=== PATIENT | female | born 1950 | race Caucasian/White ===

== ENCOUNTER 2020-03-17 11:20 | Inpatient (IN) ==
[2020-03-17] MEDS ORDERED: IOPAMIDOL 100 ML BOTTLE IV ONE (11:21)
[2020-03-17] MEDS ORDERED: ACETAMINOPHEN 325 MG TABLET PO ONE (11:51)
[2020-03-17] MEDS ORDERED: 0.9 % SODIUM CHLORIDE 500 ML IV ONE (11:51)
--- NOTE | 2020-03-17 12:03 | Emergency Department Note ---
HPI General Chief complaint: Urogenital-Female Stated complaint: possible UTI Time Seen by Provider: 03/17/20 11:25 Source: patient Mode of arrival: ambulatory Limitations: physical limitation (Patient is profoundly morbidly obese making the abdominal exam very difficult.) History of Present Illness HPI Narrative: Narrative: 69-year-old female patient presents emergency department with chief complaint of persistent fevers and "wanting to be checked out". Patient was seen in the emergency department initially on 03/02 and diagnosed with gastroenteritis. She was treated conservatively with oral Zofran and told to follow-up with her primary care provider. Unfortunately, she returned on 03/04 and during that time was diagnosed with urinary tract infection. She was treated with a course of Macrobid. Urine culture obtained grew out E. coli that was pansensitive including to Macrobid. She denies dysuria. She admits to ongoing urinary frequency. She is wanting to make sure that the "infection has cleared". Today, she is somewhat vague on her chief complaint and mentions worsening chronic pain to the left shoulder. She mentions a longstanding history of arthritic changes and is currently being followed by orthopedic surgeon. She is scheduled to see Dr. Sanchez next month to sort this out. She generally is simply not feeling well. ROS: Denies headaches, tinnitus, or vision changes. 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 Denies runny nose, sinus congestion, or cough. Denies shortness of breath. Denies retrosternal chest pain or palpitations. Denies abdominal pain, nausea, vomiting, or diarrhea. Denies generalized or focal weakness. Related Data Home Medications Medication Instructions Recorded Confirmed atorvastatin 20 mg tablet 20 mg PO QDAY 08/28/19 03/17/20 metoprolol tartrate 50 mg tablet 50 mg PO BID 08/28/19 03/17/20 levothyroxine 50 mcg capsule 60 mcg PO .twice a week cap 03/13/20 03/17/20 tizanidine 4 mg tablet 4 mg PO Q8H PRN tab 03/13/20 03/13/20 apixaban [Eliquis] 5 mg PO BID 03/17/20 03/17/20 cyclosporine [Restasis] 1 drp OPHTHALMIC (EYE) Q12H 03/17/20 03/17/20 diltiazem HCl 120 mg PO BID 03/17/20 03/17/20 dulaglutide [Trulicity] 1.5 mg SUBCUT ONCE 03/17/20 03/17/20 gabapentin 540 mg PO TID 03/17/20 03/17/20 insulin glargine [Basaglar KwikPen 40 unit SUBCUT QDAY 03/17/20 03/17/20 U-100 Insulin] nystatin 10,000 applic TOPICAL PRN PRN 03/17/20 03/17/20 Previous Rx's Medication Instructions Recorded allopurinol 300 mg tablet 300 mg PO QDAY #90 tab 11/01/19 furosemide 80 mg tablet 80 mg PO BID #60 tab 12/17/19 potassium chloride 10 mEq 20 meq PO TID #180 cap 12/17/19 capsule,extended release trazodone 50 mg tablet 50 mg PO QHS PRN #30 tab 12/17/19 insulin glargine 100 unit/mL (3 40 unit SUB-Q QDAY #15 ml 12/27/19 mL) subcutaneous pen losartan 25 mg tablet 25 mg PO QDAY #90 tab 01/06/20 Allergies Allergy/AdvReac Type Severity Reaction Status Date / Time metformin Allergy Unknown Diarrhea Verified 03/13/20 11:06 morphine AdvReac Unknown Hallucinati Verified 03/13/20 11:06 ng Review of Systems ROS Narrative: Narrative: All systems ED: reviewed and negative except as stated. [facility] Narrative Patient History Narrative: Narrative: Medical/Surgical/Family History All Active Problems (Updated 03/17/20 @ 16:14 by Chi Franco PA-C) Sepsis (Acute) Acute interstitial pneumonia (Acute) Panniculitis (Acute) Morbid obesity (Acute) Chronic left shoulder pain (Acute) Morbid obesity with BMI of 50.0-59.9, adult (Acute) Gastroenteritis (Acute) Acute UTI (Acute) Dehydration (Acute) Diabetes mellitus with hyperglycemia (Acute) Thyroid trouble (Chronic) Joint pain (Chronic) High blood pressure (Chronic) Congestive heart failure (Chronic) Gout (Chronic) Gallbladder problem (Chronic) Blood disorder (Chronic) Asthma (Chronic) Medical History Asthma (Chronic) Blood disorder (Chronic) Factor 5 Congestive heart failure (Chronic) Gallbladder problem (Chronic) Has been removed. Gout (Chronic) High blood pressure (Chronic) Joint pain (Chronic) Left shoulder. Thyroid trouble (Chronic) Type 2 diabetes mellitus (Inactive) Surgical History History of appendectomy (Chronic) History of cholecystectomy (Chronic) History of hernia repair (Chronic) Ventral History of hip replacement (Chronic) History of hysterectomy (Chronic) History of knee surgery (Chronic ~1967) Knee arthroscopy with medial meniscectomy History of oophorectomy (Chronic) History of removal of ovarian cyst (Chronic) Family History Mother Arthritis Brother Diabetes Father Heart attack Social History Smoking Status: Never smoker Alcohol Intake Frequency: does not drink Substance Use: does not use Exam Narrative Narrative: Narrative: General Limitations: physical limitation (Patient is profoundly morbidly obese making the abdominal exam very difficult.) General appearance: other (Well-developed, well-nourished, morbidly obese 69-year-old female patient laying semierect gurney in no acute respiratory distress. She is speaking full complete sentences. She is not using accessory muscles. No nasal flaring. We had considerable difficulties obtaining SPO2 using a finger probe due to distal cyanosis. Central probe on the forehead showed a 100% SPO2.) Head Head: atraumatic and normocephalic Expanded Head Head physical: Present other (Right-sided facial droop noted.) Eye Eye: Present normal appearance, PERRL and EOMI; Absent scleral icterus and conjunctival injection ENT ENT: Present normal oropharynx and mucous membranes dry Neck Neck: Present normal inspection and full ROM; Absent lymphadenopathy Chest Chest: Present symmetric chest wall rise Respiratory Respiratory: Present decreased breath sounds (Breath sounds are distant due to body habitus. No adventitious sounds noted.); Absent respiratory distress, rales/crackles, wheezes, accessory muscle use and prolonged expiratory phase Cardiovascular Cardiovascular: Present normal rhythm, tachycardia, systolic murmur and diastolic murmur Adbominal Abdominal: Present soft, distention, diminished bowel sounds, organomegaly (Unable to appreciate organomegaly associated with significant obesity.) and other (Patient has considerably large pannus. This was lifted to reveal significant excoriations to both right and left sides. Patient has been applying cream so there was some moisture in lather associated with this. Patient had been placing a barrier piece of fabric which was removed. No obvious ulcerations. No obvious drainage.); Absent tenderness, guarding, rebound and rigidity Extremities Extremities: Present tenderness (Exquisite tenderness palpation throughout the entire left shoulder joint) and cyanosis (Distal cyanosis to the upper extremities noted.); Absent full ROM (Decreased range of motion to the left shoulder joint.), normal capillary refill (Fingertips have a bluish tint throughout. Capillary refill decreased to 3 seconds.) and pedal edema Neurological Neurological: Present alert and oriented X3 Psychiatric Psychiatric: Present normal affect, normal mood and pleasant Skin Skin: Present warm, dry, rash (To pannus) and cyanosis (To fingertips) Course Course Course Narrative: Patient is very pleasant upon arrival and has. She mentions chronic left shoulder pain but her real issue is wanting to be checked out to ensure that the urinary tract infection has resolved. She is febrile and somewhat tachycardic in the emergency department. We had considerable difficulty obtaining an SPO2 at the fingertips. SPO2 centrally was at 100% on room air. Due to her significant comorbidities and fever were going to order portable chest x-ray, screening laboratory studies, and provider acetaminophen 975 mg p.o. Patient had somewhat dry mucous membranes and will be provided 500 mL normal saline. Upon reevaluation patient is resting comfortably in emergency room [facility]. A review of her diagnostics show the following: CBC WBC 18.4, RBC 4.68, hemoglobin 14.0, crit of 43.7, platelets 247. CMP chloride 95, glucose 171, all others normal limits. Lactic acid 2.4. Procalcitonin 0.08. Urinalysis showing clear yellow urine specific gravity 1.016, no clear evidence of infection. Portable chest x-ray showing no acute abnormality. After reviewing all the data I went discussed these findings briefly with the patient. She appears to be septic. Knowing this, blood cultures were ordered. Patient was started on Zosyn 3.337 g IV in conjunction with vancomycin (dosed per the pharmacy). I discussed the case briefly my collaborating physician (Dr. Alarcon) who also evaluated the patient. She does have considerable inflammation, excoriation, and skin breakdown to her pannus. This may be the site of infection. This could also be fungal infections with Dr. Alarcon recommended starting fluconazole IV. Afterward, I reached out to the hospitalist (Dr. Abel) about possibly admitting the patient here for ongoing care. The hospitalist recommended obtaining CT scan with contrast of the chest, abdomen, and pelvis prior to make a determination for admission. The CT scans was ordered as requested. CT scan with contrast of the chest, abdomen, and pelvis read by the radiologist. There was noted a large fluid collection in the right anterior abdominal wall. Radiologist mentioned this is likely a seroma or chronic hematoma following a prior hernia repair. He mentioned there is been no change to suggest that this is developed into an abscess. Several small cysts in the pancreas were noted. These are likely benign versus malignant. She also mentioned mild pneumonia to the right lower lobe with subtle interstitial infiltrate left lower lobe. After reviewing this new data I reached back out to the hospitalist (Dr. Abel) and discussed the findings. At this time the hospitalist has consented to admit the patient for ongoing care. He was going to consult with the radiologist about possible drainage of this fluid collection. All further treatment decisions, modalities, and ultimate patient disposition will be carried out by the hospitalist. Vital Signs Vital signs: Vital Signs Temperature 98.7 F 03/17/20 11:22 Pulse Rate 108 H 03/17/20 11:22 Respiratory Rate 16 03/17/20 11:22 Blood Pressure 122/57 03/17/20 11:22 Pulse Oximetry (%) 85 L 03/17/20 11:22 Temperature 101.0 F H 03/17/20 16:45 Pulse Rate 99 H 03/17/20 16:45 Respiratory Rate 24 H 03/17/20 16:45 Blood Pressure 115/56 03/17/20 16:45 Pulse Oximetry (%) 98 03/17/20 16:45 [facility] MDM Narrative Medical decision making narrative: Narrative: Lab Data Lab results reviewed: Yes I reviewed the patient's lab results. Result diagrams: 03/17/20 12:00 03/17/20 12:00 Labs: Lab Results 03/17/20 03/17/20 03/17/20 Range/Units 12:00 12:00 12:00 WBC 18.4 H (4.50-11.00) K/mcL RBC 4.68 (3.59-5.38) M/mcL Hgb 14.0 (11.2-15.7) g/dL Hct 43.7 (34.1-44.9) % MCV 93.4 (80.0-100.0) fL MCH 29.9 (26.0-34.0) pg MCHC 32.0 (31.0-36.0) g/dL RDW 16.1 H (11.5-14.5) % Plt Count 247 (140-440) K/mcL MPV 11.2 H (7.4-10.4) fL Gran % 88.5 H (38.0-78.0) % Lymph % (Auto) 6.3 L (15.5-49.0) % [place] % (Auto) 4.8 (1.0-12.0) % Eos % (Auto) 0.1 (0.0-7.0) % Baso % (Auto) 0.3 (0.0-2.0) % Gran # 16.32 H (1.80-8.00) K/mcL Lymph # (Auto) 1.16 L (1.50-4.80) K/mcL [place] # (Auto) 0.89 (0.10-0.90) K/mcL Eos # (Auto) 0.01 (0.00-0.70) K/mcL Baso # (Auto) 0.05 (0.00-0.30) K/mcL VBG Lactic Acid 2.4 H (0.5-2.0) mmol/L Sodium 138 (133-145) mmol/L Potassium 4.2 (3.3-5.1) mmol/L Chloride 95 L (96-108) mmol/L Carbon Dioxide 29 (22-30) mmol/L Anion Gap 14.0 (8-16) BUN 14 (8-23) mg/dl Creatinine 0.8 (0.6-1.1) mg/dl GFR Calculation 75 Glucose 171 H (70-105) mg/dL Calcium 8.8 (8.6-10.4) mg/dl Total Bilirubin 0.8 (0.0-1.0) mg/dL AST 11 (0-37) U/l ALT 10 (0-40) U/l Alkaline Phosphatase 68 (39-117) U/L Total Protein 6.7 (5.9-8.4) gm/dL Albumin 3.4 (3.2-5.2) gm/dL Globulin 3.3 (2.2-3.7) gm/dL Albumin/Globulin Ratio 1.0 (1.0-2.3) Procalcitonin (<0.10) ng/mL Urine Color Urine Appearance Urine pH (5.0-9.0) Ur Specific [place] (1.000-1.035) Urine Protein (NEG) mg/dL Urine Glucose (UA) (NEG) mg/dL Urine Ketones (NEG) mg/dL Urine Occult Blood (<0.03) mg/dL Urine Nitrate (NEG) Urine Bilirubin (NEG) mg/dL Urine Urobilinogen (NEG) mg/dL Ur Leukocyte Esterase (NEG) /uL Urine RBC (0-1) /hpf Urine WBC (0-4) /hpf Ur Squamous Epith Cells (0-4) /hpf Urine Bacteria (0) /hpf Hyaline Casts (0-2) /lpf Urine Mucus (0) /hpf 03/17/20 03/17/20 Range/Units 12:00 12:02 WBC (4.50-11.00) K/mcL RBC (3.59-5.38) M/mcL Hgb (11.2-15.7) g/dL Hct (34.1-44.9) % MCV (80.0-100.0) fL MCH (26.0-34.0) pg MCHC (31.0-36.0) g/dL RDW (11.5-14.5) % Plt Count (140-440) K/mcL MPV (7.4-10.4) fL Gran % (38.0-78.0) % Lymph % (Auto) (15.5-49.0) % [place] % (Auto) (1.0-12.0) % Eos % (Auto) (0.0-7.0) % Baso % (Auto) (0.0-2.0) % Gran # (1.80-8.00) K/mcL Lymph # (Auto) (1.50-4.80) K/mcL [place] # (Auto) (0.10-0.90) K/mcL Eos # (Auto) (0.00-0.70) K/mcL Baso # (Auto) (0.00-0.30) K/mcL VBG Lactic Acid (0.5-2.0) mmol/L Sodium (133-145) mmol/L Potassium (3.3-5.1) mmol/L Chloride (96-108) mmol/L Carbon Dioxide (22-30) mmol/L Anion Gap (8-16) BUN (8-23) mg/dl Creatinine (0.6-1.1) mg/dl GFR Calculation Glucose (70-105) mg/dL Calcium (8.6-10.4) mg/dl Total Bilirubin (0.0-1.0) mg/dL AST (0-37) U/l ALT (0-40) U/l Alkaline Phosphatase (39-117) U/L Total Protein (5.9-8.4) gm/dL Albumin (3.2-5.2) gm/dL Globulin (2.2-3.7) gm/dL Albumin/Globulin Ratio (1.0-2.3) Procalcitonin 0.08 (<0.10) ng/mL Urine Color Yellow Urine Appearance Clear Urine pH 5.0 (5.0-9.0) Ur Specific [place] 1.016 (1.000-1.035) Urine Protein Neg (NEG) mg/dL Urine Glucose (UA) Negative (NEG) mg/dL Urine Ketones Neg (NEG) mg/dL Urine Occult Blood Neg (<0.03) mg/dL Urine Nitrate Neg (NEG) Urine Bilirubin Neg (NEG) mg/dL Urine Urobilinogen Neg (NEG) mg/dL Ur Leukocyte Esterase Neg (NEG) /uL Urine RBC < 1 (0-1) /hpf Urine WBC < 1 (0-4) /hpf Ur Squamous Epith Cells < 1 (0-4) /hpf Urine Bacteria 0 (0) /hpf Hyaline Casts 2 (0-2) /lpf Urine Mucus Few (0) /hpf Radiology Data Radiology results reviewed: Yes I reviewed the patient's radiology results. Radiology results narrative: Ordering Physician: Chi Franco PA-C Date of Service: 03/17/20 Procedure(s): XR chest 1V portable Accession Number(s): [id number] HISTORY: History of congestive heart failure and possible infection FINDINGS: There are two thin linear bands of scar tissue laterally in the left mid and lower thorax. The lungs are otherwise clear without evidence of pneumonia or congestive heart failure. Heart size is upper limits of normal but magnified by portable technique. There is no pleural effusion. Comparison with the prior exam from 04/29/19 shows no change. IMPRESSION: No acute abnormality Interpreted and Authenticated by: Zacarias Brooks 03/17/20 Ordering Physician: Chi Franco PA-C Date of Service: 03/17/20 Procedure(s): CT chest abdomen pelvis w con Accession Number(s): [id number] History: Sepsis unknown known origin TECHNIQUE: Following injection of intravenous nonionic contrast the patient was scanned from the thoracic inlet through the symphysis pubis. Sagittal, coronal and axial MIPS images of the chest were obtained. The radiation exposure was limited using dose reduction technology. FINDINGS: CHEST: There are a few linear bands of scar tissue in the lingula and right middle lobe. A small interstitial infiltrate is developed posteriorly and laterally in the right lower lobe and there is also thickening of the interlobular septa in the posterior basal segment of the left lower lobe. Scarring in the right middle lobe and lingula is unchanged from prior chest CT done on 04/26/19. The interstitial infiltrates in the lung bases have developed since that time. There is no lobar consolidation. There is also no evidence of lung mass, abscess or pleural effusion. There are a few reactive lymph nodes in the mediastinum. Heart size is normal. The central pulmonary arteries are normal. Peripheral pulmonary arteries cannot be evaluated due to washout of contrast. Aorta is normal in caliber. Abdomen and pelvis: The liver and spleen are normal in size and homogeneous. Gallbladder and appendix have been removed. The bile ducts are nondilated. There few cysts in the pancreas. The largest is in the mid body and measures 1.2 x 1.4 cm. This has not changed since 04/26/19. There are other smaller cysts in and adjacent to the neck of the pancreas which measure up to 7 mm. These were not seen on the prior exam. No solid mass is seen in the pancreas. There is no evidence of acute pancreatitis. No calcifications are present in the pancreas in the duct is nondilated. There is a moderate size duodenal diverticulum along the medial side of the second portion which measures 3.5 x 4.4 cm. It hasn't enlarged. There is no surrounding inflammation. The adrenals and kidneys are normal. The aorta is normal in caliber. There are few small scattered plaques in the distal aorta and the iliac arteries. Patient has had prior ventral hernia repair. There is mesh anteriorly in the right side of the mid abdomen and upper pelvis. Lateral to the mesh there is a large loculated fluid collection in the deep subcutaneous fat. Measures 7.1 x 14 x 19 cm. There is little inflammation of the surrounding fat. This is a chronic finding with little change since 04/26/19. No intra-abdominal or pelvic abscess are present. Patient has metal bilateral hip prosthesis which creates significant beam hardening artifact through the lower pelvis. The urinary bladder is decompressed by a catheter. Uterus and ovaries cannot be evaluated. IMPRESSION: Large fluid collection in the right anterior abdominal wall. This is probably a seroma or chronic hematoma following a prior hernia repair There is been no change to suggest that this is developed into an abscess. Several small cysts in the pancreas which have increased in number since 2019. These are more likely benign than malignant. Mild pneumonia in the right lower lobe with subtle interstitial infiltrate in left lower lobe Chi Franco was called with the results Interpreted and Authenticated by: Zacarias Brooks 03/17/20 Discharge Plan Patient/Caregiver Discharge Instructions Pt seen by HEMSTITCHER/PA only: Yes Clinical Impression: Acute interstitial pneumonia, Panniculitis, Morbid obesity, Chronic left shoulder pain Sepsis Qualifiers: Sepsis type: sepsis due to unspecified organism Sepsis acute organ dysfunction status: without acute organ dysfunction Qualified Code(s): A41.9 - Sepsis, unspecified organism Patient Disposition: Xfer As Inpt ([facility]) Discharge Date/Time: 03/17/20 16:43
--- NOTE | 2020-03-17 12:35 | XRay Report ---
HISTORY: History of congestive heart failure and possible infection FINDINGS: There are two thin linear bands of scar tissue laterally in the left mid and lower thorax. The lungs are otherwise clear without evidence of pneumonia or congestive heart failure. Heart size is upper limits of normal but magnified by portable technique. There is no pleural effusion. Comparison with the prior exam from 04/29/19 shows no change. IMPRESSION: No acute abnormality Interpreted and Authenticated by: Zacarias Brooks 03/17/20
[2020-03-17 12:58] LABS: Basophils # (Auto) 0.05 K/mcL (0.00-0.30); Basophils % (Auto) 0.3 % (0.0-2.0); Eosinophils # (Auto) 0.01 K/mcL (0.00-0.70); Eosinophils % (Auto) 0.1 % (0.0-7.0); Granulocytes % (Auto) 88.5 % (38.0-78.0); Hematocrit 43.7 % (34.1-44.9); Lymphocytes # (Auto) 1.16 K/mcL (1.50-4.80); Lymphocytes % (Auto) 6.3 % (15.5-49.0); Mean Cell Volume 93.4 fL (80.0-100.0); Mean Platelet Volume 11.2 fL (7.4-10.4); Monocytes # (Auto) 0.89 K/mcL (0.10-0.90); Monocytes % (Auto) 4.8 % (1.0-12.0); Platelet Count 247 K/mcL (140-440); RBC 4.68 M/mcL (3.59-5.38); Red Cell Distribution Width 16.1 % (11.5-14.5); WBC 18.4 K/mcL (4.50-11.00)
[2020-03-17 13:04] LABS: Appearance,Urine CLEAR; Bacteria,Urine 0 /hpf (0); Bilirubin,Urine NEG (NEG); Color,Urine YELLOW; Glucose,Urine (UA) NEGATIVE (NEG); Ketones,Urine NEG (NEG); Leukocyte Esterase,Urine NEG /uL (NEG); Mucus,Urine FEW /hpf (0); Nitrate,Urine NEG (NEG); Protein,Urine NEG (NEG); Specific Gravity,Urine 1.016 (1.000-1.035); Urine Blood NEG mg/dL (<0.03); Urine Hyaline Cast 2 /lpf (0-2); Urine RBC < 1 /hpf (0-1); Urine Squamous Epithelial Cell < 1 /hpf (0-4); Urine WBC < 1 /hpf (0-4); Urobilinogen,Urine NEG (NEG)
[2020-03-17] MEDS ORDERED: PIPERACILLIN SODIUM/TAZOBACTAM 3.375 GM in DEXTROSE 5% IN WATER 50 ML IV ONE (13:24)
[2020-03-17] MEDS ORDERED: VANCOMYCIN PER PHARMACY IV ONE ×2 (13:24→16:45)
[2020-03-17] MEDS ORDERED: 0.9 % SODIUM CHLORIDE 1,000 ML IV ONE (13:26)
[2020-03-17 13:28] LABS: ALT/SGPT 10 U/l (0-40); AST/SGOT 11 U/l (0-37); Albumin 3.4 gm/dL (3.2-5.2); Alkaline Phosphatase 68 U/L (39-117); Bilirubin,Total 0.8 mg/dL (0.0-1.0); Blood Urea Nitrogen 14 mg/dl (8-23); Calcium 8.8 mg/dl (8.6-10.4); Carbon Dioxide 29 mmol/L (22-30); Chloride 95 mmol/L (96-108); Globulin 3.3 gm/dL (2.2-3.7); Glomerular Filtration Rate 75; Glucose 171 mg/dL (70-105)
[2020-03-17] MEDS ORDERED: VANCOMYCIN 1,500 MG in 0.9 % SODIUM CHLORIDE 500 ML IV ONE (13:45)
[2020-03-17] MEDS ORDERED: FLUCONAZOLE 200 MG/100 ML BAG IV SCH (14:00)
[2020-03-17] MEDS ORDERED: IBUPROFEN 200 MG TABLET PO ONE (14:39)
[2020-03-17] MEDS ORDERED: 0.9 % SODIUM CHLORIDE 1,000 ML IV SCH ×3 (15:15→16:45)
--- NOTE | 2020-03-17 15:32 | Cat Scan Report ---
History: Sepsis unknown known origin TECHNIQUE: Following injection of intravenous nonionic contrast the patient was scanned from the thoracic inlet through the symphysis pubis. Sagittal, coronal and axial MIPS images of the chest were obtained. The radiation exposure was limited using dose reduction technology. FINDINGS: CHEST: There are a few linear bands of scar tissue in the lingula and right middle lobe. A small interstitial infiltrate is developed posteriorly and laterally in the right lower lobe and there is also thickening of the interlobular septa in the posterior basal segment of the left lower lobe. Scarring in the right middle lobe and lingula is unchanged from prior chest CT done on 04/26/19. The interstitial infiltrates in the lung bases have developed since that time. There is no lobar consolidation. There is also no evidence of lung mass, abscess or pleural effusion. There are a few reactive lymph nodes in the mediastinum. Heart size is normal. The central pulmonary arteries are normal. Peripheral pulmonary arteries cannot be evaluated due to washout of contrast. Aorta is normal in caliber. Abdomen and pelvis: The liver and spleen are normal in size and homogeneous. Gallbladder and appendix have been removed. The bile ducts are nondilated. There few cysts in the pancreas. The largest is in the mid body and measures 1.2 x 1.4 cm. This has not changed since 04/26/19. There are other smaller cysts in and adjacent to the neck of the pancreas which measure up to 7 mm. These were not seen on the prior exam. No solid mass is seen in the pancreas. There is no evidence of acute pancreatitis. No calcifications are present in the pancreas in the duct is nondilated. There is a moderate size duodenal diverticulum along the medial side of the second portion which measures 3.5 x 4.4 cm. It hasn't enlarged. There is no surrounding inflammation. The adrenals and kidneys are normal. The aorta is normal in caliber. There are few small scattered plaques in the distal aorta and the iliac arteries. Patient has had prior ventral hernia repair. There is mesh anteriorly in the right side of the mid abdomen and upper pelvis. Lateral to the mesh there is a large loculated fluid collection in the deep subcutaneous fat. Measures 7.1 x 14 x 19 cm. There is little inflammation of the surrounding fat. This is a chronic finding with little change since 04/26/19. No intra-abdominal or pelvic abscess are present. Patient has metal bilateral hip prosthesis which creates significant beam hardening artifact through the lower pelvis. The urinary bladder is decompressed by a catheter. Uterus and ovaries cannot be evaluated. IMPRESSION: Large fluid collection in the right anterior abdominal wall. This is probably a seroma or chronic hematoma following a prior hernia repair There is been no change to suggest that this is developed into an abscess. Several small cysts in the pancreas which have increased in number since 2019. These are more likely benign than malignant. Mild pneumonia in the right lower lobe with subtle interstitial infiltrate in left lower lobe Chi Franco was called with the results Interpreted and Authenticated by: Zacarias Brooks 03/17/20
--- NOTE | 2020-03-17 16:18 | Internal Med History&Physical ---
HPI History of Present Illness Patient information: Note initiated : 03/17/20 at 4:05 pm Service Date, if different from initiated Date: [] Patient: Rahel Grover 69 y/o F admitted on for possible UTI. Chief Complaint: [] History of present illness: Ms. Grover is a 69 year old F 6-year-old female presents to the ED with fevers. Patient was first seen on March 02 in the ED for gastroenteritis, symptoms of nausea vomiting, and then returned to the ED on the was diagnosed with UTI. Cultures eventually grew out E. coli which was pansensitive. Denies dysuria. Generally feels unwell feels like she has not improved since last ED visit. She does complain of occasional headaches and continues to feel feverish and lethargic. In the ED she had a she chest x-ray which was unrevealing. Had a urinalysis which was unrevealing for infection. Was noted to have intertrigo on her trunk. She was febrile in the ED and found to have a leukocytosis. Lactate was mildly elevated. CT chest abdomen pelvis to better evaluate lungs and abdomen given the mild hypoxia and also undetermined source of infection. CT chest showed a little bit of interstitial infiltrate posterior and lateral right lower lobe. Little bit in the left base but otherwise unremarkable. CT abdomen showed a large fluid collection in the right lower lateral abdominal wall which was 7 x 14 x 19 cm which is similar to previous imaging. She denies any chest pain, she denies any shortness of breath or coughing or any respiratory symptoms at all. She has intertrigo in the abdominal pannus skin fold. She reports itching of that region. She resides at [facility]. She otherwise has no abdominal pain or pain. ER report reported a low oxygen saturation but when I went in there she was 97- 100% on room air. Review of Systems: Pertinent positives above. Denies vomiting/chest or abdominal pain/cough/dyspnea/diarrhea. Remaining 10 point review of system reviewed negative. [facility] Medical History Asthma (Chronic) Blood disorder (Chronic) Factor 5 Congestive heart failure (Chronic) Gallbladder problem (Chronic) Has been removed. Gout (Chronic) High blood pressure (Chronic) Joint pain (Chronic) Left shoulder. Thyroid trouble (Chronic) Type 2 diabetes mellitus (Inactive) Surgical History History of appendectomy (Chronic) History of cholecystectomy (Chronic) History of hernia repair (Chronic) Ventral History of hip replacement (Chronic) History of hysterectomy (Chronic) History of knee surgery (Chronic ~1967) Knee arthroscopy with medial meniscectomy History of oophorectomy (Chronic) History of removal of ovarian cyst (Chronic) Family History Mother Arthritis Brother Diabetes Father Heart attack Social History marital status: occupational status: retired smoking status: Never smoker alcohol intake frequency: does not drink substance use type: does not use MEDS/ALLERGIES Home Medications and Allergies Home Medications Medication Instructions Recorded Confirmed Type atorvastatin 20 mg tablet 20 mg PO QDAY 08/28/19 03/17/20 History diltiazem HCl 120 mg tablet 120 mg PO BID tab 08/28/19 03/17/20 History metoprolol tartrate 50 mg tablet 50 mg PO BID 08/28/19 03/17/20 History allopurinol 300 mg tablet 300 mg PO QDAY #90 tab 11/01/19 03/13/20 Rx furosemide 80 mg tablet 80 mg PO BID #60 tab 12/17/19 03/17/20 Rx potassium chloride 10 mEq 20 meq PO TID #180 cap 12/17/19 03/17/20 Rx capsule,extended release trazodone 50 mg tablet 50 mg PO QHS PRN #30 tab 12/17/19 03/17/20 Rx insulin glargine 100 unit/mL (3 40 unit SUB-Q QDAY #15 ml 12/27/19 03/13/20 Rx mL) subcutaneous pen losartan 25 mg tablet 25 mg PO QDAY #90 tab 01/06/20 03/17/20 Rx levothyroxine 50 mcg capsule 60 mcg PO .twice a week cap 03/13/20 03/17/20 History tizanidine 4 mg tablet 4 mg PO Q8H PRN tab 03/13/20 03/13/20 History apixaban [Eliquis] 5 mg PO BID 03/17/20 03/17/20 History cyclosporine [Restasis] 1 drp OPHTHALMIC (EYE) Q12H 03/17/20 03/17/20 History dulaglutide [Trulicity] 1.5 mg SUBCUT ONCE 03/17/20 03/17/20 History gabapentin 540 mg PO TID 03/17/20 03/17/20 History insulin glargine [Basaglar KwikPen 40 unit SUBCUT QDAY 03/17/20 03/17/20 History U-100 Insulin] nystatin 10,000 applic TOPICAL PRN PRN 03/17/20 03/17/20 History Allergies Allergy/AdvReac Type Severity Reaction Status Date / Time metformin Allergy Unknown Diarrhea Verified 03/13/20 11:06 morphine AdvReac Unknown Hallucinati Verified 03/13/20 11:06 ng EXAM Constitutional Vitals: Temp Pulse Resp BP Pulse Ox 98.6 F 96 H 35 H 150/72 96 03/17/20 15:44 03/17/20 16:02 03/17/20 16:02 03/17/20 16:01 03/17/20 16:02 Exam: General: Alert, Awake, No acute Distress, obese Eyes/N/T: EOMI, PERRL, dry MM Head/Neck: neck supple, normocephalic atraumatic CV: RRR, No murmurs, normal s1/s2 Pulm: Clear b/l, no wheezing/rhonchi/rales Abd: soft, nontender, +BS x4, candidal intertrigo and malodorous Ext: no clubbing/cyanosis/edema Neuro: Alert, no focal deficits, moves all extremities, CN 2-12 grossly intact, symmetrical strength b/l upper/lower, sensations intact b/l upper/lower Skin: warm/dry DATA Data Completed and Pending Labs on day of discharge: Labs from last 24 hours 03/17/20 03/17/20 03/17/20 12:02 12:00 12:00 WBC RBC Hgb Hct MCV MCH MCHC RDW Plt Count MPV Gran % Lymph % (Auto) Evans % (Auto) Eos % (Auto) Baso % (Auto) Gran # Lymph # (Auto) Evans # (Auto) Eos # (Auto) Baso # (Auto) VBG Lactic Acid 2.4 H Sodium Potassium Chloride Carbon Dioxide Anion Gap BUN Creatinine GFR Calculation Glucose Calcium Total Bilirubin AST ALT Alkaline Phosphatase Total Protein Albumin Globulin Albumin/Globulin Ratio Procalcitonin 0.08 Urine Color Yellow Urine Appearance Clear Urine pH 5.0 Ur Specific Pelsor 1.016 Urine Protein Neg Urine Glucose (UA) Negative Urine Ketones Neg Urine Occult Blood Neg Urine Nitrate Neg Urine Bilirubin Neg Urine Urobilinogen Neg Ur Leukocyte Esterase Neg Urine RBC < 1 Urine WBC < 1 Ur Squamous Epith Cells < 1 Urine Bacteria 0 Hyaline Casts 2 Urine Mucus Few 03/17/20 03/17/20 12:00 12:00 WBC 18.4 H RBC 4.68 Hgb 14.0 Hct 43.7 MCV 93.4 MCH 29.9 MCHC 32.0 RDW 16.1 H Plt Count 247 MPV 11.2 H Gran % 88.5 H Lymph % (Auto) 6.3 L Evans % (Auto) 4.8 Eos % (Auto) 0.1 Baso % (Auto) 0.3 Gran # 16.32 H Lymph # (Auto) 1.16 L Evans # (Auto) 0.89 Eos # (Auto) 0.01 Baso # (Auto) 0.05 VBG Lactic Acid Sodium 138 Potassium 4.2 Chloride 95 L Carbon Dioxide 29 Anion Gap 14.0 BUN 14 Creatinine 0.8 GFR Calculation 75 Glucose 171 H Calcium 8.8 Total Bilirubin 0.8 AST 11 ALT 10 Alkaline Phosphatase 68 Total Protein 6.7 Albumin 3.4 Globulin 3.3 Albumin/Globulin Ratio 1.0 Procalcitonin Urine Color Urine Appearance Urine pH Ur Specific Pels[place] Urine Protein Urine Glucose (UA) Urine Ketones Urine Occult Blood Urine Nitrate Urine Bilirubin Urine Urobilinogen Ur Leukocyte Esterase Urine RBC Urine WBC Ur Squamous Epith Cells Urine Bacteria Hyaline Casts Urine Mucus A/P Narrative A/P Narrative: Narrative: A: *Fever/early sepsis: source unknown but either 2/2 cutaneous entry from intertrigo vs fluid collection abdominal wall (although chronic) - *Large fluid collection Lower-lateral abdominal wall, chronic but concern given unknown source of infection *CT chest with mild infiltrate lower lobes: clinically does not present as PNA. No cough/dyspnea. She was 97-100% on room air when I examinaed her in ED. -Likely Atelectasis with restrictive component given obesity *Candidal intertrigo: *DM w/neuropathy: *HTN/HLD: *Morbid obesity: *Hypothyroidism: *Afib: sinus on admit, is on Dilt/BB/Apixaban *Factor V Leiden mutation: P: -Vanc/Zosyn, mrsa pcr pending -pending BC and fluid colletion culture -IVF -topical ketoconazole -cont home Dilt/ARB/BB -hold Lasix today -basal and SSI - -pt/ot -ppx: Home apixaban full code Time Spent With Patient Time: Total time spent is greater than 50% in coordination of care (as documented) at patient's floor/unit and/or counseling patient:
[2020-03-17] MEDS ORDERED: LACTULOSE 20 GM/30 ML ORAL.SOL PO PRN (16:45)
[2020-03-17] MEDS ORDERED: POTASSIUM CHLORIDE 40 MEQ in DEXTROSE 5% IN WATER 500 ML IV PRN (16:45)
[2020-03-17] MEDS ORDERED: METOCLOPRAMIDE 10 MG/2 ML VIAL IV PRN (16:45)
[2020-03-17] MEDS ORDERED: MAGNESIUM SULFATE 2 GM/50 ML BAG IV PRN (16:45)
[2020-03-17] MEDS ORDERED: POLYETHYLENE GLYCOL 3350 17 GM PACKET PO PRN (16:45)
[2020-03-17] MEDS ORDERED: DEXTROSE 50% 50 ML VIAL IV PRN (16:45)
[2020-03-17] MEDS ORDERED: POTASSIUM CHLORIDE 20 MEQ TABLET PO PRN ×2 (16:45)
[2020-03-17] MEDS ORDERED: ACETAMINOPHEN 325 MG TABLET PO PRN (16:45)
[2020-03-17] MEDS ORDERED: SENNOSIDES 1 TABLET PO PRN (16:45)
[2020-03-17] MEDS ORDERED: IPRATROPIUM/ALBUTEROL 3 ML AMPUL.NEB NEB PRN (16:45)
[2020-03-17] MEDS ORDERED: DEXTROSE 31 GM ORAL.SUSP PO PRN (16:45)
[2020-03-17] MEDS ORDERED: ONDANSETRON 4 MG/2 ML VIAL IV PRN (16:45)
[2020-03-17] MEDS ORDERED: METOPROLOL TARTRATE 5 MG/5 ML VIAL IV PRN (16:45)
[2020-03-17 17:33] LABS: INR 1.2 (0.9-1.1); Prothrombin Time 15.8 sec (11.9-14.5)
[2020-03-17] MEDS: HYDROcodone/APAP 5/325MG TABLET PO PRN ×2 (17:40→21:52)
[2020-03-17] MEDS: INSULIN LISPRO 1 UNIT/0.01 ML UNIT SQ SCH ×2 (17:51→20:58)
[2020-03-17] MEDS: PIPERACILLIN SODIUM/TAZOBACTAM 3.375 GM in DEXTROSE 5% IN WATER 50 ML IV SCH (19:14)
[2020-03-17] MEDS: DILTIAZEM 120 MG CAP.XL.24H PO SCH (20:59)
[2020-03-17] MEDS: METOPROLOL TARTRATE 50 MG TABLET PO SCH (20:59)
[2020-03-17] MEDS: DOCUSATE SODIUM 100 MG CAPSULE PO SCH (20:59)
[2020-03-17] MEDS: GABAPENTIN 300 MG CAPSULE PO SCH (20:59)
[2020-03-17] MEDS: CYCLOSPORINE OU SCH (21:03)
[2020-03-17] MEDS: 0.9 % SODIUM CHLORIDE 10 ML SYRINGE IV SCH (21:05)
[2020-03-17] MEDS: traZODone HCL 50 MG TABLET PO PRN (23:47)
[2020-03-18] MEDS: PIPERACILLIN SODIUM/TAZOBACTAM 3.375 GM in DEXTROSE 5% IN WATER 50 ML IV SCH ×4 (00:01→17:41)
[2020-03-18] MEDS: VANCOMYCIN 1,500 MG in 0.9 % SODIUM CHLORIDE 500 ML IV SCH ×3 (01:03→21:52)
[2020-03-18] MEDS: 0.9 % SODIUM CHLORIDE 10 ML SYRINGE IV SCH ×3 (05:37→21:54)
[2020-03-18 06:26] LABS: Basophils # (Auto) 0.05 K/mcL (0.00-0.30); Basophils % (Auto) 0.3 % (0.0-2.0); Eosinophils # (Auto) 0.07 K/mcL (0.00-0.70); Eosinophils % (Auto) 0.5 % (0.0-7.0); Hematocrit 39.6 % (34.1-44.9); Lymphocytes # (Auto) 2.84 K/mcL (1.50-4.80); Lymphocytes % (Auto) 19.1 % (15.5-49.0); Mean Cell Volume 96.4 fL (80.0-100.0); Mean Corpuscular HGB Conc 30.3 g/dL (31.0-36.0); Mean Platelet Volume 11.2 fL (7.4-10.4); Monocytes # (Auto) 1.21 K/mcL (0.10-0.90); Monocytes % (Auto) 8.1 % (1.0-12.0); Platelet Count 205 K/mcL (140-440); RBC 4.11 M/mcL (3.59-5.38); Red Cell Distribution Width 16.2 % (11.5-14.5); WBC 14.9 K/mcL (4.50-11.00)
[2020-03-18 06:38] LABS: ALT/SGPT 8 U/l (0-40); AST/SGOT 9 U/l (0-37); Albumin 2.7 gm/dL (3.2-5.2); Albumin/Globulin Ratio 0.9 (1.0-2.3); Alkaline Phosphatase 57 U/L (39-117); Bilirubin,Direct < 0.2 mg/dL (0.0-0.3); Bilirubin,Total 0.5 mg/dL (0.0-1.0); Blood Urea Nitrogen 12 mg/dl (8-23); Calcium 7.9 mg/dl (8.6-10.4); Carbon Dioxide 29 mmol/L (22-30); Chloride 99 mmol/L (96-108); Globulin 2.9 gm/dL (2.2-3.7); Glomerular Filtration Rate 88; Glucose 106 mg/dL (70-105); Lactate Dehydrogenase 173 U/L (94-250); Phosphorous 2.5 mg/dL (2.7-4.5); Triglycerides 95 mg/dl (<150); Uric Acid 4.5 mg/dL (2.5-8.0)
[2020-03-18 06:51] LABS: INR 1.1 (0.9-1.1)
--- NOTE | 2020-03-18 07:47 | Internal Med Progress Note ---
SUBJECTIVE Subjective Patient information: Note initiated : 03/18/20 at 7:41 am Service Date, if different from initiated Date: [] Patient: Rahel Grover 69 y/o F admitted on 03/17/20 for possible UTI. Chief Complaint: [] Interval history: Narrative: History of present illness: Ms. Grover is a 69 year old F 6-year-old female presents to the ED with fevers. Patient was first seen on March 02 in the ED for gastroenteritis, symptoms of nausea vomiting, and then returned to the ED on the was diagnosed with UTI. Cultures eventually grew out E. coli which was pansensitive. Denies dysuria. Generally feels unwell feels like she has not improved since last ED visit. She does complain of occasional headaches and continues to feel feverish and lethargic. In the ED she had a she chest x-ray which was unrevealing. Had a urinalysis which was unrevealing for infection. Was noted to have intertrigo on her trunk. She was febrile in the ED and found to have a leukocytosis. Lactate was mildly elevated. CT chest abdomen pelvis to better evaluate lungs and abdomen given the mild hypoxia and also undetermined source of infection. CT chest showed a little bit of interstitial infiltrate posterior and lateral right lower lobe. Little bit in the left base but otherwise unremarkable. CT abdomen showed a large fluid collection in the right lower lateral abdominal wall which was 7 x 14 x 19 cm which is similar to previous imaging. She denies any chest pain, she denies any shortness of breath or coughing or any respiratory symptoms at all. She has intertrigo in the abdominal pannus skin fold. She reports itching of that region. She resides at [facility]. She otherwise has no abdominal pain or pain. ER report reported a low oxygen saturation but when I went in there she was 97- 100% on room air. 03/18 Patient states she feels little better today. Patient did become hypoxic while sleeping last night and it was discovered she wears a CPAP at home with an oxygen concentrator. RT placed CPAP on her last night with good result. Dr. Brooks, radiologist, was able to drain 150 cc of fluid that appeared to be infected. Nursing on restaurant shift leader able to aspirate another 60 cc through the drain last night. Leukocytosis improving. Review of Systems: Review of Systems: denies headache/fever/chills/nausea/vomiting/chest or abdominal pain/cough/dyspnea/diarrhea. Otherwise see above. Constitutional Vitals: Vital Signs Temp Pulse Resp BP Pulse Ox 98.8 F 66 16 125/66 99 03/18/20 04:01 03/18/20 07:28 03/18/20 07:28 03/18/20 06:01 03/18/20 07:28 Period Temp Pulse Resp BP Sys/Blackwell Pulse Ox Last 24 Hr 98.6 F-101.0 F 66-117 11-35 86-160/45-111 59-100 Intake and Output 03/17/20 03/18/20 03/18/20 21:59 05:59 13:59 Intake Total 1200 1250 Output Total 400 660 Balance 800 590 Weight 138.799 kg Intake & Output: Intake & Output 03/17/20 03/18/20 03/18/20 21:59 05:59 13:59 Intake Total 1200 1250 Output Total 400 660 Balance 800 590 Weight 138.799 kg Intake: IV 1200 550 Sodium Chloride 0.9% 1,000 ml @ 1000 Wide Open IV BOLUS ONE Rx#: [id number] Zosyn 3.375 gm In Dextrose 5% 100 50 in Water 50 ml @ 100 mls/hr IV Q6H [facility] Rx#:[id number] Vancomycin 1,500 mg In Sodium 500 Chloride 0.9% 500 ml @ 333.3 mls/hr IV Q12H [facility] Rx#: [id number] Oral 700 Output: Drainage 60 Right Abdomen FARZANA Drain 60 Urine Catheter Amount 400 600 Other: Urine Appearance Clear Clear Uretheral ([place]) Clear Urine Color Bright Yellow Light Danay Uretheral ([place]) Bright Yellow Urine Odor Normal Normal Exam: General: Alert, Awake, No acute Distress, obese Eyes/N/T: EOMI, Head/Neck: neck supple, CV: RRR, No murmurs, Pulm: Clear b/l, no wheezing/rhonchi/rales Abd: soft, nontender, +BS x4, candidal intertrigo, FARZANA drain in place Ext: no clubbing/cyanosis/edema Neuro: Alert, no focal deficits, moves all extremities Skin: warm/dry OBJ DATA Labs CBC & Chem 7: 03/18/20 05:06 03/18/20 05:06 Labs: Abnormal Lab Results 03/18/20 03/18/20 03/18/20 05:06 05:06 05:06 WBC 14.9 H MCHC 30.3 L RDW 16.2 H MPV 11.2 H Gran % Lymph % (Auto) Gran # 10.68 H Lymph # (Auto) [place] # (Auto) 1.21 H PT 15.0 H INR VBG Lactic Acid Chloride Glucose 106 H Calcium 7.9 L Phosphorus 2.5 L Total Protein 5.6 L Albumin 2.7 L Albumin/Globulin Ratio 0.9 L 03/17/20 03/17/20 03/17/20 12:00 12:00 12:00 WBC MCHC RDW MPV Gran % Lymph % (Auto) Gran # Lymph # (Auto) [place] # (Auto) PT 15.8 H INR 1.2 H VBG Lactic Acid 2.4 H Chloride 95 L Glucose 171 H Calcium Phosphorus Total Protein Albumin Albumin/Globulin Ratio 03/17/20 12:00 WBC 18.4 H MCHC RDW 16.1 H MPV 11.2 H Gran % 88.5 H Lymph % (Auto) 6.3 L Gran # 16.32 H Lymph # (Auto) 1.16 L [place] # (Auto) PT INR VBG Lactic Acid Chloride Glucose Calcium Phosphorus Total Protein Albumin Albumin/Globulin Ratio Meds: Medications Acetaminophen (Tylenol) 650 mg PO Q6HP PRN PRN Reason: PAIN/FEVER > 101 Hydrocodone Bitart/Acetaminophen ([place] 5/325mg) 1 tab PO Q4HP PRN PRN Reason: PAIN LEVEL 3-6 Last Admin: 03/17/20 21:52 Dose: 1 tab Documented by: Albuterol/Ipratropium (Duoneb) 3 ml NEB Q4HP PRN PRN Reason: Shortness Of Breath Apixaban (Eliquis) 5 mg PO BID [facility] Atorvastatin Calcium (Lipitor) 20 mg PO QDAY [facility] Dextrose (Dextrose 50%) 0 ml IV UD PRN PRN Reason: Hypoglycemia Diagnostic Test (Pha) (Accu-Chek) 1 each FS ACHS [facility] Last Admin: 03/17/20 21:04 Dose: 1 each Documented by: Diltiazem HCl (Cardizem Sr) 120 mg PO BID [facility] Last Admin: 03/17/20 20:59 Dose: 120 mg Documented by: Docusate Sodium (Colace) 100 mg PO BID [facility] Last Admin: 03/17/20 20:59 Dose: 100 mg Documented by: Gabapentin (Neurontin) 600 mg PO TID [facility] Last Admin: 03/17/20 20:59 Dose: 600 mg Documented by: Glucose (Insta-Glucose) 15 gm PO PRN PRN PRN Reason: Hypoglycemia Potassium Chloride 40 meq/ (Dextrose) 520 mls @ 130 mls/hr IV UD PRN PRN Reason: Potassium < 3 Magnesium Sulfate (Magnesium Sulfate) 2 gm in 50 mls @ 50 mls/hr IV UD PRN PRN Reason: Magnesium </= 1.6 Piperacillin Sod/Tazobactam (Sod 3.375 gm/ Dextrose) 50 mls @ 100 mls/hr IV Q6H [facility]; Protocol Last Admin: 03/18/20 05:37 Dose: 100 mls/hr Documented by: Vancomycin HCl 1,500 mg/ (Sodium Chloride) 500 mls @ 333.3 mls/hr IV Q12H [facility] Last Infusion: 03/18/20 02:51 Dose: Infused Documented by: Insulin Glargine (Lantus) 40 unit SQ DAILY [facility] Insulin Human Lispro (Humalog) 0 unit SQ ACHS [facility]; Protocol Last Admin: 03/17/20 20:58 Dose: 6 units Documented by: Ketoconazole (Nizoral 2% Top Crm) 1 dose TOPICAL DAILY [facility] Lactulose (Cephulac) 20 gm PO DAILYP PRN PRN Reason: Constipation Levothyroxine Sodium (Synthroid) 150 mcg PO SuSa@0730 [facility] Levothyroxine Sodium (Synthroid) 100 mcg PO MoTuWeThFr@0730 [facility] Losartan Potassium (Cozaar) 25 mg PO QDAY [facility] Metoclopramide HCl (Reglan) 10 mg IV Q6HP PRN PRN Reason: Nausea And Vomiting Metoprolol Tartrate (Lopressor) 50 mg PO BID [facility] Last Admin: 03/17/20 20:59 Dose: 50 mg Documented by: Metoprolol Tartrate (Lopressor) 5 mg IV Q2HP PRN PRN Reason: Tachyarrhythmias HR>110 Non-Formulary Medication (Dulaglutide [Trulicity]) 1.5 mg SUB-Q ONCE [facility] Ondansetron HCl (Zofran) 4 mg IV Q4HP PRN PRN Reason: Nausea And Vomiting Cyclosporine ( Restasis) Ophthalmic Drops 1 dose OU BID [facility] Last Admin: 03/17/20 21:03 Dose: Not Given Documented by: Polyethylene Glycol (Miralax) 17 gm PO DAILYP PRN PRN Reason: Constipation Potassium Chloride (Kdur) 40 meq PO UD PRN PRN Reason: Potssium is 3-3.5 Potassium Chloride (Kdur) 40 meq PO UD PRN PRN Reason: Potassium < 3 Senna (Senokot) 2 tab PO DAILYP PRN PRN Reason: Constipation Sodium Chloride (Saline Flush) 10 ml IV Q8 [facility] Last Admin: 03/18/20 05:37 Dose: 10 ml Documented by: Trazodone HCl (Desyrel) 50 mg PO HSP PRN PRN Reason: insomnia Last Admin: 03/17/20 23:47 Dose: 50 mg Documented by: Vancomycin HCl (Vancomycin Per Pharmacy) 1 order IV ONCE ONE; Protocol Stop: 03/17/20 16:46 Last Admin: 03/17/20 18:39 Dose: Not Given Documented by: A/P Narrative A/P Narrative: A: *Fever/early sepsis: 2/2 abd wall abscess, also concern is cutaneous entry from candidal intertrigo -Leukocytosis improved *Abscess Lower-lateral abdominal wall, chronic but has become infected: s/p drainage (03/17) -drain in place *CT chest with mild infiltrate lower lobes: clinically does not present as PNA. No cough/dyspnea. She was 97-100% on room air when I examinaed her in ED. -Likely Atelectasis with restrictive component given obesity *Candidal intertrigo: *DM w/neuropathy: *HTN/HLD: *Severe obesity class III: *KANDIS: on CPAP *Hypothyroidism: *Afib: sinus on admit, is on Dilt/BB/Apixaban *Factor V Leiden mutation: P: -Vanc/Zosyn, -pending BC and abscess fluid culture -topical ketoconazole -cont nocturnal cpap/bipap -cont home Dilt/ARB/BB -restart home Lasix in AM -basal and SSI -pt/ot -ppx: Home apixaban full code Time Spent With Patient Time: Total time spent is greater than 50% in coordination of care (as documented) at patient's floor/unit and/or counseling patient: QUALITY VTE Deep Vein Thrombosis/Pulmonary Embolism Present on Admission: No
[2020-03-18] MEDS ORDERED: VANCOMYCIN PER PHARMACY IV SCH (08:00)
[2020-03-18] MEDS: INSULIN LISPRO 1 UNIT/0.01 ML UNIT SQ SCH ×4 (08:26→21:52)
[2020-03-18] MEDS: LEVOTHYROXINE 50 MCG TABLET PO SCH (08:30)
[2020-03-18] MEDS: METOPROLOL TARTRATE 50 MG TABLET PO SCH ×2 (08:36→21:54)
[2020-03-18] MEDS: LOSARTAN 25 MG TABLET PO SCH (08:36)
[2020-03-18] MEDS: GABAPENTIN 300 MG CAPSULE PO SCH ×3 (08:36→21:53)
[2020-03-18] MEDS: DILTIAZEM 120 MG CAP.XL.24H PO SCH ×2 (08:36→21:52)
[2020-03-18] MEDS: DOCUSATE SODIUM 100 MG CAPSULE PO SCH ×2 (08:36→21:53)
[2020-03-18] MEDS: INSULIN GLARGINE, HUMAN 1 UNIT/0.01 ML SQ SCH (08:38)
--- NOTE | 2020-03-18 09:03 | Ultrasound Report ---
History: Sepsis with abdominal abscess TECHNIQUE: The procedure and risks were explained the patient consented. Adjacent to the right anterior abdominal wall musculature in the deep subcutaneous tissues there is a well-circumscribed hypoechoic collection measures 14 x 16 cm. The overlying skin was prepped with ChloraPrep then anesthetized with 1% lidocaine. Using ultrasound guidance a Yueh needle was inserted. 2 cc of brown thick pus was aspirated. A 0.18 guidewire was then inserted. A tract was dilated. A 12 [place] multi sidehole drainage catheter was placed into the center of the collection. Approximately 150 cc of very thick pus was aspirated and sent to the laboratory for culture and Gram stain and sensitivity. There is still a large amount of thick pus in the collection which could not be easily aspirated. Catheter was connected to a Adam-Kenny bulb and secured to the skin surface. She tolerated the procedure well without complication. Images obtained following the aspiration show approximately 272 cc of residual pus. IMPRESSION: Successful insertion of a drainage catheter into a subcutaneous abscess in the right anterior abdominal wall. Interpreted and Authenticated by: Zacarias Brooks 03/18/20
--- NOTE | 2020-03-18 09:04 | XRay Report ---
HISTORY: Fever, hypoxia and interstitial bibasilar infiltrates FINDINGS: Mildly prominent increased interstitial lung markings are present in both lower lobes. These have not changed significantly since the prior chest CT done on 03/17/20. There is no lobar consolidation. No pleural effusion is present. The heart is mildly enlarged but magnified. There is no congestive heart failure. IMPRESSION: stable mild interstitial lung disease in both lung bases Interpreted and Authenticated by: Zacarias Brooks 03/18/20
[2020-03-18] MEDS ORDERED: SODIUM CHLORIDE 0.9% IJ SCH ×2 (11:00→21:00)
[2020-03-18] MEDS: CYCLOSPORINE OU SCH ×2 (11:00→20:35)
[2020-03-18] MEDS: KETOCONAZOLE 2% TOP CRM 15GM TUBE TOPICAL SCH (11:00)
[2020-03-18] MEDS ORDERED: ALTEPLASE IJ SCH ×2 (11:00→21:00)
[2020-03-18] MEDS: ATORVASTATIN 20 MG TABLET PO SCH (11:05)
[2020-03-18] MEDS: APIXABAN 5 MG TABLET PO SCH ×2 (11:05→21:54)
[2020-03-18] MEDS: HYDROcodone/APAP 5/325MG TABLET PO PRN ×2 (14:46→20:21)
[2020-03-18] MEDS: traZODone HCL 50 MG TABLET PO PRN (21:54)
[2020-03-19] MEDS: PIPERACILLIN SODIUM/TAZOBACTAM 3.375 GM in DEXTROSE 5% IN WATER 50 ML IV SCH ×4 (00:17→17:50)
[2020-03-19] MEDS: HYDROcodone/APAP 5/325MG TABLET PO PRN ×4 (05:16→20:03)
[2020-03-19] MEDS: 0.9 % SODIUM CHLORIDE 10 ML SYRINGE IV SCH ×3 (05:50→21:47)
[2020-03-19 06:20] LABS: Basophils # (Auto) 0.05 K/mcL (0.00-0.30); Basophils % (Auto) 0.4 % (0.0-2.0); Eosinophils # (Auto) 0.21 K/mcL (0.00-0.70); Eosinophils % (Auto) 1.6 % (0.0-7.0); Granulocytes % (Auto) 67.2 % (38.0-78.0); Hemoglobin 11.6 g/dL (11.2-15.7); Lymphocytes # (Auto) 3.04 K/mcL (1.50-4.80); Lymphocytes % (Auto) 23.8 % (15.5-49.0); Mean Corpuscular HGB Conc 29.7 g/dL (31.0-36.0); Mean Platelet Volume 10.9 fL (7.4-10.4); Monocytes # (Auto) 0.89 K/mcL (0.10-0.90); Platelet Count 209 K/mcL (140-440); RBC 4.02 M/mcL (3.59-5.38); Red Cell Distribution Width 16.2 % (11.5-14.5); WBC 12.8 K/mcL (4.50-11.00)
[2020-03-19 06:39] LABS: ALT/SGPT 6 U/l (0-40); AST/SGOT 12 U/l (0-37); Albumin 2.5 gm/dL (3.2-5.2); Albumin/Globulin Ratio 0.8 (1.0-2.3); Alkaline Phosphatase 50 U/L (39-117); Bilirubin,Direct < 0.2 mg/dL (0.0-0.3); Bilirubin,Total 0.5 mg/dL (0.0-1.0); Blood Urea Nitrogen 9 mg/dl (8-23); Carbon Dioxide 27 mmol/L (22-30); Chloride 99 mmol/L (96-108); Globulin 3.3 gm/dL (2.2-3.7); Glomerular Filtration Rate 92; Glucose 98 mg/dL (70-105); Lactate Dehydrogenase 199 U/L (94-250); Triglycerides 98 mg/dl (<150); Uric Acid 3.8 mg/dL (2.5-8.0)
[2020-03-19 06:42] LABS: Phosphorous 2.2 mg/dL (2.7-4.5)
[2020-03-19] MEDS: LEVOTHYROXINE 50 MCG TABLET PO SCH (07:28)
[2020-03-19] MEDS: INSULIN LISPRO 1 UNIT/0.01 ML UNIT SQ SCH ×4 (07:31→21:44)
--- NOTE | 2020-03-19 07:55 | Internal Med Progress Note ---
SUBJECTIVE Subjective Patient information: Note initiated : 03/19/20 at 7:53 am Service Date, if different from initiated Date: [] Patient: Rahel Grover 69 y/o F admitted on 03/17/20 for possible UTI. Chief Complaint: [] Interval history: History of present illness: Ms. Grover is a 69 year old F 6-year-old female presents to the ED with fevers. Patient was first seen on March 02 in the ED for gastroenteritis, symptoms of nausea vomiting, and then returned to the ED on the was diagnosed with UTI. Cultures eventually grew out E. coli which was pansensitive. Denies dysuria. Generally feels unwell feels like she has not improved since last ED visit. She does complain of occasional headaches and continues to feel feverish and lethargic. In the ED she had a she chest x-ray which was unrevealing. Had a urinalysis which was unrevealing for infection. Was noted to have intertrigo on her trunk. She was febrile in the ED and found to have a leukocytosis. Lactate was mildly elevated. CT chest abdomen pelvis to better evaluate lungs and abdomen given the mild hypoxia and also undetermined source of infection. CT chest showed a little bit of interstitial infiltrate posterior and lateral right lower lobe. Little bit in the left base but otherwise unremarkable. CT abdomen showed a large fluid collection in the right lower lateral abdominal wall which was 7 x 14 x 19 cm which is similar to previous imaging. She denies any chest pain, she denies any shortness of breath or coughing or any respiratory symptoms at all. She has intertrigo in the abdominal pannus skin fold. She reports itching of that region. She resides at [facility]. She otherwise has no abdominal pain or pain. ER report reported a low oxygen saturation but when I went in there she was 97- 100% on room air. 03/18 Patient states she feels little better today. Patient did become hypoxic while sleeping last night and it was discovered she wears a CPAP at home with an oxygen concentrator. RT placed CPAP on her last night with good result. Dr. Brooks, radiologist, was able to drain 150 cc of fluid that appeared to be infected. Nursing on car shifter able to aspirate another 60 cc through the drain last night. Leukocytosis improving. 03/19 Patient feeling well and got a good sleep last night. No issues overnight. O riginal Gram stain was negative. I did talk to laboratory they had planned on restaining given the appearance of the fluid, and original stain said no organsism. After the re-analyzing it appears there are gram positive cocci. Review of Systems: denies headache/fever/chills/nausea/vomiting/chest or abdominal pain/cough/dyspnea/diarrhea. Otherwise see above. Constitutional Vitals: Vital Signs Temp Pulse Resp BP Pulse Ox 98.2 F 67 16 119/56 95 03/19/20 00:01 03/19/20 06:00 03/19/20 06:40 03/19/20 06:00 03/19/20 07:16 Period Temp Pulse Resp BP Sys/Blackwell Pulse Ox Last 24 Hr 97.4 F-98.3 F 61-90 12-28 104-140/47-110 88-100 Intake and Output 03/18/20 03/19/20 03/19/20 21:59 05:59 13:59 Intake Total 495 1205 Output Total 403 1270 Balance 92 -65 Weight 141.702 kg Intake & Output: Intake & Output 03/18/20 03/19/20 03/19/20 21:59 05:59 13:59 Intake Total 495 1205 Output Total 403 1270 Balance 92 -65 Weight 141.702 kg Intake: IV 95 605 Zosyn 3.375 gm In Dextrose 5% 95 105 in Water 50 ml @ 100 mls/hr IV Q6H [facility] Rx#:[id number] Vancomycin 1,500 mg In Sodium 500 Chloride 0.9% 500 ml @ 333.3 mls/hr IV Q12H [facility] Rx#: [id number] Oral 400 600 Output: Drainage 3 95 Right Abdomen DECLAN Drain 3 95 Urine Catheter Amount 400 1175 Other: Urine Appearance Clear Clear Uretheral ([place]) Clear Clear Urine Color Straw Light Danay Uretheral ([place]) Straw Straw Urine Odor Normal Normal Uretheral ([place]) Normal Stool Size Large Stool Color Brown Stool Consistency Dry and Hard Exam: General: Alert, Awake, No acute Distress, obese Eyes/N/T: EOMI, Head/Neck: neck supple, CV: RRR, 1/6 SM, Pulm: Clear b/l, no wheezing/rhonchi/rales Abd: soft, nontender, +BS x4, candidal intertrigo, DECLAN drain in place Ext: no clubbing/cyanosis/edema Neuro: Alert, no focal deficits, moves all extremities Skin: warm/dry OBJ DATA Labs CBC & Chem 7: 03/19/20 05:10 03/19/20 05:10 Labs: Abnormal Lab Results 03/19/20 03/19/20 03/18/20 05:10 05:10 05:06 WBC 12.8 H MCHC 29.7 L RDW 16.2 H MPV 10.9 H Gran % Lymph % (Auto) Gran # 8.58 H Lymph # (Auto) [place] # (Auto) PT INR VBG Lactic Acid Chloride Glucose 106 H Calcium 8.0 L 7.9 L Phosphorus 2.2 L 2.5 L Total Protein 5.8 L 5.6 L Albumin 2.5 L 2.7 L Albumin/Globulin Ratio 0.8 L 0.9 L 03/18/20 03/18/20 03/17/20 05:06 05:06 12:00 WBC 14.9 H MCHC 30.3 L RDW 16.2 H MPV 11.2 H Gran % Lymph % (Auto) Gran # 10.68 H Lymph # (Auto) [place] # (Auto) 1.21 H PT 15.0 H 15.8 H INR 1.2 H VBG Lactic Acid Chloride Glucose Calcium Phosphorus Total Protein Albumin Albumin/Globulin Ratio 03/17/20 03/17/20 03/17/20 12:00 12:00 12:00 WBC 18.4 H MCHC RDW 16.1 H MPV 11.2 H Gran % 88.5 H Lymph % (Auto) 6.3 L Gran # 16.32 H Lymph # (Auto) 1.16 L [place] # (Auto) PT INR VBG Lactic Acid 2.4 H Chloride 95 L Glucose 171 H Calcium Phosphorus Total Protein Albumin Albumin/Globulin Ratio Meds: Medications Acetaminophen (Tylenol) 650 mg PO Q6HP PRN PRN Reason: PAIN/FEVER > 101 Hydrocodone Bitart/Acetaminophen ([place] 5/325mg) 1 tab PO Q4HP PRN PRN Reason: PAIN LEVEL 3-6 Last Admin: 03/19/20 05:16 Dose: 1 tab Documented by: Albuterol/Ipratropium (Duoneb) 3 ml NEB Q4HP PRN PRN Reason: Shortness Of Breath Apixaban (Eliquis) 5 mg PO BID [facility] Last Admin: 03/18/20 21:54 Dose: 5 mg Documented by: Atorvastatin Calcium (Lipitor) 20 mg PO QDAY [facility] Last Admin: 03/18/20 11:05 Dose: 20 mg Documented by: Dextrose (Dextrose 50%) 0 ml IV UD PRN PRN Reason: Hypoglycemia Diagnostic Test (Pha) (Accu-Chek) 1 each FS [facility] Last Admin: 03/19/20 07:29 Dose: 1 each Documented by: Diltiazem HCl (Cardizem Sr) 120 mg PO BID [facility] Last Admin: 03/18/20 21:52 Dose: 120 mg Documented by: Docusate Sodium (Colace) 100 mg PO BID [facility] Last Admin: 03/18/20 21:53 Dose: 100 mg Documented by: Furosemide (Lasix) 80 mg PO BID [facility] Gabapentin (Neurontin) 600 mg PO TID [facility] Last Admin: 03/18/20 21:53 Dose: 600 mg Documented by: Glucose (Insta-Glucose) 15 gm PO PRN PRN PRN Reason: Hypoglycemia Potassium Chloride 40 meq/ (Dextrose) 520 mls @ 130 mls/hr IV UD PRN PRN Reason: Potassium < 3 Magnesium Sulfate (Magnesium Sulfate) 2 gm in 50 mls @ 50 mls/hr IV UD PRN PRN Reason: Magnesium </= 1.6 Piperacillin Sod/Tazobactam (Sod 3.375 gm/ Dextrose) 50 mls @ 100 mls/hr IV Q6H [facility]; Protocol Last Infusion: 03/19/20 05:49 Dose: Infused Documented by: Vancomycin HCl 1,500 mg/ (Sodium Chloride) 500 mls @ 333.3 mls/hr IV Q12H [facility] Last Infusion: 03/18/20 23:45 Dose: Infused Documented by: Insulin Glargine (Lantus) 40 unit SQ DAILY [facility] Last Admin: 03/18/20 08:38 Dose: 40 unit Documented by: Insulin Human Lispro (Humalog) 0 unit SQ [facility]; Protocol Last Admin: 03/19/20 07:31 Dose: Not Given Documented by: Ketoconazole (Nizoral 2% Top Crm) 1 dose TOPICAL DAILY [facility] Last Admin: 03/18/20 11:00 Dose: Not Given Documented by: Lactulose (Cephulac) 20 gm PO DAILYP PRN PRN Reason: Constipation Levothyroxine Sodium (Synthroid) 150 mcg PO SuSa@0730 [facility] Last Admin: 03/19/20 07:28 Dose: 150 mcg Documented by: Levothyroxine Sodium (Synthroid) 100 mcg PO MoTuWeThFr@0730 [facility] Losartan Potassium (Cozaar) 25 mg PO QDAY [facility] Last Admin: 03/18/20 08:36 Dose: 25 mg Documented by: Metoclopramide HCl (Reglan) 10 mg IV Q6HP PRN PRN Reason: Nausea And Vomiting Metoprolol Tartrate (Lopressor) 50 mg PO BID [facility] Last Admin: 03/18/20 21:54 Dose: 50 mg Documented by: Metoprolol Tartrate (Lopressor) 5 mg IV Q2HP PRN PRN Reason: Tachyarrhythmias HR>110 Ondansetron HCl (Zofran) 4 mg IV Q4HP PRN PRN Reason: Nausea And Vomiting Cyclosporine ( Restasis) Ophthalmic Drops 1 dose OU BID [facility] Last Admin: 03/18/20 20:35 Dose: Not Given Documented by: Dulaglutide [ (Trulicity] 1.5 Mg) 1 dose SUB-Q Mo@0730 [facility] Polyethylene Glycol (Miralax) 17 gm PO DAILYP PRN PRN Reason: Constipation Potassium Chloride (Kdur) 40 meq PO UD PRN PRN Reason: Potssium is 3-3.5 Last Admin: 03/18/20 15:03 Dose: 40 meq Documented by: Potassium Chloride (Kdur) 40 meq PO UD PRN PRN Reason: Potassium < 3 Senna (Senokot) 2 tab PO DAILYP PRN PRN Reason: Constipation Sodium Chloride (Saline Flush) 10 ml IV Q8 [facility] Last Admin: 03/19/20 05:50 Dose: 10 ml Documented by: Trazodone HCl (Desyrel) 50 mg PO HSP PRN PRN Reason: insomnia Last Admin: 03/18/20 21:54 Dose: 50 mg Documented by: Vancomycin HCl (Vancomycin Per Pharmacy) 1 order IV UD [facility]; Protocol A/P Narrative A/P Narrative: A: *Fever/early sepsis: source 2/2 abd wall abscess, also concern is cutaneous entry from candidal intertrigo -gram statin with GPC and possibly GNB -Leukocytosis improved -afebrile now *Lower-lateral abdominal wall fluid collection, chronic(likely from previous hernia repair): s/p drainage (03/17) appeared infected visually but gram stain negative -drain in place *Atelectasis/CT chest with mild infiltrate lower lobes: clinically does not present as PNA. No cough/dyspnea. She was 97-100% on room air when I examined her in ED. -Likely Atelectasis with restrictive component given obesity *Candidal intertrigo: *DM w/neuropathy: *HTN/HLD: *Severe obesity class III: *KANDIS: on CPAP, very dependent on pressures *Hypothyroidism: *Afib: sinus on admit, is on Dilt/BB/Apixaban *Factor V Leiden mutation: P: -Vanc/Zosyn, -pending final BC and fluid culture cx -f/u imagin in AM -declan drain not draining on own, but did with tpa -topical ketoconazole -cont nocturnal cpap/bipap -cont home Dilt/ARB/BB -restart home Lasix -basal and SSI -pt/ot -ppx: Home apixaban full code Time Spent With Patient Time: Total time spent is greater than 50% in coordination of care (as documented) at patient's floor/unit and/or counseling patient: QUALITY VTE Deep Vein Thrombosis/Pulmonary Embolism Present on Admission: No
[2020-03-19] MEDS: GABAPENTIN 300 MG CAPSULE PO SCH ×3 (08:49→21:43)
[2020-03-19] MEDS: DOCUSATE SODIUM 100 MG CAPSULE PO SCH ×2 (08:49→21:43)
[2020-03-19] MEDS: FUROSEMIDE 80 MG TABLET PO SCH ×2 (08:51→21:43)
[2020-03-19] MEDS: DILTIAZEM 120 MG CAP.XL.24H PO SCH ×2 (08:51→21:43)
[2020-03-19] MEDS: APIXABAN 5 MG TABLET PO SCH ×2 (08:51→21:43)
[2020-03-19] MEDS: LOSARTAN 25 MG TABLET PO SCH (08:51)
[2020-03-19] MEDS: METOPROLOL TARTRATE 50 MG TABLET PO SCH ×2 (08:52→21:43)
[2020-03-19] MEDS: INSULIN GLARGINE, HUMAN 1 UNIT/0.01 ML SQ SCH (08:53)
[2020-03-19] MEDS: KETOCONAZOLE 2% TOP CRM 15GM TUBE TOPICAL SCH (09:23)
[2020-03-19] MEDS ORDERED: VANCOMYCIN PER PHARMACY IV SCH (09:24)
[2020-03-19] MEDS: ATORVASTATIN 20 MG TABLET PO SCH (09:50)
[2020-03-19] MEDS: CYCLOSPORINE OU SCH ×2 (09:52→21:47)
[2020-03-19] MEDS: VANCOMYCIN 1,500 MG in 0.9 % SODIUM CHLORIDE 500 ML IV SCH (10:04)
[2020-03-19] MEDS: LIDOCAINE PATCH TOPICAL SCH (10:16)
[2020-03-19] MEDS: ALTEPLASE IJ SCH ×2 (10:50→21:44)
[2020-03-19] MEDS: SODIUM CHLORIDE 0.9% IJ SCH ×2 (10:50→21:44)
[2020-03-19] MEDS: traZODone HCL 50 MG TABLET PO PRN (21:43)
[2020-03-20] MEDS: PIPERACILLIN SODIUM/TAZOBACTAM 3.375 GM in DEXTROSE 5% IN WATER 50 ML IV SCH ×4 (00:16→17:13)
[2020-03-20] MEDS: HYDROcodone/APAP 5/325MG TABLET PO PRN ×5 (00:16→22:45)
[2020-03-20] MEDS: 0.9 % SODIUM CHLORIDE 10 ML SYRINGE IV SCH ×3 (05:58→22:35)
[2020-03-20] MEDS ORDERED: LEVOTHYROXINE 100 MCG TABLET PO SCH (07:30)
[2020-03-20] MEDS ORDERED: Dulaglutide [Trulicity] 1.5 MG SUB-Q SCH ×2 (07:30)
[2020-03-20] MEDS: INSULIN LISPRO 1 UNIT/0.01 ML UNIT SQ SCH ×4 (07:37→22:45)
--- NOTE | 2020-03-20 07:44 | Internal Med Progress Note ---
SUBJECTIVE Subjective Patient information: Note initiated : 03/20/20 at 7:43 am Service Date, if different from initiated Date: [] Patient: Rahel Grover 69 y/o F admitted on 03/17/20 for possible UTI. Chief Complaint: [] Interval history: Narrative: History of present illness: Ms. Grover is a 69 year old F 6-year-old female presents to the ED with fevers. Patient was first seen on March 02 in the ED for gastroenteritis, symptoms of nausea vomiting, and then returned to the ED on the was diagnosed with UTI. Cultures eventually grew out E. coli which was pansensitive. Denies dysuria. Generally feels unwell feels like she has not improved since last ED visit. She does complain of occasional headaches and continues to feel feverish and lethargic. In the ED she had a she chest x-ray which was unrevealing. Had a urinalysis which was unrevealing for infection. Was noted to have intertrigo on her trunk. She was febrile in the ED and found to have a leukocytosis. Lactate was mildly elevated. CT chest abdomen pelvis to better evaluate lungs and abdomen given the mild hypoxia and also undetermined source of infection. CT chest showed a little bit of interstitial infiltrate posterior and lateral right lower lobe. Little bit in the left base but otherwise unremarkable. CT abdomen showed a large fluid collection in the right lower lateral abdominal wall which was 7 x 14 x 19 cm which is similar to previous imaging. She denies any chest pain, she denies any shortness of breath or coughing or any respiratory symptoms at all. She has intertrigo in the abdominal pannus skin fold. She reports itching of that region. She resides at [facility]. She otherwise has no abdominal pain or pain. ER report reported a low oxygen saturation but when I went in there she was 97- 100% on room air. 03/18 Patient states she feels little better today. Patient did become hypoxic while sleeping last night and it was discovered she wears a CPAP at home with an oxygen concentrator. RT placed CPAP on her last night with good result. Dr. Brooks, radiologist, was able to drain 150 cc of fluid that appeared to be infected. Nursing on shift nurse manager able to aspirate another 60 cc through the drain last night. Leukocytosis improving. 03/19 Patient feeling well and got a good sleep last night. No issues overnight. Original Gram stain was negative. I did talk to laboratory they had planned on restaining given the appearance of the fluid, and original stain said no organsism. After the re-analyzing it appears there are gram positive cocci. 03/20 Sleep is off and on she has her chronic left shoulder pain. We will adjust her nighttime [place]'s. Looks like the fluid collection analysis has shown gram- positive cocci, appears to be possibly a strep, waiting for's final culture. Repeat imaging shows mild decrease in fluid collection. We will discussed the case with Dr. Lyn today. Review of Systems: denies headache/fever/chills/nausea/vomiting/chest or abdominal pain/cough/dyspnea/diarrhea. Otherwise see above. Constitutional Vitals: Vital Signs Temp Pulse Resp BP Pulse Ox 97.7 F 69 14 137/41 98 03/20/20 00:00 03/20/20 06:02 03/20/20 06:02 03/20/20 06:01 03/20/20 06:02 Period Temp Pulse Resp BP Sys/Blackwell Pulse Ox Last 24 Hr 97.1 F-98.8 F 57-76 11-21 88-138/41-88 88-100 Intake and Output 03/19/20 03/20/20 03/20/20 21:59 05:59 13:59 Intake Total 1000 825 Output Total 1950 2945 Balance -950 -2120 Weight 140.33 kg Intake & Output: Intake & Output 03/19/20 03/20/20 03/20/20 21:59 05:59 13:59 Intake Total 1000 825 Output Total 1950 2945 Balance -950 -2120 Weight 140.33 kg Intake: IV 550 100 Zosyn 3.375 gm In Dextrose 5% 50 100 in Water 50 ml @ 100 mls/hr IV Q6H [facility] Rx#:[id number] Vancomycin 1,500 mg In Sodium 500 Chloride 0.9% 500 ml @ 333.3 mls/hr IV DAILY [facility] Rx#: [id number] Oral 450 700 Input, Drain Irrigation Amount 25 Right Abdomen DECLAN Drain 25 Output: Drainage 0 95 Right Abdomen DECLAN Drain 0 95 Urine Catheter Amount 1950 2850 Uretheral ([place]) 185 Other: Meal Dinner Percent of Meal Consumed 75% Feeding Ability Assist with Tray Set Up Urine Appearance Clear Clear Uretheral ([place]) Clear Clear Urine Color Bright Yellow Pale Uretheral ([place]) Bright Yellow Bright Yellow Urine Odor Normal Normal Uretheral ([place]) Normal Normal Exam: General: Alert, Awake, No acute Distress, obese Eyes/N/T: EOMI, Head/Neck: neck supple, CV: RRR, 1/6 SM, Pulm: Clear b/l, no wheezing/rhonchi/rales Abd: soft, nontender, +BS x4, candidal intertrigo, DECLAN drain in place Ext: no clubbing/cyanosis/edema Neuro: Alert, no focal deficits, moves all extremities Skin: warm/dry OBJ DATA Labs CBC & Chem 7: 03/19/20 05:10 03/19/20 05:10 Labs: Abnormal Lab Results 03/19/20 03/19/20 03/18/20 05:10 05:10 05:06 WBC 12.8 H MCHC 29.7 L RDW 16.2 H MPV 10.9 H Gran % Lymph % (Auto) Gran # 8.58 H Lymph # (Auto) [place] # (Auto) PT INR VBG Lactic Acid Chloride Glucose 106 H Calcium 8.0 L 7.9 L Phosphorus 2.2 L 2.5 L Total Protein 5.8 L 5.6 L Albumin 2.5 L 2.7 L Albumin/Globulin Ratio 0.8 L 0.9 L 03/18/20 03/18/20 03/17/20 05:06 05:06 12:00 WBC 14.9 H MCHC 30.3 L RDW 16.2 H MPV 11.2 H Gran % Lymph % (Auto) Gran # 10.68 H Lymph # (Auto) [place] # (Auto) 1.21 H PT 15.0 H 15.8 H INR 1.2 H VBG Lactic Acid Chloride Glucose Calcium Phosphorus Total Protein Albumin Albumin/Globulin Ratio 03/17/20 03/17/20 03/17/20 12:00 12:00 12:00 WBC 18.4 H MCHC RDW 16.1 H MPV 11.2 H Gran % 88.5 H Lymph % (Auto) 6.3 L Gran # 16.32 H Lymph # (Auto) 1.16 L [place] # (Auto) PT INR VBG Lactic Acid 2.4 H Chloride 95 L Glucose 171 H Calcium Phosphorus Total Protein Albumin Albumin/Globulin Ratio Meds: Medications Acetaminophen (Tylenol) 650 mg PO Q6HP PRN PRN Reason: PAIN/FEVER > 101 Hydrocodone Bitart/Acetaminophen ([place] 5/325mg) 1 tab PO Q4HP PRN PRN Reason: PAIN LEVEL 3-6 Last Admin: 03/20/20 03:56 Dose: 1 tab Documented by: Albuterol/Ipratropium (Duoneb) 3 ml NEB Q4HP PRN PRN Reason: Shortness Of Breath Apixaban (Eliquis) 5 mg PO BID [facility] Last Admin: 03/19/20 21:43 Dose: 5 mg Documented by: Atorvastatin Calcium (Lipitor) 20 mg PO QDAY [facility] Last Admin: 03/19/20 09:50 Dose: 20 mg Documented by: Dextrose (Dextrose 50%) 0 ml IV UD PRN PRN Reason: Hypoglycemia Diagnostic Test (Pha) (Accu-Chek) 1 each FS ACHS [facility] Last Admin: 03/20/20 07:32 Dose: 1 each Documented by: Diltiazem HCl (Cardizem Sr) 120 mg PO BID [facility] Last Admin: 03/19/20 21:43 Dose: 120 mg Documented by: Docusate Sodium (Colace) 100 mg PO BID [facility] Last Admin: 03/19/20 21:43 Dose: 100 mg Documented by: Furosemide (Lasix) 80 mg PO BID [facility] Last Admin: 03/19/20 21:43 Dose: 80 mg Documented by: Gabapentin (Neurontin) 600 mg PO TID [facility] Last Admin: 03/19/20 21:43 Dose: 600 mg Documented by: Glucose (Insta-Glucose) 15 gm PO PRN PRN PRN Reason: Hypoglycemia Potassium Chloride 40 meq/ (Dextrose) 520 mls @ 130 mls/hr IV UD PRN PRN Reason: Potassium < 3 Magnesium Sulfate (Magnesium Sulfate) 2 gm in 50 mls @ 50 mls/hr IV UD PRN PRN Reason: Magnesium </= 1.6 Piperacillin Sod/Tazobactam (Sod 3.375 gm/ Dextrose) 50 mls @ 100 mls/hr IV Q6H [facility]; Protocol Last Infusion: 03/20/20 05:58 Dose: Infused Documented by: Vancomycin HCl 1,500 mg/ (Sodium Chloride) 500 mls @ 333.3 mls/hr IV DAILY [facility] Last Infusion: 03/19/20 18:58 Dose: Infused Documented by: Insulin Glargine (Lantus) 40 unit SQ DAILY [facility] Last Admin: 03/19/20 08:53 Dose: 40 unit Documented by: Insulin Human Lispro (Humalog) 0 unit SQ [facility]; Protocol Last Admin: 03/20/20 07:37 Dose: Not Given Documented by: Ketoconazole (Nizoral 2% Top Crm) 1 dose TOPICAL DAILY [facility] Last Admin: 03/19/20 09:23 Dose: 1 dose Documented by: Lactulose (Cephulac) 20 gm PO DAILYP PRN PRN Reason: Constipation Levothyroxine Sodium (Synthroid) 150 mcg PO SuSa@729 [facility] Last Admin: 03/19/20 07:28 Dose: 150 mcg Documented by: Levothyroxine Sodium (Synthroid) 100 mcg PO MoTuWeThFr@729 [facility] Last Admin: 03/20/20 07:32 Dose: 100 mcg Documented by: Lidocaine (Lidoderm) 1 patch TOPICAL DAILY@1000 [facility] Last Admin: 03/19/20 10:16 Dose: 1 patch Documented by: Losartan Potassium (Cozaar) 25 mg PO QDAY [facility] Last Admin: 03/19/20 08:51 Dose: 25 mg Documented by: Metoclopramide HCl (Reglan) 10 mg IV Q6HP PRN PRN Reason: Nausea And Vomiting Metoprolol Tartrate (Lopressor) 50 mg PO BID [facility] Last Admin: 03/19/20 21:43 Dose: 50 mg Documented by: Metoprolol Tartrate (Lopressor) 5 mg IV Q2HP PRN PRN Reason: Tachyarrhythmias HR>110 Ondansetron HCl (Zofran) 4 mg IV Q4HP PRN PRN Reason: Nausea And Vomiting Cyclosporine ( Restasis) Ophthalmic Drops 1 dose OU BID [facility] Last Admin: 03/19/20 21:47 Dose: Not Given Documented by: Dulaglutide [ (Trulicity] 1.5 Mg) 1 dose SUB-Q Mo@729 [facility] Polyethylene Glycol (Miralax) 17 gm PO DAILYP PRN PRN Reason: Constipation Potassium Chloride (Kdur) 40 meq PO UD PRN PRN Reason: Potssium is 3-3.5 Last Admin: 03/18/20 15:03 Dose: 40 meq Documented by: Potassium Chloride (Kdur) 40 meq PO UD PRN PRN Reason: Potassium < 3 Senna (Senokot) 2 tab PO DAILYP PRN PRN Reason: Constipation Sodium Chloride (Saline Flush) 10 ml IV Q8 [facility] Last Admin: 03/20/20 05:58 Dose: 10 ml Documented by: Trazodone HCl (Desyrel) 50 mg PO HSP PRN PRN Reason: insomnia Last Admin: 03/19/20 21:43 Dose: 50 mg Documented by: Vancomycin HCl (Vancomycin Per Pharmacy) 1 order IV UD [facility]; Protocol A/P Narrative A/P Narrative: A: *Fever/early sepsis: source 2/2 abd wall abscess, also concern is cutaneous entry from candidal intertrigo -Leukocytosis improved -afebrile now *Abscess Lower-lateral abdominal wall, chronic but has become infected: s/p drainage (03/17) -drain in place -GPC on stain *Atelectasis/CT chest with mild infiltrate lower lobes: clinically does not present as PNA. No cough/dyspnea. She was 97-100% on room air when I examined her in ED. -Likely Atelectasis with restrictive component given obesity *Candidal intertrigo: *DM w/neuropathy: *HTN/HLD: *Severe obesity class III: *KANDIS: on CPAP, very dependent on pressures *Hypothyroidism: *Afib: sinus on admit, is on Dilt/BB/Apixaban *Factor V Leiden mutation: P: -Vanc(d/c)/Zosyn -pending final BC and fluid culture cx -declan drain not draining on own, but did with tpa -will d/w Dr. Lyn -topical ketoconazole -cont nocturnal cpap/bipap -cont home Dilt/ARB/BB -restart home Lasix -basal and SSI -pt/ot -ppx: Home apixaban full code Time Spent With Patient Time: Total time spent is greater than 50% in coordination of care (as documented) at patient's floor/unit and/or counseling patient: QUALITY VTE Deep Vein Thrombosis/Pulmonary Embolism Present on Admission: No
--- NOTE | 2020-03-20 07:51 | Cat Scan Report ---
INDICATION: f/u abd wall abscess COMPARISON: Previous CT scans dated 02/24/2019 and 03/20/2020 TECHNIQUE: Axial images were obtained through the abdomen and pelvis. Sagittally and coronally reformatted images. FINDINGS: Lung bases:No pulmonary parenchymal density. No calcified or noncalcified nodule. No pleural or pericardial effusion Liver:Negative to the limits of noncontrast enhanced examination. Liver contour is smooth without evidence for cirrhosis. No attenuation abnormality or evidence for hepatic abscess Gallbladder, bilary:Previous cholecystectomy. No dilated bile ducts Spleen:No splenomegaly. No interval change Pancreas:Previous examination demonstrated a subtle low density abnormality in the body of the pancreas. This is not as well visualized on present examination. There is streak artifact related to the patient's arms. No evidence for pancreatitis Adrenal glands:Negative Kidneys, ureters, bladder: Small density in the lower pole of the right kidney. This was present on 04/26/2019 and is unchanged. This may be a small hyperdense cyst. No new abnormality No hydroureter. No ureteral stone No bladder calculus Gastrointestinal:No significant diverticulosis or evidence for diverticulitis. No detectable colonic mass No mechanical small bowel obstruction. No small bowel dilatation. There is a probable duodenal diverticulum Appendix: The appendix is not well visualized. No evidence for appendicitis Vascular:No abdominal aortic aneurysm Lymphatic:No retroperitoneal adenopathy. No significant mesenteric adenopathy. Mesentery, peritoneum:No free intraperitoneal fluid. No intra-abdominal abscess. No pneumoperitoneum Reproductive:Uterus is not identified. There is no adnexal mass Musculoskeletal:Patient has undergone prior anterior abdominal wall hernia repair. There is a subcutaneous fluid collection in the right lower quadrant anteriorly. This has a drainage catheter within it. This fluid collection measures 17.9 x 12.1 x 3.7 cm. This is somewhat decreased in size since previous examination but has not resolved. No lumbar compression fractures. There is multilevel degenerative disc disease. Sacrum and pelvis are negative. Patient has undergone previous bilateral total hip arthroplasty. IMPRESSION: 1. Status post drainage catheter placement within a right lower quadrant subcutaneous fluid collection. Some interval decrease in size. 2. Small low density lesion in the body of the pancreas is not as well visualized presently 3. Small hyperdense abnormality in the lower pole of the right kidney is unchanged since 04/26/2019 and is probably a small hyperdense cyst 4. Previous anterior abdominal wall hernia repair The exam was performed using radiation dose optimization techniques including, but not limited to, automated exposure control, adjustment of the mA and/or kV according to patient size and use of iterative reconstruction technique. Interpreted and Authenticated by: Ras Nicolas 03/20/20
[2020-03-20] MEDS: ATORVASTATIN 20 MG TABLET PO SCH (08:19)
[2020-03-20] MEDS: FUROSEMIDE 80 MG TABLET PO SCH ×2 (08:19→20:23)
[2020-03-20] MEDS: APIXABAN 5 MG TABLET PO SCH ×2 (08:20→20:22)
[2020-03-20] MEDS: LOSARTAN 25 MG TABLET PO SCH (08:20)
[2020-03-20] MEDS: GABAPENTIN 300 MG CAPSULE PO SCH ×3 (08:20→20:15)
[2020-03-20] MEDS: DOCUSATE SODIUM 100 MG CAPSULE PO SCH ×2 (08:20→20:23)
[2020-03-20] MEDS: DILTIAZEM 120 MG CAP.XL.24H PO SCH ×2 (08:21→20:24)
[2020-03-20] MEDS: METOPROLOL TARTRATE 50 MG TABLET PO SCH ×2 (08:26→20:24)
[2020-03-20] MEDS: CYCLOSPORINE OU SCH ×2 (08:27→22:35)
[2020-03-20] MEDS: INSULIN GLARGINE, HUMAN 1 UNIT/0.01 ML SQ SCH (08:27)
[2020-03-20] MEDS ORDERED: HYDROcodone/APAP 5/325MG TABLET PO PRN ×2 (09:04→21:00)
[2020-03-20] MEDS: KETOCONAZOLE 2% TOP CRM 15GM TUBE TOPICAL SCH (10:07)
[2020-03-20] MEDS: LIDOCAINE PATCH TOPICAL SCH (10:16)
[2020-03-20] MEDS: VANCOMYCIN 1,500 MG in 0.9 % SODIUM CHLORIDE 500 ML IV SCH (10:28)
[2020-03-20] MEDS ORDERED: DEXTROSE 50% 50 ML VIAL IV PRN (11:13)
[2020-03-20] MEDS ORDERED: LACTULOSE 20 GM/30 ML ORAL.SOL PO PRN (11:13)
[2020-03-20] MEDS ORDERED: METOPROLOL TARTRATE 5 MG/5 ML VIAL IV PRN (11:13)
[2020-03-20] MEDS ORDERED: MAGNESIUM SULFATE 2 GM/50 ML BAG IV PRN (11:13)
[2020-03-20] MEDS ORDERED: SENNOSIDES 1 TABLET PO PRN (11:13)
[2020-03-20] MEDS ORDERED: DEXTROSE 31 GM ORAL.SUSP PO PRN (11:13)
[2020-03-20] MEDS ORDERED: POLYETHYLENE GLYCOL 3350 17 GM PACKET PO PRN (11:13)
[2020-03-20] MEDS ORDERED: ACETAMINOPHEN 325 MG TABLET PO PRN (11:13)
[2020-03-20] MEDS ORDERED: METOCLOPRAMIDE 10 MG/2 ML VIAL IV PRN (11:13)
[2020-03-20] MEDS ORDERED: IPRATROPIUM/ALBUTEROL 3 ML AMPUL.NEB NEB PRN (11:13)
[2020-03-20] MEDS ORDERED: POTASSIUM CHLORIDE 20 MEQ TABLET PO PRN ×2 (11:13)
[2020-03-20] MEDS ORDERED: ONDANSETRON 4 MG/2 ML VIAL IV PRN (11:13)
[2020-03-20] MEDS ORDERED: POTASSIUM CHLORIDE 40 MEQ in DEXTROSE 5% IN WATER 500 ML IV PRN (11:13)
[2020-03-20] MEDS ORDERED: traZODone HCL 50 MG TABLET PO PRN (21:00)
[2020-03-21] MEDS: PIPERACILLIN SODIUM/TAZOBACTAM 3.375 GM in DEXTROSE 5% IN WATER 50 ML IV SCH ×3 (00:51→12:31)
[2020-03-21] MEDS: 0.9 % SODIUM CHLORIDE 10 ML SYRINGE IV SCH (05:17)
[2020-03-21] MEDS: HYDROcodone/APAP 5/325MG TABLET PO PRN (05:37)
[2020-03-21 06:38] LABS: Basophils # (Auto) 0.06 K/mcL (0.00-0.30); Basophils % (Auto) 0.6 % (0.0-2.0); Eosinophils # (Auto) 0.25 K/mcL (0.00-0.70); Eosinophils % (Auto) 2.6 % (0.0-7.0); Granulocytes % (Auto) 61.3 % (38.0-78.0); Hematocrit 41.1 % (34.1-44.9); Hemoglobin 12.3 g/dL (11.2-15.7); Lymphocytes # (Auto) 2.76 K/mcL (1.50-4.80); Lymphocytes % (Auto) 28.8 % (15.5-49.0); Mean Cell Volume 95.6 fL (80.0-100.0); Mean Corpuscular HGB Conc 29.9 g/dL (31.0-36.0); Monocytes # (Auto) 0.64 K/mcL (0.10-0.90); Monocytes % (Auto) 6.7 % (1.0-12.0); Platelet Count 250 K/mcL (140-440); WBC 9.6 K/mcL (4.50-11.00)
[2020-03-21 06:57] LABS: ALT/SGPT 9 U/l (0-40); AST/SGOT 8 U/l (0-37); Albumin 3.3 gm/dL (3.2-5.2); Alkaline Phosphatase 58 U/L (39-117); Bilirubin,Direct < 0.2 mg/dL (0.0-0.3); Bilirubin,Total 0.5 mg/dL (0.0-1.0); Blood Urea Nitrogen 7 mg/dl (8-23); Calcium 8.7 mg/dl (8.6-10.4); Carbon Dioxide 34 mmol/L (22-30); Chloride 99 mmol/L (96-108); Globulin 3.3 gm/dL (2.2-3.7); Glomerular Filtration Rate 92; Glucose 95 mg/dL (70-105); Lactate Dehydrogenase 173 U/L (94-250); Phosphorous 2.8 mg/dL (2.7-4.5); Triglycerides 145 mg/dl (<150); Uric Acid 4.2 mg/dL (2.5-8.0)
[2020-03-21] MEDS ORDERED: LEVOTHYROXINE 100 MCG TABLET PO SCH (07:30)
[2020-03-21] MEDS: INSULIN LISPRO 1 UNIT/0.01 ML UNIT SQ SCH ×2 (07:59→12:31)
[2020-03-21] MEDS: METOPROLOL TARTRATE 50 MG TABLET PO SCH (08:12)
[2020-03-21] MEDS: APIXABAN 5 MG TABLET PO SCH (08:12)
[2020-03-21] MEDS: DOCUSATE SODIUM 100 MG CAPSULE PO SCH (08:13)
[2020-03-21] MEDS: GABAPENTIN 300 MG CAPSULE PO SCH (08:14)
[2020-03-21] MEDS: FUROSEMIDE 80 MG TABLET PO SCH (08:15)
[2020-03-21] MEDS: DILTIAZEM 120 MG CAP.XL.24H PO SCH ×2 (08:17)
[2020-03-21] MEDS: CYCLOSPORINE OU SCH (08:27)
[2020-03-21] MEDS ORDERED: KETOCONAZOLE 2% TOP CRM 15GM TUBE TOPICAL SCH (09:00)
[2020-03-21] MEDS ORDERED: ATORVASTATIN 20 MG TABLET PO SCH (09:00)
[2020-03-21] MEDS ORDERED: INSULIN GLARGINE, HUMAN 1 UNIT/0.01 ML SQ SCH (09:00)
[2020-03-21] MEDS ORDERED: LOSARTAN 25 MG TABLET PO SCH (09:00)
[2020-03-21] MEDS ORDERED: LIDOCAINE PATCH TOPICAL SCH (10:00)
--- NOTE | 2020-03-21 11:06 | Discharge Summary ---
Discharge Provider Provider Patient information: Note initiated : 03/21/20 at 11:01 am Service Date, if different from initiated Date: [] Patient: Rahel Grover 69 y/o F admitted on 03/17/20 for possible UTI. Chief Complaint: [] Date of admission: 03/17/20 16:35 Primary care physician: Mo Rivera M.D., F.A.A.F.P. Consults: 03/20/20 11:13 Consult to Physician [CONS] Routine Comment: Consulting Provider: Yina Lyn Reason For Exam: Physician to Consult Discharge Meds Discharge Medications Active and Home Medications: Home Medications atorvastatin 20 mg tablet 20 mg PO HS 08/28/19 [History Confirmed 03/17/20 Last Taken Unknown] metoprolol tartrate 50 mg tablet 50 mg PO BID 08/28/19 [History Confirmed 03/17/20 Last Taken Unknown] allopurinol 300 mg tablet 300 mg PO QDAY #90 tab 11/01/19 [Rx Confirmed 03/17/20 Last Taken Unknown] furosemide 80 mg tablet 80 mg PO BID #60 tab 12/17/19 [Rx Confirmed 03/17/20 Last Taken Unknown] potassium chloride 10 mEq capsule,extended release 20 meq PO TID #180 cap 12/17/19 [Rx Confirmed 03/17/20 Last Taken Unknown] trazodone 50 mg tablet 50 mg PO QHS PRN #30 tab 12/17/19 [Rx Confirmed 03/17/20 Last Taken Unknown] insulin glargine 100 unit/mL (3 mL) subcutaneous pen 40 unit SUB-Q QDAY #15 ml 12/27/19 [Rx Confirmed 03/17/20 Last Taken Unknown] losartan 25 mg tablet 25 mg PO QDAY #90 tab 01/06/20 [Rx Confirmed 03/17/20 Last Taken Unknown] levothyroxine 50 mcg capsule 50 mcg PO DAILY cap 03/13/20 [History Confirmed 03/17/20 Last Taken Unknown] tizanidine 4 mg tablet 4 mg PO Q8H PRN tab 03/13/20 [History Confirmed 03/17/20 Last Taken Unknown] apixaban [Eliquis] 5 mg PO BID 03/17/20 [History Confirmed 03/17/20 Last Taken Unknown] cyclosporine [Restasis] 1 drp OPHTHALMIC (EYE) Q12H 03/17/20 [History Confirmed 03/17/20 Last Taken Unknown] diltiazem HCl 120 mg PO BID 03/17/20 [History Confirmed 03/17/20 Last Taken Unknown] dulaglutide [Trulicity] See Rx Instructions .ROUTE .COMPLEX 03/17/20 [History Confirmed 03/17/20 Last Taken 03/13/20] gabapentin 600 mg PO TID 03/17/20 [History Confirmed 03/17/20 Last Taken Unknown] insulin glargine [Basaglar KwikPen U-100 Insulin] 40 unit SUBCUT QDAY 03/17/20 [History Confirmed 03/17/20 Last Taken Unknown] levothyroxine See Rx Instructions .ROUTE .COMPLEX 03/17/20 [History Confirmed 03/17/20 Last Taken Unknown] nystatin 10,000 applic TOPICAL PRN PRN 03/17/20 [History Confirmed 03/17/20 Last Taken Unknown] COURSE Time Spent with Patient Time attestation: Discharge diagnosis * Abdominal wall abscess Lower- s/p drainage (03/17) enterococci on cultures. Continue antibiotics. On suction drain per surgery * Atelectasis/CT chest with mild infiltrate lower lobes: clinically does not present as PNA. No cough/dyspnea. She was 97-100% on room air when I examined her in ED.-Likely Atelectasis with restrictive component given obesity. Continue incentive spirometer use * *Candidal intertrigo: * *DM w/neuropathy: * *HTN/HLD: * *Severe obesity class III: * *KANDIS: on CPAP, very dependent on pressures * *Hypothyroidism: * *Afib: sinus on admit, is on Dilt/BB/Apixaban * *Factor V Leiden mutation: Brief hospital course History of present illness: Ms. Grover is a 69 year old F 6-year-old female presents to the ED with fevers. Patient was first seen on March 02 in the ED for gastroenteritis, symptoms of nausea vomiting, and then returned to the ED on the was diagnosed with UTI. Cultures eventually grew out E. coli which was pansensitive. Denies dysuria. Generally feels unwell feels like she has not improved since last ED visit. She does complain of occasional headaches and continues to feel feverish and lethargic. In the ED she had a she chest x-ray which was unrevealing. Had a urinalysis which was unrevealing for infection. Was noted to have intertrigo on her trunk. She was febrile in the ED and found to have a leukocytosis. Lactate was mildly elevated. CT chest abdomen pelvis to better evaluate lungs and abdomen given the mild hypoxia and also undetermined source of infection. CT chest showed a little bit of interstitial infiltrate posterior and lateral right lower lobe. Little bit in the left base but otherwise unremarkable. CT abdomen showed a large fluid collection in the right lower lateral abdominal wall which was 7 x 14 x 19 cm w hich is similar to previous imaging. She denies any chest pain, she denies any shortness of breath or coughing or any respiratory symptoms at all. She has intertrigo in the abdominal pannus skin fold. She reports itching of that region. She resides at [facility]. She otherwise has no abdominal pain or pain. ER report reported a low oxygen saturation but when I went in there she was 97- 100% on room air. 03/18 Patient states she feels little better today. Patient did become hypoxic while sleeping last night and it was discovered she wears a CPAP at home with an oxygen concentrator. RT placed CPAP on her last night with good result. Dr. Brooks, radiologist, was able to drain 150 cc of fluid that appeared to be infected. Nursing on software engineer mobile able to aspirate another 60 cc through the drain last night. Leukocytosis improving. 03/19 Patient feeling well and got a good sleep last night. No issues overnight. Original Gram stain was negative. I did talk to laboratory they had planned on restaining given the appearance of the fluid, and original stain said no organsism. After the re-analyzing it appears there are gram positive cocci. 03/20 Sleep is off and on she has her chronic left shoulder pain. We will adjust her nighttime [place]'s. Looks like the fluid collection analysis has shown gram- positive cocci, appears to be possibly a strep, waiting for's final culture. Repeat imaging shows mild decrease in fluid collection. We will discussed the case with Dr. Lyn today. 03/21-patient doing well. No overnight events. Ambulating. Drainage 60 cc. Enterococci and culture. Continue antibiotics and de-escalate based on sensitivities. Transition to swing bed status for continued antibiotics/rehab/drain care EXAM Constitutional Vitals: Temp Pulse Resp BP Pulse Ox 96.8 F L 63 18 120/50 96 03/21/20 07:48 03/21/20 07:48 03/21/20 07:48 03/21/20 07:48 03/21/20 07:48 Discharge Data Data Completed and Pending Labs on day of discharge: Labs from last 24 hours 03/21/20 03/21/20 05:20 05:20 WBC 9.6 RBC 4.30 Hgb 12.3 Hct 41.1 MCV 95.6 MCH 28.6 MCHC 29.9 L RDW 16.0 H Plt Count 250 MPV 11.0 H Gran % 61.3 Lymph % (Auto) 28.8 [place] % (Auto) 6.7 Eos % (Auto) 2.6 Baso % (Auto) 0.6 Gran # 5.87 Lymph # (Auto) 2.76 [place] # (Auto) 0.64 Eos # (Auto) 0.25 Baso # (Auto) 0.06 Sodium 142 Potassium 3.7 Chloride 99 Carbon Dioxide 34 H Anion Gap 9.0 BUN 7 L Creatinine 0.6 GFR Calculation 92 Glucose 95 Uric Acid 4.2 Calcium 8.7 Phosphorus 2.8 Magnesium 2.3 Total Bilirubin 0.5 Direct Bilirubin < 0.2 GGT 30 AST 8 ALT 9 Alkaline Phosphatase 58 Lactate Dehydrogenase 173 Total Protein 6.6 Albumin 3.3 Globulin 3.3 Albumin/Globulin Ratio 1.0 Triglycerides 145 Preliminary micro results at discharge 03/17/20 13:35 Blood Culture - Preliminary Blood 03/17/20 12:00 Blood Culture - Preliminary Blood 03/17/20 18:37 Abscess Culture - Preliminary Abdomen - Lower Enterococcus species Discharge Plan Patient/Caregiver Discharge Instructions Instructions: Heart Failure (GEN), Fall Prevention for Older Adults (GEN), Meal Planning with Diabetes Exchanges (GEN), Sepsis (GEN), Type 2 Diabetes Management for Adolescents (GEN) Additional Instructions: This discharge packet is provided to you to help keep you informed about your care. We want to ensure you get everything you need when you go home. You will also be receiving a call from us in a few days to follow up with you and see how you are doing since your discharge. This gives us a chance to listen to any concerns you maybe experiencing since you were discharged or any additional needs you may have, as well as providing us feedback on your care experience. We strive to always provide excellent care and thank you for your feedback and for choosing [facility]. Prescriptions: No Action Basaglar KwikPen U-100 Insulin 100 unit/mL (3 mL) insulin pen 40 unit SUB-Q QDAY Qty: 15 RF: 8 losartan 25 mg tablet 25 mg PO QDAY Qty: 90 RF: 3 atorvastatin 20 mg tablet 20 mg PO HS RF: 0 metoprolol tartrate 50 mg tablet 50 mg PO BID RF: 0 allopurinol 300 mg tablet 300 mg PO QDAY Qty: 90 RF: 3 furosemide 80 mg tablet 80 mg PO BID Qty: 60 RF: 8 potassium chloride 10 mEq capsule, extended release 20 meq PO TID Qty: 180 RF: 10 trazodone 50 mg tablet 50 mg PO QHS PRN (Reason: insomnia) Qty: 30 RF: 8 levothyroxine 50 mcg capsule 50 mcg PO DAILY RF: 0 tizanidine 4 mg tablet 4 mg PO Q8H PRN (Reason: muscle spasticity) RF: 0 nystatin 100,000 unit/gram Powder 10,000 applic TOPICAL PRN PRN (Reason: Rash) RF: 0 Restasis 0.05 % [place] 1 drp ophthalmic (eye) Q12H RF: 0 Basaglar KwikPen U-100 Insulin 100 unit/mL (3 mL) Insulin Pen 40 unit SUBCUT QDAY RF: 0 Eliquis 5 mg Tablet 5 mg PO BID RF: 0 Trulicity 1.5 mg/0.5 mL Pen Injector See Rx Instructions .ROUTE .COMPLEX RF: 0 gabapentin 300 mg capsule 600 mg PO TID RF: 0 diltiazem HCl 120 mg Capsule,Ext.Rel 24h Degradable 120 mg PO BID RF: 0 levothyroxine 100 mcg Tablet See Rx Instructions .ROUTE .COMPLEX RF: 0 Follow Up Plan Follow up with: Mo Rivera MD, FAAFP [Primary Care Provider] - Disposition: er As Swing Bed (TS) Discharge Orders: Discharge Order (Routine); Ordered 03/21/20 Ordered By: Lester ROCHA VTE Deep Vein Thrombosis/Pulmonary Embolism Present on Admission: No
[2020-03-25] MEDS ORDERED: LEVOTHYROXINE 50 MCG TABLET PO SCH (07:30)
== END 2020-03-21 13:00 | disposition swing bed (61) | DRG 602 ==
LOC: ED 11:20 → ICU 16:40 → MEDSUR 03-20 15:11
PROVIDERS: ADMIT Internal Medicine; ATTEND Internal Medicine

== ENCOUNTER 2020-03-25 17:54 | Inpatient (IN) ==
[2020-03-25] MEDS ORDERED: BISACODYL 10 MG SUPP.RECT PR PRN (18:14)
[2020-03-25] MEDS ORDERED: ONDANSETRON 4 MG ODT TABLET SL PRN (18:14)
[2020-03-25] MEDS ORDERED: guaiFENesin/CODEINE 10 ML UDC PO PRN (18:14)
[2020-03-25] MEDS ORDERED: POLYETHYLENE GLYCOL 3350 17 GM PACKET PO PRN (18:14)
[2020-03-25] MEDS ORDERED: MELATONIN 3 MG TABLET PO PRN (18:14)
[2020-03-25] MEDS ORDERED: ACETAMINOPHEN 325 MG TABLET PO PRN (18:14)
[2020-03-25] MEDS ORDERED: ONDANSETRON 4 MG/2 ML VIAL IV PRN (18:14)
[2020-03-25] MEDS ORDERED: AMPICILLIN SODIUM 2 GM VIAL IV SCH (18:30)
[2020-03-25] MEDS ORDERED: tiZANidine 4 MG TABLET PO PRN (19:48)
[2020-03-25] MEDS ORDERED: traZODone HCL 50 MG TABLET PO PRN (19:48)
[2020-03-25] MEDS ORDERED: AMPICILLIN SODIUM IV SCH (20:00)
[2020-03-25] MEDS: 0.9 % SODIUM CHLORIDE 10 ML SYRINGE IV SCH (20:35)
[2020-03-25] MEDS: GABAPENTIN 300 MG CAPSULE PO SCH (20:35)
[2020-03-25] MEDS: METOPROLOL TARTRATE 50 MG TABLET PO SCH (20:35)
[2020-03-25] MEDS: DILTIAZEM 120 MG CAP.XL.24H PO SCH (20:35)
[2020-03-25] MEDS: DOCUSATE SODIUM 100 MG CAPSULE PO SCH (20:35)
[2020-03-25] MEDS: FUROSEMIDE 80 MG TABLET PO SCH (20:35)
--- NOTE | 2020-03-25 20:37 | Internal Med History&Physical ---
HPI History of Present Illness Patient information: Note initiated : 03/25/20 at 8:30 pm Service Date, if different from initiated Date: [] Patient: Rahel Grover 69 y/o F admitted on 03/25/20 for Abdominal Abcess . Patient admitted to swing bed status for management of abdominal wall abscess/antibiotic coverage, wound care History of present illness: Ms. Grover is a 69 year old F who was admitted on 03/17 with fever and on imaging and CT abdomen showed a large fluid collection in the right lower abdominal wall. Patient underwent drainage by interventional radiology. Enterococci and culture. Drain currently on suction bulb. Surgery was consulted. Was managed on antibiotic coverage with clinical resolution of sepsis. Patient now transition to swing bed status for continued antibiotics and wound care/PT OT nutrition support. At the time of admission patient is alert and oriented. She denies active distress. She is ambulating. Discussed treatment plan with patient and her sister. 03/23- doing well, minimal drain output, enetrococci ion cultures, On IV ampiicillin. No concerns expressed with nursing staff. Minimal FARZANA output 2 cc per shift. Ambulating with therapies. Anticipate discharge to [place] in the next 1 week. 03/24 case discussed with radiology. Drain output minimal 2 cc over the last 3 shifts. Repeat ultrasound abdomen to evaluate resolution of abscess. Antibiotics can be escalated to oral ampicillin. Alert oriented. No overnight fever chills 03/25-Case discussed with radiology. Persistent collection. Radiology discontinued catheter. Await further surgical evaluation. On antibiotic coverage. No overnight events. Ongoing physical therapy. Tolerating diet. White count 11.5. Potassium 3.3 on replacement. Patient underwent surgical consultation and will undergo drainage of abscess under anesthesia in 24 hours. Subsequently patient is being transitioned to inpatient status. Review of systems A 10 point review system was attempted and is negative except for ones discussed above History of present illness: Ms. Grover is a 69 year old F [facility] Medical History (Updated 03/25/20 @ 14:08 by Yina Lyn MD) Asthma (Chronic) Blood disorder (Chronic) Factor 5 Congestive heart failure (Chronic) Gallbladder problem (Chronic) Has been removed. Gout (Chronic) High blood pressure (Chronic) Joint pain (Chronic) Left shoulder. Thyroid trouble (Chronic) Type 2 diabetes mellitus (Inactive) Surgical History History of appendectomy (Chronic) History of cholecystectomy (Chronic) History of hernia repair (Chronic) Ventral History of hip replacement (Chronic) History of hysterectomy (Chronic) History of knee surgery (Chronic ~1967) Knee arthroscopy with medial meniscectomy History of oophorectomy (Chronic) History of removal of ovarian cyst (Chronic) Family History Mother Arthritis Brother Diabetes Father Heart attack Social History marital status: occupational status: retired smoking status: Never smoker alcohol intake frequency: does not drink substance use type: does not use MEDS/ALLERGIES Home Medications and Allergies Home Medications Medication Instructions Recorded Confirmed Type atorvastatin 20 mg tablet 20 mg PO HS 08/28/19 03/25/20 History metoprolol tartrate 50 mg tablet 50 mg PO BID 08/28/19 03/25/20 History allopurinol 300 mg tablet 300 mg PO QDAY #90 tab 11/01/19 03/25/20 Rx furosemide 80 mg tablet 80 mg PO BID #60 tab 12/17/19 03/25/20 Rx potassium chloride 10 mEq 20 meq PO TID #180 cap 12/17/19 03/25/20 Rx capsule,extended release trazodone 50 mg tablet 50 mg PO QHS PRN #30 tab 12/17/19 03/25/20 Rx insulin glargine 100 unit/mL (3 40 unit SUB-Q QDAY #15 ml 12/27/19 03/25/20 Rx mL) subcutaneous pen losartan 25 mg tablet 25 mg PO QDAY #90 tab 01/06/20 03/25/20 Rx levothyroxine 50 mcg capsule 50 mcg PO DAILY cap 03/13/20 03/25/20 History tizanidine 4 mg tablet 4 mg PO Q8H PRN tab 03/13/20 03/25/20 History apixaban [Eliquis] 5 mg PO BID 03/17/20 03/25/20 History cyclosporine [Restasis] 1 drp OPHTHALMIC (EYE) BID 03/17/20 03/25/20 History diltiazem HCl 120 mg PO BID 03/17/20 03/25/20 History dulaglutide [Trulicity] See Rx Instructions .ROUTE .COMPLEX 03/17/20 03/25/20 History gabapentin 600 mg PO TID 03/17/20 03/25/20 History levothyroxine See Rx Instructions .ROUTE .COMPLEX 03/17/20 03/25/20 History nystatin 10,000 applic TOPICAL PRN PRN 03/17/20 03/25/20 History ampicillin sodium 1 g IV Q4H 03/25/20 03/25/20 History docusate sodium 100 mg PO BID 03/25/20 03/25/20 History heparin lock flush (porcine) 10 unit IV Q12H 03/25/20 03/25/20 History insulin lispro [Humalog U-100 1 unit SUBCUT ACHS PRN 03/25/20 03/25/20 History Insulin] Allergies Allergy/AdvReac Type Severity Reaction Status Date / Time metformin AdvReac Mild Diarrhea Verified 03/25/20 18:26 morphine AdvReac Mild Hallucinati Verified 03/25/20 18:26 ng EXAM Constitutional Vitals: Temp Resp BP Pulse Ox 97.9 F 20 119/56 95 03/25/20 18:15 03/25/20 18:15 03/25/20 18:15 03/25/20 18:15 Morbidly obese Head normocephalic Oral cavity moist No ear nose discharge Eye movement symmetrical Neck supple no lymphadenopathy S1-S2 occasionally irregular Nonlabored breathing Nondistended nontender abdomen, no drainage noted, extensive pannus Lower extremity no cyanosis clubbing or joint swelling Skin no suspicious lesion Psych anxious but alert cooperative Neuro normal higher function DATA Data Completed and Pending Labs on day of discharge: Labs from last 24 hours 03/25/20 20:22 COVID-19 PCR Pending A/P Narrative A/P Narrative: *Abdominal wall abscess Lower- s/p drainage (03/17) enterococci on cultures. Ongoing IV ampicillin.. Repeat ultrasound abdomen reveals persistent collection. Will undergo surgical incision drainage in a.m.. *Candidal intertrigo: Continue local care/ antifungal *DM w/neuropathy: Stable on basal prandial insulin/CC diet *HTN/HLD: Continue statin/metoprolol/losartan/diltiazem *Severe obesity class III: Continue active therapies *KANDIS: on CPAP, very dependent on pressures *Hypothyroidism: Continue thyroxine Neuropathy continue gabapentin History of gout continue allopurinol *Afib: sinus on admit, is on Dilt/BB/Apixaban *Factor V Leiden mutation: On apixaban Plan -Inpatient admission Continue ampicillin Surgical incision drainage in a.m. Continue pre-existing medical condition management as above PT OT nutrition support Discharge planning per case management Time Spent With Patient Time: Total time spent is greater than 50% in coordination of care (as documented) at patient's floor/unit and/or counseling patient: Total time spent with greater than 50% in coordination of care (as documented) at patient's floor/unit and/or counseling patient:: Greater than 35 minutes
[2020-03-25] MEDS ORDERED: SENNOSIDES/DOCUSATE SODIUM 1 TAB TABLET PO SCH (21:00)
[2020-03-25] MEDS ORDERED: NON FORMULARY MEDICATION 1 DOSE MISCELL (Docusate Sodium 100 MG) PO SCH (21:00)
[2020-03-25] MEDS ORDERED: ATORVASTATIN 20 MG TABLET PO SCH (21:00)
[2020-03-25] MEDS ORDERED: CYCLOSPORINE OPHTHALMIC SCH (21:00)
[2020-03-25] MEDS ORDERED: APIXABAN 5 MG TABLET PO SCH (21:00)
[2020-03-25] MEDS: AMPICILLIN SODIUM 2 GM in 0.9 % SODIUM CHLORIDE 100 ML IV SCH (21:21)
[2020-03-25] MEDS ORDERED: HYDROcodone/APAP 5/325MG TABLET PO PRN (23:37)
[2020-03-25] MEDS ORDERED: HYDROcodone/APAP 5/325MG TABLET PO ONE (23:44)
[2020-03-26] MEDS: AMPICILLIN SODIUM 2 GM in 0.9 % SODIUM CHLORIDE 100 ML IV SCH ×7 (00:08→23:49)
[2020-03-26] MEDS ORDERED: DEXTROSE 50% 50 ML VIAL IV PRN ×2 (01:56→09:52)
[2020-03-26] MEDS ORDERED: DEXTROSE 31 GM ORAL.SUSP PO PRN ×2 (01:56→09:52)
[2020-03-26] MEDS ORDERED: HYDROcodone/APAP 5/325MG TABLET PO ONE (04:09)
[2020-03-26] MEDS: 0.9 % SODIUM CHLORIDE 10 ML SYRINGE IV SCH ×4 (05:26→20:24)
[2020-03-26 06:42] LABS: Hematocrit 40.9 % (34.1-44.9); Hemoglobin 12.3 g/dL (11.2-15.7); Mean Cell Volume 94.9 fL (80.0-100.0); Mean Corpuscular HGB Conc 30.1 g/dL (31.0-36.0); Mean Platelet Volume 10.8 fL (7.4-10.4); Platelet Count 286 K/mcL (140-440); RBC 4.31 M/mcL (3.59-5.38); Red Cell Distribution Width 15.9 % (11.5-14.5); WBC 11.2 K/mcL (4.50-11.00)
[2020-03-26 07:09] LABS: ALT/SGPT 19 U/l (0-40); AST/SGOT 16 U/l (0-37); Albumin 3.2 gm/dL (3.2-5.2); Alkaline Phosphatase 65 U/L (39-117); Bilirubin,Direct < 0.2 mg/dL (0.0-0.3); Bilirubin,Total 0.4 mg/dL (0.0-1.0); Blood Urea Nitrogen 11 mg/dl (8-23); Carbon Dioxide 30 mmol/L (22-30); Chloride 101 mmol/L (96-108); Globulin 3.1 gm/dL (2.2-3.7); Glomerular Filtration Rate 98; Glucose 115 mg/dL (70-105); Lactate Dehydrogenase 196 U/L (94-250); Phosphorous 3.1 mg/dL (2.7-4.5); Triglycerides 178 mg/dl (<150); Uric Acid 7.2 mg/dL (2.5-8.0)
[2020-03-26] MEDS ORDERED: LEVOTHYROXINE 150 MCG TABLET PO SCH (07:30)
[2020-03-26] MEDS ORDERED: INSULIN LISPRO 1 UNIT/0.01 ML UNIT SQ SCH (07:30)
[2020-03-26] MEDS ORDERED: NYSTATIN CRM 1 DOSE TUBE TOPICAL PRN ×2 (07:38→09:52)
[2020-03-26] MEDS ORDERED: POTASSIUM CHLORIDE 20 MEQ TABLET PO SCH (08:00)
[2020-03-26] MEDS ORDERED: IPRATROPIUM/ALBUTEROL 3 ML AMPUL.NEB NEB PRN ×4 (08:00→09:52)
--- NOTE | 2020-03-26 08:16 | Internal Med Progress Note ---
SUBJECTIVE Subjective Patient information: Note initiated : 03/26/20 at 8:11 am Service Date, if different from initiated Date: [] Patient: Rahel Grover 69 y/o F admitted on 03/25/20 for Abdominal Abcess . History of present illness: Ms. Grover is a 69 year old F who was admitted on 03/17 with fever and on imaging and CT abdomen showed a large fluid collection in the right lower abdominal wall. Patient underwent drainage by interventional radiology. Enterococci and culture. Drain currently on suction bulb. Surgery was consulted. Was managed on antibiotic coverage with clinical resolution of sepsis. Patient now transition to swing bed status for continued antibiotics and wound care/PT OT nutrition support. At the time of admission patient is alert and oriented. She denies active d istress. She is ambulating. Discussed treatment plan with patient and her sister. 03/23- doing well, minimal drain output, enetrococci ion cultures, On IV ampiicillin. No concerns expressed with nursing staff. Minimal FARZANA output 2 cc per shift. Ambulating with therapies. Anticipate discharge to [place] in the next 1 week. 03/24 case discussed with radiology. Drain output minimal 2 cc over the last 3 shifts. Repeat ultrasound abdomen to evaluate resolution of abscess. Antibiotics can be escalated to oral ampicillin. Alert oriented. No overnight fever chills 03/25-Case discussed with radiology. Persistent collection. Radiology discontinued catheter. Await further surgical evaluation. On antibiotic coverage. No overnight events. Ongoing physical therapy. Tolerating diet. Wh ite count 11.5. Potassium 3.3 on replacement. 03/26- Pt transitioned to inpt status for surgical interventiona and management of abd wall abscess. No O/n events, no F/C/N. NPO Constitutional Vitals: Vital Signs Temp Pulse Resp BP Pulse Ox 98.4 F 81 12 143/67 95 03/26/20 07:52 03/26/20 07:52 03/26/20 07:52 03/26/20 07:52 03/26/20 07:52 Period Temp Pulse Resp BP Sys/Blackwell Pulse Ox Last 24 Hr 97.6 F-98.5 F 76-84 12-20 112-143/56-69 90-95 Intake and Output 03/25/20 03/26/20 03/26/20 21:59 05:59 13:59 Intake Total 480 400 Output Total 1500 Balance 480 -1100 Weight 140.977 kg Alert oriented on CPAP mask Nonlabored breathing no anxiety Tender but nondistended abdomen Intake & Output: Intake & Output 03/25/20 03/26/20 03/26/20 21:59 05:59 13:59 Intake Total 480 400 Output Total 1500 Balance 480 -1100 Weight 140.977 kg Intake: IV 300 Ampicillin 2 gm In Sodium 300 Chloride 0.9% 100 ml @ 100 mls/ hr IV Q4H [facility] Rx#:[id number] Oral 480 100 Output: Void Amount 1500 Other: Meal Dinner Percent of Meal Consumed 100% Feeding Ability Independent Urine Color Bright Yellow Urine Odor Normal OBJ DATA Labs CBC & Chem 7: 03/26/20 05:25 03/26/20 05:25 Labs: Abnormal Lab Results 03/26/20 03/26/20 05:25 05:25 WBC 11.2 H MCHC 30.1 L RDW 15.9 H MPV 10.8 H Potassium 3.0 L Creatinine 0.5 L Glucose 115 H GGT 45 H Triglycerides 178 H Meds: Medications Acetaminophen (Tylenol) 650 mg PO Q4-6HP PRN; Protocol PRN Reason: Per Pain Protocol/Fever > 101 Hydrocodone Bitart/Acetaminophen ([place]an[place] 5/325mg) 1 tab PO Q4HP PRN; Protocol PRN Reason: Per Pain Protocol Albuterol/Ipratropium (Duoneb) 3 ml NEB ONCE PRN PRN Reason: Shortness Of Breath Stop: 03/26/20 13:00 Allopurinol (Zylopriim) 300 mg PO QDAY [facility] Atorvastatin Calcium (Lipitor) 20 mg PO HS [facility] Last Admin: 03/25/20 20:35 Dose: 20 mg Documented by: Bisacodyl (Dulcolax) 10 mg NE Q2-3DAYS PRN PRN Reason: Constipation Dextrose (Dextrose 50%) 0 ml IV UD PRN PRN Reason: Hypoglycemia Diagnostic Test (Pha) (Accu-Chek) 1 each FS ACHS [facility] Last Admin: 03/26/20 08:01 Dose: 1 each Documented by: Diltiazem HCl (Cardizem Sr) 120 mg PO BID [facility] Last Admin: 03/25/20 20:35 Dose: 120 mg Documented by: Docusate Sodium (Colace) 100 mg PO BID [facility] Last Admin: 03/25/20 20:35 Dose: 100 mg Documented by: Furosemide (Lasix) 80 mg PO BID [facility] Last Admin: 03/25/20 20:35 Dose: 80 mg Documented by: Gabapentin (Neurontin) 600 mg PO TID [facility] Last Admin: 03/25/20 20:35 Dose: 600 mg Documented by: Glucose (Insta-Glucose) 15 gm PO PRN PRN PRN Reason: Hypoglycemia Guaifenesin/Codeine Phosphate (Robitussin Ac) 10 ml PO Q4HP PRN PRN Reason: Cough Heparin Sodium (Porcine) (Heparin 10 Units/Ml Flush) 2 ml IV Q12 [facility] Ampicillin Sodium 2 gm/ Sodium (Chloride) 100 mls @ 100 mls/hr IV Q4H [facility] Last Admin: 03/26/20 08:01 Dose: 100 mls/hr Documented by: Insulin Human Lispro (Humalog) 0 unit SQ ACHS [facility]; Protocol Last Admin: 03/26/20 08:05 Dose: Not Given Documented by: Iron Carb/Multivit/[place]/Folic Acid (Multivitamin W/Minerals) 1 tab PO DAILY [facility] Levothyroxine Sodium (Synthroid) 150 mcg PO SuSa@0730 [facility] Levothyroxine Sodium (Synthroid) 100 mcg PO MoTuWeThFr@0730 [facility] Losartan Potassium (Cozaar) 25 mg PO QDAY [facility] Melatonin (Melatonin 3mg Tablet) 3 mg PO HSP PRN PRN Reason: Insomnia Metoprolol Tartrate (Lopressor) 50 mg PO BID [facility] Last Admin: 03/25/20 20:35 Dose: 50 mg Documented by: Nystatin (Nystatin Crm) 1 dose TOPICAL DAILYP PRN PRN Reason: Rash Ondansetron HCl (Zofran Odt) 4 mg SL Q4-6HP PRN; Protocol PRN Reason: Nausea And Vomiting Ondansetron HCl (Zofran) 4 mg IV Q4-6HP PRN; Protocol PRN Reason: Nausea And Vomiting Dulaglutide [ (Trulicity] 1.5 Mg) 1 dose SUB-Q Mo@0730 [facility] Cyclosporine [ Restasis] Ophthalmic Drops 1 dose OU BID [facility] Polyethylene Glycol (Miralax) 17 gm PO DAILYP PRN PRN Reason: Constipation Potassium Chloride (Kdur) 20 meq PO TIDCC [facility] Senna/Docusate Sodium (Senna Plus Tablet) 1 tab PO HS [facility] Last Admin: 03/25/20 20:35 Dose: 1 tab Documented by: Sodium Chloride (Saline Flush) 10 ml IV Q8 [facility] Last Admin: 03/26/20 05:26 Dose: 10 ml Documented by: Tizanidine HCl (Zanaflex) 4 mg PO Q8H PRN PRN Reason: muscle spasticity Trazodone HCl (Desyrel) 50 mg PO QHS PRN PRN Reason: insomnia Last Admin: 03/25/20 23:20 Dose: 50 mg Documented by: A/P Narrative A/P Narrative: *Abdominal wall abscess Lower- s/p drainage (03/17) enterococci on cultures. Surgical drainage today. Continue antibiotic coverage. *Candidal intertrigo: Continue local care/ antifungal *DM w/neuropathy: Stable on basal prandial insulin/CC diet *HTN/HLD: Continue statin/metoprolol/losartan/diltiazem *Severe obesity class III: Continue active therapies *KANDIS: on CPAP, very dependent on pressures *Hypothyroidism: Continue thyroxine Neuropathy continue gabapentin History of gout continue allopurinol *Afib: sinus on admit, is on Dilt/BB/Apixaban *Factor V Leiden mutation: On apixaban Plan Continue ampicillin Surgical drainage today Continue pre-existing medical condition management as above PT OT nutrition support Time Spent With Patient Time: Total time spent is greater than 50% in coordination of care (as documented) at patient's floor/unit and/or counseling patient:35 minutes QUALITY Stroke Symptom Onset Unknown: No VTE Deep Vein Thrombosis/Pulmonary Embolism Present on Admission: No
[2020-03-26] MEDS ORDERED: SCOPOLAMINE 1 PATCH PATCH TOPICAL SCH (08:30)
[2020-03-26] MEDS ORDERED: GLYCOPYRROLATE 0.2 MG/ML VIAL IV ONE (09:00)
[2020-03-26] MEDS ORDERED: FAMOTIDINE/PF 20 MG/2 ML VIAL IV ONE (09:00)
[2020-03-26] MEDS ORDERED: CYCLOSPORINE OU SCH (09:00)
[2020-03-26] MEDS ORDERED: LOSARTAN 25 MG TABLET PO SCH (09:00)
[2020-03-26] MEDS ORDERED: PROPOFOL 200 MG/20 ML VIAL IV ONE (09:00)
[2020-03-26] MEDS ORDERED: ALLOPURINOL 300 MG TABLET PO SCH (09:00)
[2020-03-26] MEDS ORDERED: ONDANSETRON 4 MG/2 ML VIAL IV ONE (09:00)
[2020-03-26] MEDS ORDERED: LIDOCAINE HCL/PF 100 MG/5 ML SYRINGE IV ONE (09:00)
[2020-03-26] MEDS ORDERED: fentaNYL 100 MCG/2 ML VIAL IV ONE (09:00)
[2020-03-26] MEDS ORDERED: MIDAZOLAM HCL 10 MG/2 ML IV ONE (09:00)
[2020-03-26] MEDS ORDERED: MULTIVIT,THER IRON,CA,FA & MIN 1 TABLET PO SCH (09:00)
[2020-03-26] MEDS ORDERED: KETAMINE 10 MG/ML ML IV ONE (09:00)
[2020-03-26] MEDS ORDERED: DEXAMETHASONE 10 MG/ML VIAL IV ONE (09:00)
[2020-03-26] MEDS ORDERED: LACTATED RINGERS 250 ML IV PRN ×2 (09:18→09:52)
[2020-03-26] MEDS ORDERED: LABETALOL 5 MG/ML ML IV PRN ×2 (09:18→09:52)
[2020-03-26] MEDS ORDERED: METOPROLOL TARTRATE 5 MG/5 ML VIAL IV PRN ×2 (09:18→09:52)
[2020-03-26] MEDS ORDERED: fentaNYL 100 MCG/2 ML VIAL IV PRN ×2 (09:18→09:52)
[2020-03-26] MEDS ORDERED: NALOXONE HCL 0.4 MG/ML VIAL IV PRN ×2 (09:18→09:52)
[2020-03-26] MEDS ORDERED: FLUMAZENIL 0.1 MG/ML ML IV PRN ×2 (09:18→09:52)
[2020-03-26] MEDS ORDERED: ACETAMINOPHEN 1,000 MG/100 ML BOTTLE IV ONE ×2 (09:18→09:52)
[2020-03-26 09:30] LABS: Band Neutrophils % 1 % (0-10); Eosinophils % (Manual) 4 % (0-7); Lymphocytes % 27 % (15-49); Monocytes % (Manual) 7 % (1-12); Platelet Estimate NORMAL (NORMAL); RBC Morphology NORMAL (NORMAL); Reactive Lymphocytes 1 % (0-2); Segmented Neutrophils % 60 % (38-78)
[2020-03-26] MEDS ORDERED: LACTATED RINGERS 1,000 ML IV SCH ×2 (09:30→09:52)
--- NOTE | 2020-03-26 09:37 | Brief Operative Note ---
Brief Operative Note Date of procedure: 03/26/20 Pre-op diagnosis: INFECTED HEMATOMA RIGHT ABDOMINAL WALL Post-op diagnosis: other (INFECTED HEMATOMA RIGHT ABDOMINAL WALL) Procedure: INCISION AND EVACUATION OF HEMATOMA RIGHT ABDOMINAL WALL (500CC) Grafts/Implants: No (#10 RADHA DRAIN X1) Anesthesia: GLMA Findings: VERU LARGE CHRONIC HEMATOMA OF ABDOMINAL WALL WITH THICKENED RIND CIRCUMFERENTIALLY Complications: none Surgeon: Yina Lyn Estimated blood loss (cc): 5 Specimens Removed/Pathology: none sent Condition: stable Disposition: PACU
[2020-03-26] MEDS ORDERED: ONDANSETRON 4 MG/2 ML VIAL IV PRN (09:52)
[2020-03-26] MEDS ORDERED: ACETAMINOPHEN 325 MG TABLET PO PRN (09:52)
[2020-03-26] MEDS ORDERED: POLYETHYLENE GLYCOL 3350 17 GM PACKET PO PRN (09:52)
[2020-03-26] MEDS ORDERED: ONDANSETRON 4 MG ODT TABLET SL PRN (09:52)
[2020-03-26] MEDS ORDERED: guaiFENesin/CODEINE 10 ML UDC PO PRN (09:52)
[2020-03-26] MEDS ORDERED: BISACODYL 10 MG SUPP.RECT PR PRN (09:52)
[2020-03-26] MEDS ORDERED: tiZANidine 4 MG TABLET PO PRN (09:52)
[2020-03-26] MEDS ORDERED: MEPERIDINE 50 MG/ML INJECTION ONE (10:03)
[2020-03-26] MEDS: HYDROcodone/APAP 5/325MG TABLET PO PRN ×4 (11:13→23:50)
[2020-03-26] MEDS: DOCUSATE SODIUM 100 MG CAPSULE PO SCH ×2 (11:39→20:25)
[2020-03-26] MEDS: DILTIAZEM 120 MG CAP.XL.24H PO SCH ×2 (11:39→20:25)
[2020-03-26] MEDS: FUROSEMIDE 80 MG TABLET PO SCH ×2 (11:40→19:09)
[2020-03-26] MEDS: GABAPENTIN 300 MG CAPSULE PO SCH ×3 (11:40→20:25)
[2020-03-26] MEDS: METOPROLOL TARTRATE 50 MG TABLET PO SCH ×2 (11:40→20:25)
[2020-03-26] MEDS: INSULIN LISPRO 1 UNIT/0.01 ML UNIT SQ SCH ×3 (12:52→20:33)
[2020-03-26] MEDS: POTASSIUM CHLORIDE 20 MEQ TABLET PO SCH ×2 (12:53→17:12)
[2020-03-26] MEDS: ATORVASTATIN 20 MG TABLET PO SCH (20:25)
[2020-03-26] MEDS: CYCLOSPORINE OU SCH (20:26)
[2020-03-26] MEDS: SENNOSIDES/DOCUSATE SODIUM 1 TAB TABLET PO SCH (21:54)
[2020-03-26] MEDS: traZODone HCL 50 MG TABLET PO PRN (23:50)
[2020-03-27] MEDS: MELATONIN 3 MG TABLET PO PRN (00:53)
[2020-03-27] MEDS: AMPICILLIN SODIUM 2 GM in 0.9 % SODIUM CHLORIDE 100 ML IV SCH ×6 (03:33→23:51)
[2020-03-27] MEDS: HYDROcodone/APAP 5/325MG TABLET PO PRN ×5 (03:33→23:52)
[2020-03-27] MEDS: 0.9 % SODIUM CHLORIDE 10 ML SYRINGE IV SCH ×3 (04:45→20:48)
[2020-03-27 06:31] LABS: Hematocrit 39.4 % (34.1-44.9); Hemoglobin 12.1 g/dL (11.2-15.7); Mean Cell Volume 94.3 fL (80.0-100.0); Mean Corpuscular HGB Conc 30.7 g/dL (31.0-36.0); Mean Platelet Volume 10.6 fL (7.4-10.4); Platelet Count 311 K/mcL (140-440); RBC 4.18 M/mcL (3.59-5.38); Red Cell Distribution Width 15.7 % (11.5-14.5); WBC 13.2 K/mcL (4.50-11.00)
[2020-03-27 07:03] LABS: ALT/SGPT 19 U/l (0-40); AST/SGOT 13 U/l (0-37); Albumin 3.2 gm/dL (3.2-5.2); Albumin/Globulin Ratio 1.1 (1.0-2.3); Alkaline Phosphatase 63 U/L (39-117); Bilirubin,Direct < 0.2 mg/dL (0.0-0.3); Bilirubin,Total 0.3 mg/dL (0.0-1.0); Blood Urea Nitrogen 15 mg/dl (8-23); Calcium 9.5 mg/dl (8.6-10.4); Carbon Dioxide 29 mmol/L (22-30); Chloride 99 mmol/L (96-108); Glucose 218 mg/dL (70-105); Lactate Dehydrogenase 173 U/L (94-250); Triglycerides 126 mg/dl (<150); Uric Acid 7.3 mg/dL (2.5-8.0)
[2020-03-27 07:13] LABS: Glomerular Filtration Rate 88
[2020-03-27] MEDS ORDERED: LEVOTHYROXINE 100 MCG TABLET PO SCH (07:30)
[2020-03-27] MEDS: INSULIN LISPRO 1 UNIT/0.01 ML UNIT SQ SCH ×4 (08:10→21:07)
[2020-03-27] MEDS: POTASSIUM CHLORIDE 20 MEQ TABLET PO SCH ×3 (08:11→17:11)
[2020-03-27] MEDS: FUROSEMIDE 80 MG TABLET PO SCH ×2 (08:11→17:11)
[2020-03-27] MEDS: LEVOTHYROXINE 100 MCG TABLET PO SCH (08:11)
[2020-03-27 08:37] LABS: Band Neutrophils % 4 % (0-10); Lymphocytes % 8 % (15-49); Monocytes % (Manual) 8 % (1-12); Platelet Estimate NORMAL (NORMAL); RBC Morphology NORMAL (NORMAL); Segmented Neutrophils % 80 % (38-78)
--- NOTE | 2020-03-27 09:48 | Internal Med Progress Note ---
SUBJECTIVE Subjective Patient information: Note initiated : 03/27/20 at 9:46 am Service Date, if different from initiated Date: [] Patient: Rahel Grover a 69 y/o F admitted on 03/25/20 for Abdominal Abcess . Chief Complaint: History of present illness: Ms. Grover is a 69 year old F who was admitted on 03/17 with fever and on imaging and CT abdomen showed a large fluid collection in the right lower abdominal wall. Patient underwent drainage by interventional radiology. Enterococci and culture. Drain currently on suction bulb. Surgery was consulted. Was managed on antibiotic coverage with clinical resolution of sepsis. Patient now transition to swing bed status for continued antibiotics and wound care/PT OT nutrition support. At the time of admission patient is alert and oriented. She denies active distress. She is ambulating. Discussed treatment plan with patient and her sister. 03/23- doing well, minimal drain output, enetrococci ion cultures, On IV ampiicillin. No concerns expressed with nursing staff. Minimal FARZANA output 2 cc per shift. Ambulating with therapies. Anticipate discharge to [place] in the next 1 week. 03/24 case discussed with radiology. Drain output minimal 2 cc over the last 3 shifts. Repeat ultrasound abdomen to evaluate resolution of abscess. Antibiotics can be escalated to oral ampicillin. Alert oriented. No overnight fever chills 03/25-Case discussed with radiology. Persistent collection. Radiology discontinued catheter. Await further surgical evaluation. On antibiotic coverage. No overnight events. Ongoing physical therapy. Tolerating diet. White count 11.5. Potassium 3.3 on replacement. 03/26- Pt transitioned to inpt status for surgical interventiona and management of abd wall abscess. No O/n events, no F/C/N. NPO 03/27-patient doing well. No overnight events. Drain output 20 cc per shift. Surgery on board. On antibiotic coverage IV ampicillin. Will de-escalate to oral in the next 24 to 48 hours. Continue wound care/PT OT nutrition support. Interval history: Narrative: Constitutional Vitals: Vital Signs Temp Pulse Resp BP Pulse Ox 97.6 F 68 18 127/72 98 03/27/20 06:46 03/27/20 06:46 03/27/20 06:46 03/27/20 06:46 03/27/20 06:46 Period Temp Pulse Resp BP Sys/Blackwell Pulse Ox Last 24 Hr 97.6 F-99.2 F 16-85 14-18 102-148/47-77 90-98 Intake and Output 03/26/20 03/27/20 03/27/20 21:59 05:59 13:59 Intake Total 440 1000 Output Total 1470 10 Balance -1030 990 Weight 141.578 kg Morbidly obese Alert oriented Nonlabored breathing No anxiety Intake & Output: Intake & Output 03/26/20 03/27/20 03/27/20 21:59 05:59 13:59 Intake Total 440 1000 Output Total 1470 10 Balance -1030 990 Weight 141.578 kg Intake: IV 200 200 Ampicillin 2 gm In Sodium 200 200 Chloride 0.9% 100 ml @ 100 mls/ hr IV Q4H [facility] Rx#:[id number] Oral 240 800 Output: Drainage 20 10 Right FARZANA Drain 20 10 Void Amount 1450 Other: Meal Lunch Percent of Meal Consumed 100% Feeding Ability Independent Urine Appearance Clear Urine Color Bright Yellow Urine Odor Strong # Voids 1 OBJ DATA Labs CBC & Chem 7: 03/27/20 05:32 03/27/20 05:32 Labs: Abnormal Lab Results 03/27/20 03/27/20 03/26/20 05:32 05:32 05:25 WBC 13.2 H MCHC 30.7 L RDW 15.7 H MPV 10.6 H Seg Neutrophils % 80 H Lymphocytes % 8 L Potassium 3.0 L Creatinine 0.5 L Glucose 218 H 115 H GGT 44 H 45 H Triglycerides 178 H 03/26/20 05:25 WBC 11.2 H MCHC 30.1 L RDW 15.9 H MPV 10.8 H Seg Neutrophils % Lymphocytes % Potassium Creatinine Glucose GGT Triglycerides Meds: Medications Acetaminophen (Tylenol) 650 mg PO Q4-6HP PRN; Protocol PRN Reason: Per Pain Protocol/Fever > 101 Hydrocodone Bitart/Acetaminophen ([place] 5/325mg) 1 tab PO Q4HP PRN; Protocol PRN Reason: Per Pain Protocol Last Admin: 03/27/20 03:33 Dose: 1 tab Documented by: Allopurinol (Zylopriim) 300 mg PO QDAY [facility] Apixaban (Eliquis) 5 mg PO BID [facility] Atorvastatin Calcium (Lipitor) 20 mg PO HS [facility] Last Admin: 03/26/20 20:25 Dose: 20 mg Documented by: Bisacodyl (Dulcolax) 10 mg VT Q2-3DAYS PRN PRN Reason: Constipation Dextrose (Dextrose 50%) 0 ml IV UD PRN PRN Reason: Hypoglycemia Diagnostic Test (Pha) (Accu-Chek) 1 each FS [facility] Last Admin: 03/27/20 08:09 Dose: 1 each Documented by: Diltiazem HCl (Cardizem Sr) 120 mg PO BID [facility] Last Admin: 03/26/20 20:25 Dose: 120 mg Documented by: Docusate Sodium (Colace) 100 mg PO BID [facility] Last Admin: 03/26/20 20:25 Dose: 100 mg Documented by: Furosemide (Lasix) 80 mg PO 08,1600 [facility] Last Admin: 03/27/20 08:11 Dose: 80 mg Documented by: Gabapentin (Neurontin) 600 mg PO TID [facility] Last Admin: 03/26/20 20:25 Dose: 600 mg Documented by: Glucose (Insta-Glucose) 15 gm PO PRN PRN PRN Reason: Hypoglycemia Guaifenesin/Codeine Phosphate (Robitussin Ac) 10 ml PO Q4HP PRN PRN Reason: Cough Heparin Sodium (Porcine) (Heparin 10 Units/Ml Flush) 2 ml IV Q12 [facility] Last Admin: 03/26/20 22:07 Dose: 2 ml Documented by: Ampicillin Sodium 2 gm/ Sodium (Chloride) 100 mls @ 100 mls/hr IV Q4H [facility] Last Admin: 03/27/20 08:13 Dose: 100 mls/hr Documented by: Insulin Human Lispro (Humalog) 0 unit SQ [facility]; Protocol Last Admin: 03/27/20 08:10 Dose: 6 units Documented by: Iron Carb/Multivit/[place]/Folic Acid (Multivitamin W/Minerals) 1 tab PO DAILY [facility] Levothyroxine Sodium (Synthroid) 100 mcg PO MoTuWeThFr@0730 [facility] Last Admin: 03/27/20 08:11 Dose: 100 mcg Documented by: Levothyroxine Sodium (Synthroid) 150 mcg PO SuSa@0730 [facility] Losartan Potassium (Cozaar) 25 mg PO QDAY [facility] Melatonin (Melatonin 3mg Tablet) 3 mg PO HSP PRN PRN Reason: Insomnia Last Admin: 03/27/20 00:53 Dose: 3 mg Documented by: Metoprolol Tartrate (Lopressor) 50 mg PO BID [facility] Last Admin: 03/26/20 20:25 Dose: 50 mg Documented by: Nystatin (Nystatin Crm) 1 dose TOPICAL DAILYP PRN PRN Reason: Rash Ondansetron HCl (Zofran Odt) 4 mg SL Q4-6HP PRN; Protocol PRN Reason: Nausea And Vomiting Ondansetron HCl (Zofran) 4 mg IV Q4-6HP PRN; Protocol PRN Reason: Nausea And Vomiting Cyclosporine [ Restasis] Ophthalmic Drops 1 dose OU BID [facility] Last Admin: 03/26/20 20:26 Dose: 1 dose Documented by: Dulaglutide [ (Trulicity] 1.5 Mg) 1 dose SUB-Q Mo@0730 [facility] Polyethylene Glycol (Miralax) 17 gm PO DAILYP PRN PRN Reason: Constipation Potassium Chloride (Kdur) 20 meq PO TIDCC [facility] Last Admin: 03/27/20 08:11 Dose: 20 meq Documented by: Senna/Docusate Sodium (Senna Plus Tablet) 1 tab PO HS [facility] Last Admin: 03/26/20 21:54 Dose: Not Given Documented by: Sodium Chloride (Saline Flush) 10 ml IV Q8 [facility] Last Admin: 03/27/20 04:45 Dose: 10 ml Documented by: Tizanidine HCl (Zanaflex) 4 mg PO Q8H PRN PRN Reason: muscle spasticity Trazodone HCl (Desyrel) 50 mg PO QHS PRN PRN Reason: insomnia Last Admin: 03/26/20 23:50 Dose: 50 mg Documented by: A/P Narrative A/P Narrative: *Abdominal wall abscess Lower- s/p drainage (03/17) enterococci on cultures. Postoperative day 1. Dra[address] in [address]. On antibiotic coverage. *Candidal intertrigo: Clinically improved with local care/ antifungal *DM w/neuropathy: Stable on basal prandial insulin/CC diet *HTN/HLD: On home dose statin/metoprolol/losartan/diltiazem *Severe obesity class III: Continue directed therapies/weight loss intervention *KANDIS: on CPAP, very dependent on pressures *Hypothyroidism: Continue thyroxine Neuropathy continue gabapentin History of gout continue allopurinol *Afib: sinus on admit, is on Dilt/BB/Apixaban *Factor V Leiden mutation: On apixaban Plan Continue antibiotic coverage Postop care per surgery Continue pre-existing medical condition management as above PT OT nutrition support Time Spent With Patient Time: Total time spent is greater than 50% in coordination of care (as documented) at patient's floor/unit and/or counseling patient: Total time spent with greater than 50% in coordination of care (as documented) at patient's floor/unit and/or counseling patient:: Greater than 35 minutes QUALITY Stroke Symptom Onset Unknown: No VTE Deep Vein Thrombosis/Pulmonary Embolism Present on Admission: No
[2020-03-27] MEDS: APIXABAN 5 MG TABLET PO SCH ×2 (10:02→20:48)
[2020-03-27] MEDS: DOCUSATE SODIUM 100 MG CAPSULE PO SCH ×2 (10:02→20:49)
[2020-03-27] MEDS: ALLOPURINOL 300 MG TABLET PO SCH (10:02)
[2020-03-27] MEDS: GABAPENTIN 300 MG CAPSULE PO SCH ×3 (10:03→20:48)
[2020-03-27] MEDS: MULTIVIT,THER IRON,CA,FA & MIN 1 TABLET PO SCH (10:03)
[2020-03-27] MEDS: DILTIAZEM 120 MG CAP.XL.24H PO SCH ×2 (10:03→20:48)
[2020-03-27] MEDS: LOSARTAN 25 MG TABLET PO SCH (10:03)
[2020-03-27] MEDS: METOPROLOL TARTRATE 50 MG TABLET PO SCH ×2 (10:03→20:48)
[2020-03-27] MEDS: CYCLOSPORINE OU SCH ×2 (10:05→20:49)
--- NOTE | 2020-03-27 15:21 | General Surgery Progress Note ---
SUBJECTIVE Subjective Patient information: Note initiated : 03/27/20 at 3:17 pm Service Date, if different from initiated Date: [] Patient: Rahel Grover 69 y/o F admitted on 03/25/20 for Abdominal Abcess . Chief Complaint: [] Interval history: Narrative:PATIENT IS STABLE FROM A SURGICAL ASPECT. SHE CAN BE SAFELY TRANSFERRED TO [facility] ,WITH PLANS FOR DRESSING CHANGE ONCE WEEKLY . SHE CAN BE TAUGHT TO EMPTY HER J P DRAIN ONCE DAILY AT THE FACILITY. Constitutional Vitals: Vital Signs Temp Pulse Resp BP Pulse Ox 98.6 F 66 20 133/82 94 03/27/20 11:36 03/27/20 11:36 03/27/20 11:36 03/27/20 11:36 03/27/20 11:36 Period Temp Pulse Resp BP Sys/Blackwell Pulse Ox Last 24 Hr 97.6 F-98.7 F 66-85 14-20 121-148/60-82 91-98 Intake and Output 03/27/20 03/27/20 03/27/20 05:59 13:59 21:59 Intake Total 1000 200 Output Total 10 Balance 990 200 Intake & Output: Intake & Output 03/27/20 03/27/20 03/27/20 05:59 13:59 21:59 Intake Total 1000 200 Output Total 10 Balance 990 200 Intake: IV 200 200 Ampicillin 2 gm In Sodium 200 200 Chloride 0.9% 100 ml @ 100 mls/ hr IV Q4H [facility] Rx#:[id number] Oral 800 Output: Drainage 10 Right FARZANA Drain 10 Other: # Voids 1 A/P Time Spent With Patient Time: Total time spent is greater than 50% in coordination of care (as documented) at patient's floor/unit and/or counseling patient:
[2020-03-27] MEDS: SENNOSIDES/DOCUSATE SODIUM 1 TAB TABLET PO SCH (20:49)
[2020-03-27] MEDS: ATORVASTATIN 20 MG TABLET PO SCH (20:49)
[2020-03-27] MEDS: traZODone HCL 50 MG TABLET PO PRN (23:52)
[2020-03-28] MEDS: MELATONIN 3 MG TABLET PO PRN (00:59)
[2020-03-28] MEDS: AMPICILLIN SODIUM 2 GM in 0.9 % SODIUM CHLORIDE 100 ML IV SCH ×3 (03:54→12:23)
[2020-03-28] MEDS: HYDROcodone/APAP 5/325MG TABLET PO PRN ×2 (03:55→08:00)
[2020-03-28] MEDS: 0.9 % SODIUM CHLORIDE 10 ML SYRINGE IV SCH (04:02)
[2020-03-28 07:08] LABS: Hematocrit 38.2 % (34.1-44.9); Hemoglobin 11.7 g/dL (11.2-15.7); Mean Corpuscular HGB Conc 30.6 g/dL (31.0-36.0); Platelet Count 313 K/mcL (140-440); RBC 4.02 M/mcL (3.59-5.38); WBC 12.5 K/mcL (4.50-11.00)
[2020-03-28 07:32] LABS: ALT/SGPT 18 U/l (0-40); AST/SGOT 14 U/l (0-37); Albumin 3.4 gm/dL (3.2-5.2); Albumin/Globulin Ratio 1.2 (1.0-2.3); Alkaline Phosphatase 59 U/L (39-117); Bilirubin,Direct < 0.2 mg/dL (0.0-0.3); Bilirubin,Total 0.3 mg/dL (0.0-1.0); Blood Urea Nitrogen 17 mg/dl (8-23); Calcium 9.1 mg/dl (8.6-10.4); Carbon Dioxide 31 mmol/L (22-30); Chloride 99 mmol/L (96-108); Globulin 2.9 gm/dL (2.2-3.7); Glomerular Filtration Rate 88; Glucose 129 mg/dL (70-105); Lactate Dehydrogenase 194 U/L (94-250); Phosphorous 3.3 mg/dL (2.7-4.5); Triglycerides 194 mg/dl (<150)
[2020-03-28] MEDS: INSULIN LISPRO 1 UNIT/0.01 ML UNIT SQ SCH ×2 (07:41→11:41)
[2020-03-28] MEDS: LEVOTHYROXINE 100 MCG TABLET PO SCH (07:41)
[2020-03-28 08:18] LABS: Eosinophils % (Manual) 1 % (0-7); Lymphocytes % 16 % (15-49); Monocytes % (Manual) 8 % (1-12); Platelet Estimate NORMAL (NORMAL); RBC Morphology NORMAL (NORMAL); Segmented Neutrophils % 75 % (38-78)
[2020-03-28] MEDS: POTASSIUM CHLORIDE 20 MEQ TABLET PO SCH ×2 (08:54→11:41)
[2020-03-28] MEDS: DOCUSATE SODIUM 100 MG CAPSULE PO SCH (08:55)
[2020-03-28] MEDS: LOSARTAN 25 MG TABLET PO SCH (08:55)
[2020-03-28] MEDS: DILTIAZEM 120 MG CAP.XL.24H PO SCH (08:55)
[2020-03-28] MEDS: APIXABAN 5 MG TABLET PO SCH (08:55)
[2020-03-28] MEDS: FUROSEMIDE 80 MG TABLET PO SCH (08:55)
[2020-03-28] MEDS: ALLOPURINOL 300 MG TABLET PO SCH (08:56)
[2020-03-28] MEDS: GABAPENTIN 300 MG CAPSULE PO SCH (08:56)
[2020-03-28] MEDS: CYCLOSPORINE OU SCH (08:56)
[2020-03-28] MEDS: METOPROLOL TARTRATE 50 MG TABLET PO SCH (08:56)
[2020-03-28] MEDS: MULTIVIT,THER IRON,CA,FA & MIN 1 TABLET PO SCH (08:56)
--- NOTE | 2020-03-28 09:28 | Discharge Summary ---
Discharge Provider Provider Patient information: Note initiated : 03/28/20 at 9:24 am Service Date, if different from initiated Date: [] Patient: Rahel Grover 69 y/o F admitted on 03/25/20 for Abdominal Abcess . Chief Complaint: [] Date of admission: 03/25/20 17:54 Discharge date: 03/28/20 Primary care physician: Mo Rivera M.D., F.A.A.F.P. Consults: 03/25/20 18:16 Consult to Physician [CONS] Routine Comment: Consulting Provider: Yina Lyn Reason For Exam: Physician to Consult Discharge Meds Discharge Medications Home Medications atorvastatin 20 mg tablet 20 mg PO HS 08/28/19 [History Confirmed 03/25/20 Last Taken 03/25/20 09:00] metoprolol tartrate 50 mg tablet 50 mg PO BID 08/28/19 [History Confirmed 03/25/20 Last Taken 03/25/20 0900] allopurinol 300 mg tablet 300 mg PO QDAY #90 tab 11/01/19 [Rx Confirmed 03/25/20 Last Taken 03/16/20 09:00 300 mg.] furosemide 80 mg tablet 80 mg PO BID #60 tab 12/17/19 [Rx Confirmed 03/25/20 Last Taken 03/25/20 0900] potassium chloride 10 mEq capsule,extended release 20 meq PO TID #180 cap 12/17/19 [Rx Confirmed 03/25/20 Last Taken 03/22/20 21:00 10 meq] trazodone 50 mg tablet 50 mg PO QHS PRN #30 tab 12/17/19 [Rx Confirmed 03/25/20 Last Taken 03/25/20 01:00] insulin glargine 100 unit/mL (3 mL) subcutaneous pen 40 unit SUB-Q QDAY #15 ml 12/27/19 [Rx Confirmed 03/25/20 Last Taken 03/25/20] losartan 25 mg tablet 25 mg PO QDAY #90 tab 01/06/20 [Rx Confirmed 03/25/20 Last Taken 03/25/20] levothyroxine 50 mcg capsule 50 mcg PO DAILY cap 03/13/20 [History Confirmed 03/25/20 Last Taken 03/25/20] tizanidine 4 mg tablet 4 mg PO Q8H PRN tab 03/13/20 [History Confirmed 03/25/20 Last Taken Unknown] Eliquis 5 mg PO BID 03/17/20 [History Confirmed 03/25/20 Last Taken 03/22/20 09:00 5 mg.] Restasis 1 drp OPHTHALMIC (EYE) BID 03/17/20 [History Confirmed 03/25/20 Last Taken 03/25/20 0900] Trulicity See Rx Instructions .ROUTE .COMPLEX 03/17/20 [History Confirmed 03/25/20 Last Taken 03/20/20 09:00 1.5 mg.] diltiazem HCl 120 mg PO BID 03/17/20 [History Confirmed 03/25/20 Last Taken 03/25/20 09:00] gabapentin 600 mg PO TID 03/17/20 [History Confirmed 03/25/20 Last Taken 03/25/20 15:00] levothyroxine See Rx Instructions .ROUTE .COMPLEX 03/17/20 [History Confirmed 03/25/20 Last Taken 03/25/20] nystatin 10,000 applic TOPICAL PRN PRN 03/17/20 [History Confirmed 03/25/20 Last Taken 03/21/20 10:00 [id number] units] acetaminophen [Tylenol] 650 mg PO Q6HP PRN 03/25/20 [History Confirmed 03/25/20 Last Taken 03/25/20] docusate sodium 100 mg PO BID 03/25/20 [History Confirmed 03/25/20 Last Taken 03/25/20 09:00] hydrocodone-acetaminophen 1 tab PO Q4H PRN MDD 4 gm 03/25/20 [History Confirmed 03/25/20 Last Taken 03/25/20 17:23] insulin lispro [Humalog U-100 Insulin] 1 unit SUBCUT ACHS PRN 03/25/20 [History Confirmed 03/25/20 Last Taken 03/25/20 1700] ketoconazole 1 applic TOPICAL QDAY 03/25/20 [History Confirmed 03/25/20 Last Taken 03/25/20 09:00] lidocaine [Lidoderm] 1 patch TOPICAL QDAY 03/25/20 [History Confirmed 03/25/20 Last Taken 03/25/20 10:00] ampicillin 500 mg PO TID #30 cap 03/28/20 [Rx Last Taken Unknown] COURSE Hospital Course Hospital Course: Discharge diagnosis *Abdominal wall abscess Lower- s/p drainage (03/17) enterococci on cultures. Now postop. FARZANA drain in place. Continue oral antibiotic additional 10 days. Discharging to [facility] for continued outpatient wound/drain care/we will follow-up with surgery. *Candidal intertrigo: Clinically improved with local care/ antifungal *DM w/neuropathy: Stable on basal prandial insulin/CC diet *HTN/HLD: On home dose statin/metoprolol/losartan/diltiazem *Severe obesity class III: Continue directed therapies/weight loss intervention *KANDIS: on CPAP, very dependent on pressures *Hypothyroidism: Continue thyroxine Neuropathy continue gabapentin History of gout continue allopurinol *Afib: sinus on admit, is on Dilt/BB/Apixaban *Factor V Leiden mutation: Continue apixaban Brief hospital course History of present illness: Ms. Grover is a 69 year old F who was admitted on 03/17 with fever and on imaging and CT abdomen showed a large fluid collection in the right lower abdominal wall. Patient underwent drainage by interventional radiology. Enterococci and culture. Drain currently on suction bulb. Surgery was consulted. Was managed on antibiotic coverage with clinical resolution of sepsis. Patient now transition to swing bed status for continued antibiotics and wound care/PT OT nutrition support. At the time of admission patient is alert and oriented. She denies active distress. She is ambulating. Discussed treatment plan with patient and her sister. 03/23- doing well, minimal drain output, enetrococci ion cultures, On IV ampii cillin. No concerns expressed with nursing staff. Minimal FARZANA output 2 cc per shift. Ambulating with therapies. Anticipate discharge to [facility] in the next 1 week. 03/24 case discussed with radiology. Drain output minimal 2 cc over the last 3 shifts. Repeat ultrasound abdomen to evaluate resolution of abscess. Antibiotics can be escalated to oral ampicillin. Alert oriented. No overnight fever chills 03/25-Case discussed with radiology. Persistent collection. Radiology discontinued catheter. Await further surgical evaluation. On antibiotic coverage. No overnight events. Ongoing physical therapy. Tolerating diet. White count 11.5. Potassium 3.3 on replacement. 03/26- Pt transitioned to inpt status for surgical interventiona and management of abd wall abscess. No O/n events, no F/C/N. NPO 03/27-patient doing well. No overnight events. Drain output 20 cc per shift. Surgery on board. On antibiotic coverage IV ampicillin. Will de-escalate to oral in the next 24 to 48 hours. Continue wound care/PT OT nutrition support. 03/28-patient discharging with advised to continue abdominal drain as per surgery for 6 weeks. Per surgery patient will be taught to empty her FARZANA drain [facility] daily at the [facility]. We will follow-up with surgery as outpatient. Continue oral antibiotic for additional 10 days. Discharge instructions as below. Discharge diagnosis: . Time Spent with Patient Time attestation: Total time spent providing and/or coordinating discharge services: EXAM Constitutional Vitals: Temp Pulse Resp BP Pulse Ox 97.4 F 62 17 132/69 99 03/28/20 07:29 03/28/20 07:29 03/28/20 07:29 03/28/20 07:29 03/28/20 07:29 Discharge Data Data Completed and Pending Labs on day of discharge: Labs from last 24 hours 03/28/20 03/28/20 04:40 04:40 WBC 12.5 H RBC 4.02 Hgb 11.7 Hct 38.2 MCV 95.0 MCH 29.1 MCHC 30.6 L RDW 16.0 H Plt Count 313 MPV 11.0 H Total Counted 100 Seg Neutrophils % 75 Band Neutrophils % Not Reportable Lymphocytes % 16 Monocytes % (Manual) 8 Eosinophils % (Manual) 1 Platelet Estimate Normal RBC Morphology Normal Sodium 142 Potassium 3.7 Chloride 99 Carbon Dioxide 31 H Anion Gap 12.0 BUN 17 Creatinine 0.7 GFR Calculation 88 Glucose 129 H Uric Acid 7.0 Calcium 9.1 Phosphorus 3.3 Magnesium 2.2 Total Bilirubin 0.3 Direct Bilirubin < 0.2 GGT 41 H AST 14 ALT 18 Alkaline Phosphatase 59 Lactate Dehydrogenase 194 Total Protein 6.3 Albumin 3.4 Globulin 2.9 Albumin/Globulin Ratio 1.2 Triglycerides 194 H Discharge Plan Patient/Caregiver Discharge Instructions Activity: increase activity as tolerated Diet: Consistent Carbohydrate Activity Restrictions/Additional Instructions: Follow-up PCP in [5] days Follow up with surgery in 2 weeks I recommend CBC BMP UA as a posthospital follow-up in 1 week by PCP Antibiotics for 10 days oral ampicillin Continue aggressive bowel regimen to prevent constipation Continue fall precautions Continue drain care as advised with surgery All meals on chair sitting upright at 90 degrees to prevent aspiration Return to ER if worsening fever chills shortness of breath, diarrhea, bleeding Review risk and side effect profile of medications including antibiotics. Side effect may include mild to severe reaction including rash, diarrhea, cdiff and even which can be prevented by close follow-up with PCP and monitoring for side effects Continue diet and activity as advised Discussed importance of medication adherence Please review medication list with patient prior to discharge Please schedule follow-up with PCP/Providers prior to discharge and provide printouts Prescriptions: New ampicillin 500 mg capsule 500 mg PO TID Qty: 30 RF: 0 Continued Basaglar KwikPen U-100 Insulin 100 unit/mL (3 mL) insulin pen 40 unit SUB-Q QDAY Qty: 15 RF: 8 losartan 25 mg tablet 25 mg PO QDAY Qty: 90 RF: 3 atorvastatin 20 mg tablet 20 mg PO HS RF: 0 metoprolol tartrate 50 mg tablet 50 mg PO BID RF: 0 allopurinol 300 mg tablet 300 mg PO QDAY Qty: 90 RF: 3 furosemide 80 mg tablet 80 mg PO BID Qty: 60 RF: 8 potassium chloride 10 mEq capsule, extended release 20 meq PO TID Qty: 180 RF: 10 trazodone 50 mg tablet 50 mg PO QHS PRN (Reason: insomnia) Qty: 30 RF: 8 levothyroxine 50 mcg capsule 50 mcg PO DAILY RF: 0 tizanidine 4 mg tablet 4 mg PO Q8H PRN (Reason: muscle spasticity) RF: 0 nystatin 100,000 unit/gram Powder 10,000 applic TOPICAL PRN PRN (Reason: Rash) RF: 0 Restasis 0.05 % Dropperette 1 drp ophthalmic (eye) BID RF: 0 Eliquis 5 mg Tablet 5 mg PO BID RF: 0 Trulicity 1.5 mg/0.5 mL Pen Injector See Rx Instructions .ROUTE .COMPLEX RF: 0 gabapentin 300 mg capsule 600 mg PO TID RF: 0 diltiazem HCl 120 mg Capsule,Ext.Rel 24h Degradable 120 mg PO BID RF: 0 levothyroxine 100 mcg Tablet See Rx Instructions .ROUTE .COMPLEX RF: 0 docusate sodium 100 mg Tablet 100 mg PO BID RF: 0 insulin lispro [Humalog U-100 Insulin] 100 unit/mL Solution 1 unit SUBCUT ACHS PRN (Reason: hyperglycemia) RF: 0 acetaminophen [Tylenol] 325 mg Tablet 650 mg PO Q6HP PRN (Reason: pain/fever>101) RF: 0 hydrocodone-acetaminophen 5-325 mg Tablet 1 tab PO Q4H MDD 4 gm PRN (Reason: Pain) RF: 0 lidocaine [Lidoderm] 5 % Adhesive Patch,Medicated 1 patch TOPICAL QDAY RF: 0 ketoconazole 2 % Cream 1 applic TOPICAL QDAY RF: 0 Discontinued ampicillin sodium 2 gram Recon Soln 1 g IV Q4H RF: 0 heparin lock flush (porcine) 10 unit/mL Solution 10 unit IV Q12H RF: 0 Follow Up Plan Patient Disposition: Xfer Assisted Living Facility Rehab Potential: Fair I certify that the patient requires SNF services: No Overall status at discharge: patient is progressing back to baseline Discharge Orders: Discharge Order (Routine); Ordered 03/28/20 Ordered By: Lester ROCHA VTE Deep Vein Thrombosis/Pulmonary Embolism Present on Admission: No
[2020-03-29] MEDS ORDERED: SCOPOLAMINE 1 PATCH PATCH TOPICAL SCH (08:30)
[2020-04-01] MEDS ORDERED: LEVOTHYROXINE 150 MCG TABLET PO SCH (07:30)
--- NOTE | 2020-05-10 07:23 | Operative Note ---
DATE OF OPERATION: 03/26/2020 PREOPERATIVE DIAGNOSIS: Infected hematoma right abdominal wall. POSTOPERATIVE DIAGNOSIS: Infected hematoma right abdominal wall. PROCEDURE: Incision and evacuated of hematoma, right abdominal wall consisting of 500 mL of blood. FINDINGS: Very large chronic hematoma of abdominal wall with thickened rind circumferentially. DESCRIPTION OF PROCEDURE: Under general anesthesia, the patient's abdomen was prepped and draped in a sterile field. There was a palpable bulge in the panniculus of the lower abdomen. A longitudinal incision was made in the subcutaneous tissue. An 18-gauge needle was then placed in the large mass to make sure that it was adequately positioned. Blood was obtained. The incision was then extended into the hematoma. The hematoma had a very thick rind circumferentially. This was opened with electrocautery. Suction was used to aspirate the blood and it measured 500 mL. Probably another 100 mL spilled on the drapes. The cavity was irrigated with bacitracin solution and evaluation revealed that because of the chronic inflammation that this would not be able to be circumferentially dissected so a #10 Godwin drain was placed lateral to the cavity, and a drain was placed in the depth of the cavity. The incision was then closed using 2-0 Vicryl on that thickened and inflamed coating, and 2-0 Vicryl in the subcutaneous tissue. Skin was closed with jazzy. The patient tolerated the procedure well. She was awakened and transferred to a bed and taken to the postanesthetic care unit in a stable, satisfactory condition. LCS:malu Job ID: [id number] Doc ID: [id number] Yina Lyn M.D.
== END 2020-03-28 14:28 | DRG 908 ==
LOC: MEDSUR 17:54
PROVIDERS: ADMIT Internal Medicine; ATTEND Internal Medicine

== ENCOUNTER 2020-10-04 05:46 | Inpatient (IN) ==
--- NOTE | 2020-09-29 11:52 | XRay Report ---
CLINICAL INFORMATION: Pre-Op COMPARISON: 06/30/2020 FINDINGS: The heart is mildly enlarged but unchanged. Mediastinum and pulmonary vessels are normal. Lungs are clear. No effusions. Severe degeneration of both glenohumeral joints noted IMPRESSION: Mild stable cardiomegaly. No acute disease Interpreted and Authenticated by: Ras Sylvester 09/29/20
[2020-09-29 12:15] LABS: ALT/SGPT 14 U/L (<40); AST/SGOT 14 U/L (<32); Albumin 3.8 gm/dL (3.2-5.2); Albumin/Globulin Ratio 0.9 (1.0-2.3); Alkaline Phosphatase 131 U/L (39-117); Bilirubin,Total 0.4 mg/dL (0.1-1.0); Blood Urea Nitrogen 13 mg/dL (8-23); Calcium 10.1 mg/dL (8.6-10.4); Carbon Dioxide 34 mmol/L (22-30); Chloride 96 mmol/L (96-108); Globulin 4.1 gm/dL (2.2-3.7); Glomerular Filtration Rate 74; Glucose 210 mg/dL (70-105)
[2020-09-29 12:17] LABS: Basophils # (Auto) 0.07 K/mcL (0.00-0.20); Basophils % (Auto) 0.5 % (0.0-2.0); Eosinophils # (Auto) 0.18 K/mcL (0.00-0.70); Eosinophils % (Auto) 1.2 % (0.0-7.0); Hematocrit 44.5 % (36.0-48.0); Hemoglobin 13.8 g/dL (12.0-15.0); Lymphocytes # (Auto) 1.87 K/mcL (1.50-4.80); Lymphocytes % (Auto) 12.9 % (15.0-49.0); Mean Cell Volume 93.3 fL (80.0-100.0); Mean Platelet Volume 11.1 fL (7.4-10.4); Monocytes # (Auto) 0.58 K/mcL (0.10-0.90); Neutrophils % (Auto) 81.4 % (38.0-78.0); Platelet Count 307 K/mcL (140-440); RBC 4.77 M/mcL (4.00-5.20); Red Cell Distribution Width 16.6 % (11.5-14.5); WBC 14.6 K/mcL (4.5-11.0)
[2020-09-29 12:43] LABS: INR 1.1 (0.9-1.1); Prothrombin Time 14.7 sec (11.9-14.5)
[2020-09-29 23:45] LABS: Estimated Average Glucose(eAG) 186 mg/dL; Hemoglobin A1C 8.1 % Hgb (4.0-6.0)
[~2020-10-04 05:46] MED LIST: IPRATROPIUM/ALBUTEROL 3 ML AMPUL.NEB NEB PRN; SCOPOLAMINE 1 PATCH PATCH TOPICAL PRN
[2020-10-04] MEDS ORDERED: CEFEPIME 2 GM VIAL IV SCH (06:00)
[2020-10-04] MEDS ORDERED: VANCOMYCIN 2,000 MG in 0.9 % SODIUM CHLORIDE 500 ML IV SCH (06:00)
[2020-10-04] MEDS ORDERED: fentaNYL 100 MCG/2 ML VIAL IV ONE (07:40)
[2020-10-04] MEDS ORDERED: ONDANSETRON 4 MG/2 ML VIAL ONE (07:40)
[2020-10-04] MEDS ORDERED: LIDOCAINE HCL/PF 100 MG/5 ML SYRINGE IV ONE (07:40)
[2020-10-04] MEDS ORDERED: PROPOFOL 200 MG/20 ML VIAL IV ONE (07:40)
[2020-10-04] MEDS ORDERED: MIDAZOLAM 5 MG/5 ML VIAL ONE (07:40)
[2020-10-04] MEDS ORDERED: DEXAMETHASONE 10 MG/ML VIAL ONE (07:40)
[2020-10-04] MEDS ORDERED: IPRATROPIUM/ALBUTEROL 3 ML AMPUL.NEB NEB PRN (08:15)
[2020-10-04] MEDS ORDERED: ACETAMINOPHEN 1,000 MG/100 ML BAG IV ONE (08:15)
[2020-10-04] MEDS ORDERED: ePHEDrine 50 MG/ML AMPUL IV PRN (08:15)
[2020-10-04] MEDS ORDERED: fentaNYL 100 MCG/2 ML VIAL IV PRN (08:15)
[2020-10-04] MEDS ORDERED: ONDANSETRON 4 MG/2 ML VIAL IV PRN (08:15)
[2020-10-04] MEDS ORDERED: MEPERIDINE 25 MG/ML SYRINGE IV PRN (08:15)
[2020-10-04] MEDS ORDERED: FLUMAZENIL 0.1 MG/ML ML IV PRN (08:15)
[2020-10-04] MEDS ORDERED: NALOXONE HCL 0.4 MG/ML VIAL IV PRN (08:15)
[2020-10-04] MEDS ORDERED: METHOCARBAMOL 1,000 MG/10 ML VIAL IV PRN (08:15)
[2020-10-04] MEDS ORDERED: LACTATED RINGERS 1,000 ML IV SCH (08:15)
[2020-10-04] MEDS ORDERED: ATROPINE SULFATE 0.4 MG/ML VIAL IV PRN (08:15)
[2020-10-04] MEDS ORDERED: METOPROLOL TARTRATE 5 MG/5 ML VIAL IV PRN (08:15)
[2020-10-04] MEDS ORDERED: diphenhydrAMINE 50 MG/ML VIAL IV PRN (08:15)
--- NOTE | 2020-10-04 09:08 | Brief Operative Note ---
Brief Operative Note Date of procedure: 10/04/20 Pre-op diagnosis: chronic abscess of abdominal wall Post-op diagnosis: other (chronic abscess of abdominal wall) Procedure: wide excision of inflammatory mass of abdominal wall [id number] cm with wound vac placement Grafts/Implants: No Anesthesia: GLMA Findings: thick inflammatory mass of right lower abdominal wallextending down to fascia Complications: none Surgeon: Yina Lyn Estimated blood loss (cc): 20 Specimens Removed/Pathology: other (inflammatory mass) Condition: stable Disposition: PACU
[2020-10-04] MEDS ORDERED: HYDROcodone/APAP 5/325MG TABLET PO PRN (09:17)
[2020-10-04] MEDS: 0.9 % SODIUM CHLORIDE 1,000 ML IV SCH ×2 (09:55→23:47)
[2020-10-04] MEDS ORDERED: oxyCODONE HCL 5 MG TABLET PO PRN (12:55)
[2020-10-04] MEDS: 0.9 % SODIUM CHLORIDE 10 ML SYRINGE IV SCH ×2 (13:12→21:30)
[2020-10-04] MEDS ORDERED: traZODone HCL 50 MG TABLET PO PRN (21:00)
[2020-10-04] MEDS ORDERED: INSULIN LISPRO 1 UNIT/0.01 ML UNIT SQ ONE ×2 (21:09→21:32)
[2020-10-04] MEDS: SENNOSIDES 1 TABLET PO SCH (21:30)
[2020-10-04] MEDS: DOCUSATE SODIUM 100 MG CAPSULE PO SCH (21:30)
[2020-10-04] MEDS: ATORVASTATIN 20 MG TABLET PO SCH (21:30)
[2020-10-04] MEDS: FAMOTIDINE 20 MG TABLET PO SCH (21:30)
[2020-10-04] MEDS: CEFEPIME 1 GM VIAL IV SCH (21:30)
[2020-10-04] MEDS: CYCLOSPORINE 0.05% OU SCH (21:31)
[2020-10-05] MEDS: 0.9 % SODIUM CHLORIDE 10 ML SYRINGE IV SCH ×3 (04:54→20:26)
[2020-10-05] MEDS: CEFEPIME 1 GM VIAL IV SCH ×2 (08:00→20:26)
[2020-10-05] MEDS: INSULIN LISPRO 1 UNIT/0.01 ML UNIT SQ SCH ×2 (08:01→16:10)
[2020-10-05] MEDS: INSULIN GLARGINE, HUMAN 1 UNIT/0.01 ML SQ SCH (08:02)
[2020-10-05] MEDS: DOCUSATE SODIUM 100 MG CAPSULE PO SCH ×2 (08:03→20:26)
[2020-10-05] MEDS: LEVOTHYROXINE 100 MCG TABLET PO SCH (08:03)
[2020-10-05] MEDS: FAMOTIDINE 20 MG TABLET PO SCH ×2 (08:03→20:26)
[2020-10-05] MEDS: LIDOCAINE PATCH TOPICAL SCH (08:04)
[2020-10-05] MEDS ORDERED: LEVOTHYROXINE 50 MCG PO SCH (09:00)
[2020-10-05] MEDS ORDERED: oxyCODONE HCL 5 MG TABLET PO PRN (10:13)
[2020-10-05] MEDS: ACETAMINOPHEN 325 MG TABLET PO PRN ×2 (10:19→16:03)
[2020-10-05] MEDS: 0.9 % SODIUM CHLORIDE 1,000 ML IV SCH (11:01)
--- NOTE | 2020-10-05 13:03 | Surgical Pathology Report ---
Histology Microscopic Diagnosis Specimen A- SOFT TISSUE, ABDOMINAL WALL, EXCISION: --- FIBROVASCULAR AND MATURE ADIPOSE TISSUE WITH FIBROSIS, NECROSIS, AND ACUTE/CHRONIC INFLAMMATION, COMPATIBLE WITH CHRONIC WOUND/ABSCESS. --- NO MALIGNANCY IDENTIFIED. (RLF:sln) Procedural Impression Chronic abscess of abdominal wall. Gross Description Received in formalin designated as abdominal wall mass, are four fibrofatty membranous pieces of tissue that range in size from 10.4 x 5.3 x 1.5 to 12.3 x 6.5 x 1.9 cm. Sectioning through three of the fragments reveals cavitary soft villarreal-dunlap tissue. An additional fragment consists mainly of dunlap fat. Water Server sections submitted in two cassettes. (SCB:sln) Electronically Signed Sury Kirk MD, FCAP Electronically Signed 10/05/2020 13:02
[2020-10-05] MEDS: ONDANSETRON 4 MG/2 ML VIAL IV PRN (18:23)
[2020-10-05] MEDS: tiZANidine 4 MG TABLET PO PRN (19:32)
[2020-10-05] MEDS: CYCLOSPORINE 0.05% OU SCH (20:26)
[2020-10-05] MEDS: SENNOSIDES 1 TABLET PO SCH (20:26)
[2020-10-05] MEDS: ATORVASTATIN 20 MG TABLET PO SCH (20:26)
[2020-10-06] MEDS: 0.9 % SODIUM CHLORIDE 1,000 ML IV SCH ×2 (03:30→12:51)
[2020-10-06] MEDS: 0.9 % SODIUM CHLORIDE 10 ML SYRINGE IV SCH ×3 (05:08→22:24)
[2020-10-06 06:55] LABS: Basophils # (Auto) 0.04 K/mcL (0.00-0.20); Basophils % (Auto) 0.3 % (0.0-2.0); Eosinophils # (Auto) 0.09 K/mcL (0.00-0.70); Eosinophils % (Auto) 0.7 % (0.0-7.0); Hematocrit 37.8 % (36.0-48.0); Hemoglobin 11.5 g/dL (12.0-15.0); Lymphocytes # (Auto) 2.66 K/mcL (1.50-4.80); Mean Cell Volume 93.3 fL (80.0-100.0); Mean Corpuscular HGB Conc 30.4 g/dL (31.0-36.0); Mean Platelet Volume 11.3 fL (7.4-10.4); Monocytes # (Auto) 0.91 K/mcL (0.10-0.90); Monocytes % (Auto) 7.2 % (1.0-12.0); Neutrophils % (Auto) 70.8 % (38.0-78.0); Platelet Count 259 K/mcL (140-440); RBC 4.05 M/mcL (4.00-5.20); Red Cell Distribution Width 16.7 % (11.5-14.5); WBC 12.7 K/mcL (4.5-11.0)
[2020-10-06 07:05] LABS: ALT/SGPT 10 U/L (<40); AST/SGOT 9 U/L (<32); Albumin 3.1 gm/dL (3.2-5.2); Alkaline Phosphatase 80 U/L (39-117); Bilirubin,Direct < 0.2 mg/dL (<0.3); Bilirubin,Total 0.4 mg/dL (0.1-1.0); Blood Urea Nitrogen 15 mg/dL (8-23); Carbon Dioxide 28 mmol/L (22-30); Chloride 100 mmol/L (96-108); Glomerular Filtration Rate 91; Glucose 120 mg/dL (70-105); Lactate Dehydrogenase 172 U/L (135-225); Phosphorous 2.7 mg/dL (2.5-4.5); Triglycerides 121 mg/dL (<150); Uric Acid 5.9 mg/dL (2.5-8.0)
[2020-10-06] MEDS: INSULIN LISPRO 1 UNIT/0.01 ML UNIT SQ SCH ×2 (07:21→16:43)
[2020-10-06] MEDS: FAMOTIDINE 20 MG TABLET PO SCH ×2 (08:27→21:22)
[2020-10-06] MEDS: DOCUSATE SODIUM 100 MG CAPSULE PO SCH ×2 (08:27→21:23)
[2020-10-06] MEDS: LEVOTHYROXINE 100 MCG TABLET PO SCH (08:27)
[2020-10-06] MEDS: INSULIN GLARGINE, HUMAN 1 UNIT/0.01 ML SQ SCH (08:28)
[2020-10-06] MEDS: CEFEPIME 1 GM VIAL IV SCH ×2 (08:28→21:35)
[2020-10-06] MEDS: LIDOCAINE PATCH TOPICAL SCH (08:32)
[2020-10-06] MEDS: ACETAMINOPHEN 325 MG TABLET PO PRN (10:26)
--- NOTE | 2020-10-06 13:35 | General Surgery Progress Note ---
SUBJECTIVE Subjective Patient information: Note initiated : 10/06/20 at 1:30 pm Service Date, if different from initiated Date: [10/05/2020] Patient: Rahel Grover 70 y/o F admitted on 10/04/20 for Open Debridement Abdominal Wall Abscess with Wound. Chief Complaint: [] Principal diagnosis: abdominal wall abscess Interval history: patient is doing well. She states that her pain is controlled. She has a very modest amount of serosanguineous drainage. Initial culture shows gram-negative bacillus. She is afebrile. Constitutional Vitals: Vital Signs Temp Pulse Resp BP Pulse Ox 97.4 F 78 16 146/62 94 10/06/20 07:35 10/06/20 08:00 10/06/20 08:00 10/06/20 07:35 10/06/20 08:00 Period Temp Pulse Resp BP Sys/Blackwell Pulse Ox Last 24 Hr 97.0 F-98.7 F 60-88 16-18 112-146/53-68 94-98 Intake and Output 10/05/20 10/06/20 10/06/20 21:59 05:59 13:59 Intake Total 120 540 240 Output Total 500 1000 250 Balance -380 -460 -10 Weight 323 lb 3.2 oz Intake & Output: Intake & Output 10/05/20 10/06/20 10/06/20 21:59 05:59 13:59 Intake Total 120 540 240 Output Total 500 1000 250 Balance -380 -460 -10 Weight 323 lb 3.2 oz Intake: Oral 120 540 240 Output: Drainage 350 Right Lower Abdomen Woundvac 350 Void Amount 500 650 250 Other: Meal Breakfast Percent of Meal Consumed 100% Feeding Ability Independent Urine Appearance Clear Clear Clear Urine Color Bright Yellow Bright Yellow Dark Danay Urine Odor Normal Normal Normal Stool Size Moderate Stool Color Brown Stool Consistency Formed # Emeses 1 Head Head exam: Present atraumatic and normal inspection Eye Eye exam: Present EOMI Pupils: Present normal accommodation and PERRL ENT ENT exam: Present normal exam, normal external ear exam and normal oropharynx Neck Neck exam: Present full ROM and normal inspection; Absent tenderness and thyromegaly Respiratory Respiratory exam: Present CTAB; Absent rales, rhonchi and wheezes Cardiovascular Cardiovascular exam: Present normal rate and rhythm, RRR, +S1 and +S2; Absent tachycardia GI/Abdominal GI/Abdominal exam: Present soft and tenderness (mild tenderness around the wound VAC site); Absent distended Extremities Exam Extremities exam: Present full ROM and normal inspection; Absent pedal edema and tenderness Neurological Exam Neurological exam: Present alert, normal gait and oriented X3; Absent motor sensory deficit Psychiatric Psychiatric exam: Present anxious, normal affect and normal mood Skin Skin exam: Absent petechiae, rash and urticaria A/P Assessment and plan (1) Abscess of abdominal wall: Status: Acute (2) Diabetes mellitus type 2 in obese: Status: Acute (3) Morbid obesity: Status: Acute Narrative A/P Narrative: patient will be continued on present therapy. Plan is for wound VAC change on cefazolin at this Time Spent With Patient Time: Total time spent is greater than 50% in coordination of care (as documented) at patient's floor/unit and/or counseling patient:
--- NOTE | 2020-10-06 13:39 | General Surgery Progress Note ---
SUBJECTIVE Subjective Patient information: Note initiated : 10/06/20 at 1:35 pm Service Date, if different from initiated Date: [] Patient: Rahel Grover 70 y/o F admitted on 10/04/20 for Open Debridement Abdominal Wall Abscess with Wound. Chief Complaint: [] Principal diagnosis: abdominal wall abscess Interval history: patient continues to do well. Her only complaint, or. 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 She is mentally clear at this time. The segmental changes have been witnessed by the nursing staff and her family. Potassium 3.7, BUN 15, creatinine 0.6, white blood count 12.7, hemoglobin 11.5, hematocrit 30 7. cultures are growing out Pseudomonas which are the predominant organisms on previous evaluations. She is adequately covered on present antibiotics. Her mental changes may be related to the oxycodone so it will be discontinued Constitutional Vitals: Vital Signs Temp Pulse Resp BP Pulse Ox 97.4 F 78 16 146/62 94 10/06/20 07:35 10/06/20 08:00 10/06/20 08:00 10/06/20 07:35 10/06/20 08:00 Period Temp Pulse Resp BP Sys/Blackwell Pulse Ox Last 24 Hr 97.0 F-98.7 F 60-88 16-18 112-146/53-68 94-98 Intake and Output 10/05/20 10/06/20 10/06/20 21:59 05:59 13:59 Intake Total 120 540 240 Output Total 500 1000 250 Balance -380 -460 -10 Weight 323 lb 3.2 oz Intake & Output: Intake & Output 10/05/20 10/06/20 10/06/20 21:59 05:59 13:59 Intake Total 120 540 240 Output Total 500 1000 250 Balance -380 -460 -10 Weight 323 lb 3.2 oz Intake: Oral 120 540 240 Output: Drainage 350 Right Lower Abdomen Woundvac 350 Void Amount 500 650 250 Other: Meal Breakfast Percent of Meal Consumed 100% Feeding Ability Independent Urine Appearance Clear Clear Clear Urine Color Bright Yellow Bright Yellow Dark Danay Urine Odor Normal Normal Normal Stool Size Moderate Stool Color Brown Stool Consistency Formed # Emeses 1 Head Head exam: Present atraumatic and normal inspection Eye Eye exam: Present EOMI Pupils: Present normal accommodation and PERRL ENT ENT exam: Present normal exam, normal external ear exam and normal oropharynx Neck Neck exam: Present full ROM and normal inspection; Absent tenderness and thyromegaly Respiratory Respiratory exam: Present CTAB; Absent rales, rhonchi and wheezes Cardiovascular Cardiovascular exam: Present normal rate and rhythm, RRR, +S1 and +S2; Absent tachycardia GI/Abdominal GI/Abdominal exam: Present soft and tenderness (mild tenderness around the wound VAC site); Absent distended Extremities Exam Extremities exam: Present full ROM and normal inspection; Absent pedal edema and tenderness Neurological Exam Neurological exam: Present alert, normal gait and oriented X3; Absent motor sensory deficit Psychiatric Psychiatric exam: Present anxious, normal affect and normal mood Skin Skin exam: Absent petechiae, rash and urticaria A/P Assessment and plan (1) Abscess of abdominal wall: Status: Acute (2) Morbid obesity with BMI of 50.0-59.9, adult: Status: Acute Narrative A/P Narrative: continue present therapy. Wound VAC change tomorrow. Probable discharge on Friday Time Spent With Patient Time: Total time spent is greater than 50% in coordination of care (as documented) at patient's floor/unit and/or counseling patient:
[2020-10-06] MEDS: ACETAMINOPHEN 1,000 MG/100 ML BAG IV SCH ×2 (14:40→20:58)
[2020-10-06] MEDS: ONDANSETRON 4 MG/2 ML VIAL IV PRN ×2 (15:21→21:22)
[2020-10-06] MEDS: ATORVASTATIN 20 MG TABLET PO SCH (21:22)
[2020-10-06] MEDS: SENNOSIDES 1 TABLET PO SCH (21:23)
[2020-10-06] MEDS: CYCLOSPORINE 0.05% OU SCH (21:23)
[2020-10-07] MEDS: ACETAMINOPHEN 1,000 MG/100 ML BAG IV SCH ×4 (01:36→19:20)
[2020-10-07] MEDS: METOCLOPRAMIDE 10 MG/2 ML VIAL IV PRN ×3 (01:42→22:28)
[2020-10-07] MEDS ORDERED: METOCLOPRAMIDE 10 MG/2 ML VIAL ONE (01:48)
[2020-10-07] MEDS: 0.9 % SODIUM CHLORIDE 1,000 ML IV SCH ×3 (03:44→16:51)
[2020-10-07] MEDS: 0.9 % SODIUM CHLORIDE 10 ML SYRINGE IV SCH ×3 (05:35→22:01)
[2020-10-07] MEDS: ONDANSETRON 4 MG/2 ML VIAL IV PRN ×2 (06:47→18:31)
[2020-10-07 06:58] LABS: Basophils # (Auto) 0.03 K/mcL (0.00-0.20); Basophils % (Auto) 0.3 % (0.0-2.0); Hematocrit 36.9 % (36.0-48.0); Hemoglobin 11.5 g/dL (12.0-15.0); Lymphocytes # (Auto) 1.76 K/mcL (1.50-4.80); Mean Cell Volume 92.9 fL (80.0-100.0); Mean Corpuscular HGB Conc 31.2 g/dL (31.0-36.0); Monocytes # (Auto) 0.69 K/mcL (0.10-0.90); Monocytes % (Auto) 6.7 % (1.0-12.0); Platelet Count 241 K/mcL (140-440); RBC 3.97 M/mcL (4.00-5.20); Red Cell Distribution Width 16.4 % (11.5-14.5); WBC 10.4 K/mcL (4.5-11.0)
[2020-10-07 07:19] LABS: ALT/SGPT 11 U/L (<40); AST/SGOT 10 U/L (<32); Albumin 3.2 gm/dL (3.2-5.2); Alkaline Phosphatase 81 U/L (39-117); Bilirubin,Direct < 0.2 mg/dL (<0.3); Bilirubin,Total 0.3 mg/dL (0.1-1.0); Blood Urea Nitrogen 11 mg/dL (8-23); Calcium 9.2 mg/dL (8.6-10.4); Carbon Dioxide 26 mmol/L (22-30); Chloride 103 mmol/L (96-108); Globulin 3.1 gm/dL (2.2-3.7); Glomerular Filtration Rate 91; Glucose 156 mg/dL (70-105); Lactate Dehydrogenase 176 U/L (135-225); Phosphorous 2.9 mg/dL (2.5-4.5); Triglycerides 123 mg/dL (<150)
[2020-10-07] MEDS: LEVOTHYROXINE 150 MCG TABLET PO SCH (07:54)
[2020-10-07] MEDS: INSULIN LISPRO 1 UNIT/0.01 ML UNIT SQ SCH ×2 (07:54→17:03)
[2020-10-07] MEDS: LIDOCAINE PATCH TOPICAL SCH (08:00)
[2020-10-07] MEDS: CEFEPIME 1 GM VIAL IV SCH (08:00)
[2020-10-07] MEDS: INSULIN GLARGINE, HUMAN 1 UNIT/0.01 ML SQ SCH (08:01)
[2020-10-07] MEDS: FAMOTIDINE 20 MG TABLET PO SCH ×2 (08:01→22:00)
[2020-10-07] MEDS: DOCUSATE SODIUM 100 MG CAPSULE PO SCH ×2 (08:02→20:42)
--- NOTE | 2020-10-07 13:35 | General Surgery Progress Note ---
SUBJECTIVE Subjective Patient information: Note initiated : 10/07/20 at 1:31 pm Service Date, if different from initiated Date: [] Patient: Rahel Grover 70 y/o F admitted on 10/04/20 for Open Debridement Abdominal Wall Abscess with Wound. Chief Complaint: [] Principal diagnosis: abdominal wall abscess Interval history: patient continues to do well. Her incision continues to contract. She still has moderate amount of bloody drainage. Culture sensitivity reveals the Pseudomonas is sensitive to ciprofloxacin, so her antibiotics will be changed. White blood count 10.4, hemoglobin 11.5. Constitutional Vitals: Vital Signs Temp Pulse Resp BP Pulse Ox 98.2 F 70 16 163/71 98 10/07/20 11:56 10/07/20 11:56 10/07/20 11:56 10/07/20 11:56 10/07/20 11:56 Period Temp Pulse Resp BP Sys/Blackwell Pulse Ox Last 24 Hr 97.6 F-98.2 F 70-89 16-20 138-163/67-79 92-98 Intake and Output 10/06/20 10/07/20 10/07/20 21:59 05:59 13:59 Intake Total 1440 820 860 Output Total 1700 300 Balance 1440 -880 560 Weight 324 lb 14.4 oz Intake & Output: Intake & Output 10/06/20 10/07/20 10/07/20 21:59 05:59 13:59 Intake Total 1440 820 860 Output Total 1700 300 Balance 1440 -880 560 Weight 324 lb 14.4 oz Intake: IV 1200 100 100 Sodium Chloride 0.9% 1,000 ml @ 1000 75 mls/hr IV .[id number] [facility] Rx#: [id number] Oral 240 720 760 Output: Drainage 400 Right Lower Abdomen Woundvac 400 Void Amount 550 300 Urine/Stool Mix 750 Other: Meal Lunch Lunch Percent of Meal Consumed 75% 100% Feeding Ability Independent Urine Appearance Clear Clear Clear Urine Color Dark Yellow Dark Yellow Dark Yellow Urine Odor Normal Normal Normal Stool Size Large Large Copious Stool Color Brown Brown Brown Stool Consistency Soft Soft Soft Loose Loose Formed # Voids 1 # Bowel Movements 1 # Emeses 0 Head Head exam: Present atraumatic and normal inspection Eye Eye exam: Present EOMI Pupils: Present normal accommodation and PERRL ENT ENT exam: Present normal exam, normal external ear exam and normal oropharynx Neck Neck exam: Present full ROM and normal inspection; Absent tenderness and thyromegaly Respiratory Respiratory exam: Present CTAB; Absent rales, rhonchi and wheezes Cardiovascular Cardiovascular exam: Present normal rate and rhythm, RRR, +S1 and +S2; Absent tachycardia GI/Abdominal GI/Abdominal exam: Present soft and tenderness (mild tenderness around the wound VAC site); Absent distended Extremities Exam Extremities exam: Present full ROM and normal inspection; Absent pedal edema and tenderness Neurological Exam Neurological exam: Present alert, normal gait and oriented X3; Absent motor sensory deficit Psychiatric Psychiatric exam: Present anxious, normal affect and normal mood Skin Skin exam: Absent petechiae, rash and urticaria A/P Assessment and plan (1) Abscess of abdominal wall: Status: Acute (2) Diabetes mellitus type 2 in obese: Status: Acute (3) Morbid obesity with BMI of 50.0-59.9, adult: Status: Acute (4) High blood pressure: Status: Chronic Qualifiers: Hypertension type: essential hypertension Qualified Code(s): I10 - Essential (primary) hypertension Narrative A/P Narrative: dressing will be changed today. Antibiotics will be changed to I V Cipro Time Spent With Patient Time: Total time spent is greater than 50% in coordination of care (as documented) at patient's floor/unit and/or counseling patient:
[2020-10-07] MEDS: HYDROmorphone 1 MG/ML SYRINGE IV PRN (13:41)
[2020-10-07] MEDS: CIPROFLOXACIN 400 MG/200 ML BAG IV SCH (15:21)
[2020-10-07] MEDS: SENNOSIDES 1 TABLET PO SCH (20:42)
[2020-10-07] MEDS: ATORVASTATIN 20 MG TABLET PO SCH (22:00)
[2020-10-07] MEDS: CYCLOSPORINE 0.05% OU SCH (22:01)
[2020-10-08] MEDS: CIPROFLOXACIN 400 MG/200 ML BAG IV SCH ×3 (00:02→20:45)
[2020-10-08] MEDS: ACETAMINOPHEN 1,000 MG/100 ML BAG IV SCH ×4 (01:29→18:21)
[2020-10-08] MEDS: 0.9 % SODIUM CHLORIDE 1,000 ML IV SCH ×3 (01:31→18:21)
[2020-10-08] MEDS: 0.9 % SODIUM CHLORIDE 10 ML SYRINGE IV SCH ×3 (06:10→20:48)
[2020-10-08 06:57] LABS: Basophils # (Auto) 0.03 K/mcL (0.00-0.20); Basophils % (Auto) 0.2 % (0.0-2.0); Eosinophils # (Auto) 0.29 K/mcL (0.00-0.70); Eosinophils % (Auto) 2.3 % (0.0-7.0); Hematocrit 37.5 % (36.0-48.0); Hemoglobin 11.5 g/dL (12.0-15.0); Lymphocytes # (Auto) 2.34 K/mcL (1.50-4.80); Lymphocytes % (Auto) 18.6 % (15.0-49.0); Mean Cell Volume 93.1 fL (80.0-100.0); Mean Corpuscular HGB Conc 30.7 g/dL (31.0-36.0); Mean Platelet Volume 11.3 fL (7.4-10.4); Monocytes # (Auto) 0.73 K/mcL (0.10-0.90); Monocytes % (Auto) 5.8 % (1.0-12.0); Neutrophils % (Auto) 73.1 % (38.0-78.0); Platelet Count 249 K/mcL (140-440); RBC 4.03 M/mcL (4.00-5.20); Red Cell Distribution Width 16.4 % (11.5-14.5); WBC 12.6 K/mcL (4.5-11.0)
[2020-10-08 07:13] LABS: ALT/SGPT 12 U/L (<40); AST/SGOT 10 U/L (<32); Albumin 3.2 gm/dL (3.2-5.2); Albumin/Globulin Ratio 1.1 (1.0-2.3); Alkaline Phosphatase 77 U/L (39-117); Bilirubin,Direct < 0.2 mg/dL (<0.3); Bilirubin,Total 0.3 mg/dL (0.1-1.0); Blood Urea Nitrogen 9 mg/dL (8-23); Calcium 9.2 mg/dL (8.6-10.4); Carbon Dioxide 29 mmol/L (22-30); Chloride 101 mmol/L (96-108); Globulin 2.9 gm/dL (2.2-3.7); Glomerular Filtration Rate 91; Glucose 103 mg/dL (70-105); Lactate Dehydrogenase 173 U/L (135-225); Phosphorous 2.9 mg/dL (2.5-4.5); Triglycerides 92 mg/dL (<150); Uric Acid 5.7 mg/dL (2.5-8.0)
[2020-10-08] MEDS: INSULIN LISPRO 1 UNIT/0.01 ML UNIT SQ SCH ×2 (07:17→16:56)
[2020-10-08] MEDS: LEVOTHYROXINE 150 MCG TABLET PO SCH (07:18)
[2020-10-08] MEDS: ONDANSETRON 4 MG/2 ML VIAL IV PRN (07:22)
[2020-10-08] MEDS: DOCUSATE SODIUM 100 MG CAPSULE PO SCH ×2 (08:55→20:41)
[2020-10-08] MEDS: LIDOCAINE PATCH TOPICAL SCH (08:55)
[2020-10-08] MEDS: FAMOTIDINE 20 MG TABLET PO SCH ×2 (08:55→20:40)
[2020-10-08] MEDS: INSULIN GLARGINE, HUMAN 1 UNIT/0.01 ML SQ SCH (08:55)
[2020-10-08] MEDS: METOCLOPRAMIDE 10 MG/2 ML VIAL IV PRN (11:01)
[2020-10-08] MEDS: tiZANidine 4 MG TABLET PO PRN (14:57)
--- NOTE | 2020-10-08 16:53 | General Surgery Progress Note ---
SUBJECTIVE Subjective Patient information: Note initiated : 10/08/20 at 4:53 pm Service Date, if different from initiated Date: [] Patient: Rahel Grover 70 y/o F admitted on 10/04/20 for Open Debridement Abdominal Wall Abscess with Wound. Chief Complaint: [] Principal diagnosis: abdominal wall abscess Interval history: patient is stable and gradually improving. She has some mild tenderness. White blood count 12.6, hemoglobin 11.5, hematocrit 37.5. Constitutional Vitals: Vital Signs Temp Pulse Resp BP Pulse Ox 97.9 F 104 H 18 114/61 99 10/08/20 16:00 10/08/20 16:00 10/08/20 16:00 10/08/20 16:00 10/08/20 16:00 Period Temp Pulse Resp BP Sys/Blackwell Pulse Ox Last 24 Hr 97.5 F-98.5 F 71-104 14-20 114-153/59-74 90-99 Intake and Output 10/08/20 10/08/20 10/08/20 05:59 13:59 21:59 Intake Total 780 640 Output Total 500 350 350 Balance 280 290 -350 Intake & Output: Intake & Output 10/08/20 10/08/20 10/08/20 05:59 13:59 21:59 Intake Total 780 640 Output Total 500 350 350 Balance 280 290 -350 Intake: IV 300 400 Oral 480 240 Output: Drainage 50 Right Lower Abdomen Woundvac 50 Void Amount 500 300 350 Other: Meal Lunch Percent of Meal Consumed 25% Feeding Ability Independent Urine Appearance Clear Clear Clear Urine Color Dark Yellow Bright Yellow Bright Yellow # Emeses 0 Head Head exam: Present atraumatic and normal inspection Eye Eye exam: Present EOMI Pupils: Present normal accommodation and PERRL ENT ENT exam: Present normal exam, normal external ear exam and normal oropharynx Neck Neck exam: Present full ROM and normal inspection; Absent tenderness and thyromegaly Respiratory Respiratory exam: Present CTAB; Absent rales, rhonchi and wheezes Cardiovascular Cardiovascular exam: Present normal rate and rhythm, RRR, +S1 and +S2; Absent tachycardia GI/Abdominal GI/Abdominal exam: Present soft and tenderness (mild tenderness around the wound VAC site); Absent distended Extremities Exam Extremities exam: Present full ROM and normal inspection; Absent pedal edema and tenderness Neurological Exam Neurological exam: Present alert, normal gait and oriented X3; Absent motor sensory deficit Psychiatric Psychiatric exam: Present anxious, normal affect and normal mood Skin Skin exam: Absent petechiae, rash and urticaria A/P Assessment and plan (1) Abscess of abdominal wall: Status: Acute (2) Diabetes mellitus type 2 in obese: Status: Acute (3) Morbid obesity with BMI of 50.0-59.9, adult: Status: Acute Narrative A/P Narrative: patient continues to do well. She is tolerating diet without difficulty. Her wound is healing nicely and the wound VAC dressing was changed. Anticipate discharge in 1-2 days Time Spent With Patient Time: Total time spent is greater than 50% in coordination of care (as documented) at patient's floor/unit and/or counseling patient:
[2020-10-08] MEDS: ATORVASTATIN 20 MG TABLET PO SCH (20:40)
[2020-10-08] MEDS: SENNOSIDES 1 TABLET PO SCH (20:41)
[2020-10-08] MEDS: CYCLOSPORINE 0.05% OU SCH (20:41)
[2020-10-08] MEDS: HYDROmorphone 1 MG/ML SYRINGE IV PRN (23:45)
[2020-10-09] MEDS: ACETAMINOPHEN 1,000 MG/100 ML BAG IV SCH ×3 (01:08→12:47)
[2020-10-09] MEDS: 0.9 % SODIUM CHLORIDE 10 ML SYRINGE IV SCH ×2 (05:24→13:49)
[2020-10-09] MEDS: INSULIN LISPRO 1 UNIT/0.01 ML UNIT SQ SCH (07:01)
[2020-10-09] MEDS: LEVOTHYROXINE 100 MCG TABLET PO SCH (07:04)
[2020-10-09] MEDS ORDERED: TRULICITY 1.5 MG SUB-Q SCH (09:00)
[2020-10-09] MEDS: INSULIN GLARGINE, HUMAN 1 UNIT/0.01 ML SQ SCH (09:18)
[2020-10-09] MEDS: DOCUSATE SODIUM 100 MG CAPSULE PO SCH (09:18)
[2020-10-09] MEDS: FAMOTIDINE 20 MG TABLET PO SCH (09:18)
[2020-10-09] MEDS: CIPROFLOXACIN 400 MG/200 ML BAG IV SCH (09:19)
[2020-10-09] MEDS: LIDOCAINE PATCH TOPICAL SCH (09:19)
[2020-10-09] MEDS: 0.9 % SODIUM CHLORIDE 1,000 ML IV SCH (11:56)
--- NOTE | 2020-10-09 12:28 | Discharge Summary ---
Discharge Provider Provider Patient information: Note initiated : 10/09/20 at 12:26 pm Service Date, if different from initiated Date: [] Patient: Rahel Grover 70 y/o F admitted on 10/04/20 for Open Debridement Abdominal Wall Abscess with Wound. Chief Complaint: [] Date of admission: 10/04/20 05:46 Discharge date: 10/09/20 Primary care physician: Mo Rivera M.D., F.A.A.F.P. Admitting clinician: Marybel Lyn Attending physician on admission: Yina Lyn Attending physician on discharge: Yina Lyn Discharging clinician: Yina Lyn COURSE Hospital Course Hospital course: 70-year-old female status post wide excision of a chronically infected abdominal wall abscess on October 05. She previously grew out Pseudomonas species and repeat culture confirms this to be Pseudomonas species sensitive to ciprofloxacin. Pathology is compatible with chronic infection and necrosis with no other pathologic entity noted. Patient is being treated with wound VAC and IV antibiotics. Her wound is clean and she has minimal drainage. The wound VAC is functioning appropriately. Patient is now stable and is ready for discharge to nursing care facility. She will be there until her wound VAC is removed after which she can be transferred to [facility] facility, which is her long-term care facility. Patient is discharged in stable satisfactory condition. Discharge diagnosis: chronic abdominal wall abscess Secondary discharge diagnosis: infection with pseudomonas aeruginosa. Morbid obesity. Diabetes mellitus type 2. Hypertension Reason for admission: postoperative status post excision of chronic abdominal wall abscess Procedures: wide excision of abdominal wall abscess October 05 Pertinent studies/significant findings: none Complications: nnone Time Spent with Patient Time attestation: Total time spent providing and/or coordinating discharge services: Physical Examination Vital Signs Vital signs: Temp Pulse Resp BP Pulse Ox 98.3 F 82 20 142/73 90 10/09/20 08:00 10/09/20 08:00 10/09/20 08:00 10/09/20 08:00 10/09/20 08:00 General physical appearance General physical exam: well developed, no distress, moderate pain and obese Eyes Eye exam: PERRL and normal ocular movement ENT ENT exam: normal pinna, normal nares, normal mucosa, no hearing loss and no congestion Head Head exam IM: Present atraumatic, normal inspection and normocephalic Neck Neck exam: no masses, no bruits, trachea midline, no lymphadenopathy and no venous distension Cardiovascular Cardiovascular exam IM: Present normal rate and rhythm, RRR, +S1 and +S2; Absent JVD Respiratory Respiratory exam: normal expansion, normal respiratory effort and clear to auscultation Abdomen Abdomen: Present soft and tender (mild tenderness around the operative site. Otherwise benign abdominal exam) Integumentary Integumentary: Present no rash, no growths and no abnormal pigmentation Neurologic Neurologic: Present normal coordination and normal sensation Musculoskeletal Musculoskeletal: Present normal gait and normal posture Psychiatric Psychiatric: Present oriented to time, oriented to person, oriented to place, speech is normal and memory intact Discharge Plan Patient/Caregiver Discharge Instructions Activity: as per physical therapy, increase activity as tolerated and resume usual activities as tolerated Diet: Consistent Carbohydrate Prescriptions: New hydrocodone-acetaminophen 10-325 mg Tablet 1 tab PO Q4H PRN (Reason: Pain) Qty: 30 RF: 0 ciprofloxacin HCl [ciprofloxacin HCl] 500 MG tablet 500 mg PO BID Qty: 60 RF: 0 trazodone 50 mg tablet 50 mg PO QHS Qty: 30 RF: 0 Continued Eliquis 5 mg tablet 5 mg PO BID Qty: 60 RF: 6 atorvastatin 20 mg tablet 20 mg PO HS Qty: 90 RF: 3 furosemide 80 mg tablet 80 mg PO BID Qty: 60 RF: 8 potassium chloride 10 mEq capsule, extended release 20 meq PO TID Qty: 180 RF: 10 trazodone 50 mg tablet 50 mg PO QHS PRN (Reason: insomnia) Qty: 30 RF: 8 levothyroxine 50 mcg capsule 50 mcg PO QDAY RF: 0 tizanidine 4 mg tablet 4 mg PO Q8H PRN (Reason: muscle spasticity) RF: 0 lidocaine [Lidoderm] 5 % adhesive patch,medicated 1 patch TOPICAL QDAY Qty: 30 RF: 11 nystatin 100,000 unit/gram Powder 10,000 applic TOPICAL PRN PRN (Reason: Rash) RF: 0 levothyroxine 100 mcg Tablet 100 mcg PO QDAY RF: 0 multivitamin Tablet 1 tab PO QDAY RF: 0 ascorbic acid (vitamin C) [Vitamin C] 1,000 mg Tablet 1 g PO QAM RF: 0 cetirizine 10 mg Tablet 5 mg PO QHS RF: 0 acetaminophen [Acetaminophen Extra Strength] 500 mg Tablet 1,000 mg PO Q6H PRN (Reason: Pain) RF: 0 calcium carbonate [Calcium 600] 600 mg calcium (1,500 mg) Tablet 600 mg PO BID RF: 0 fluticasone propionate [Aller-Robbi] 50 mcg/actuation [place],Suspension 2 spray INTRANASAL BID RF: 0 Restasis 0.05 % Dropperette 1 drp OPHTHALMIC (EYE) QHS RF: 0 cinnamon bark [Cinnamon] 500 mg Capsule 500 mg PO QAM RF: 0 apple cider vinegar 300 mg Tablet 300 mg PO QHS RF: 0 cholecalciferol (vitamin D3) [Vitamin D3] 125 mcg (5,000 unit) Tablet 125 mcg PO QHS RF: 0 coQ10 (ubiquinol) 200 mg Capsule 200 mg PO QHS RF: 0 melatonin 10 mg Tablet 20 mg PO QHS RF: 0 turmeric 400 mg Capsule 400 mg PO QAM RF: 0 albuterol sulfate 2 unit inhalation Q4H PRN (Reason: Shortness Of Breath) RF: 0 hydrocodone-acetaminophen 5-325 mg tablet 1 tab PO PRN PRN (Reason: Shoulder pain) RF: 0 allopurinol 100 mg tablet 100 mg PO QHS RF: 0 allopurinol 300 mg tablet 300 mg PO QAM RF: 0 Basaglar KwikPen U-100 Insulin 100 unit/mL (3 mL) insulin pen 40 unit SUB-Q QAM RF: 0 Trulicity 1.5 mg/0.5 mL pen injector 1.5 mg subcut WEEKLY RF: 0 famotidine [[employer] (famotidine)] 20 mg Tablet 20 mg PO BID RF: 0 losartan [Cozaar] 25 mg tablet 25 mg PO DAILY RF: 0 metoprolol tartrate [Lopressor] 50 mg tablet 50 mg PO BID RF: 0 gabapentin [Neurontin] 300 mg capsule 300 mg PO TID MDD 900 RF: 0 diltiazem HCl [Cartia XT] 120 mg capsule,extended release 24hr 120 mg PO DAILY RF: 0 Follow Up Plan Patient Disposition: Xfer SNF Plan of Treatment: physical and occupatuional therapy wound vac treatment Prognosis: Good Rehab Potential: Good I certify that the patient requires SNF services: Yes Overall status at discharge: patient is progressing back to baseline Discharge Orders: Discharge Order (Routine); Ordered 10/09/20 Ordered By: Yina Lyn Pending Pending Pending: Resuscitation Status Full Code Diet Consistent Carbohydrate Diet Start FriOct 05 1557 Atorvastatin Calcium (Lipitor) 20 mg PO HS [facility] Last Admin: 10/08/20 20:40 Dose: 20 mg Documented by: Admin: 10/07/20 22:00 Dose: 20 mg Documented by: Admin: 10/06/20 21:22 Dose: 20 mg Documented by: Admin: 10/05/20 20:26 Dose: 20 mg Documented by: Admin: 10/04/20 21:30 Dose: 20 mg Documented by: LICHA Diagnostic Test (Pha) (Accu-Chek) 1 each FS BIDAC [facility]; Protocol Last Admin: 10/09/20 07:01 Dose: 1 each Documented by: Admin: 10/08/20 16:56 Dose: 1 each Documented by: Admin: 10/08/20 07:17 Dose: 1 each Documented by: Admin: 10/07/20 16:52 Dose: 1 each Documented by: Admin: 10/07/20 07:15 Dose: 1 each Documented by: Admin: 10/06/20 16:19 Dose: 1 each Documented by: Admin: 10/06/20 07:17 Dose: 1 each Documented by: Admin: 10/05/20 16:06 Dose: 1 each Documented by: Admin: 10/05/20 07:49 Dose: 1 each Documented by: Admin: 10/04/20 21:29 Dose: 1 each Documented by: Admin: 10/04/20 17:06 Dose: 1 each Documented by: ADONAY Docusate Sodium (Colace) 100 mg PO BID [facility] Last Admin: 10/09/20 09:18 Dose: 100 mg Documented by: Admin: 10/08/20 20:41 Dose: Not Given Documented by: Admin: 10/08/20 08:55 Dose: 100 mg Documented by: Admin: 10/07/20 20:42 Dose: Not Given Documented by: Admin: 10/07/20 08:02 Dose: Not Given Documented by: Admin: 10/06/20 21:23 Dose: Not Given Documented by: Admin: 10/06/20 08:27 Dose: 100 mg Documented by: Admin: 10/05/20 20:26 Dose: 100 mg Documented by: Admin: 10/05/20 08:03 Dose: 100 mg Documented by: Admin: 10/04/20 21:30 Dose: 100 mg Documented by: LICHA Famotidine (Pepcid) 20 mg PO BID [facility] Admin: 10/09/20 09:18 Dose: 20 mg Documented by: Admin: 10/08/20 20:40 Dose: 20 mg Documented by: Admin: 10/08/20 08:55 Dose: 20 mg Documented by: Admin: 10/07/20 22:00 Dose: 20 mg Documented by: Admin: 10/07/20 08:01 Dose: 20 mg Documented by: Admin: 10/06/20 21:22 Dose: 20 mg Documented by: Admin: 10/06/20 08:27 Dose: 20 mg Documented by: Admin: 10/05/20 20:26 Dose: 20 mg Documented by: Admin: 10/05/20 08:03 Dose: 20 mg Documented by: Admin: 10/04/20 21:30 Dose: 20 mg Documented by: LICHA Hydromorphone HCl (Dilaudid) 1 mg IV Q2HP PRN; Protocol PRN Reason: Per Pain Protocol Last Admin: 10/08/20 23:45 Dose: 1 mg Documented by: Admin: 10/07/20 13:41 Dose: 1 mg Documented by: NISHA Sodium Chloride (Sodium Chloride 0.9%) 1,000 mls @ 75 mls/hr IV .[id number] [facility] Last Admin: 10/09/20 11:56 Dose: 75 mls/hr Documented by: Infusion: 10/09/20 11:51 Dose: 0 mls/hr Documented by: Admin: 10/08/20 18:21 Dose: 75 mls/hr Documented by: Infusion: 10/08/20 14:51 Dose: 75 mls/hr Documented by: Admin: 10/08/20 06:11 Dose: Not Given Documented by: LASHAWNARTSFIE Admin: 10/08/20 01:31 Dose: 75 mls/hr Documented by: LASHAWNARTSFIE Infusion: 10/07/20 21:17 Dose: 75 mls/hr Documented by: LASHAWNARTSFIE Admin: 10/07/20 16:51 Dose: Not Given Documented by: Admin: 10/07/20 07:57 Dose: 75 mls/hr Documented by: Admin: 10/07/20 03:44 Dose: Not Given Documented by: LASHAWNARTSFIE Infusion: 10/06/20 17:34 Dose: 75 mls/hr Documented by: Admin: 10/06/20 12:51 Dose: Not Given Documented by: Admin: 10/06/20 03:30 Dose: 75 mls/hr Documented by: Infusion: 10/05/20 13:58 Dose: 75 mls/hr Documented by: Admin: 10/05/20 11:01 Dose: Not Given Documented by: Admin: 10/04/20 23:47 Dose: 75 mls/hr Documented by: Infusion: 10/04/20 23:15 Dose: 75 mls/hr Documented by: Admin: 10/04/20 09:55 Dose: 75 mls/hr Documented by: ADONAY [facility] 1,000 mg in 100 mls @ 200 mls/hr IV Q6H [facility] Last Infusion: 10/09/20 07:49 Dose: 0 mls/hr Documented by: Admin: 10/09/20 07:04 Dose: 200 mls/hr Documented by: Infusion: 10/09/20 07:00 Dose: 0 mls/hr Documented by: Admin: 10/09/20 01:08 Dose: 200 mls/hr Documented by: Infusion: 10/08/20 18:51 Dose: 200 mls/hr Documented by: Admin: 10/08/20 18:21 Dose: 200 mls/hr Documented by: Infusion: 10/08/20 13:25 Dose: 0 mls/hr Documented by: Admin: 10/08/20 12:53 Dose: 200 mls/hr Documented by: Infusion: 10/08/20 07:46 Dose: 0 mls/hr Documented by: Admin: 10/08/20 07:16 Dose: 200 mls/hr Documented by: Infusion: 10/08/20 02:00 Dose: 0 mls/hr Documented by: Admin: 10/08/20 01:29 Dose: 200 mls/hr Documented by: Infusion: 10/07/20 19:50 Dose: 200 mls/hr Documented by: Admin: 10/07/20 19:20 Dose: 200 mls/hr Documented by: Infusion: 10/07/20 14:00 Dose: 0 mls/hr Documented by: Admin: 10/07/20 13:30 Dose: 200 mls/hr Documented by: Infusion: 10/07/20 08:25 Dose: 0 mls/hr Documented by: Admin: 10/07/20 07:53 Dose: 200 mls/hr Documented by: Infusion: 10/07/20 02:10 Dose: 0 mls/hr Documented by: Admin: 10/07/20 01:36 Dose: 200 mls/hr Documented by: Infusion: 10/06/20 21:28 Dose: 200 mls/hr Documented by: Admin: 10/06/20 20:58 Dose: 200 mls/hr Documented by: Infusion: 10/06/20 15:10 Dose: 0 mls/hr Documented by: Admin: 10/06/20 14:40 Dose: 200 mls/hr Documented by: MARY Ciprofloxacin (Cipro) 400 mg in 200 mls @ 200 mls/hr IV Q12H [facility]; Protocol Last Admin: 10/09/20 09:19 Dose: 200 mls/hr Documented by: Infusion: 10/09/20 07:01 Dose: 0 mls/hr Documented by: Admin: 10/08/20 20:45 Dose: 200 mls/hr Documented by: Infusion: 10/08/20 09:55 Dose: 0 mls/hr Documented by: Admin: 10/08/20 08:54 Dose: 200 mls/hr Documented by: Infusion: 10/08/20 01:05 Dose: 0 mls/hr Documented by: Admin: 10/08/20 00:02 Dose: 200 mls/hr Documented by: Infusion: 10/07/20 16:21 Dose: 0 mls/hr Documented by: Admin: 10/07/20 15:21 Dose: 200 mls/hr Documented by: NISHA Insulin Glargine (Lantus) 40 unit SQ DAILY [facility] Last Admin: 10/09/20 09:18 Dose: 40 units Documented by: Admin: 10/08/20 08:55 Dose: 40 units Documented by: Admin: 10/07/20 08:01 Dose: 40 units Documented by: Admin: 10/06/20 08:28 Dose: 40 units Documented by: Admin: 10/05/20 08:02 Dose: 40 units Documented by: MARY Insulin Human Lispro (Humalog) 0 unit SQ BIDAC [facility]; Protocol Last Admin: 10/09/20 07:01 Dose: Not Given Documented by: Admin: 10/08/20 16:56 Dose: 2 units Documented by: Admin: 10/08/20 07:17 Dose: Not Given Documented by: Admin: 10/07/20 17:03 Dose: 4 units Documented by: Admin: 10/07/20 07:54 Dose: 2 units Documented by: Admin: 10/06/20 16:43 Dose: 4 units Documented by: Admin: 10/06/20 07:21 Dose: Not Given Documented by: Admin: 10/05/20 16:10 Dose: 8 units Documented by: Admin: 10/05/20 08:01 Dose: 8 units Documented by: MARY Levothyroxine Sodium (Synthroid) 100 mcg PO [id number]@0730 [facility] Last Admin: 10/09/20 07:04 Dose: 100 mcg Documented by: Admin: 10/06/20 08:27 Dose: 100 mcg Documented by: Admin: 10/05/20 08:03 Dose: 100 mcg Documented by: MARY Levothyroxine Sodium (Synthroid) 150 mcg PO [id number]@0730 [facility] Last Admin: 10/08/20 07:18 Dose: 150 mcg Documented by: Admin: 10/07/20 07:54 Dose: 150 mcg Documented by: NISHA Lidocaine (Lidoderm) 1 patch TOPICAL QDAY [facility] Last Admin: 10/09/20 09:19 Dose: 1 patch Documented by: Admin: 10/08/20 08:55 Dose: 1 patch Documented by: Admin: 10/07/20 08:00 Dose: 1 patch Documented by: Admin: 10/06/20 08:32 Dose: 1 patch Documented by: Admin: 10/05/20 08:04 Dose: 1 patch Documented by: MARY Metoclopramide HCl (Reglan) 10 mg IV Q6HP PRN PRN Reason: Nausea And Vomiting Last Admin: 10/08/20 11:01 Dose: 10 mg Documented by: Admin: 10/07/20 22:28 Dose: 10 mg Documented by: Admin: 10/07/20 08:01 Dose: 10 mg Documented by: Admin: 10/07/20 01:42 Dose: 10 mg Documented by: SOTO Ondansetron HCl (Zofran) 4 mg IV Q6HP PRN PRN Reason: Nausea And Vomiting Last Admin: 10/08/20 07:22 Dose: 4 mg Documented by: Admin: 10/07/20 18:31 Dose: 4 mg Documented by: Admin: 10/07/20 06:47 Dose: 4 mg Documented by: Admin: 10/06/20 21:22 Dose: 4 mg Documented by: Admin: 10/06/20 15:21 Dose: 4 mg Documented by: Admin: 10/05/20 18:23 Dose: 4 mg Documented by: JEFFERY Cyclosporine [ Restasis] 0.05% Ophthalmic Emulsion 1 dose OU HS [facility] Last Admin: 10/08/20 20:41 Dose: Not Given Documented by: Admin: 10/07/20 22:01 Dose: Not Given Documented by: Admin: 10/06/20 21:23 Dose: Not Given Documented by: Admin: 10/05/20 20:26 Dose: Not Given Documented by: Admin: 10/04/20 21:31 Dose: Not Given Documented by: LICHA Trulicity 1.5 Mg (0. (5 Ml) Pen Injector) 1 dose SUB-Q Mo@0900 [facility] Last Admin: 10/09/20 09:19 Dose: Not Given Documented by: JERRELL Reza (Senokot) 2 tab PO HS [facility] Admin: 10/08/20 20:41 Dose: Not Given Documented by: Admin: 10/07/20 20:42 Dose: Not Given Documented by: Admin: 10/06/20 21:23 Dose: Not Given [facility]ed [facility]: [facility] Admin: 10/05/20 20:26 Dose: 2 tab Documented by: Admin: 10/04/20 21:30 Dose: 2 tab Documented by: LICHA Sodium Chloride (Saline Flush) 10 ml IV Q8 [facility] Admin: 10/09/20 05:24 Dose: Not Given Documented by: Admin: 10/08/20 20:48 Dose: Not Given Documented by: [facility] Admin: 10/08/20 13:47 Dose: Not Given Documented by: Admin: 10/08/20 06:10 Dose: Not Given Documented by: Admin: 10/07/20 22:01 Dose: Not Given Documented by: Admin: 10/07/20 13:51 Dose: Not Given Documented by: Admin: 10/07/20 05:35 Dose: Not Given Documented by: Admin: 10/06/20 22:24 Dose: Not Given Documented by: Admin: 10/06/20 12:30 Dose: Not Given Documented by: Admin: 10/06/20 05:08 Dose: Not Given Documented by: Admin: 10/05/20 20:26 Dose: Not Given Documented by: Admin: 10/05/20 12:05 Dose: Not Given Documented by: Admin: 10/05/20 04:54 Dose: Not Given Documented by: Admin: 10/04/20 21:30 Dose: Not Given Documented by: Admin: 10/04/20 13:12 Dose: Not Given Documented by: MARY Tizanidine HCl (Zanaflex) 4 mg PO Q8HP PRN PRN Reason: muscle spasticity Last Admin: 10/08/20 14:57 Dose: 4 mg Documented by: Admin: 10/05/20 19:32 Dose: 4 mg Documented by: JEFFERY Trazodone HCl (Desyrel) 50 mg PO HSP PRN PRN Reason: insomnia Last Admin: 10/05/20 20:26 Dose: 50 mg Documented by: JEFFERY Shift Summary 10/09/20 04:56 Shift Summary by Edward Nieves Pt is A/O x4 but forgetful. Inpatient status. Has been calm throughout shift. Makes all needs known. Slept well this shift. VSS on RA. No complaints of N/V this shift. Is getting ofirmev Q6H which has been helping with abdominal pain. Also received 1mg dilaudid x1. IV in LFA running NS @75ml/hr. Slime and Suzi held d/t multiple BMs previous shift. Also had a large BM this shift. Up w/ 1x assist using FWW to BSC. Wound vac set @125 on right abdomen. Should D/C today to SNF. Will update at bedside. Initialized on 10/09/20 04:56 - END OF NOTE
--- NOTE | 2020-10-09 13:26 | General Surgery Progress Note ---
SUBJECTIVE Subjective Patient information: Note initiated : 10/07/20 at 2:21 pm Service Date, if different from initiated Date: [] Patient: Rahel Grover 70 y/o F admitted on 10/04/20 for Open Debridement Abdominal Wall Abscess with Wound. Chief Complaint: [] Principal diagnosis: abdominal wall abscess Interval history: patient is going well and is not having any problems with her wound. She still has some bloody drainage. The wound base is totally clean. Were awaiting final disposition on jail and rehabilitation transfer Constitutional Vitals: Vital Signs Temp Pulse Resp BP Pulse Ox 98.2 F 70 16 163/71 98 10/07/20 11:56 10/07/20 11:56 10/07/20 11:56 10/07/20 11:56 10/07/20 11:56 Period Temp Pulse Resp BP Sys/Blackwell Pulse Ox Last 24 Hr 97.6 F-98.2 F 70-89 16-20 138-163/67-79 92-98 Intake and Output 10/07/20 10/07/20 10/07/20 05:59 13:59 21:59 Intake Total 820 1260 Output Total 1700 300 Balance -880 960 Intake & Output: Intake & Output 10/07/20 10/07/20 10/07/20 05:59 13:59 21:59 Intake Total 820 1260 Output Total 1700 300 Balance -880 960 Intake: IV 100 100 Oral 720 1160 Output: Drainage 400 Right Lower Abdomen Woundvac 400 Void Amount 550 300 Urine/Stool Mix 750 Other: Meal Lunch Percent of Meal Consumed 75% Feeding Ability Independent Urine Appearance Clear Clear Urine Color Dark Yellow Dark Yellow Urine Odor Normal Normal Stool Size Large Copious Stool Color Brown Brown Stool Consistency Soft Soft Loose Formed # Voids 1 # Bowel Movements 1 # Emeses 0 Head Head exam: Present atraumatic and normal inspection Eye Eye exam: Present EOMI Pupils: Present normal accommodation and PERRL ENT ENT exam: Present normal exam, normal external ear exam and normal oropharynx Neck Neck exam: Present full ROM and normal inspection; Absent tenderness and thyromegaly Respiratory Respiratory exam: Present CTAB; Absent rales, rhonchi and wheezes Cardiovascular Cardiovascular exam: Present normal rate and rhythm, RRR, +S1 and +S2; Absent tachycardia GI/Abdominal GI/Abdominal exam: Present soft and tenderness (mild tenderness around the wound VAC site); Absent distended Extremities Exam Extremities exam: Present full ROM and normal inspection; Absent pedal edema and tenderness Neurological Exam Neurological exam: Present alert, normal gait and oriented X3; Absent motor sensory deficit Psychiatric Psychiatric exam: Present anxious, normal affect and normal mood Skin Skin exam: Absent petechiae, rash and urticaria A/P Assessment and plan (1) Abscess of abdominal wall: Status: Acute (2) Diabetes mellitus type 2 in obese: Status: Acute (3) Morbid obesity with BMI of 50.0-59.9, adult: Status: Acute (4) High blood pressure: Status: Chronic Qualifiers: Hypertension type: essential hypertension Qualified Code(s): I10 - Essential (primary) hypertension Narrative A/P Narrative: patient is doing well. Anticipate that she will be ready for discharge in about 2 days. Time Spent With Patient Time: Total time spent is greater than 50% in coordination of care (as documented) at patient's floor/unit and/or counseling patient:
--- NOTE | 2020-10-11 09:10 | Operative Note ---
DATE OF OPERATION: 10/04/2020 PREOPERATIVE DIAGNOSIS: Chronic abscess of abdominal wall. POSTOPERATIVE DIAGNOSIS: Chronic abscess of abdominal wall. PROCEDURE: Wide excision of inflammatory mass of abdominal wall 15 x 13 x 4 cm with placement of wound VAC. SURGEON: Yina Lyn M.D. FINDINGS: Thick, inflammatory mass of right lower abdominal wall extending down to the fascia. DESCRIPTION OF PROCEDURE: Under general anesthesia, the abdominal wall was prepped and draped in a sterile field. The old incision was incised. The incision was extended down to a very thick, hard, inflammatory mass which involved the subcutaneous tissue. Wide excision of this was carried out using primarily electrocautery. The dimensions of the combined inflammatory mass approximated 15 x 13 x 4 cm. All tissue was excised back to healthy subcutaneous fat. It extended down to the fascia, but did not involve the fascia. Once this was removed, the cavity was irrigated with bacitracin solution. A large white foam and a large villarreal foam were placed and the wound VAC system was attached without difficulty. The patient tolerated the procedure well. She was awakened and transferred to the postanesthetic care unit in stable, satisfactory condition. LCS:kevin Job ID: [id number] Doc ID: [id number] Yina Lyn M.D.
== END 2020-10-09 14:45 | DRG 571 ==
LOC: MEDSUR 05:46
PROVIDERS: ADMIT Family Medicine Adult Medicine; ATTEND Family Medicine Adult Medicine

== ENCOUNTER 2021-01-17 08:22 | Inpatient (IN) ==
--- NOTE | 2021-01-16 14:18 | XRay Report ---
CLINICAL INFORMATION: pre-op COMPARISON: 09/29/2020 FINDINGS: Heart is normal in size and configuration. Mild enlargement central pulmonary arteries demonstrates long-term stability. Mediastinum and peripheral pulmonary vessels are normal. Lungs are clear. No effusions. IMPRESSION: No acute disease. Mild chronic enlargement of the central pulmonary arteries compatible with pulmonary hypertension Interpreted and Authenticated by: Ras Sylvester 01/16/21
[2021-01-16 15:56] LABS: Basophils # (Auto) 0.06 K/mcL (0.00-0.20); Basophils % (Auto) 0.3 % (0.0-2.0); Eosinophils # (Auto) 0.09 K/mcL (0.00-0.70); Eosinophils % (Auto) 0.4 % (0.0-7.0); Hematocrit 42.8 % (36.0-48.0); Hemoglobin 13.2 g/dL (12.0-15.0); Lymphocytes % (Auto) 9.1 % (15.0-49.0); Mean Cell Volume 88.6 fL (80.0-100.0); Mean Corpuscular HGB Conc 30.8 g/dL (31.0-36.0); Mean Platelet Volume 11.2 fL (7.4-10.4); Monocytes # (Auto) 1.21 K/mcL (0.10-0.90); Monocytes % (Auto) 5.8 % (1.0-12.0); Neutrophils % (Auto) 84.4 % (38.0-78.0); Platelet Count 324 K/mcL (140-440); RBC 4.83 M/mcL (4.00-5.20); Red Cell Distribution Width 17.2 % (11.5-14.5); WBC 20.9 K/mcL (4.5-11.0)
[2021-01-16 16:17] LABS: ALT/SGPT 11 U/L (<40); AST/SGOT 17 U/L (<32); Albumin 3.7 gm/dL (3.2-5.2); Alkaline Phosphatase 125 U/L (39-117); Bilirubin,Total 0.8 mg/dL (0.1-1.0); Blood Urea Nitrogen 13 mg/dL (8-23); Calcium 9.8 mg/dL (8.6-10.4); Carbon Dioxide 34 mmol/L (22-30); Chloride 94 mmol/L (96-108); Globulin 3.8 gm/dL (2.2-3.7); Glomerular Filtration Rate 87; Glucose 137 mg/dL (70-105)
[2021-01-16 16:23] LABS: INR 1.1 (0.9-1.1); Partial Thromboplastin Time 42.7 sec (20.0-37.0)
[~2021-01-17 08:22] MED LIST changes: -IPRATROPIUM/ALBUTEROL 3 ML AMPUL.NEB NEB PRN; +PIPERACILLIN SODIUM/TAZOBACTAM 3.375 GM in DEXTROSE 5% IN WATER 50 ML IV SCH; -SCOPOLAMINE 1 PATCH PATCH TOPICAL PRN
[2021-01-17] MEDS ORDERED: SCOPOLAMINE 1 PATCH PATCH TOPICAL ONE (09:12)
[2021-01-17] MEDS ORDERED: VANCOMYCIN 1,000 MG in 0.9 % SODIUM CHLORIDE 250 ML IV SCH ×2 (10:00→11:45)
[2021-01-17] MEDS ORDERED: KETAMINE 50 MG/ML ML ONE (10:04)
[2021-01-17] MEDS ORDERED: LIDOCAINE HCL/PF 100 MG/5 ML SYRINGE IV ONE (10:04)
[2021-01-17] MEDS ORDERED: PROPOFOL 200 MG/20 ML VIAL IV ONE (10:04)
[2021-01-17] MEDS ORDERED: ONDANSETRON 4 MG/2 ML VIAL ONE (10:04)
[2021-01-17] MEDS ORDERED: DEXAMETHASONE 10 MG/ML VIAL ONE (10:04)
[2021-01-17] MEDS ORDERED: NALOXONE HCL 0.4 MG/ML VIAL IV PRN (10:48)
[2021-01-17] MEDS ORDERED: ACETAMINOPHEN 1,000 MG/100 ML BAG IV ONE (10:48)
[2021-01-17] MEDS ORDERED: IPRATROPIUM/ALBUTEROL 3 ML AMPUL.NEB NEB PRN (10:48)
[2021-01-17] MEDS ORDERED: diphenhydrAMINE 50 MG/ML VIAL IV PRN (10:48)
[2021-01-17] MEDS ORDERED: LACTATED RINGERS 250 ML IV PRN (10:48)
[2021-01-17] MEDS ORDERED: MEPERIDINE 25 MG/ML VIAL IV PRN (10:48)
[2021-01-17] MEDS ORDERED: fentaNYL 100 MCG/2 ML VIAL IV PRN (10:48)
[2021-01-17] MEDS ORDERED: ONDANSETRON 4 MG/2 ML VIAL IV PRN (10:48)
[2021-01-17] MEDS ORDERED: PROMETHAZINE 25 MG/ML VIAL IV PRN (10:48)
[2021-01-17] MEDS ORDERED: 0.9 % SODIUM CHLORIDE 10 ML SYRINGE IV PRN (10:54)
[2021-01-17] MEDS ORDERED: BACITRACIN 50,000 UNIT VIAL IR ONE (10:57)
[2021-01-17] MEDS ORDERED: LACTATED RINGERS 1,000 ML IV SCH (11:00)
--- NOTE | 2021-01-17 11:26 | Brief Operative Note ---
Brief Operative Note Date of procedure: 01/17/21 Pre-op diagnosis: hemorrhagic abscess of anterior abdominal wall Post-op diagnosis: other (hemorrhagic abscess of anterior abdominal ) Procedure: wide surgical debridement of abscess of anterior abdominal wall ([id number]) ( excision of necrotic fat and suture ligation of multiple subcutaneous blood vessels) Grafts/Implants: No (packed with bacitracin soaked vaginal packing) Anesthesia: GETA Findings: large abscess of right lateral abdominal wall with free hemorrhage into the abscess cavity Complications: none Surgeon: Yina Lyn Estimated blood loss (cc): 100 Specimens Removed/Pathology: other (necrotic skin and fat discarded) Condition: stable Disposition: PACU
[2021-01-17] MEDS ORDERED: PIPERACILLIN SODIUM/TAZOBACTAM 3.375 GM in DEXTROSE 5% IN WATER 50 ML IV SCH (11:45)
--- NOTE | 2021-01-17 11:59 | XRay Report ---
CLINICAL INFORMATION: PICC PLACEMENT COMPARISON: 01/16/2021 FINDINGS: The PICC line overlies the tricuspid valve plane. The heart is mildly enlarged. Mediastinum and pulmonary vessels are normal. Lungs are clear. No effusions. IMPRESSION: No acute disease. PICC line tip overlying the tricuspid valve plane Interpreted and Authenticated by: Ras Sylvester 01/17/21
[2021-01-17] MEDS: 0.9 % SODIUM CHLORIDE 1,000 ML IV SCH (12:24)
[2021-01-17] MEDS: HYDROmorphone 1 MG/ML SYRINGE IV PRN (12:32)
[2021-01-17] MEDS ORDERED: VANCOMYCIN PER PHARMACY IV SCH (13:15)
[2021-01-17] MEDS: PIPERACILLIN SODIUM/TAZOBACTAM 3.375 GM in DEXTROSE 5% IN WATER 50 ML IV SCH ×2 (14:42→18:09)
[2021-01-17] MEDS: 0.9 % SODIUM CHLORIDE 10 ML SYRINGE IV SCH ×4 (14:43→23:12)
[2021-01-17] MEDS: SENNOSIDES 1 TABLET PO SCH (21:03)
[2021-01-17] MEDS: DOCUSATE SODIUM 100 MG CAPSULE PO SCH (21:03)
[2021-01-17] MEDS: INSULIN LISPRO 1 UNIT/0.01 ML UNIT SQ SCH ×2 (21:04→23:12)
[2021-01-17] MEDS: VANCOMYCIN 1,500 MG in 0.9 % SODIUM CHLORIDE 500 ML IV SCH (22:01)
[2021-01-18] MEDS: PIPERACILLIN SODIUM/TAZOBACTAM 3.375 GM in DEXTROSE 5% IN WATER 50 ML IV SCH ×4 (00:31→17:35)
[2021-01-18] MEDS: INSULIN LISPRO 1 UNIT/0.01 ML UNIT SQ SCH ×5 (01:19→21:53)
[2021-01-18] MEDS: oxyCODONE HCL 5 MG TABLET PO PRN ×3 (02:12→21:50)
[2021-01-18] MEDS: 0.9 % SODIUM CHLORIDE 10 ML SYRINGE IV SCH ×4 (05:30→21:53)
--- NOTE | 2021-01-18 07:04 | Operative Note ---
DATE OF OPERATION: 01/17/2021 PREOPERATIVE DIAGNOSIS: Hemorrhagic abscess of anterior abdominal wall. POSTOPERATIVE DIAGNOSIS: Hemorrhagic abscess of anterior abdominal wall. PROCEDURE: Wide surgical debridement of the abscess of anterior abdominal wall measuring 9 x 7 x 6 cm with excision of necrotic fat and suture ligation of multiple subcutaneous blood vessels. DESCRIPTION OF PROCEDURE: Under general anesthesia, the patient's abdomen was prepped and draped in the sterile field. There was a moderate amount of hemorrhagic pus coming from the lateral aspect of the wound in the lower panniculus. Using finger fractionation, this area was opened and a large volume of blood and pus was removed. It was irrigated copiously. There were multiple large veins that were disrupted in the necrotic tissue. A transverse incision was made extending laterally over the cavity. A large volume cavity was exposed. This cavity contained a large amount of necrotic fat, old blood and pus. Copious irrigation was carried out. The necrotic fat was excised back to healthy tissue. The vessels that were bleeding were suture ligated with 2-0 Monocryl. Hemostasis was achieved also with the use of electrocautery. Once all the necrotic tissue was excised and the bleeding was controlled, the area was irrigated with bacitracin solution. It was then packed with vaginal packing soaked in bacitracin solution. This was covered with 4 x 4 gauze, ABD pad, and large Tegaderm. The patient tolerated the procedure well. She was awakened and transferred to the postanesthetic care unit in satisfactory condition. LCS:malu Job ID: [id number] Doc ID: [id number] Yina Lyn M.D.
[2021-01-18 07:46] LABS: Basophils # (Auto) 0.03 K/mcL (0.00-0.20); Basophils % (Auto) 0.2 % (0.0-2.0); Eosinophils # (Auto) 0 K/mcL (0.00-0.70); Eosinophils % (Auto) 0 % (0.0-7.0); Hematocrit 33.9 % (36.0-48.0); Hemoglobin 10.7 g/dL (12.0-15.0); Lymphocytes # (Auto) 1.65 K/mcL (1.50-4.80); Lymphocytes % (Auto) 9.1 % (15.0-49.0); Mean Cell Volume 87.6 fL (80.0-100.0); Mean Corpuscular HGB Conc 31.6 g/dL (31.0-36.0); Mean Platelet Volume 11.6 fL (7.4-10.4); Monocytes % (Auto) 6.6 % (1.0-12.0); Neutrophils % (Auto) 84.1 % (38.0-78.0); Platelet Count 261 K/mcL (140-440); RBC 3.87 M/mcL (4.00-5.20); Red Cell Distribution Width 16.9 % (11.5-14.5); WBC 18.1 K/mcL (4.5-11.0)
[2021-01-18] MEDS: DOCUSATE SODIUM 100 MG CAPSULE PO SCH ×2 (09:10→21:50)
[2021-01-18] MEDS: VANCOMYCIN 1,500 MG in 0.9 % SODIUM CHLORIDE 500 ML IV SCH ×2 (09:10→21:55)
[2021-01-18] MEDS: ENOXAPARIN 40 MG/0.4 ML SYRINGE SQ SCH (09:11)
[2021-01-18 09:41] LABS: ALT/SGPT 10 U/L (<40); AST/SGOT 11 U/L (<32); Albumin 2.6 gm/dL (3.2-5.2); Albumin/Globulin Ratio 0.7 (1.0-2.3); Alkaline Phosphatase 94 U/L (39-117); Bilirubin,Direct < 0.2 mg/dL (0-0.3); Bilirubin,Total 0.3 mg/dL (0.1-1.0); Blood Urea Nitrogen 15 mg/dL (8-23); Calcium 9.1 mg/dL (8.6-10.4); Carbon Dioxide 30 mmol/L (22-30); Chloride 96 mmol/L (96-108); Globulin 3.5 gm/dL (2.2-3.7); Glomerular Filtration Rate 91; Glucose 156 mg/dL (70-105); Lactate Dehydrogenase 269 U/L (135-225); Phosphorous 2.8 mg/dL (2.5-4.5); Triglycerides 96 mg/dL (<150); Uric Acid 4.7 mg/dL (2.5-8.0)
[2021-01-18] MEDS: 0.9 % SODIUM CHLORIDE 1,000 ML IV SCH (14:34)
[2021-01-18] MEDS: BACITRACIN IRR SCH (16:27)
[2021-01-18] MEDS: SODIUM CHLORIDE IRRIG IRR SCH (16:27)
[2021-01-18] MEDS: HYDROmorphone 1 MG/ML SYRINGE IV PRN (16:28)
--- NOTE | 2021-01-18 16:53 | General Surgery Progress Note ---
SUBJECTIVE Subjective Patient information: Note initiated : 01/18/21 at 4:49 pm Service Date, if different from initiated Date: [] Patient: Rahel Grover 70 y/o F admitted on 01/17/21 for Exploration of Abdominal Wound Wall and Control of. Chief Complaint: [] Principal diagnosis: Chronic abscess of abdominal wall Interval history: Patient is doing well. Her pain is controlled. Dressing was changed and the wound bed is clean. There is no purulent drainage and there is no necrotic tissue noted. Area was cleaned with bacitracin solution and packed with gauze soaked in bacitracin solution. There is no surrounding cellulitis or erythema. White blood count is 18.1, hemoglobin 10.7, hematocrit 33.9 Constitutional Vitals: Vital Signs Temp Pulse Resp BP Pulse Ox 97.9 F 73 12 117/56 91 01/18/21 12:00 01/18/21 12:00 01/18/21 12:00 01/18/21 12:00 01/18/21 12:00 Period Temp Pulse Resp BP Sys/Blackwell Pulse Ox Last 24 Hr 96.9 F-97.9 F 72-77 12-14 115-140/55-69 90-97 Intake and Output 01/18/21 01/18/21 01/18/21 05:59 13:59 21:59 Intake Total 650 840 785 Output Total 450 200 Balance 200 640 785 Weight 298 lb 3.2 oz Patient Weight 01/19/21 05:59 Weight 298 lb 3.2 oz Intake & Output: Intake & Output 01/18/21 01/18/21 01/18/21 05:59 13:59 21:59 Intake Total 650 840 785 Output Total 450 200 Balance 200 640 785 Weight 298 lb 3.2 oz Intake: IV 550 600 785 Sodium Chloride 0.9% 1,000 ml @ 785 30 mls/hr IV .Q24H LENARD Rx#: [id number] Zosyn 3.375 gm In Dextrose 5% 50 100 in Water 50 ml @ 100 mls/hr IV Q6H L[facility]ARD Rx#:[id number] Vancomycin 1,500 mg In Sodium 500 500 Chloride 0.9% 500 ml @ 333.3 mls/hr IV Q12H LENARD Rx#: [id number] Oral 100 240 Output: Void Amount 450 200 Other: Meal Breakfast Percent of Meal Consumed 30 Feeding Ability Assist with Tray Set Up Urine Appearance Clear Urine Color Dark Yellow Neck Neck exam: Present full ROM and normal inspection; Absent tenderness and thyromegaly Respiratory Respiratory exam: Present CTAB; Absent rales, rhonchi and wheezes Cardiovascular Cardiovascular exam: Present normal rate and rhythm, RRR, +S1 and +S2; Absent t achycardia GI/Abdominal GI/Abdominal exam: Present normal bowel sounds, soft and tenderness (Mild tenderness around operative site but no cellulitis and no purulence) Extremities Exam Extremities exam: Present full ROM and normal inspection; Absent pedal edema and tenderness Neurological Exam Neurological exam: Present alert, normal gait and oriented X3; Absent motor sensory deficit Psychiatric Psychiatric exam: Present anxious, normal affect and normal mood Skin Skin exam: Absent petechiae, rash and urticaria A/P Assessment and plan (1) Abscess of postoperative wound of abdominal wall: Status: Acute (2) FDC current use of anticoagulant therapy: Status: Acute (3) Haemorrhage postprocedure: Status: Acute (4) Diabetes mellitus type 2 in obese: Status: Acute (5) Morbid obesity: Status: Acute Narrative A/P Narrative: Patient will be continued on IV antibiotics and local wound care. CBC will be repeated tomorrow. Time Spent With Patient Time: Total time spent is greater than 50% in coordination of care (as documented) at patient's floor/unit and/or counseling patient:
[2021-01-18] MEDS: SENNOSIDES 1 TABLET PO SCH (21:52)
[2021-01-19] MEDS: PIPERACILLIN SODIUM/TAZOBACTAM 3.375 GM in DEXTROSE 5% IN WATER 50 ML IV SCH ×4 (00:32→17:06)
[2021-01-19] MEDS: 0.9 % SODIUM CHLORIDE 10 ML SYRINGE IV SCH ×6 (00:33→21:10)
[2021-01-19] MEDS: oxyCODONE HCL 5 MG TABLET PO PRN ×4 (01:51→21:34)
[2021-01-19] MEDS: INSULIN LISPRO 1 UNIT/0.01 ML UNIT SQ SCH ×4 (07:26→21:35)
[2021-01-19 07:53] LABS: Basophils # (Auto) 0.03 K/mcL (0.00-0.20); Basophils % (Auto) 0.2 % (0.0-2.0); Eosinophils # (Auto) 0.09 K/mcL (0.00-0.70); Eosinophils % (Auto) 0.5 % (0.0-7.0); Hematocrit 36.2 % (36.0-48.0); Lymphocytes # (Auto) 4.18 K/mcL (1.50-4.80); Lymphocytes % (Auto) 24.7 % (15.0-49.0); Mean Cell Volume 89.8 fL (80.0-100.0); Mean Corpuscular HGB Conc 30.4 g/dL (31.0-36.0); Mean Platelet Volume 11.7 fL (7.4-10.4); Monocytes # (Auto) 1.09 K/mcL (0.10-0.90); Monocytes % (Auto) 6.4 % (1.0-12.0); Neutrophils % (Auto) 68.2 % (38.0-78.0); Platelet Count 275 K/mcL (140-440); RBC 4.03 M/mcL (4.00-5.20); Red Cell Distribution Width 17.2 % (11.5-14.5); WBC 16.9 K/mcL (4.5-11.0)
[2021-01-19] MEDS: ENOXAPARIN 40 MG/0.4 ML SYRINGE SQ SCH (08:10)
[2021-01-19] MEDS: DOCUSATE SODIUM 100 MG CAPSULE PO SCH ×2 (08:10→21:07)
[2021-01-19] MEDS: VANCOMYCIN 1,500 MG in 0.9 % SODIUM CHLORIDE 500 ML IV SCH ×2 (08:11→21:35)
[2021-01-19 10:03] LABS: ALT/SGPT 9 U/L (<40); AST/SGOT 11 U/L (<32); Albumin 2.9 gm/dL (3.2-5.2); Albumin/Globulin Ratio 0.8 (1.0-2.3); Alkaline Phosphatase 82 U/L (39-117); Bilirubin,Direct < 0.2 mg/dL (0-0.3); Bilirubin,Total 0.2 mg/dL (0.1-1.0); Blood Urea Nitrogen 14 mg/dL (8-23); Carbon Dioxide 27 mmol/L (22-30); Chloride 99 mmol/L (96-108); Globulin 3.5 gm/dL (2.2-3.7); Glomerular Filtration Rate 91; Glucose 121 mg/dL (70-105); Lactate Dehydrogenase 227 U/L (135-225); Phosphorous 2.8 mg/dL (2.5-4.5); Triglycerides 149 mg/dL (<150); Uric Acid 4.6 mg/dL (2.5-8.0)
[2021-01-19] MEDS: 0.9 % SODIUM CHLORIDE 1,000 ML IV SCH (12:01)
[2021-01-19] MEDS: SODIUM CHLORIDE IRRIG IRR SCH (15:20)
[2021-01-19] MEDS: BACITRACIN IRR SCH (15:20)
[2021-01-19] MEDS: HYDROmorphone 1 MG/ML SYRINGE IV PRN (15:36)
--- NOTE | 2021-01-19 15:40 | General Surgery Progress Note ---
SUBJECTIVE Subjective Patient information: Note initiated : 01/19/21 at 3:36 pm Service Date, if different from initiated Date: [] Patient: Rahel Grover 70 y/o F admitted on 01/17/21 for Exploration of Abdominal Wound Wall and Control of. Chief Complaint: [] Principal diagnosis: Chronic abscess of abdominal wall Interval history: Patient continues to do well. Her wound bed is healthy and clean. Nurses have been instructed as to how to do wound care. White blood count is decreased to 16.9. Other labs are unremarkable. Tentative plan is for transfer to group home facility the first of the week and will continue on antibiotics for minimum of 14days. Constitutional Vitals: Vital Signs Temp Pulse Resp BP Pulse Ox 98 F 79 18 111/54 94 01/19/21 11:51 01/19/21 11:51 01/19/21 11:51 01/19/21 11:51 01/19/21 11:51 Period Temp Pulse Resp BP Sys/Blackwell Pulse Ox Last 24 Hr 97.6 F-98.3 F 67-79 12-18 111-140/54-68 91-98 Intake and Output 01/19/21 01/19/21 01/19/21 05:59 13:59 21:59 Intake Total 950 600 Output Total 600 700 Balance 350 -100 Intake & Output: Intake & Output 01/19/21 01/19/21 01/19/21 05:59 13:59 21:59 Intake Total 950 600 Output Total 600 700 Balance 350 -100 Intake: IV 550 600 Zosyn 3.375 gm In Dextrose 5% 50 100 in Water 50 ml @ 100 mls/hr IV Q6H [facility]ARD Rx#:[id number] Vancomycin 1,500 mg In Sodium 500 500 Chloride 0.9% 500 ml @ 333.3 mls/hr IV Q12H L[facility]ARD Rx#: [id number] Oral 400 Output: Void Amount 600 700 Other: Urine Appearance Clear Clear Urine Color Dark Yellow Bright Yellow Stool Size Large Stool Color Brown Stool Consistency Formed GI/Abdominal GI/Abdominal exam: Present normal bowel sounds, soft and tenderness (Mild tenderness around operative site but no cellulitis and no purulence) Additional comments: Abdominal wound looks good and is clean without any exudate and without any purulence. There is no necrotic tissue. 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 Time Spent With Patient Time: Total time spent is greater than 50% in coordination of care (as documented) at patient's floor/unit and/or counseling patient:
[2021-01-19] MEDS ORDERED: POLYETHYLENE GLYCOL 3350 17 GM PACKET PO PRN (15:56)
[2021-01-19] MEDS: SENNOSIDES 1 TABLET PO SCH (21:07)
[2021-01-20] MEDS: PIPERACILLIN SODIUM/TAZOBACTAM 3.375 GM in DEXTROSE 5% IN WATER 50 ML IV SCH ×5 (00:31→23:56)
[2021-01-20] MEDS: oxyCODONE HCL 5 MG TABLET PO PRN ×4 (01:30→20:32)
[2021-01-20] MEDS: 0.9 % SODIUM CHLORIDE 10 ML SYRINGE IV SCH ×4 (06:16→20:33)
[2021-01-20 07:35] LABS: ALT/SGPT 7 U/L (<40); AST/SGOT 8 U/L (<32); Alkaline Phosphatase 76 U/L (39-117); Bilirubin,Direct < 0.2 mg/dL (0-0.3); Bilirubin,Total 0.3 mg/dL (0.1-1.0); Blood Urea Nitrogen 9 mg/dL (8-23); Carbon Dioxide 29 mmol/L (22-30); Chloride 102 mmol/L (96-108); Globulin 3.1 gm/dL (2.2-3.7); Glomerular Filtration Rate 91; Glucose 164 mg/dL (70-105); Lactate Dehydrogenase 178 U/L (135-225); Triglycerides 163 mg/dL (<150); Uric Acid 4.4 mg/dL (2.5-8.0)
[2021-01-20] MEDS: ENOXAPARIN 40 MG/0.4 ML SYRINGE SQ SCH (07:53)
[2021-01-20] MEDS: INSULIN LISPRO 1 UNIT/0.01 ML UNIT SQ SCH ×4 (07:53→20:32)
[2021-01-20] MEDS: DOCUSATE SODIUM 100 MG CAPSULE PO SCH ×2 (07:53→20:32)
[2021-01-20] MEDS: ONDANSETRON 4 MG/2 ML VIAL IV PRN (08:40)
[2021-01-20] MEDS: VANCOMYCIN 1,500 MG in 0.9 % SODIUM CHLORIDE 500 ML IV SCH ×2 (08:40→20:33)
[2021-01-20 08:52] LABS: Basophils # (Auto) 0.03 K/mcL (0.00-0.20); Basophils % (Auto) 0.3 % (0.0-2.0); Eosinophils % (Auto) 1.7 % (0.0-7.0); Hemoglobin 10.9 g/dL (12.0-15.0); Lymphocytes % (Auto) 20.9 % (15.0-49.0); Mean Cell Volume 88.6 fL (80.0-100.0); Mean Corpuscular HGB Conc 31.1 g/dL (31.0-36.0); Mean Platelet Volume 11.3 fL (7.4-10.4); Monocytes # (Auto) 0.76 K/mcL (0.10-0.90); Monocytes % (Auto) 6.4 % (1.0-12.0); Neutrophils % (Auto) 70.7 % (38.0-78.0); Platelet Count 263 K/mcL (140-440); RBC 3.95 M/mcL (4.00-5.20); Red Cell Distribution Width 17.2 % (11.5-14.5)
--- NOTE | 2021-01-20 10:08 | General Surgery Progress Note ---
SUBJECTIVE Subjective Patient information: Note initiated : 01/20/21 at 10:05 am Service Date, if different from initiated Date: [] Patient: Rahel Grover 70 y/o F admitted on 01/17/21 for Exploration of Abdominal Wound Wall and Control of. Chief Complaint: [] Principal diagnosis: Chronic abscess of abdominal wall Interval history: Postop incision and drainage abdominal abscess. Patient is doing very well. Nurses are doing dressing changes, anticipate assisted facility on Friday Constitutional Vitals: Vital Signs Temp Pulse Resp BP Pulse Ox 98.9 F 82 16 159/84 91 01/20/21 06:43 01/20/21 06:43 01/20/21 06:43 01/20/21 06:43 01/20/21 06:43 Period Temp Pulse Resp BP Sys/Blackwell Pulse Ox Last 24 Hr 97.5 F-98.9 F 71-82 16-18 111-159/54-84 91-95 Intake and Output 01/19/21 01/20/21 01/20/21 21:59 05:59 13:59 Intake Total 410 790 290 Output Total 900 550 200 Balance -490 240 90 Weight 301 lb 4.8 oz Intake & Output: Intake & Output 01/19/21 01/20/21 01/20/21 21:59 05:59 13:59 Intake Total 410 790 290 Output Total 900 550 200 Balance -490 240 90 Weight 301 lb 4.8 oz Intake: IV 50 550 50 Zosyn 3.375 gm In Dextrose 5% 50 50 50 in Water 50 ml @ 100 mls/hr IV Q6H L[facility]ARD Rx#:[id number] Vancomycin 1,500 mg In Sodium 500 Chloride 0.9% 500 ml @ 333.3 mls/hr IV Q12H [facility]ARD Rx#: [id number] Oral 360 240 240 Output: Void Amount 900 550 200 Other: Meal Dinner Breakfast Percent of Meal Consumed 75% 25% Feeding Ability Independent Independent Urine Appearance Clear Clear Urine Color Dark Yellow Bright Yellow Urine Odor Normal Normal Stool Size Moderate Stool Color Brown Stool Consistency Soft # Bowel Movements 1 General appearance: cooperative and no acute distress GI/Abdominal GI/Abdominal exam: Present soft; Absent distended and tenderness A/P Narrative A/P Narrative: Doing as expected. Continue with dressing changes as instructed by Dr. Lyn. Anticipate assisted facility on Friday Time Spent With Patient Time: Total time spent is greater than 50% in coordination of care (as documented) at patient's floor/unit and/or counseling patient:
[2021-01-20] MEDS: 0.9 % SODIUM CHLORIDE 1,000 ML IV SCH (11:15)
[2021-01-20] MEDS: BACITRACIN IRR SCH (11:15)
[2021-01-20] MEDS: SODIUM CHLORIDE IRRIG IRR SCH (11:15)
[2021-01-20] MEDS: SENNOSIDES 1 TABLET PO SCH (20:32)
[2021-01-20] MEDS: ATORVASTATIN 20 MG TABLET PO SCH (20:45)
[2021-01-20] MEDS: APIXABAN 5 MG TABLET PO SCH (20:45)
[2021-01-20] MEDS: METOPROLOL TARTRATE 50 MG TABLET PO SCH (20:45)
[2021-01-20] MEDS: DOXEPIN 10 MG CAPSULE PO SCH (20:45)
[2021-01-20] MEDS: ALLOPURINOL 100 MG TABLET PO SCH (20:57)
[2021-01-20] MEDS: LOSARTAN 25 MG TABLET PO SCH (20:57)
[2021-01-21] MEDS: oxyCODONE HCL 5 MG TABLET PO PRN ×4 (01:29→19:22)
[2021-01-21] MEDS: PIPERACILLIN SODIUM/TAZOBACTAM 3.375 GM in DEXTROSE 5% IN WATER 50 ML IV SCH ×4 (06:02→23:57)
[2021-01-21] MEDS: ONDANSETRON 4 MG/2 ML VIAL IV PRN (06:36)
[2021-01-21] MEDS: INSULIN LISPRO 1 UNIT/0.01 ML UNIT SQ SCH ×4 (06:44→20:49)
[2021-01-21 06:53] LABS: Basophils # (Auto) 0.04 K/mcL (0.00-0.20); Basophils % (Auto) 0.3 % (0.0-2.0); Eosinophils % (Auto) 1.6 % (0.0-7.0); Hematocrit 34.1 % (36.0-48.0); Hemoglobin 10.2 g/dL (12.0-15.0); Lymphocytes # (Auto) 2.48 K/mcL (1.50-4.80); Lymphocytes % (Auto) 20.1 % (15.0-49.0); Mean Cell Volume 91.9 fL (80.0-100.0); Mean Corpuscular HGB Conc 29.9 g/dL (31.0-36.0); Mean Platelet Volume 10.9 fL (7.4-10.4); Monocytes % (Auto) 6.5 % (1.0-12.0); Neutrophils % (Auto) 71.5 % (38.0-78.0); Platelet Count 256 K/mcL (140-440); RBC 3.71 M/mcL (4.00-5.20); Red Cell Distribution Width 17.7 % (11.5-14.5); WBC 12.4 K/mcL (4.5-11.0)
[2021-01-21 07:13] LABS: ALT/SGPT 7 U/L (<40); AST/SGOT 7 U/L (<32); Albumin 2.9 gm/dL (3.2-5.2); Alkaline Phosphatase 70 U/L (39-117); Bilirubin,Direct < 0.2 mg/dL (0-0.3); Bilirubin,Total 0.3 mg/dL (0.1-1.0); Blood Urea Nitrogen 6 mg/dL (8-23); Calcium 8.6 mg/dL (8.6-10.4); Carbon Dioxide 30 mmol/L (22-30); Chloride 103 mmol/L (96-108); Glomerular Filtration Rate 91; Glucose 154 mg/dL (70-105); Lactate Dehydrogenase 176 U/L (135-225); Phosphorous 3.2 mg/dL (2.5-4.5); Triglycerides 116 mg/dL (<150)
[2021-01-21] MEDS: LOSARTAN 25 MG TABLET PO SCH (07:53)
[2021-01-21] MEDS: FUROSEMIDE 80 MG TABLET PO SCH ×2 (07:53→15:44)
[2021-01-21] MEDS: 0.9 % SODIUM CHLORIDE 10 ML SYRINGE IV SCH ×2 (07:53→20:57)
[2021-01-21] MEDS: DILTIAZEM 120 MG CAP.XL.24H PO SCH (07:53)
[2021-01-21] MEDS: METOPROLOL TARTRATE 50 MG TABLET PO SCH ×2 (07:53→20:50)
[2021-01-21] MEDS: ALLOPURINOL 300 MG TABLET PO SCH (07:53)
[2021-01-21] MEDS: DOCUSATE SODIUM 100 MG CAPSULE PO SCH ×2 (07:53→20:49)
[2021-01-21] MEDS: ENOXAPARIN 40 MG/0.4 ML SYRINGE SQ SCH (07:53)
[2021-01-21] MEDS: APIXABAN 5 MG TABLET PO SCH ×2 (07:53→20:50)
[2021-01-21] MEDS: VANCOMYCIN 1,500 MG in 0.9 % SODIUM CHLORIDE 500 ML IV SCH ×2 (08:56→21:05)
--- NOTE | 2021-01-21 10:28 | General Surgery Progress Note ---
SUBJECTIVE Subjective Patient information: Note initiated : 01/21/21 at 10:26 am Service Date, if different from initiated Date: [] Patient: Rahel Grover 70 y/o F admitted on 01/17/21 for Exploration of Abdominal Wound Wall and Control of. Chief Complaint: [] Principal diagnosis: Chronic abscess of abdominal wall Interval history: Patient with no complaints overnight, continue to do well. Home medications resumed last night. No fevers chills nausea or vomiting. Constitutional Vitals: Vital Signs Temp Pulse Resp BP Pulse Ox 98 F 71 16 136/62 91 01/21/21 07:16 01/21/21 07:16 01/21/21 07:16 01/21/21 07:16 01/21/21 07:16 Period Temp Pulse Resp BP Sys/Blackwell Pulse Ox Last 24 Hr 97.8 F-98.5 F 70-81 16-18 119-149/62-77 91-95 Intake and Output 01/20/21 01/21/21 01/21/21 21:59 05:59 13:59 Intake Total 290 600 290 Output Total 1250 850 Balance -960 -250 290 Weight 304 lb 8 oz Intake & Output: Intake & Output 01/20/21 01/21/21 01/21/21 21:59 05:59 13:59 Intake Total 290 600 290 Output Total 1250 850 Balance -960 -250 290 Weight 304 lb 8 oz Intake: IV 50 550 50 Zosyn 3.375 gm In Dextrose 5% 50 50 50 in Water 50 ml @ 100 mls/hr IV Q6H [facility]ARD Rx#:[id number] Vancomycin 1,500 mg In Sodium 500 Chloride 0.9% 500 ml @ 333.3 mls/hr IV Q12H [facility] Rx#: [id number] Oral 240 50 240 Output: Void Amount 1250 850 Other: Meal Breakfast Percent of Meal Consumed 75% Feeding Ability Independent Urine Appearance Clear Clear Urine Color Bright Yellow Bright Yellow Urine Odor Normal Stool Size Small Moderate Large Stool Color Brown Brown Brown Stool Consistency Soft Soft Soft Loose # Voids 1 # Bowel Movements 1 1 General appearance: cooperative and no acute distress GI/Abdominal GI/Abdominal exam: Present normal bowel sounds and soft; Absent distended Additional comments: Wound is clean dry and intact, good granulation tissue. Dressing change done by myself. A/P Narrative A/P Narrative: Doing as expected. Continue with dressing changes. Anticipate [facility] facility tomorrow. Time Spent With Patient Time: Total time spent is greater than 50% in coordination of care (as documented) at patient's floor/unit and/or counseling patient:
[2021-01-21] MEDS: 0.9 % SODIUM CHLORIDE 1,000 ML IV SCH ×2 (11:16→17:58)
[2021-01-21] MEDS: SODIUM CHLORIDE IRRIG IRR SCH (12:03)
[2021-01-21] MEDS: BACITRACIN IRR SCH (12:03)
[2021-01-21] MEDS: ACETAMINOPHEN 325 MG TABLET PO PRN ×2 (18:00→22:13)
[2021-01-21] MEDS: SENNOSIDES 1 TABLET PO SCH (20:49)
[2021-01-21] MEDS: DOXEPIN 10 MG CAPSULE PO SCH (20:49)
[2021-01-21] MEDS: ALLOPURINOL 100 MG TABLET PO SCH (20:50)
[2021-01-21] MEDS: ATORVASTATIN 20 MG TABLET PO SCH (20:50)
[2021-01-22] MEDS: oxyCODONE HCL 5 MG TABLET PO PRN ×3 (03:23→13:03)
[2021-01-22] MEDS: PIPERACILLIN SODIUM/TAZOBACTAM 3.375 GM in DEXTROSE 5% IN WATER 50 ML IV SCH ×2 (05:57→12:11)
[2021-01-22 06:48] LABS: Basophils # (Auto) 0.06 K/mcL (0.00-0.20); Basophils % (Auto) 0.4 % (0.0-2.0); Eosinophils # (Auto) 0.33 K/mcL (0.00-0.70); Eosinophils % (Auto) 2.3 % (0.0-7.0); Hematocrit 33.7 % (36.0-48.0); Hemoglobin 10.5 g/dL (12.0-15.0); Lymphocytes # (Auto) 2.26 K/mcL (1.50-4.80); Lymphocytes % (Auto) 15.7 % (15.0-49.0); Mean Cell Volume 89.6 fL (80.0-100.0); Mean Corpuscular HGB Conc 31.2 g/dL (31.0-36.0); Mean Platelet Volume 10.8 fL (7.4-10.4); Monocytes # (Auto) 0.72 K/mcL (0.10-0.90); Neutrophils % (Auto) 76.6 % (38.0-78.0); Platelet Count 280 K/mcL (140-440); RBC 3.76 M/mcL (4.00-5.20); Red Cell Distribution Width 17.8 % (11.5-14.5); WBC 14.4 K/mcL (4.5-11.0)
[2021-01-22] MEDS: INSULIN LISPRO 1 UNIT/0.01 ML UNIT SQ SCH ×2 (07:42→11:29)
[2021-01-22] MEDS: DILTIAZEM 120 MG CAP.XL.24H PO SCH (08:02)
[2021-01-22] MEDS: DOCUSATE SODIUM 100 MG CAPSULE PO SCH (08:03)
[2021-01-22] MEDS: APIXABAN 5 MG TABLET PO SCH (08:03)
[2021-01-22] MEDS: METOPROLOL TARTRATE 50 MG TABLET PO SCH (08:03)
[2021-01-22] MEDS: ENOXAPARIN 40 MG/0.4 ML SYRINGE SQ SCH (08:03)
[2021-01-22] MEDS: LOSARTAN 25 MG TABLET PO SCH (08:03)
[2021-01-22] MEDS: FUROSEMIDE 80 MG TABLET PO SCH (08:03)
[2021-01-22] MEDS: ALLOPURINOL 300 MG TABLET PO SCH (08:03)
[2021-01-22] MEDS: 0.9 % SODIUM CHLORIDE 10 ML SYRINGE IV SCH (08:05)
[2021-01-22] MEDS: VANCOMYCIN 1,500 MG in 0.9 % SODIUM CHLORIDE 500 ML IV SCH (11:47)
[2021-01-22] MEDS: SODIUM CHLORIDE IRRIG IRR SCH (12:11)
[2021-01-22] MEDS: BACITRACIN IRR SCH (12:11)
[2021-01-22] MEDS: 0.9 % SODIUM CHLORIDE 1,000 ML IV SCH (12:29)
--- NOTE | 2021-01-22 12:34 | Discharge Summary ---
Discharge Provider Provider Patient information: Note initiated : 01/22/21 at 12:22 pm Service Date, if different from initiated Date: [] Patient: Rahel Grover 70 y/o F admitted on 01/17/21 for Exploration of Abdominal Wound Wall and Control of. Chief Complaint: [] Date of admission: 01/17/21 12:17 Discharge date: 01/22/21 Primary care physician: Mo Rivera M.D., F.A.A.F.P. Admitting clinician: Yina Lyn Attending physician on admission: Yina Lyn Attending physician on discharge: Yina Lyn Discharging clinician: Yina Lyn COURSE Hospital Course Hospital course: 70-year-old female who was admitted post procedure after the patient had major hemorrhage in the abdominal wall. Her abdominal wall abscess was explored and there was a large cavitated area with necrotic fat and purulence. The area was open for left of the involved area and all the necrotic debris was removed. The wound was then packed with vaginal packing soaked in bacitracin. She has had daily dressing changes and has been continued on Zosyn and vancomycin. The area is slowly granulating in. The patient will be transferred to long-term facility with IV antibiotics and daily wound care for the next month. Discharge diagnosis: Chronic abscess anterior abdominal wall Secondary discharge diagnosis: Hemorrhage from abscess cavity anterior abdominal wall Reason for admission: Postoperative control of hemorrhage and debridement of abscess cavity Procedures: Exploration of abscess of abdominal wall with surgical debridement of necrotic tissue down to fascia Control of hemorrhage from abdominal wall Pertinent studies/significant findings: None Complications: None Time Spent with Patient Time attestation: Total time spent providing and/or coordinating discharge services: Physical Examination Vital Signs Vital signs: Temp Pulse Resp BP Pulse Ox 97.9 F 64 18 141/63 94 01/22/21 07:51 01/22/21 07:51 01/22/21 07:51 01/22/21 07:51 01/22/21 07:51 General physical appearance General physical exam: no distress, no pain, chronically ill and obese Head Head exam IM: Present atraumatic, normal inspection and normocephalic Neck Neck exam: no masses, no bruits, trachea midline, no lymphadenopathy and no venous distension Cardiovascular Cardiovascular exam IM: Present normal rate and rhythm, RRR, +S1 and +S2; Absent JVD Abdomen Abdomen: Present soft and tender (mild tenderness around the operative site. Otherwise benign abdominal exam; wound base is clean and granulating in) Neurologic Neurologic: Present normal coordination and normal sensation Musculoskeletal Musculoskeletal: Present normal gait, normal posture and other Psychiatric Psychiatric: Present oriented to time, oriented to person, oriented to place, speech is normal and memory intact Discharge Plan Patient/Caregiver Discharge Instructions Activity: as per physical therapy and increase activity as tolerated Diet: Consistent Carbohydrate Prescriptions: New Zosyn in dextrose (iso-osm) 3.375 gram/50 mL piggyback 3.375 g IV Q8H 14 Days Qty: 2362.5 RF: 0 Continued Eliquis 5 mg tablet 5 mg PO BID Qty: 60 RF: 6 atorvastatin 20 mg tablet 20 mg PO HS Qty: 90 RF: 3 furosemide 80 mg tablet 80 mg PO BID Qty: 60 RF: 8 potassium chloride 10 mEq capsule, extended release 20 meq PO TID Qty: 180 RF: 10 doxepin 10 mg capsule 10 mg PO QHS Qty: 30 RF: 7 levothyroxine 50 mcg tablet See Rx Instructions .ROUTE .COMPLEX Qty: 24 RF: 3 tizanidine 4 mg tablet 4 mg PO Q8H PRN (Reason: muscle spasticity) RF: 0 lidocaine [Lidoderm] 5 % adhesive patch,medicated 1 patch TOPICAL QDAY Qty: 30 RF: 11 hydrocodone-acetaminophen 10-325 mg tablet 1 tab PO Q6H PRN (Reason: pain) Qty: 42 RF: 0 nystatin 100,000 unit/gram Powder 10,000 applic TOPICAL PRN PRN (Reason: Rash) RF: 0 levothyroxine 100 mcg Tablet 100 mcg PO QDAY RF: 0 multivitamin Tablet 1 tab PO QDAY RF: 0 ascorbic acid (vitamin C) [Vitamin C] 1,000 mg Tablet 1 g PO QAM RF: 0 cetirizine 10 mg Tablet 5 mg PO QHS RF: 0 acetaminophen [Acetaminophen Extra Strength] 500 mg Tablet 1,000 mg PO Q6H PRN (Reason: Pain) RF: 0 calcium carbonate [Calcium 600] 600 mg calcium (1,500 mg) Tablet 600 mg PO BID RF: 0 fluticasone propionate [Aller-Robbi] 50 mcg/actuation [place],Suspension 2 spray INTRANASAL BID RF: 0 Restasis 0.05 % Dropperette 1 drp OPHTHALMIC (EYE) QHS RF: 0 cinnamon bark [Cinnamon] 500 mg Capsule 500 mg PO QAM RF: 0 cholecalciferol (vitamin D3) [Vitamin D3] 125 mcg (5,000 unit) Tablet 125 mcg PO QHS RF: 0 coQ10 (ubiquinol) 200 mg Capsule 200 mg PO QHS RF: 0 melatonin 10 mg Tablet 20 mg PO QHS RF: 0 allopurinol 100 mg tablet 100 mg PO QHS RF: 0 allopurinol 300 mg tablet 300 mg PO QAM RF: 0 Basaglar KwikPen U-100 Insulin 100 unit/mL (3 mL) insulin pen 40 unit SUB-Q QAM RF: 0 Trulicity 1.5 mg/0.5 mL pen injector 1.5 mg subcut WEEKLY RF: 0 famotidine [Acid Patient Transportation Driver (famotidine)] 20 mg Tablet 20 mg PO BID RF: 0 losartan [Cozaar] 25 mg tablet 25 mg PO DAILY RF: 0 metoprolol tartrate [Lopressor] 50 mg tablet 50 mg PO BID RF: 0 gabapentin [Neurontin] 300 mg capsule 300 mg PO TID MDD 900 RF: 0 diltiazem HCl [Cartia XT] 120 mg capsule,extended release 24hr 120 mg PO DAILY RF: 0 Follow Up Plan Follow up with: Yina Lyn MD [Physician] - 02/13/21 (Contact office to verify date and time) Patient Disposition: Xfer SNF Prognosis: Good Rehab Potential: Good I certify that the patient requires SNF services: Yes Overall status at discharge: patient is progressing back to baseline Discharge Orders: Discharge Order (Routine); Ordered 01/22/21 Ordered By: Yina Lyn Pending Pending Pending: Resuscitation Status Full Code Diet Consistent Carbohydrate Diet Start FriJanuary 18 124 Acetaminophen (Acetaminophen 325 Mg Tablet) 650 mg PO Q4-6HP PRN; Protocol PRN Reason: Per Pain Protocol Last Admin: 01/21/21 22:13 Dose: 650 mg Documented by: IGGY Cosigned by: HAILEY Admin: 01/21/21 18:00 Dose: 650 mg Documented by: OSCAR Allopurinol (Allopurinol 100 Mg Tablet) 100 mg PO HS [facility] Last Admin: 01/21/21 20:50 Dose: 100 mg Documented by: IGGY Cosigned by: HAILEY Admin: 01/20/21 20:57 Dose: 100 mg Documented by: PK Allopurinol (Allopurinol 300 Mg Tablet) 300 mg PO DAILY [facility] Last Admin: 01/22/21 08:03 Dose: 300 mg Documented by: Admin: 01/21/21 07:53 Dose: 300 mg Documented by: OSCAR Apixaban (Apixaban 5 Mg Tablet) 5 mg PO BID [facility] Last Admin: 01/22/21 08:03 Dose: 5 mg Documented by: Admin: 01/21/21 20:50 Dose: 5 mg Documented by: IGGY Cosigned by: HAILEY Admin: 01/21/21 07:53 Dose: 5 mg Documented by: Admin: 01/20/21 20:45 Dose: 5 mg Documented by: PK Atorvastatin Calcium (Atorvastatin 20 Mg Tablet) 20 mg PO HS [facility] Last Admin: 01/21/21 20:50 Dose: 20 mg Documented by: IGGY Cosigned by: HAILEY Admin: 01/20/21 20:45 Dose: 20 mg Documented by: PK Diagnostic Test (Pha) (Accu-Chek 1 Each Strip) 1 each FS ACHS [facility]; Protocol Last Admin: 01/22/21 11:29 Dose: 1 each Documented by: Admin: 01/22/21 07:42 Dose: 1 each Documented by: Admin: 01/21/21 20:48 Dose: 1 each Documented by: IGGY Cosigned by: HAILEY Admin: 01/21/21 16:51 Dose: 1 each Documented by: Admin: 01/21/21 10:55 Dose: 1 each Documented by: Admin: 01/21/21 06:44 Dose: 1 each Documented by: Admin: 01/20/21 20:22 Dose: 1 each Documented by: Admin: 01/20/21 16:26 Dose: 1 each Documented by: Admin: 01/20/21 11:15 Dose: 1 each Documented by: Admin: 01/20/21 06:57 Dose: 1 each Documented by: Admin: 01/19/21 21:10 Dose: 1 each Documented by: Admin: 01/19/21 16:32 Dose: 1 each Documented by: Admin: 01/19/21 11:26 Dose: 1 each Documented by: Admin: 01/19/21 07:25 Dose: 1 each Documented by: Admin: 01/18/21 21:41 Dose: 1 each Documented by: Admin: 01/18/21 17:10 Dose: 1 each Documented by: Admin: 01/18/21 11:39 Dose: 1 each Documented by: Admin: 01/18/21 07:15 Dose: 1 each Documented by: Admin: 01/18/21 05:30 Dose: 1 each Documented by: Admin: 01/18/21 03:21 Dose: 1 each Documented by: Admin: 01/18/21 01:04 Dose: 1 each Documented by: Admin: 01/17/21 23:07 Dose: 1 each Documented by: Admin: 01/17/21 21:00 Dose: 1 each Documented by: Admin: 01/17/21 16:57 Dose: 1 each Documented by: PAT Diltiazem HCl (Diltiazem 120 Mg Cap.Xl.24h) 120 mg PO DAILY [facility] Admin: 01/22/21 08:02 Dose: 120 mg Documented by: Admin: 01/21/21 07:53 Dose: 120 mg Documented by: OSCAR Docusate Sodium (Docusate Sodium 100 Mg Capsule) 100 mg PO BID [facility] Admin: 01/22/21 08:03 Dose: 100 mg Documented by: Admin: 01/21/21 20:49 Dose: 100 mg Documented by: IGGY Cosigned by: HAILEY Admin: 01/21/21 07:53 Dose: 100 mg Documented by: Admin: 01/20/21 20:32 Dose: 100 mg Documented by: Admin: 01/20/21 07:53 Dose: 100 mg Documented by: Admin: 01/19/21 21:07 Dose: 100 mg Documented by: Admin: 01/19/21 08:10 Dose: 100 mg Documented by: Admin: 01/18/21 21:50 Dose: 100 mg Documented by: Admin: 01/18/21 09:10 Dose: 100 mg Documented by: Admin: 01/17/21 21:03 Dose: 100 mg Documented by: OLIVIER Doxepin HCl (Doxepin 10 Mg Capsule) 10 mg PO HS [facility] Admin: 01/21/21 20:49 Dose: 10 mg Documented by: IGGY Cosigned by: HAILEY Admin: 01/20/21 20:45 Dose: 10 mg Documented by: PK Enoxaparin Sodium (Enoxaparin 40 Mg/0.4 Ml Syringe) 40 mg SQ DAILY [facility] Admin: 01/22/21 08:03 Dose: 40 mg Documented by: Admin: 01/21/21 07:53 Dose: 40 mg Documented by: Admin: 01/20/21 07:53 Dose: 40 mg Documented by: Admin: 01/19/21 08:10 Dose: 40 mg Documented by: Admin: 01/18/21 09:11 Dose: 40 mg Documented by: PAT Furosemide (Furosemide 80 Mg Tablet) 80 mg PO BIDD [facility] Admin: 01/22/21 08:03 Dose: 80 mg Documented by: Admin: 01/21/21 15:44 Dose: 80 mg Documented by: Admin: 01/21/21 07:53 Dose: 80 mg Documented by: OSCAR Heparin Sodium (Porcine) (Heparin Flush 10 Units/Ml 5 Ml Syringe) 2 ml IV Q12 [facility] Admin: 01/22/21 08:02 Dose: 2 ml Documented by: Admin: 01/21/21 20:51 Dose: 2 ml Documented by: IGGY Cosigned by: HAILEY Admin: 01/21/21 07:53 Dose: 2 ml Documented by: Admin: 01/20/21 20:33 Dose: 2 ml Documented by: Admin: 01/20/21 07:54 Dose: 2 ml Documented by: Admin: 01/19/21 21:07 Dose: 2 ml Documented by: Admin: 01/19/21 08:10 Dose: 2 ml Documented by: Admin: 01/18/21 21:52 Dose: 2 ml Documented by: Admin: 01/18/21 09:11 Dose: 2 ml Documented by: Admin: 01/17/21 21:05 Dose: 2 ml Documented by: RBLEW Hydromorphone HCl (Hydromorphone 1 Mg/Ml Syringe) 1 mg IV Q2HP PRN; Protocol PRN Reason: Per Pain Protocol Last Admin: 01/19/21 15:36 Dose: 1 mg Documented by: Admin: 01/18/21 16:28 Dose: 1 [facility]: 01/17/21 12:32 Dose: 1 mg Documented by: [facility] Sodium Chloride (Sodium Chloride 0.9%) 1,000 mls @ 30 mls/hr IV .Q24H [facility] Last Admin: 01/21/21 17:58 Dose: 30 mls/hr Documented by: Infusion: 01/21/21 17:58 Dose: 30 mls/hr Documented by: Admin: 01/20/21 11:15 Dose: 30 mls/hr Documented by: Infusion: 01/19/21 23:54 Dose: 30 mls/hr Documented by: Admin: 01/19/21 12:01 Dose: Not Given Documented by: Admin: 01/18/21 14:34 Dose: 30 mls/hr Documented by: Arcenio Infusion: 01/18/21 14:34 Dose: 30 mls/hr Documented by: [facility] Admin: 01/17/21 12:24 Dose: 30 mls/hr Documented by: Arcenio Piperacillin Sod/Tazobactam (Sod 3.375 gm/ Dextrose) 50 mls @ 100 mls/hr IV Q6H [facility]; Protocol Last Admin: 01/22/21 12:11 Dose: 100 mls/hr Documented by: Infusion: 01/22/21 08:05 Dose: 0 mls/hr Documented by: Admin: 01/22/21 05:57 Dose: 100 mls/hr Documented by: Infusion: 01/22/21 00:36 Dose: 0 mls/hr Documented by: Admin: 01/21/21 23:57 Dose: 100 mls/hr Documented by: IGGY Cosigned by: ROMELNSON Infusion: 01/21/21 17:33 Dose: 0 mls/hr Documented by: Admin: 01/21/21 16:52 Dose: 100 mls/hr Documented by: Infusion: 01/21/21 12:55 Dose: 0 mls/hr Documented by: Admin: 01/21/21 12:03 Dose: 100 mls/hr Documented by: Infusion: 01/21/21 08:05 Dose: 0 mls/hr Documented by: Admin: 01/21/21 06:02 Dose: 100 mls/hr Documented by: Infusion: 01/21/21 00:31 Dose: 0 mls/hr Documented by: Admin: 01/20/21 23:56 Dose: 100 mls/hr Documented by: Infusion: 01/20/21 17:31 Dose: 0 mls/hr Documented by: Admin: 01/20/21 16:27 Dose: 100 mls/hr Documented by: Infusion: 01/20/21 12:04 Dose: 0 mls/hr Documented by: Admin: 01/20/21 11:16 Dose: 100 mls/hr Documented by: Infusion: 01/20/21 07:00 Dose: 0 mls/hr Documented by: Admin: 01/20/21 06:16 Dose: 100 mls/hr Documented by: Infusion: 01/20/21 01:01 Dose: 100 mls/hr Documented by: Admin: 01/20/21 00:31 Dose: 100 mls/hr Documented by: Infusion: 01/19/21 17:36 Dose: 100 mls/hr Documented by: Admin: 01/19/21 17:06 Dose: 100 mls/hr Documented by: Cosigned by: EAMON Infusion: 01/19/21 12:15 Dose: 0 mls/hr Documented by: Admin: 01/19/21 11:43 Dose: 100 mls/hr Documented by: Infusion: 01/19/21 06:30 Dose: 0 mls/hr Documented by: Admin: 01/19/21 05:50 Dose: 100 mls/hr Documented by: Infusion: 01/19/21 01:05 Dose: 0 mls/hr Documented by: Admin: 01/19/21 00:32 Dose: 100 mls/hr Documented by: Infusion: 01/18/21 18:05 Dose: 100 mls/hr Documented by: Admin: 01/18/21 17:35 Dose: 100 mls/hr Documented by: Infusion: 01/18/21 12:10 Dose: 0 mls/hr Documented by: Admin: 01/18/21 11:39 Dose: 100 mls/hr Documented by: Infusion: 01/18/21 06:00 Dose: 100 mls/hr Documented by: [email or web address] Admin: 01/18/21 05:30 Dose: 100 mls/hr Documented by: Infusion: 01/18/21 01:09 Dose: 0 mls/hr Documented by: Admin: 01/18/21 00:31 Dose: 100 mls/hr Documented by: Infusion: 01/17/21 18:39 Dose: 100 mls/hr Documented by: Admin: 01/17/21 18:09 Dose: 100 mls/hr Documented by: Infusion: 01/17/21 15:24 Dose: 0 mls/hr Documented by: Admin: 01/17/21 14:42 Dose: 100 mls/hr Documented by: PAT Bacitracin 100,000 unit/ (Sodium Chloride) 250 mls @ 0 mls/hr IRR DAILY@1200 [facility] Last Admin: 01/22/21 12:11 Dose: 1 mls/hr Documented by: Admin: 01/21/21 12:03 Dose: 1 mls/hr Documented by: Admin: 01/20/21 11:15 Dose: 1 mls/hr Documented by: Admin: 01/19/21 15:20 Dose: 1 mls/hr Documented by: Admin: 01/18/21 16:27 Dose: 250 mls/hr Documented by: [email or web address] Insulin Human Lispro (Insulin Lispro 1 Unit/0.01 Ml Unit) 0 unit SQ ACHS [facility]; Protocol Last Admin: 01/22/21 11:29 Dose: 6 units Documented by: Admin: 01/22/21 07:42 Dose: 4 units Documented by: Admin: 01/21/21 20:49 Dose: 2 units Documented by: IGGY Cosigned by: HAILEY Admin: 01/21/21 16:51 Dose: 6 units Documented by: Admin: 01/21/21 10:55 Dose: 8 units Documented by: Admin: 01/21/21 06:44 Dose: 4 units Documented by: Admin: 01/20/21 20:32 Dose: 6 units Documented by: Admin: 01/20/21 16:27 Dose: Not Given Documented by: Admin: 01/20/21 12:11 Dose: 6 units Documented by: Admin: 01/20/21 07:53 Dose: 4 units Documented by: Admin: 01/19/21 21:35 Dose: 4 units Documented by: Admin: 01/19/21 16:35 Dose: 6 units Documented by: Admin: 01/19/21 11:26 Dose: 2 units Documented by: Admin: 01/19/21 07:26 Dose: 2 units Documented by: Admin: 01/18/21 21:53 Dose: 8 units Documented by: Admin: 01/18/21 17:17 Dose: 6 units Documented by: Admin: 01/18/21 11:15 Dose: 6 units Documented by: [email or web address] Admin: 01/18/21 07:26 Dose: 4 units Documented by: Admin: 01/18/21 01:19 Dose: 10 units Documented by: Admin: 01/17/21 23:12 Dose: 14 units Documented by: Admin: 01/17/21 21:04 Dose: 14 units Documented by: OLIVIER Losartan Potassium (Losartan 25 Mg Tablet) 25 mg PO DAILY [facility] Last Admin: 01/22/21 08:03 Dose: 25 mg Documented by: Admin: 01/21/21 07:53 Dose: 25 mg Documented by: Admin: 01/20/21 20:57 Dose: 25 mg Documented by: PK Metoprolol Tartrate (Metoprolol Tartrate 50 Mg Tablet) 50 mg PO BID [facility] Last Admin: 01/22/21 08:03 Dose: 50 mg Documented by: Admin: 01/21/21 20:50 Dose: 50 mg Documented by: IGGY Cosigned by: HAILEY Admin: 01/21/21 07:53 Dose: 50 mg Documented by: Admin: 01/20/21 20:45 Dose: 50 mg Documented by: PK Ondansetron HCl (Ondansetron 4 Mg/2 Ml Vial) 4 mg IV Q6HP PRN PRN Reason: Nausea And Vomiting Last Admin: 01/21/21 06:36 Dose: 4 mg Documented by: Admin: 01/20/21 08:40 Dose: 4 mg Documented by: HAILEY Oxycodone HCl (Oxycodone Hcl 5 Mg Tablet) 5 mg PO Q4HP PRN; Protocol PRN Reason: Per Pain Protocol Last Admin: 01/22/21 07:37 Dose: 5 mg Documented by: Admin: 01/22/21 03:23 Dose: 5 mg Documented by: Admin: 01/21/21 19:22 Dose: 5 mg Documented by: Admin: 01/21/21 15:44 Dose: 5 mg Documented by: Admin: 01/21/21 06:41 Dose: 5 mg Documented by: Admin: 01/21/21 01:29 Dose: 5 mg Documented by: Admin: 01/20/21 20:32 Dose: 5 mg Documented by: Admin: 01/20/21 16:33 Dose: 5 mg Documented by: Admin: 01/20/21 09:08 Dose: 5 mg Documented by: Admin: 01/20/21 01:30 Dose: 5 mg Documented by: Admin: 01/19/21 21:34 Dose: 5 mg Documented by: Admin: 01/19/21 14:17 Dose: 5 mg Documented by: Admin: 01/19/21 07:17 Dose: 5 mg Documented by: [email or web address] Admin: 01/19/21 01:51 Dose: 5 mg Documented by: Admin: 01/18/21 21:50 Dose: 5 mg Documented by: Admin: 01/18/21 11:16 Dose: 5 mg Documented by: [email or web address] Admin: 01/18/21 02:12 Dose: 5 mg Documented by: RBHUY Senna (Sennosides 1 Tablet) 2 tab PO HS [facility] Last Admin: 01/21/21 20:49 Dose: 2 tab Documented by: IGGY Cosigned by: HAILEY Admin: 01/20/21 20:32 Dose: 2 tab Documented by: Admin: 01/19/21 21:07 Dose: 2 tab Documented by: Admin: 01/18/21 21:52 Dose: 2 tab Documented by: Admin: 01/17/21 21:03 Dose: 2 tab Documented by: OLIVIER Sodium Chloride (0.9 % Sodium Chloride 10 Ml Syringe) 10 ml IV Q12 [facility] Last Admin: 01/22/21 08:05 Dose: 10 ml Documented by: Admin: 01/21/21 20:57 Dose: Not Given Documented by: Admin: 01/21/21 07:53 Dose: 10 ml Documented by: Admin: 01/20/21 20:33 Dose: 10 ml Documented by: Admin: 01/20/21 07:54 Dose: 10 ml Documented by: Admin: 01/20/21 06:16 Dose: 10 ml Documented by: Admin: 01/19/21 21:10 Dose: 10 ml Documented by: Admin: 01/19/21 08:11 Dose: 10 ml Documented by: Admin: 01/18/21 21:53 Dose: 10 ml Documented by: Admin: 01/18/21 09:11 Dose: 10 ml Documented by: Admin: 01/17/21 22:03 Dose: 10 ml Documented by: Admin: 01/17/21 21:10 Dose: 10 ml Documented by: OLIVIER Shift Summary 01/21/21 23:37 Shift Summary by Yvonne Weaver Diagnosis: Chronic abscess to abdomen wall, Exploration ABD wound wall and control of hemorrhage on 01/17 Medical Hx: HTN, DM Type II, Morbid Obesity, Abscess on abdomen. Orientation: Alert and oriented x4 and able to make needs known, cooperative with cares. Oxygen/Airway needs: RA Ambulation status: SBA with FWW, GB to bathroom. Sits in wheelchair for meals. encourage ambulating. Voiding: Bathroom. Has urinary frequency and urgency. IV access: Double PICC right arm, NS @ 30, IV Vanco and Zosyn. Tubes/drains: None Pain: Roxicodone 5mg x1 for shoulder pain. Wounds: Right abdomen changed yesterday with Dr. Campbell. Dressing change orders in communication orders. Dressing packing at nurses station, call purchasing if need refill. Interdry and antifungal in folds, changed last night. Discharge plans: Referral to advanced, pending DC per acceptance. Anticipate DC in [address] Campbell. Additional Comments: VSS on RA. Initialized on 01/21/21 23:37 - END OF NOTE
[2021-01-22] MEDS: ACETAMINOPHEN 325 MG TABLET PO PRN (13:03)
== END 2021-01-22 14:00 | DRG 920 ==
LOC: SUR 08:22 → MEDSUR 12:16
PROVIDERS: ADMIT Family Medicine Adult Medicine; ATTEND Family Medicine Adult Medicine

== ENCOUNTER 2021-06-18 08:48 | Inpatient (IN) ==
[2021-06-18] MEDS ORDERED: ACETAMINOPHEN 325 MG TABLET PO ONE (09:14)
[2021-06-18] MEDS ORDERED: IBUPROFEN 600 MG TABLET PO ONE (09:14)
--- NOTE | 2021-06-18 09:23 | Emergency Department Note ---
Fever HPI General Chief Complaint: Fever Stated Complaint: fever, does not feel well Time Seen by Provider: 06/18/21 08:59 Source: patient, EMS, RN notes reviewed and old records reviewed Mode of arrival: EMS Limitations: no limitations History of Present Illness HPI Narrative: Narrative: 71-year-old female with multiple medical complaints awoke this morning and unable to get up out of bed secondary to generalized weakness and fevers states she did not feel great last night when she went to sleep and then this morning was found to have a fever of 103. She complains of back pain associated with fevers and shortness of breath. MD complaint: fever and weakness Onset (ago): hour(s) Maximum Temperature: 103.1 F Temperature Source: oral Context: sick contacts and multiple patients with similar symptoms Associated symptoms: Reports myalgias, shortness of breath, confusion and other (Back pain) Improves with: nothing Worsens with: in morning and exertion Treatments prior to arrival fever: none Related Data Home Medications Medication Instructions Recorded Confirmed tizanidine 4 mg tablet 4 mg PO Q8H PRN tab 03/13/20 05/07/21 nystatin 10,000 applic TOPICAL PRN PRN 03/17/20 05/07/21 Restasis 1 drp OPHTHALMIC (EYE) QHS 09/29/20 05/07/21 acetaminophen [Acetaminophen Extra 1,000 mg PO Q6H PRN 09/29/20 05/07/21 Strength] allopurinol 100 mg PO QHS 09/29/20 05/07/21 ascorbic acid (vitamin C) [Vitamin 1 g PO QAM 09/29/20 05/07/21 C] calcium carbonate [Calcium 600] 600 mg PO BID 09/29/20 05/07/21 cetirizine 5 mg PO QHS 09/29/20 05/07/21 cholecalciferol (vitamin D3) 125 mcg PO QHS 09/29/20 05/07/21 [Vitamin D3] cinnamon bark [Cinnamon] 500 mg PO QAM 09/29/20 05/07/21 coQ10 (ubiquinol) 200 mg PO QHS 09/29/20 05/07/21 fluticasone propionate [Aller-Robbi] 2 spray INTRANASAL BID 09/29/20 05/07/21 multivitamin 1 tab PO QDAY 09/29/20 05/07/21 diltiazem HCl [Cartia XT] 120 mg PO DAILY 10/04/20 05/07/21 famotidine [Acid Immigration Investigator 20 mg PO BID 10/04/20 05/07/21 (famotidine)] metoprolol tartrate [Lopressor] 50 mg PO BID 10/04/20 05/07/21 Lactobacillus acidophilus 10 10,000 mmu cells PO QDAY 02/13/21 05/07/21 billion cell capsule ondansetron HCl 4 mg tablet 4 mg PO Q8H 02/13/21 05/07/21 Previous Rx's Medication Instructions Recorded atorvastatin 20 mg tablet 20 mg PO HS #90 tab 10/03/20 insulin glargine 100 unit/mL (3 See Rx Instructions .ROUTE 03/14/21 mL) subcutaneous pen .COMPLEX #15 milliliter hydrocodone 10 mg-acetaminophen 1 tab PO Q8H PRN 30 Days #30 tab 03/16/21 325 mg tablet allopurinol 300 mg tablet See Rx Instructions .ROUTE 03/26/21 .COMPLEX #90 tab levothyroxine 100 mcg tablet See Rx Instructions .ROUTE 03/26/21 .COMPLEX #90 tab diclofenac sodium 1 % topical gel 2 g TOPICAL TID #100 g 04/09/21 furosemide 80 mg tablet 80 mg PO BID #180 tab 04/09/21 mirtazapine 15 mg tablet 15 mg PO QDAY #30 tab 04/09/21 potassium chloride 10 mEq 20 meq PO TID #270 cap 04/09/21 capsule,extended release potassium chloride 20 mEq 20 meq PO TID #270 tab 04/09/21 tablet,extended release apixaban 5 mg tablet 5 mg PO BID 90 Days #180 tab 04/26/21 gabapentin 300 mg capsule See Rx Instructions .ROUTE 05/02/21 .COMPLEX #540 capsule losartan 25 mg tablet See Rx Instructions .ROUTE 05/02/21 .COMPLEX #90 tablet semaglutide 14 mg tablet 14 mg PO QDAY #30 tab 06/01/21 semaglutide 3 mg tablet 3 mg PO QDAY 30 Days #30 tab 06/01/21 Allergies Allergy/AdvReac Type Severity Reaction Status Date / Time metformin AdvReac Mild Diarrhea Verified 05/07/21 15:05 morphine AdvReac Mild Hallucinati Verified 05/07/21 15:05 ng paper tape Allergy Intermediate Hives Uncoded 05/07/21 15:05 Review of Systems ROS ROS Narrative: Narrative: All systems ED: reviewed and negative except as stated. PFSH Narrative Patient History Narrative: Narrative: Medical/Surgical/Family History All Active Problems (Updated 06/18/21 @ 12:09 by Julio Miller MD) Pneumonia (Acute) Hypoxia (Acute) Insomnia (Acute) intermediate current use of anticoagulant therapy (Acute) Haemorrhage postprocedure (Acute) Abscess of postoperative wound of abdominal wall (Acute) Impingement syndrome of left shoulder (Acute) Left ankle pain (Acute) Diabetes mellitus type 2 in obese (Acute) Abscess of abdominal wall (Acute) Sepsis (Acute) Acute interstitial pneumonia (Acute) Panniculitis (Acute) Morbid obesity (Acute) Chronic left shoulder pain (Acute) Morbid obesity with BMI of 50.0-59.9, adult (Acute) Gastroenteritis (Acute) Acute UTI (Acute) Dehydration (Acute) Diabetes mellitus with hyperglycemia (Acute) Thyroid trouble (Chronic) Joint pain (Chronic) High blood pressure (Chronic) Congestive heart failure (Chronic) Gout (Chronic) Gallbladder problem (Chronic) Blood disorder (Chronic) Asthma (Chronic) Medical History Asthma Blood disorder Factor 5 Congestive heart failure Gallbladder problem Has been removed. Gout High blood pressure Impingement syndrome of left shoulder Insomnia Joint pain Left shoulder. Left ankle pain Thyroid trouble Type 2 diabetes mellitus Surgical History History of appendectomy History of cholecystectomy History of hernia repair Ventral History of hip replacement History of hysterectomy History of knee surgery (~1967) Knee arthroscopy with medial meniscectomy History of oophorectomy History of removal of ovarian cyst History of surgery 10/04/2020-wide excision of mass of abdominal wall History of surgery 01/17/2021-wide surgical debridement of abscess of anterior abdominal wall Family History Mother Arthritis Brother Diabetes Father Heart attack Social History Smoking Status: Never smoker Alcohol Intake Frequency: does not drink Substance Use: does not use Exam Narrative Narrative: Narrative: General Limitations: no limitations General appearance: Present alert, in distress, malaise and obese Head Head: Present atraumatic and normocephalic Eye Eye: Present normal appearance, PERRL and EOMI ENT ENT: Present normal exam and mucous membranes dry Neck Neck: Present normal inspection and full ROM Chest Chest: Present normal inspection; Absent tenderness Respiratory Respiratory: Present wheezes and decreased breath sounds; Absent respiratory distress Cardiovascular Cardiovascular: Present normal rhythm, tachycardia and systolic murmur Adbominal Abdominal: Present soft, distention and diminished bowel sounds; Absent tenderness, guarding, rebound and rigidity Extremities Extremities: Present normal inspection, full ROM, tenderness, pedal edema and pretibial edema Back Back: Present normal inspection, CVA tenderness (R) and CVA tenderness (L) Neurological Neurological: Present alert and oriented X3 Psychiatric Psychiatric: Present normal affect and normal mood Skin Skin: Present warm (WNL) and rash Course Vital Signs Vital signs: Vital Signs Temperature 103.1 F H 06/18/21 09:05 Pulse Rate 121 H 06/18/21 09:05 Respiratory Rate 30 H 06/18/21 09:05 Blood Pressure 166/107 06/18/21 09:05 Pulse Oximetry (%) 83 L 06/18/21 09:05 Temperature 99.1 F H 06/18/21 10:58 Pulse Rate 111 H 06/18/21 12:26 Respiratory Rate 18 06/18/21 12:26 Blood Pressure 98/49 06/18/21 12:16 Pulse Oximetry (%) 91 06/18/21 12:26 MDM MDM Narrative Medical decision making narrative: Narrative: 71-year-old female with complaints of fevers chills and weakness. Has pneumonia on chest x-ray. Patient received IV Rocephin. Patient has an elevated white count at 19.3 with a left shift and was hypoxic 83% on room air upon arrival. Discussed patient with Dr. Abel inpatient hospitalist who graciously agreed to accept the patient. Differential Diagnosis Differential Diagnosis: Covid Covid pneumonia bacterial pneumonia viral pneumonia Medical Records Medical records reviewed: Yes I reviewed the patient's medical records. Lab Data Lab results reviewed: Yes I reviewed the patient's lab results. Result diagrams: 06/18/21 10:24 06/18/21 10:24 Labs: Lab Results 06/18/21 06/18/21 06/18/21 Range/Units 10:24 10:24 10:24 WBC 19.3 H (4.5-11.0) K/mcL RBC 5.14 (3.59-5.38) M/mcL Hgb 13.5 (11.2-15.7) g/dL Hct 45.3 H (34.1-44.9) % MCV 88.1 (80.0-100.0) fL MCH 26.3 (26.0-34.0) pg MCHC 29.8 L (31.0-36.0) g/dL RDW 17.3 H (11.5-14.5) % Plt Count 265 (140-440) K/mcL MPV 11.6 H (7.4-10.4) fL Neut % (Auto) 92.5 H (38.0-78.0) % Lymph % (Auto) 3.7 L (15.5-49.0) % [place] % (Auto) 3.2 (1.0-12.0) % Eos % (Auto) 0.3 (0.0-7.0) % Baso % (Auto) 0.3 (0.0-2.0) % Lymph # (Auto) 0.71 L (1.50-4.80) K/mcL [place] # (Auto) 0.62 (0.10-0.90) K/mcL Eos # (Auto) 0.06 (0.00-0.70) K/mcL Baso # (Auto) 0.05 (0.00-0.30) K/mcL Absolute Neutrophils 17.85 H (1.80-8.00) K/mcL VBG Lactic Acid 1.6 (0.5-2.0) mmol/L Sodium 139 (133-145) mmol/L Potassium 4.5 (3.3-5.1) mmol/L Chloride 98 (96-108) mmol/L Carbon Dioxide 30 (22-30) mmol/L Anion Gap 11.0 (8.0-16.0) BUN 21 (8-23) mg/dL Creatinine 1.1 (0.6-1.1) mg/dL GFR Calculation 50 Glucose 158 H (70-105) mg/dL Calcium 10.3 (8.6-10.4) mg/dL Total Bilirubin 0.7 (0.1-1.0) mg/dL AST 13 (<32) U/L ALT 12 (<40) U/L Alkaline Phosphatase 112 (39-117) U/L NT-Pro-B Natriuret Pep 528.6 H (<125.0) pg/mL Total Protein 8.4 (5.9-8.4) gm/dL Albumin 3.8 (3.2-5.2) gm/dL Globulin 4.6 H (2.2-3.7) gm/dL Albumin/Globulin Ratio 0.8 L (1.0-2.3) ED POC Tests ED POC Tests: NGOC - Influenza A Negative NGOC - Influenza B Negative NGOC - SARS Antigen Negative Radiology Data Radiology results reviewed: Yes I reviewed the patient's radiology results. Radiology results narrative: Chest x-ray IMPRESSION: 1. Mild left basilar pulmonary parenchymal infiltrate 2. Covid pneumonia is possible. Interpreted and Authenticated by: Rsa Nicolas 06/18/21 EKG Data EKG #1: EKG attestation: Yes I reviewed and interpreted this EKG. and Yes There are no EKG findings of acute coronary syndrome EKG shows normal: sinus rhythm Rate: tachycardia (120) [place]/QRS: LBBB Interpretation: nonspecific ST-T wave changes Pulse Oximetry Data Pulse Ox %: 83 Interpretation: 83% on room air is hypoxic 100% on O2. Discharge Plan Patient/Caregiver Discharge Instructions Pt seen by PRE[employer] CONCRETE BATCHER/PA only: No Clinical Impression: Hypoxia Pneumonia Qualifiers: Pneumonia type: due to unspecified organism Laterality: left Lung location: lower lobe of lung Qualified Code(s): J18.9 - Pneumonia, unspecified organism Patient Disposition: Xfer As Inpt ([facility]) Condition: Fair Follow up with: Mo Rivera MD, FAAFP [Primary Care Provider] - Prescriptions: No Action atorvastatin 20 mg tablet 20 mg PO HS Qty: 90 RF: 3 Basaglar KwikPen U-100 Insulin 100 unit/mL (3 mL) insulin pen See Rx Instructions .ROUTE .COMPLEX Qty: 15 RF: 8 hydrocodone-acetaminophen 10-325 mg tablet 1 tab PO Q8H PRN (Reason: Pain) 30 Days Qty: 30 RF: 0 levothyroxine 100 mcg tablet See Rx Instructions .ROUTE .COMPLEX Qty: 90 RF: 3 allopurinol 300 mg tablet See Rx Instructions .ROUTE .COMPLEX Qty: 90 RF: 3 Eliquis 5 mg tablet 5 mg PO BID 90 Days Qty: 180 RF: 4 losartan 25 mg tablet See Rx Instructions .ROUTE .COMPLEX Qty: 90 RF: 3 gabapentin 300 mg capsule See Rx Instructions .ROUTE .COMPLEX Qty: 540 RF: 1 Rybelsus 14 mg tablet 14 mg PO QDAY Qty: 30 RF: 6 Rybelsus 3 mg tablet 3 mg PO QDAY 30 Days Qty: 30 RF: 0 tizanidine 4 mg tablet 4 mg PO Q8H PRN (Reason: muscle spasticity) RF: 0 potassium chloride 10 mEq capsule, extended release 20 meq PO TID Qty: 270 RF: 4 potassium chloride 20 mEq tablet extended release 20 meq PO TID Qty: 270 RF: 3 furosemide 80 mg tablet 80 mg PO BID Qty: 180 RF: 4 mirtazapine 15 mg tablet 15 mg PO QDAY Qty: 30 RF: 8 diclofenac sodium [Voltaren Arthritis Pain] 1 % gel 2 g topical TID Qty: 100 RF: 8 Lactobacillus acidophilus 10 billion cell capsule 10,000 mmu cells PO QDAY RF: 0 ondansetron HCl [Zofran] 4 mg tablet 4 mg PO Q8H RF: 0 nystatin 100,000 unit/gram Powder 10,000 applic TOPICAL PRN PRN (Reason: Rash) RF: 0 multivitamin Tablet 1 tab PO QDAY RF: 0 ascorbic acid (vitamin C) [Vitamin C] 1,000 mg Tablet 1 g PO QAM RF: 0 cetirizine 10 mg Tablet 5 mg PO QHS RF: 0 acetaminophen [Acetaminophen Extra Strength] 500 mg Tablet 1,000 mg PO Q6H PRN (Reason: Pain) RF: 0 calcium carbonate [Calcium 600] 600 mg calcium (1,500 mg) Tablet 600 mg PO BID RF: 0 fluticasone propionate [Aller-Robbi] 50 mcg/actuation [place],Suspension 2 spray INTRANASAL BID RF: 0 Restasis 0.05 % [place] 1 drp OPHTHALMIC (EYE) QHS RF: 0 cinnamon bark [Cinnamon] 500 mg Capsule 500 mg PO QAM RF: 0 cholecalciferol (vitamin D3) [Vitamin D3] 125 mcg (5,000 unit) Tablet 125 mcg PO QHS RF: 0 coQ10 (ubiquinol) 200 mg Capsule 200 mg PO QHS RF: 0 allopurinol 100 mg tablet 100 mg PO QHS RF: 0 famotidine [Acid Immigration Investigator (famotidine)] 20 mg Tablet 20 mg PO BID RF: 0 metoprolol tartrate [Lopressor] 50 mg tablet 50 mg PO BID RF: 0 diltiazem HCl [Cartia XT] 120 mg capsule,extended release 24hr 120 mg PO DAILY RF: 0
--- NOTE | 2021-06-18 09:38 | XRay Report ---
INDICATION: FEVER TECHNIQUE: AP portable semiupright chest x-ray COMPARISON: Previous chest x-rays dated 01/17/2021, 01/16/2021, 09/29/2020 FINDINGS: Lungs:Subtle infiltrate at the left lung base. No parenchymal consolidation or mass. Covid pneumonia is possible. Clinical correlation with covid test recommended. Follow-up radiographs may be helpful Heart, vascular:No significant cardiomegaly. Pulmonary vascularity is normal. No pulmonary edema or pulmonary congestion Mediastinum, arden:No mediastinal widening. No hilar mass Pleura:No pleural fluid. No pleural-based mass or calcification Skeletal:Negative. IMPRESSION: 1. Mild left basilar pulmonary parenchymal infiltrate 2. Covid pneumonia is possible. Interpreted and Authenticated by: Ras Nicolas 06/18/21
--- NOTE | 2021-06-18 10:34 | EKG ---
[facility] Test Date: 2021-06-18 Pat Name: Rahel Grover Department: ED Room: Gender: Female Community Worker: SB : 1950 Requested By: Julio Miller Order Number: [id number] Reading MD: José Tan Measurements Intervals [place] Rate: 120 P: 0 MD: 247 QRS: -60 QRSD: 138 T: 95 QT: 340 QTc: 481 Interpretive Statements Tachycardic at 120 Indeterminant mechanism, consider pacing IVCD Electronically Signed On 06-18-2021 10:34:11 PDT by José Tan /store/M0/[id number]/[id number]
[2021-06-18 11:09] LABS: Basophils # (Auto) 0.05 K/mcL (0.00-0.30); Basophils % (Auto) 0.3 % (0.0-2.0); Eosinophils # (Auto) 0.06 K/mcL (0.00-0.70); Eosinophils % (Auto) 0.3 % (0.0-7.0); Hematocrit 45.3 % (34.1-44.9); Hemoglobin 13.5 g/dL (11.2-15.7); Lymphocytes # (Auto) 0.71 K/mcL (1.50-4.80); Lymphocytes % (Auto) 3.7 % (15.5-49.0); Mean Cell Volume 88.1 fL (80.0-100.0); Mean Corpuscular HGB Conc 29.8 g/dL (31.0-36.0); Mean Platelet Volume 11.6 fL (7.4-10.4); Monocytes # (Auto) 0.62 K/mcL (0.10-0.90); Monocytes % (Auto) 3.2 % (1.0-12.0); Neutrophils % (Auto) 92.5 % (38.0-78.0); Platelet Count 265 K/mcL (140-440); RBC 5.14 M/mcL (3.59-5.38); Red Cell Distribution Width 17.3 % (11.5-14.5); WBC 19.3 K/mcL (4.5-11.0)
[2021-06-18 11:30] LABS: proBNP 528.6 pg/mL (<125.0)
[2021-06-18 11:31] LABS: ALT/SGPT 12 U/L (<40); AST/SGOT 13 U/L (<32); Albumin 3.8 gm/dL (3.2-5.2); Albumin/Globulin Ratio 0.8 (1.0-2.3); Alkaline Phosphatase 112 U/L (39-117); Bilirubin,Total 0.7 mg/dL (0.1-1.0); Blood Urea Nitrogen 21 mg/dL (8-23); Calcium 10.3 mg/dL (8.6-10.4); Carbon Dioxide 30 mmol/L (22-30); Chloride 98 mmol/L (96-108); Globulin 4.6 gm/dL (2.2-3.7); Glomerular Filtration Rate 50; Glucose 158 mg/dL (70-105)
[2021-06-18] MEDS ORDERED: cefTRIAXone 2 GM in DEXTROSE 5% IN WATER 50 ML IV ONE (12:03)
[2021-06-18 13:16] LABS: Appearance,Urine HAZY (Clear); Bacteria,Urine MANY /hpf (0); Bilirubin,Urine Negative (Negative); Color,Urine YELLOW; Culture Indicated,Urine yes; Glucose,Urine (UA) Negative (Negative); Ketones,Urine Negative (Negative); Leukocyte Esterase,Urine 500 /uL (Negative); Mucus,Urine FEW /hpf; Nitrate,Urine POS (Negative); Protein,Urine Negative (Negative); Specific Gravity,Urine 1.012 (1.000-1.035); Urine Blood Negative (Negative); Urine Hyaline Cast 3 /lph (0-2); Urine RBC 1 /hpf (0-3); Urine Squamous Epithelial Cell 0 /hpf (0-4); Urine Transitional Epi Cells < 1 /hpf (0-2); Urine WBC 68 /hpf (0-4); Urobilinogen,Urine Negative
[2021-06-18] MEDS ORDERED: 0.9 % SODIUM CHLORIDE 1,000 ML IV ONE (14:02)
--- NOTE | 2021-06-18 14:08 | Internal Med History&Physical ---
HPI History of Present Illness Patient information: Note initiated : 06/18/21 at 2:00 pm Service Date, if different from initiated Date: [] Patient: Rahel Grover a 71 y/o F admitted on for fever, does not feel well. Chief Complaint: [] History of present illness: Ms. Grover is a 71 year old F Presents the ED with severe weakness. Patient typically uses a walker and will use a motorized cart for long distances. But this morning she is so weak she could not get out of bed. She says she went to bed feeling fine. When she woke up she is so weak she came in the ED but she was found to be hypoxic in the low 80s. She denies cough or shortness of breath but says she has had fevers and chills today. She had a leukocytosis and was also febrile in the ED Chest x-ray with left lower lobe infiltrate. Peterson test was negative, ana rosa pending. Lactate was within normal limits She is on apixaban for paroxysmal A. fib. Review of Systems: Pertinent positives as above. Denies headache/nausea/vomiting/chest or abdominal pain/diarrhea. Remaining 10 point review of system reviewed negative PFSH PFSH All Active Problems (Updated 06/18/21 @ 12:09 by Julio Miller MD) Pneumonia (Acute) Hypoxia (Acute) Insomnia (Acute) shelter current use of anticoagulant therapy (Acute) Haemorrhage postprocedure (Acute) Abscess of postoperative wound of abdominal wall (Acute) Impingement syndrome of left shoulder (Acute) Left ankle pain (Acute) Diabetes mellitus type 2 in obese (Acute) Abscess of abdominal wall (Acute) Sepsis (Acute) Acute interstitial pneumonia (Acute) Panniculitis (Acute) Morbid obesity (Acute) Chronic left shoulder pain (Acute) Morbid obesity with BMI of 50.0-59.9, adult (Acute) Gastroenteritis (Acute) Acute UTI (Acute) Dehydration (Acute) Diabetes mellitus with hyperglycemia (Acute) Thyroid trouble (Chronic) Joint pain (Chronic) High blood pressure (Chronic) Congestive heart failure (Chronic) Gout (Chronic) Gallbladder problem (Chronic) Blood disorder (Chronic) Asthma (Chronic) Medical History Asthma Blood disorder Factor 5 Congestive heart failure Gallbladder problem Has been removed. Gout High blood pressure Impingement syndrome of left shoulder Insomnia Joint pain Left shoulder. Left ankle pain Thyroid trouble Type 2 diabetes mellitus Surgical History History of appendectomy History of cholecystectomy History of hernia repair Ventral History of hip replacement History of hysterectomy History of knee surgery (~1967) Knee arthroscopy with medial meniscectomy History of oophorectomy History of removal of ovarian cyst History of surgery 10/04/2020-wide excision of mass of abdominal wall History of surgery 01/17/2021-wide surgical debridement of abscess of anterior abdominal wall Family History Mother Arthritis Brother Diabetes Father Heart attack Social History marital status: occupational status: retired smoking status: Never smoker alcohol intake frequency: does not drink substance use type: does not use MEDS/ALLERGIES Home Medications and Allergies Home Medications Medication Instructions Recorded Confirmed Type tizanidine 4 mg tablet 4 mg PO Q8H PRN tab 03/13/20 05/07/21 History nystatin 10,000 applic TOPICAL PRN PRN 03/17/20 05/07/21 History Restasis 1 drp OPHTHALMIC (EYE) QHS 09/29/20 05/07/21 History acetaminophen [Acetaminophen Extra 1,000 mg PO Q6H PRN 09/29/20 05/07/21 History Strength] allopurinol 100 mg PO QHS 09/29/20 05/07/21 History ascorbic acid (vitamin C) [Vitamin 1 g PO QAM 09/29/20 05/07/21 History C] calcium carbonate [Calcium 600] 600 mg PO BID 09/29/20 05/07/21 History cetirizine 5 mg PO QHS 09/29/20 05/07/21 History cholecalciferol (vitamin D3) 125 mcg PO QHS 09/29/20 05/07/21 History [Vitamin D3] cinnamon bark [Cinnamon] 500 mg PO QAM 09/29/20 05/07/21 History coQ10 (ubiquinol) 200 mg PO QHS 09/29/20 05/07/21 History fluticasone propionate [Aller-Robbi] 2 spray INTRANASAL BID 09/29/20 05/07/21 History multivitamin 1 tab PO QDAY 09/29/20 05/07/21 History atorvastatin 20 mg tablet 20 mg PO HS #90 tab 10/03/20 05/07/21 Rx diltiazem HCl [Cartia XT] 120 mg PO DAILY 10/04/20 05/07/21 History famotidine [Acid Fretted Instruments Inspector 20 mg PO BID 10/04/20 05/07/21 History (famotidine)] metoprolol tartrate [Lopressor] 50 mg PO BID 10/04/20 05/07/21 History Lactobacillus acidophilus 10 10,000 mmu cells PO QDAY 02/13/21 05/07/21 History billion cell capsule ondansetron HCl 4 mg tablet 4 mg PO Q8H 02/13/21 05/07/21 History insulin glargine 100 unit/mL (3 See Rx Instructions .ROUTE 03/14/21 05/07/21 Rx mL) subcutaneous pen .COMPLEX #15 milliliter hydrocodone 10 mg-acetaminophen 1 tab PO Q8H PRN 30 Days #30 tab 03/16/21 05/07/21 Rx 325 mg tablet allopurinol 300 mg tablet See Rx Instructions .ROUTE 03/26/21 05/07/21 Rx .COMPLEX #90 tab levothyroxine 100 mcg tablet See Rx Instructions .ROUTE 03/26/21 05/07/21 Rx .COMPLEX #90 tab diclofenac sodium 1 % topical gel 2 g TOPICAL TID #100 g 04/09/21 05/07/21 Rx furosemide 80 mg tablet 80 mg PO BID #180 tab 04/09/21 05/07/21 Rx mirtazapine 15 mg tablet 15 mg PO QDAY #30 tab 04/09/21 05/07/21 Rx potassium chloride 10 mEq 20 meq PO TID #270 cap 04/09/21 05/07/21 Rx capsule,extended release potassium chloride 20 mEq 20 meq PO TID #270 tab 04/09/21 05/07/21 Rx tablet,extended release apixaban 5 mg tablet 5 mg PO BID 90 Days #180 tab 04/26/21 05/07/21 Rx gabapentin 300 mg capsule See Rx Instructions .ROUTE 05/02/21 05/07/21 Rx .COMPLEX #540 capsule losartan 25 mg tablet See Rx Instructions .ROUTE 08/18/21 08/23/21 Rx .COMPLEX #90 tablet semaglutide 14 mg tablet 14 mg PO QDAY #30 tab 06/01/21 Rx semaglutide 3 mg tablet 3 mg PO QDAY 30 Days #30 tab 06/01/21 Rx Allergies Allergy/AdvReac Type Severity Reaction Status Date / Time metformin AdvReac Mild Diarrhea Verified 05/07/21 15:05 morphine AdvReac Mild Hallucinati Verified 05/07/21 15:05 ng paper tape Allergy Intermediate Hives Uncoded 05/07/21 15:05 EXAM Constitutional Vitals: Temp Pulse Resp BP Pulse Ox 99 F 107 H 18 87/44 96 06/18/21 13:14 06/18/21 13:31 06/18/21 13:31 06/18/21 13:31 06/18/21 13:31 Exam: General: Alert, Awake, No acute Distress, morbidly obese Eyes/N/T: EOMI, PERRL, dry MM Head/Neck: neck supple, normocephalic atraumatic CV: RRR, No murmurs, normal s1/s2 Pulm: Clear b/l, no wheezing/rhonchi/rales Abd: soft, nontender, +BS x4, chronic wounds to the abdomen Ext: no clubbing/cyanosis, mild b/l LE edema Neuro: Alert, no focal deficits, moves all extremities, CN 2-12 grossly intact, symmetrical strength b/l upper/lower, sensations intact b/l upper/lower Skin: warm/dry DATA Data Completed and Pending Labs: Labs from last 24 hours 06/18/21 06/18/21 06/18/21 11:02 10:24 10:24 WBC RBC Hgb Hct MCV MCH MCHC RDW Plt Count MPV Neut % (Auto) Lymph % (Auto) [place] % (Auto) Eos % (Auto) Baso % (Auto) Lymph # (Auto) [place] # (Auto) Eos # (Auto) Baso # (Auto) Absolute Neutrophils VBG Lactic Acid 1.6 Sodium 139 Potassium 4.5 Chloride 98 Carbon Dioxide 30 Anion Gap 11.0 BUN 21 Creatinine 1.1 GFR Calculation 50 Glucose 158 H Calcium 10.3 Total Bilirubin 0.7 AST 13 ALT 12 Alkaline Phosphatase 112 NT-Pro-B Natriuret Pep 528.6 H Total Protein 8.4 Albumin 3.8 Globulin 4.6 H Albumin/Globulin Ratio 0.8 L Urine Color Yellow Urine Appearance Hazy A Urine pH 7.0 Ur Specific [place] 1.012 Urine Protein Negative Urine Glucose (UA) Negative Urine Ketones Negative Urine Occult Blood Negative Urine Nitrate Pos A Urine Bilirubin Negative Urine Urobilinogen Negative Ur Leukocyte Esterase 500 A Urine RBC 1 Urine WBC 68 H Ur Squamous Epith Cells 0 Ur Transition Epith Cell < 1 Urine Bacteria Many A Hyaline Casts 3 H Urine Mucus Few A Ur Culture Indicated? yes 06/18/21 10:24 WBC 19.3 H RBC 5.14 Hgb 13.5 Hct 45.3 H MCV 88.1 MCH 26.3 MCHC 29.8 L RDW 17.3 H Plt Count 265 MPV 11.6 H Neut % (Auto) 92.5 H Lymph % (Auto) 3.7 L [place] % (Auto) 3.2 Eos % (Auto) 0.3 Baso % (Auto) 0.3 Lymph # (Auto) 0.71 L [place] # (Auto) 0.62 Eos # (Auto) 0.06 Baso # (Auto) 0.05 Absolute Neutrophils 17.85 H VBG Lactic Acid Sodium Potassium Chloride Carbon Dioxide Anion Gap BUN Creatinine GFR Calculation Glucose Calcium Total Bilirubin AST ALT Alkaline Phosphatase NT-Pro-B Natriuret Pep Total Protein Albumin Globulin Albumin/Globulin Ratio Urine Color Urine Appearance Urine pH Ur Specific [place] Urine Protein Urine Glucose (UA) Urine Ketones Urine Occult Blood Urine Nitrate Urine Bilirubin Urine Urobilinogen Ur Leukocyte Esterase Urine RBC Urine WBC Ur Squamous Epith Cells Ur Transition Epith Cell Urine Bacteria Hyaline Casts Urine Mucus Ur Culture Indicated? A/P Narrative A/P Narrative: A: *LLL PNA: -peterson neg *Acute hypoxic respiratory failure: -on 4L NC *UTI( ): *h/o Atelectasis: Likely Atelectasis from restrictive component given obesity *DM w/neuropathy: *HTN/HLD: *Severe obesity class III: *KANDIS on CPAP & 4L O2@night: *Hypothyroidism: *PAfib: sinus on admit, is on Dilt/BB/Apixaban *Factor V Leiden mutation: *Chronic pain: *GERD: P: -Zosyn (h/o several resistent bacteria on past cx's), MRSA screen, -pending BC/UC -O2, wean as able -IS/Acapell/prn nebs -cont nocturnal cpap/bipap -cont home BB, hold Dilt/ARB for low BP -hold home Lasix for now -basal and SSI -wound care -reconcile home medications -pt/ot -ppx: Home apixaban / home ppi full code Time Spent With Patient Time: Total time spent is greater than 50% in coordination of care (as documented) at patient's floor/unit and/or counseling patient:
[2021-06-18] MEDS ORDERED: PIPERACILLIN SODIUM/TAZOBACTAM 4.5 GM in DEXTROSE 5% IN WATER 50 ML IV ONE (15:00)
[2021-06-18] MEDS ORDERED: POTASSIUM CHLORIDE 20 MEQ TABLET PO PRN ×2 (15:04)
[2021-06-18] MEDS ORDERED: PIPERACILLIN SODIUM/TAZOBACTAM 3.375 GM in DEXTROSE 5% IN WATER 50 ML IV SCH (15:04)
[2021-06-18] MEDS ORDERED: DEXTROSE 50% 50 ML VIAL IV PRN (15:04)
[2021-06-18] MEDS ORDERED: AZITHROMYCIN 500 MG in DEXTROSE 5% IN WATER 250 ML IV SCH (15:04)
[2021-06-18] MEDS ORDERED: METOPROLOL TARTRATE 5 MG/5 ML VIAL IV PRN (15:04)
[2021-06-18] MEDS ORDERED: 0.9 % SODIUM CHLORIDE 1,000 ML IV SCH (15:04)
[2021-06-18] MEDS ORDERED: IPRATROPIUM/ALBUTEROL 3 ML AMPUL.NEB NEB PRN (15:04)
[2021-06-18] MEDS ORDERED: METOCLOPRAMIDE 10 MG/2 ML VIAL IV PRN (15:04)
[2021-06-18] MEDS ORDERED: SENNOSIDES 1 TABLET PO PRN (15:04)
[2021-06-18] MEDS ORDERED: DEXTROSE 31 GM ORAL.SUSP PO PRN (15:04)
[2021-06-18] MEDS ORDERED: MAGNESIUM SULFATE 2 GM/50 ML BAG IV PRN (15:04)
[2021-06-18] MEDS ORDERED: POLYETHYLENE GLYCOL 3350 17 GM PACKET PO PRN (15:04)
[2021-06-18] MEDS ORDERED: ONDANSETRON 4 MG/2 ML VIAL IV PRN (15:04)
[2021-06-18] MEDS ORDERED: POTASSIUM CHLORIDE 40 MEQ in DEXTROSE 5% IN WATER 500 ML IV PRN (15:04)
[2021-06-18] MEDS: AZITHROMYCIN 500 MG in DEXTROSE 5% IN WATER 250 ML IV SCH (16:01)
[2021-06-18] MEDS: INSULIN LISPRO 1 UNIT/0.01 ML UNIT SQ SCH ×2 (17:26→20:02)
[2021-06-18] MEDS: DOCUSATE SODIUM 100 MG CAPSULE PO SCH (19:46)
[2021-06-18] MEDS: PIPERACILLIN SODIUM/TAZOBACTAM 3.375 GM in DEXTROSE 5% IN WATER 50 ML IV SCH (19:46)
[2021-06-18] MEDS: 0.9 % SODIUM CHLORIDE 10 ML SYRINGE IV SCH (20:49)
[2021-06-18] MEDS ORDERED: FLUTICASONE PROPIONATE SPRAY.NAS NS PRN (22:06)
[2021-06-18] MEDS ORDERED: METOPROLOL TARTRATE 25 MG TABLET PO ONE (22:09)
[2021-06-18] MEDS ORDERED: METOPROLOL TARTRATE 25 MG TABLET ONE (22:33)
[2021-06-18] MEDS ORDERED: APIXABAN 5 MG TABLET PO ONE (22:44)
[2021-06-18] MEDS: APIXABAN 5 MG TABLET PO SCH (23:20)
[2021-06-19] MEDS: PIPERACILLIN SODIUM/TAZOBACTAM 3.375 GM in DEXTROSE 5% IN WATER 50 ML IV SCH ×4 (00:09→17:34)
[2021-06-19] MEDS: 0.9 % SODIUM CHLORIDE 10 ML SYRINGE IV SCH ×3 (04:53→21:15)
[2021-06-19] MEDS ORDERED: NYSTATIN POWDER BOTTLE 15GM TOPICAL PRN (06:06)
[2021-06-19] MEDS: INSULIN LISPRO 1 UNIT/0.01 ML UNIT SQ SCH ×4 (07:54→21:13)
--- NOTE | 2021-06-19 07:57 | Internal Med Progress Note ---
SUBJECTIVE Subjective Patient information: Note initiated : 06/19/21 at 7:53 am Service Date, if different from initiated Date: [] Patient: Rahel Grover 71 y/o F admitted on 06/18/21 for fever, does not feel well. Chief Complaint: [] Interval history: History of present illness: Ms. Grover is a 71 year old F Presents the ED with severe weakness. Patient typically uses a walker and will use a motorized cart for long distances. But this morning she is so weak she could not get out of bed. She says she went to bed feeling fine. When she woke up she is so weak she came in the ED but she was found to be hypoxic in the low 80s. She denies cough or shortness of breath but says she has had fevers and chills today. She had a leukocytosis and was also febrile in the ED Chest x-ray with left lower lobe infiltrate. Peterson test was negative, ana rosa pending. Lactate was within normal limits She is on apixaban for paroxysmal A. fib. 06/19 Patient sitting up in chair eating breakfast. Feels much stronger better. Denies cough shortness of breath. Review of Systems: denies headache/fever/chills/nausea/vomiting/chest or abdominal pain/diarrhea. Otherwise see above. Constitutional Vitals: Vital Signs Temp Pulse Resp BP Pulse Ox 97.4 F 88 20 116/58 95 06/19/21 07:02 06/19/21 07:02 06/19/21 07:02 06/19/21 07:02 06/19/21 07:02 Period Temp Pulse Resp BP Sys/Blackwell Pulse Ox Last 24 Hr 97.4 F-103.1 F 72-121 17-35 82-166/41-125 83-100 Intake and Output 06/18/21 06/19/21 06/19/21 21:59 05:59 13:59 Intake Total 1710 1940 50 Output Total 700 Balance 1710 1240 50 Weight 137.62 kg Intake & Output: Intake & Output 06/18/21 06/19/21 06/19/21 21:59 05:59 13:59 Intake Total 1710 1940 50 Output Total 700 Balance 1710 1240 50 Weight 137.62 kg Intake: IV 1350 1050 50 Sodium Chloride 0.9% 1,000 ml @ 1000 1000 100 mls/hr IV .Q10H [facility] Rx#: [id number] Zithromax 500 mg In Dextrose 5% 250 in Water 250 ml @ 250 mls/hr IV DAILY@1000 [facility] Rx#:[id number] Zosyn 3.375 gm In Dextrose 5% 50 50 50 in Water 50 ml @ 100 mls/hr IV Q6H [facility] Rx#:[id number] Zosyn 4.5 gm In Dextrose 5% in 50 Water 50 ml @ 100 mls/hr IV ONCE ONE Rx#:[id number] Oral 360 890 Output: Urine Catheter Amount 700 Other: Meal Dinner Percent of Meal Consumed 100% Urine Appearance Clear Clear Uretheral ([place]) Clear Urine Color Bright Yellow Bright Yellow Uretheral ([place]) Bright Yellow Urine Odor Normal Uretheral ([place]) Normal Stool Size Moderate Stool Color Brown Stool Consistency Normal for Patient Formed Exam: General: Alert, Awake, No acute Distress, morbidly obese Eyes/N/T: EOMI, Head/Neck: neck supple, CV: RRR, No murmurs, Pulm: mild bibase rales, no wheezing Abd: soft, nontender, +BS x4, chronic wounds to the abdomen Ext: no clubbing/cyanosis, mild b/l LE edema Neuro: Alert, no focal deficits, moves all extremities, Skin: warm/dry OBJ DATA Labs CBC & Chem 7: 06/19/21 05:32 06/19/21 05:32 Labs: Abnormal Lab Results 06/18/21 06/18/21 06/18/21 11:02 10:24 10:24 WBC 19.3 H Hct 45.3 H MCHC 29.8 L RDW 17.3 H MPV 11.6 H Neut % (Auto) 92.5 H Lymph % (Auto) 3.7 L Lymph # (Auto) 0.71 L Absolute Neutrophils 17.85 H Glucose 158 H C-Reactive Protein NT-Pro-B Natriuret Pep 528.6 H Globulin 4.6 H Albumin/Globulin Ratio 0.8 L Urine Appearance Hazy A Urine Nitrate Pos A Ur Leukocyte Esterase 500 A Urine WBC 68 H Urine Bacteria Many A Hyaline Casts 3 H Urine Mucus Few A 06/18/21 09:00 WBC Hct MCHC RDW MPV Neut % (Auto) Lymph % (Auto) Lymph # (Auto) Absolute Neutrophils Glucose C-Reactive Protein 2.20 H NT-Pro-B Natriuret Pep Globulin Albumin/Globulin Ratio Urine Appearance Urine Nitrate Ur Leukocyte Esterase Urine WBC Urine Bacteria Hyaline Casts Urine Mucus Meds: Medications Acetaminophen (Acetaminophen 325 Mg Tablet) 650 mg PO Q6HP PRN; Protocol PRN Reason: Per Pain Protocol/Fever > 101 Albuterol/Ipratropium (Ipratropium/Albuterol 3 Ml Ampul.Neb) 3 ml NEB Q4HP PRN PRN Reason: Shortness Of Breath Allopurinol (Allopurinol 300 Mg Tablet) 300 mg PO DAILY [facility] Apixaban (Apixaban 5 Mg Tablet) 5 mg PO BID [facility] Last Admin: 06/18/21 23:20 Dose: Not Given Documented by: Atorvastatin Calcium (Atorvastatin 20 Mg Tablet) 20 mg PO HS [facility] Dextrose (Dextrose 50% 50 Ml Vial) 0 ml IV UD PRN PRN Reason: Hypoglycemia Diagnostic Test (Pha) (Accu-Chek 1 Each Strip) 1 each FS ACHS [facility] Last Admin: 06/18/21 19:45 Dose: 1 each Documented by: Docusate Sodium (Docusate Sodium 100 Mg Capsule) 100 mg PO BID [facility] Last Admin: 06/18/21 19:46 Dose: Not Given Documented by: Famotidine (Famotidine 20 Mg Tablet) 20 mg PO BID [facility] Fluticasone Propionate (Fluticasone Propionate [place].Harry) 2 spray NS DAILYP PRN PRN Reason: Allergy Symptoms Furosemide (Furosemide 80 Mg Tablet) 80 mg PO BID [facility] Gabapentin (Gabapentin 300 Mg Capsule) 600 mg PO TID [facility] Glucose (Dextrose 31 Gm Oral.Susp) 15 gm PO PRN PRN PRN Reason: Hypoglycemia Potassium Chloride 40 meq/ (Dextrose) 520 mls @ 130 mls/hr IV UD PRN PRN Reason: Potassium < 3 Magnesium Sulfate (Magnesium Sulfate) 2 gm in 50 mls @ 50 mls/hr IV UD PRN PRN Reason: Magnesium </= 1.6 Piperacillin Sod/Tazobactam (Sod 3.375 gm/ Dextrose) 50 mls @ 100 mls/hr IV Q6H [facility]; Protocol Last Infusion: 06/19/21 06:27 Dose: Infused Documented by: Azithromycin 500 mg/ Dextrose 250 mls @ 250 mls/hr IV DAILY@1000 [facility]; Protocol Stop: 06/20/21 10:59 Last Infusion: 06/18/21 19:37 Dose: Infused Documented by: Insulin Human Lispro (Insulin Lispro 1 Unit/0.01 Ml Unit) 0 unit SQ [facility]; Protocol Last Admin: 06/18/21 20:02 Dose: 8 unit Documented by: Levothyroxine Sodium (Levothyroxine 100 Mcg Tablet) 0 mcg PO .COMPLEX [facility] Metoclopramide HCl (Metoclopramide 10 Mg/2 Ml Vial) 10 mg IV Q6HP PRN PRN Reason: Nausea And Vomiting Metoprolol Tartrate (Metoprolol Tartrate 5 Mg/5 Ml Vial) 5 mg IV Q2HP PRN PRN Reason: Tachyarrhythmias HR>110 Metoprolol Tartrate (Metoprolol Tartrate 50 Mg Tablet) 50 mg PO BID [facility] Mirtazapine (Mirtazapine 15 Mg Tablet) 15 mg PO HS [facility] Non-Formulary Medication (Insulin Glargine [Basaglar Kwikpen U-100 Insulin]) 0 unit .ROUTE .COMPLEX [facility] Nystatin (Nystatin Powder Bottle 15gm) 1 dose TOPICAL PRN PRN PRN Reason: Rash Ondansetron HCl (Ondansetron 4 Mg/2 Ml Vial) 4 mg IV Q4HP PRN PRN Reason: Nausea And Vomiting Cyclosporine [ Restasis] 0.05 % Opth Dps 1 dose OU QHS [facility] Polyethylene Glycol (Polyethylene Glycol 3350 17 Gm Packet) 17 gm PO DAILYP PRN PRN Reason: Constipation Potassium Chloride (Potassium Chloride 20 Meq Tablet) 40 meq PO UD PRN PRN Reason: Potssium is 3-3.5 Potassium Chloride (Potassium Chloride 20 Meq Tablet) 40 meq PO UD PRN PRN Reason: Potassium < 3 Senna (Sennosides 1 Tablet) 2 tab PO DAILYP PRN PRN Reason: Constipation Sodium Chloride (0.9 % Sodium Chloride 10 Ml Syringe) 10 ml IV Q8 [facility] Last Admin: 06/19/21 04:53 Dose: Not Given Documented by: A/P Narrative A/P Narrative: A: *LLL PNA: -peterson neg -Leukocytosis improving *Acute hypoxic respiratory failure: -on 2L NC *UTI( ): *h/o Atelectasis: Likely Atelectasis from restrictive component given obesity *DM w/neuropathy: *HTN/HLD: *Severe obesity class III: *KANDIS on CPAP & 4L O2@night: *Hypothyroidism: *PAfib: sinus on admit, is on Dilt/BB/Apixaban *Factor V Leiden mutation: *Chronic pain: *GERD: P: -Zosyn (h/o several resistant bacteria on past cx's), MRSA screen neg -pending BC/UC/SC -O2, wean as able -IS/Acapella/prn nebs -cont nocturnal cpap/bipap -cont home BB; Hold Dilt/ARB for low BP -hold home Lasix for now -basal and SSI -wound care -pt/ot -ppx: Home apixaban / home ppi full code Time Spent With Patient Time: Total time spent is greater than 50% in coordination of care (as documented) at patient's floor/unit and/or counseling patient: QUALITY VTE Deep Vein Thrombosis/Pulmonary Embolism Present on Admission: No
[2021-06-19 08:21] LABS: ALT/SGPT 9 U/L (<40); AST/SGOT 12 U/L (<32); Albumin 2.6 gm/dL (3.2-5.2); Albumin/Globulin Ratio 0.7 (1.0-2.3); Alkaline Phosphatase 83 U/L (39-117); Bilirubin,Direct < 0.2 mg/dL (0-0.3); Bilirubin,Total 0.5 mg/dL (0.1-1.0); Blood Urea Nitrogen 18 mg/dL (8-23); Calcium 9.1 mg/dL (8.6-10.4); Carbon Dioxide 27 mmol/L (22-30); Chloride 102 mmol/L (96-108); Globulin 3.9 gm/dL (2.2-3.7); Glomerular Filtration Rate 64; Glucose 147 mg/dL (70-105); Hemoglobin 11.2 g/dL (11.2-15.7); Lactate Dehydrogenase 201 U/L (135-225); Mean Cell Volume 90.9 fL (80.0-100.0); Mean Corpuscular HGB Conc 28.7 g/dL (31.0-36.0); Mean Platelet Volume 12.2 fL (7.4-10.4); Phosphorous 3.4 mg/dL (2.5-4.5); Platelet Count 229 K/mcL (140-440); RBC 4.29 M/mcL (3.59-5.38); Red Cell Distribution Width 17.3 % (11.5-14.5); Triglycerides 96 mg/dL (<150); Uric Acid 4.8 mg/dL (2.5-8.0); WBC 13.7 K/mcL (4.5-11.0)
[2021-06-19] MEDS: APIXABAN 5 MG TABLET PO SCH ×2 (08:52→21:15)
[2021-06-19] MEDS: FAMOTIDINE 20 MG TABLET PO SCH ×2 (08:52→21:14)
[2021-06-19] MEDS: METOPROLOL TARTRATE 50 MG TABLET PO SCH ×2 (08:52→21:14)
[2021-06-19] MEDS: GABAPENTIN 300 MG CAPSULE PO SCH ×3 (08:52→21:14)
[2021-06-19] MEDS: FUROSEMIDE 80 MG TABLET PO SCH ×2 (08:52→21:14)
[2021-06-19] MEDS: DOCUSATE SODIUM 100 MG CAPSULE PO SCH ×2 (08:52→21:14)
[2021-06-19] MEDS: ALLOPURINOL 300 MG TABLET PO SCH (08:53)
[2021-06-19 09:48] LABS: Anisocytosis 3+ (None Seen); Band Neutrophils % 3 % (0-10); Basophils % (Manual) 1 % (0-2); Lymphocytes % 13 % (15-49); Monocytes % (Manual) 3 % (1-12); Platelet Estimate NORMAL (Normal); RBC Morphology ABNORMAL (Normal); Segmented Neutrophils % 80 % (38-78)
[2021-06-19] MEDS: INSULIN GLARGINE, HUMAN 1 UNIT/0.01 ML SQ SCH (09:57)
[2021-06-19] MEDS: AZITHROMYCIN 500 MG in DEXTROSE 5% IN WATER 250 ML IV SCH (09:57)
[2021-06-19] MEDS: LEVOTHYROXINE 100 MCG TABLET PO SCH (11:52)
[2021-06-19] MEDS: METOPROLOL TARTRATE 5 MG/5 ML VIAL IV SCH ×3 (19:04→19:27)
[2021-06-19] MEDS ORDERED: DILTIAZEM 120 MG CAP.XL.24H PO ONE ×2 (19:18→19:30)
[2021-06-19] MEDS ORDERED: METOPROLOL TARTRATE 5 MG/5 ML VIAL IV ONE (19:26)
[2021-06-19] MEDS: MIRTAZAPINE 15 MG TABLET PO SCH (21:14)
[2021-06-19] MEDS: ATORVASTATIN 20 MG TABLET PO SCH (21:15)
[2021-06-19] MEDS: CYCLOSPORINE 0.05% OU SCH (21:15)
[2021-06-20] MEDS: PIPERACILLIN SODIUM/TAZOBACTAM 3.375 GM in DEXTROSE 5% IN WATER 50 ML IV SCH ×4 (01:21→18:04)
[2021-06-20] MEDS: 0.9 % SODIUM CHLORIDE 10 ML SYRINGE IV SCH ×3 (06:04→22:10)
[2021-06-20 07:04] LABS: Basophils # (Auto) 0.05 K/mcL (0.00-0.30); Basophils % (Auto) 0.4 % (0.0-2.0); Eosinophils # (Auto) 0.37 K/mcL (0.00-0.70); Eosinophils % (Auto) 2.9 % (0.0-7.0); Hematocrit 39.3 % (34.1-44.9); Hemoglobin 11.5 g/dL (11.2-15.7); Lymphocytes # (Auto) 2.44 K/mcL (1.50-4.80); Lymphocytes % (Auto) 19.4 % (15.5-49.0); Mean Cell Volume 91.2 fL (80.0-100.0); Mean Corpuscular HGB Conc 29.3 g/dL (31.0-36.0); Mean Platelet Volume 11.5 fL (7.4-10.4); Monocytes # (Auto) 1.04 K/mcL (0.10-0.90); Monocytes % (Auto) 8.3 % (1.0-12.0); Platelet Count 222 K/mcL (140-440); RBC 4.31 M/mcL (3.59-5.38); Red Cell Distribution Width 17.1 % (11.5-14.5); WBC 12.6 K/mcL (4.5-11.0)
--- NOTE | 2021-06-20 08:02 | Internal Med Progress Note ---
SUBJECTIVE Subjective Patient information: Note initiated : 06/20/21 at 7:58 am Service Date, if different from initiated Date: [] Patient: Rahel Grover 71 y/o F admitted on 06/18/21 for fever, does not feel well. Chief Complaint: [] Interval history: History of present illness: Ms. Grover is a 71 year old F Presents the ED with severe weakness. Patient typically uses a walker and will use a motorized cart for long distances. But this morning she is so weak she could not get out of bed. She says she went to bed feeling fine. When she woke up she is so weak she came in the ED but she was found to be hypoxic in the low 80s. She denies cough or shortness of breath but says she has had fevers and chills today. She had a leukocytosis and was also febrile in the ED Chest x-ray with left lower lobe infiltrate. Peterson test was negative, ana rosa pending. Lactate was within normal limits She is on apixaban for paroxysmal A. fib. 06/19 Patient sitting up in chair eating breakfast. Feels much stronger better. Denies cough shortness of breath. 06/20 Patient had episode of A. fib RVR yesterday evening. She converted back after several hours. Leukocytosis improved. Typically not on oxygen during the day but only at night. Will attempt to wean off oxygen during the day. Review of Systems: denies headache/fever/chills/nausea/vomiting/chest or abdominal pain/diarrhea. Otherwise see above. Constitutional Vitals: Vital Signs Temp Pulse Resp BP Pulse Ox 97.3 F 77 19 134/77 93 06/20/21 07:42 06/20/21 07:42 06/20/21 07:42 06/20/21 07:42 06/20/21 07:42 Period Temp Pulse Resp BP Sys/Blackwell Pulse Ox Last 24 Hr 96.4 F-98.0 F 77-99 16- 102-134/56-77 4-98 Intake and Output 06/19/21 06/20/21 06/20/21 21:59 05:59 13:59 Intake Total 1730 400 50 Output Total 1675 1600 Balance 55 -1200 50 Weight 137.62 kg Intake & Output: Intake & Output 06/19/21 06/20/21 06/20/21 21:59 05:59 13:59 Intake Total 1730 400 50 Output Total 1677 1600 Balance 55 -1200 50 Weight 137.62 kg Intake: IV 50 50 50 Zosyn 3.375 gm In Dextrose 5% 50 50 50 in Water 50 ml @ 100 mls/hr IV Q6H [facility] Rx#:[id number] Oral 1080 350 GI Tube Flush 600 Output: Urine Catheter Amount 1677 1600 Other: Meal Dinner Percent of Meal Consumed 90% Feeding Ability Independent Urine Appearance Clear Clear Urine Color Light [place] Bright Yellow Stool Size Large Stool Color Brown Stool Consistency Formed # Bowel Movements 1 Exam: General: Alert, Awake, No acute Distress, morbidly obese Eyes/N/T: EOMI, Head/Neck: neck supple, CV: RRR, No murmurs, Pulm: mild bibase rales, no wheezing Abd: soft, nontender, +BS x4, chronic wounds to the abdomen Ext: no clubbing/cyanosis, mild b/l LE edema Neuro: Alert, no focal deficits, moves all extremities, Skin: warm/dry OBJ DATA Labs CBC & Chem 7: 06/20/21 05:49 06/19/21 05:32 Labs: Abnormal Lab Results 06/20/21 06/19/21 06/19/21 05:49 05:32 05:32 WBC 12.6 H Hct MCHC 29.3 L RDW 17.1 H MPV 11.5 H Neut % (Auto) Lymph % (Auto) Lymph # (Auto) [place] # (Auto) 1.04 H Seg Neutrophils % Lymphocytes % Absolute Neutrophils 8.66 H RBC Morphology Anisocytosis Glucose 147 H C-Reactive Protein 10.70 H NT-Pro-B Natriuret Pep Albumin 2.6 L Globulin 3.9 H Albumin/Globulin Ratio 0.7 L Urine Appearance Urine Nitrate Ur Leukocyte Esterase Urine WBC Urine Bacteria Hyaline Casts Urine Mucus 06/19/21 06/18/21 06/18/21 05:32 11:02 10:24 WBC 13.7 H Hct MCHC 28.7 L RDW 17.3 H MPV 12.2 H Neut % (Auto) Lymph % (Auto) Lymph # (Auto) [place] # (Auto) Seg Neutrophils % 80 H Lymphocytes % 13 L Absolute Neutrophils RBC Morphology Abnormal A Anisocytosis 3+ A Glucose 158 H C-Reactive Protein NT-Pro-B Natriuret Pep 528.6 H Albumin Globulin 4.6 H Albumin/Globulin Ratio 0.8 L Urine Appearance Hazy A Urine Nitrate Pos A Ur Leukocyte Esterase 500 A Urine WBC 68 H Urine Bacteria Many A Hyaline Casts 3 H Urine Mucus Few A 06/18/21 06/18/21 10:24 09:00 WBC 19.3 H Hct 45.3 H MCHC 29.8 L RDW 17.3 H MPV 11.6 H Neut % (Auto) 92.5 H Lymph % (Auto) 3.7 L Lymph # (Auto) 0.71 L [place] # (Auto) Seg Neutrophils % Lymphocytes % Absolute Neutrophils 17.85 H RBC Morphology Anisocytosis Glucose C-Reactive Protein 2.20 H NT-Pro-B Natriuret Pep Albumin Globulin Albumin/Globulin Ratio Urine Appearance Urine Nitrate Ur Leukocyte Esterase Urine WBC Urine Bacteria Hyaline Casts Urine Mucus Meds: Medications Acetaminophen (Acetaminophen 325 Mg Tablet) 650 mg PO Q6HP PRN; Protocol PRN Reason: Per Pain Protocol/Fever > 101 Albuterol/Ipratropium (Ipratropium/Albuterol 3 Ml Ampul.Neb) 3 ml NEB Q4HP PRN PRN Reason: Shortness Of Breath Allopurinol (Allopurinol 300 Mg Tablet) 300 mg PO DAILY [facility] Last Admin: 06/19/21 08:53 Dose: 300 mg Documented by: Apixaban (Apixaban 5 Mg Tablet) 5 mg PO BID [facility] Last Admin: 06/19/21 21:15 Dose: 5 mg Documented by: Atorvastatin Calcium (Atorvastatin 20 Mg Tablet) 20 mg PO HS [facility] Last Admin: 06/19/21 21:15 Dose: 20 mg Documented by: Dextrose (Dextrose 50% 50 Ml Vial) 0 ml IV UD PRN PRN Reason: Hypoglycemia Diagnostic Test (Pha) (Accu-Chek 1 Each Strip) 1 each FS ACHS [facility] Last Admin: 06/19/21 21:13 Dose: 1 each Documented by: Diltiazem HCl (Diltiazem 120 Mg Cap.Xl.24h) 120 mg PO DAILY [facility] Docusate Sodium (Docusate Sodium 100 Mg Capsule) 100 mg PO BID [facility] Last Admin: 06/19/21 21:14 Dose: 100 mg Documented by: Famotidine (Famotidine 20 Mg Tablet) 20 mg PO BID [facility] Last Admin: 06/19/21 21:14 Dose: 20 mg Documented by: Fluticasone Propionate (Fluticasone Propionate [place].Harry) 2 spray NS DAILYP PRN PRN Reason: Allergy Symptoms Furosemide (Furosemide 80 Mg Tablet) 80 mg PO BID [facility] Last Admin: 06/19/21 21:14 Dose: 80 mg Documented by: Gabapentin (Gabapentin 300 Mg Capsule) 600 mg PO TID [facility] Last Admin: 06/19/21 21:14 Dose: 600 mg Documented by: Glucose (Dextrose 31 Gm Oral.Susp) 15 gm PO PRN PRN PRN Reason: Hypoglycemia Potassium Chloride 40 meq/ (Dextrose) 520 mls @ 130 mls/hr IV UD PRN PRN Reason: Potassium < 3 Magnesium Sulfate (Magnesium Sulfate) 2 gm in 50 mls @ 50 mls/hr IV UD PRN PRN Reason: Magnesium </= 1.6 Piperacillin Sod/Tazobactam (Sod 3.375 gm/ Dextrose) 50 mls @ 100 mls/hr IV Q6H [facility]; Protocol Last Infusion: 06/20/21 06:06 Dose: Infused Documented by: Azithromycin 500 mg/ Dextrose 250 mls @ 250 mls/hr IV DAILY@1000 [facility]; Protocol Stop: 06/20/21 10:59 Last Infusion: 06/19/21 12:04 Dose: Infused Documented by: Insulin Glargine (Insulin Glargine, Human 1 Unit/0.01 Ml) 40 unit SQ DAILY [facility] Last Admin: 06/19/21 09:57 Dose: 40 unit Documented by: Insulin Human Lispro (Insulin Lispro 1 Unit/0.01 Ml Unit) 0 unit SQ ACHS [facility]; Protocol Last Admin: 06/19/21 21:13 Dose: 4 unit Documented by: Levothyroxine Sodium (Levothyroxine 100 Mcg Tablet) 100 mcg PO [id number] [facility] Last Admin: 06/19/21 11:52 Dose: 100 mcg Documented by: Levothyroxine Sodium (Levothyroxine 150 Mcg Tablet) 150 mcg PO [email or web address]@[id number] [facility] Metoclopramide HCl (Metoclopramide 10 Mg/2 Ml Vial) 10 mg IV Q6HP PRN PRN Reason: Nausea And Vomiting Metoprolol Tartrate (Metoprolol Tartrate 5 Mg/5 Ml Vial) 5 mg IV Q2HP PRN PRN Reason: Tachyarrhythmias HR>110 Last Admin: 06/19/21 18:25 Dose: 5 mg Documented by: Metoprolol Tartrate (Metoprolol Tartrate 50 Mg Tablet) 50 mg PO BID [facility] Last Admin: 06/19/21 21:14 Dose: 50 mg Documented by: Mirtazapine (Mirtazapine 15 Mg Tablet) 15 mg PO HS [facility] Last Admin: 06/19/21 21:14 Dose: 15 mg Documented by: Nystatin (Nystatin Powder Bottle 15gm) 1 dose TOPICAL PRN PRN PRN Reason: Rash Ondansetron HCl (Ondansetron 4 Mg/2 Ml Vial) 4 mg IV Q4HP PRN PRN Reason: Nausea And Vomiting Cyclosporine [ Restasis] 0.05 % Opth Dps 1 dose OU QHS [facility] Last Admin: 06/19/21 21:15 Dose: Not Given Documented by: Polyethylene Glycol (Polyethylene Glycol 3350 17 Gm Packet) 17 gm PO DAILYP PRN PRN Reason: Constipation Potassium Chloride (Potassium Chloride 20 Meq Tablet) 40 meq PO UD PRN PRN Reason: Potssium is 3-3.5 Potassium Chloride (Potassium Chloride 20 Meq Tablet) 40 meq PO UD PRN PRN Reason: Potassium < 3 Senna (Sennosides 1 Tablet) 2 tab PO DAILYP PRN PRN Reason: Constipation Sodium Chloride (0.9 % Sodium Chloride 10 Ml Syringe) 10 ml IV Q8 [facility] Last Admin: 06/20/21 06:04 Dose: 10 ml Documented by: A/P Narrative A/P Narrative: A: *LLL PNA: -peterson neg -Leukocytosis improving *Acute hypoxic respiratory failure: -on 1-2L NC while awake *UTI(GNB): *h/o Atelectasis: Likely Atelectasis from restrictive component given obesity *DM w/neuropathy: *HTN/HLD: *Severe obesity class III: *KANDIS on CPAP & 4L O2@night: *Hypothyroidism: *PAfib: sinus on admit, is on Dilt/BB/Apixaban -went into afib rvr yesterday evening then converted back after several hours *Factor V Leiden mutation: *Chronic pain: *GERD: P: -Zosyn (h/o several resistant bacteria on past cx's), MRSA screen neg -pending BC/UC/SC -O2, wean as able -IS/Acapella/prn nebs -cont nocturnal cpap/bipap -cont home BB/Dilt; ARB initially helf for low BP -home Lasix -basal and SSI -wound care -pt/ot -ppx: Home apixaban / home ppi full code Time Spent With Patient Time: Total time spent is greater than 50% in coordination of care (as documented) at patient's floor/unit and/or counseling patient: QUALITY VTE Deep Vein Thrombosis/Pulmonary Embolism Present on Admission: No
[2021-06-20] MEDS: INSULIN GLARGINE, HUMAN 1 UNIT/0.01 ML SQ SCH (08:42)
[2021-06-20] MEDS: DILTIAZEM 120 MG CAP.XL.24H PO SCH (08:42)
[2021-06-20] MEDS: GABAPENTIN 300 MG CAPSULE PO SCH ×3 (08:42→22:08)
[2021-06-20] MEDS: INSULIN LISPRO 1 UNIT/0.01 ML UNIT SQ SCH ×4 (08:42→22:08)
[2021-06-20] MEDS: DOCUSATE SODIUM 100 MG CAPSULE PO SCH ×2 (08:43→22:10)
[2021-06-20] MEDS: APIXABAN 5 MG TABLET PO SCH ×2 (08:43→22:08)
[2021-06-20] MEDS: ALLOPURINOL 300 MG TABLET PO SCH (08:43)
[2021-06-20] MEDS: FAMOTIDINE 20 MG TABLET PO SCH ×2 (08:43→22:09)
[2021-06-20] MEDS: LEVOTHYROXINE 100 MCG TABLET PO SCH (08:43)
[2021-06-20] MEDS: METOPROLOL TARTRATE 50 MG TABLET PO SCH ×2 (08:43→22:09)
[2021-06-20] MEDS: AZITHROMYCIN 500 MG in DEXTROSE 5% IN WATER 250 ML IV SCH (10:39)
[2021-06-20] MEDS: ACETAMINOPHEN 325 MG TABLET PO PRN (12:08)
[2021-06-20] MEDS ORDERED: FUROSEMIDE 80 MG TABLET PO SCH (16:00)
[2021-06-20] MEDS: MIRTAZAPINE 15 MG TABLET PO SCH (22:09)
[2021-06-20] MEDS: ATORVASTATIN 20 MG TABLET PO SCH (22:09)
[2021-06-20] MEDS: CYCLOSPORINE 0.05% OU SCH (22:09)
[2021-06-21] MEDS: PIPERACILLIN SODIUM/TAZOBACTAM 3.375 GM in DEXTROSE 5% IN WATER 50 ML IV SCH ×3 (01:33→11:37)
[2021-06-21] MEDS: 0.9 % SODIUM CHLORIDE 10 ML SYRINGE IV SCH ×2 (05:33→14:53)
[2021-06-21] MEDS: LEVOTHYROXINE 100 MCG TABLET PO SCH (07:39)
[2021-06-21] MEDS: INSULIN LISPRO 1 UNIT/0.01 ML UNIT SQ SCH ×3 (07:42→16:23)
[2021-06-21] MEDS: ALLOPURINOL 300 MG TABLET PO SCH (08:48)
[2021-06-21] MEDS: DILTIAZEM 120 MG CAP.XL.24H PO SCH (08:48)
[2021-06-21] MEDS: FAMOTIDINE 20 MG TABLET PO SCH (08:48)
[2021-06-21] MEDS: APIXABAN 5 MG TABLET PO SCH (08:48)
[2021-06-21] MEDS: GABAPENTIN 300 MG CAPSULE PO SCH ×2 (08:48→14:53)
[2021-06-21] MEDS: METOPROLOL TARTRATE 50 MG TABLET PO SCH (08:48)
[2021-06-21] MEDS: DOCUSATE SODIUM 100 MG CAPSULE PO SCH (08:49)
[2021-06-21] MEDS: INSULIN GLARGINE, HUMAN 1 UNIT/0.01 ML SQ SCH (08:50)
[2021-06-21] MEDS ORDERED: FUROSEMIDE 80 MG TABLET PO SCH (09:00)
[2021-06-21 09:44] LABS: Basophils # (Auto) 0.04 K/mcL (0.00-0.30); Basophils % (Auto) 0.3 % (0.0-2.0); Eosinophils # (Auto) 0.35 K/mcL (0.00-0.70); Eosinophils % (Auto) 3.1 % (0.0-7.0); Hematocrit 36.9 % (34.1-44.9); Hemoglobin 10.7 g/dL (11.2-15.7); Lymphocytes # (Auto) 2.29 K/mcL (1.50-4.80); Mean Cell Volume 90.7 fL (80.0-100.0); Mean Platelet Volume 11.7 fL (7.4-10.4); Monocytes # (Auto) 0.82 K/mcL (0.10-0.90); Monocytes % (Auto) 7.2 % (1.0-12.0); Neutrophils % (Auto) 69.4 % (38.0-78.0); Platelet Count 248 K/mcL (140-440); RBC 4.07 M/mcL (3.59-5.38); Red Cell Distribution Width 16.9 % (11.5-14.5); WBC 11.5 K/mcL (4.5-11.0)
[2021-06-21 11:05] LABS: ALT/SGPT 11 U/L (<40); AST/SGOT 15 U/L (<32); Albumin 2.8 gm/dL (3.2-5.2); Albumin/Globulin Ratio 0.8 (1.0-2.3); Alkaline Phosphatase 79 U/L (39-117); Bilirubin,Total 0.3 mg/dL (0.1-1.0); Blood Urea Nitrogen 16 mg/dL (8-23); Calcium 8.8 mg/dL (8.6-10.4); Carbon Dioxide 27 mmol/L (22-30); Chloride 102 mmol/L (96-108); Globulin 3.6 gm/dL (2.2-3.7); Glomerular Filtration Rate 87; Glucose 72 mg/dL (70-105)
--- NOTE | 2021-06-21 11:56 | Discharge Summary ---
Discharge Provider Provider Patient information: Note initiated : 06/21/21 at 11:53 am Service Date, if different from initiated Date: [] Patient: Rahel Grover a 71 y/o F admitted on 06/18/21 for fever, does not feel well. Chief Complaint: [UTI, pneumonia] Ms. Grover is a 71 year old F Presents the ED with severe weakness. Patient typically uses a walker and will use a motorized cart for long distances. But this morning she is so weak she could not get out of bed. She says she went to bed feeling fine. When she woke up she is so weak she came in the ED but she was found to be hypoxic in the low 80s. She denies cough or shortness of breath but says she has had fevers and chills today. She had a leukocytosis and was also febrile in the ED Chest x-ray with left lower lobe infiltrate. Leatha test was negative, ana rosa pending. Lactate was within normal limits She is on apixaban for paroxysmal A. fib. Date of admission: 06/18/21 15:00 Discharge date: 06/21/21 Primary care physician: Mo Rivera M.D., F.A.A.F.P. Consults: 06/18/21 Consult to Physician [CONS] Stat Comment: Consulting Provider: Alberto Abel Reason For Exam: Physician to Consult Discharge Meds Discharge Medications Home Medications nystatin 10,000 applic TOPICAL PRN PRN 03/17/20 [History Confirmed 06/18/21 Last Taken 01/15/21 09:00 15453 units] Restasis 1 drp OPHTHALMIC (EYE) QHS 09/29/20 [History Confirmed 06/18/21 Last Taken 01/15/21 21:00 1 gtt.] acetaminophen [Acetaminophen Extra Strength] 1,000 mg PO Q6H PRN 09/29/20 [History Confirmed 06/18/21 Last Taken 01/16/21 07:00 1000 mg.] ascorbic acid (vitamin C) [Vitamin C] 1 g PO QAM 09/29/20 [History Confirmed 06/18/21 Last Taken 01/15/21 09:00 1 g] calcium carbonate [Calcium 600] 600 mg PO BID 09/29/20 [History Confirmed 06/18/21 Last Taken 01/15/21 09:00 600 mg.] cetirizine 5 mg PO QHS 09/29/20 [History Confirmed 06/18/21 Last Taken 01/15/21 21:00 10 mg.] cholecalciferol (vitamin D3) [Vitamin D3] 125 mcg PO QHS 09/29/20 [History Confirmed 06/18/21 Last Taken 01/15/21 09:00 125 mcg] cinnamon bark [Cinnamon] 500 mg PO QAM 09/29/20 [History Confirmed 06/18/21 Last Taken 01/15/21 09:00 500 mg.] coQ10 (ubiquinol) 200 mg PO QHS 09/29/20 [History Confirmed 06/18/21 Last Taken 01/15/21 09:00 200 mg.] fluticasone propionate [Aller-Robbi] 2 spray INTRANASAL PRN PRN 09/29/20 [History Confirmed 06/18/21 Last Taken Unknown] multivitamin 1 tab PO QDAY 09/29/20 [History Confirmed 06/18/21 Last Taken 01/15/21 09:00 1 tab] atorvastatin 20 mg tablet 20 mg PO HS #90 tab 10/03/20 [Rx Confirmed 06/18/21 Last Taken 01/15/21 21:00 20 mg.] diltiazem HCl [Cartia XT] 120 mg PO DAILY 10/04/20 [History Confirmed 06/18/21 Last Taken 01/15/21 09:00 120 mg.] famotidine [Acid Stem Roller (famotidine)] 20 mg PO BID 10/04/20 [History Confirmed 06/18/21 Last Taken 01/15/21 21:00 20 mg.] metoprolol tartrate [Lopressor] 50 mg PO BID 10/04/20 [History Confirmed 06/18/21 Last Taken 01/15/21 21:00 50 mg.] ondansetron HCl 4 mg tablet 4 mg PO PRN PRN 02/13/21 [History Confirmed 06/18/21 Last Taken Unknown] insulin glargine 100 unit/mL (3 mL) subcutaneous pen See Rx Instructions .ROUTE .COMPLEX #15 milliliter 03/14/21 [Rx Confirmed 06/18/21 Last Taken Unknown] allopurinol 300 mg tablet See Rx Instructions .ROUTE .COMPLEX #90 tab 03/26/21 [Rx Confirmed 06/18/21 Last Taken Unknown] levothyroxine 100 mcg tablet See Rx Instructions .ROUTE .COMPLEX #90 tab 03/26/21 [Rx Confirmed 06/18/21 Last Taken Unknown] furosemide 80 mg tablet 80 mg PO BID #180 tab 04/09/21 [Rx Confirmed 06/18/21 Last Taken Unknown] potassium chloride 20 mEq tablet,extended release 20 meq PO TID #270 tab 03/16 03/05 [Rx Confirmed 06/18/21 Last Taken Unknown] apixaban 5 mg tablet 5 mg PO BID 90 Days #180 tab 04/26/21 [Rx Confirmed 06/18/21 Last Taken Unknown] gabapentin 300 mg capsule See Rx Instructions .ROUTE .COMPLEX #540 capsule 05/02/21 [Rx Confirmed 06/18/21 Last Taken Unknown] losartan 25 mg tablet See Rx Instructions .ROUTE .COMPLEX #90 tablet 05/02/21 [Rx Confirmed 06/18/21 Last Taken Unknown] Basaglar KwikPen U-100 Insulin 40 units DAILY 06/18/21 [History Confirmed 06/18/21 Last Taken Unknown] Trulicity 1.5 mg WEEKLY 06/18/21 [History Confirmed 06/18/21 Last Taken Unknown] diclofenac sodium [Voltaren Arthritis Pain] 2 g TOPICAL PRN PRN 06/18/21 [History Confirmed 06/18/21 Last Taken Unknown] mirtazapine 15 mg PO HS 06/18/21 [History Confirmed 06/18/21 Last Taken Unknown] amoxicillin-pot clavulanate [Augmentin] 1 tab PO BID #12 tab 06/21/21 [Rx Last Taken Unknown] COURSE Hospital Course Hospital course: Patient was admitted on 06/18/2021 for bacterial pneumonia as well as urinary tract infections. She was being tested negative for Covid pneumonia. After blood and urine sample were collected for cultures, she was started on Zosyn and supplemental oxygen therapy were also provided in order to keep SPO2 above or equal to 92%. Blood culture remain no growth today. Urine culture subsequently grew capsula pneumoniae. By 06/21/2021, patient has been afebrile for more than 24 hours, her white count continued to go down, and she otherwise reached clinical stability. As such, the decision was made to discharge patient home with prescriptions of Augmentin to finish a 10-day course, 2 weeks PCP follow-up appointment made for the patient, and all questions were answered prior to patient being physically discharged. Discharge diagnosis: pneumonia, UTI Time Spent with Patient Time attestation: Total time spent providing and/or coordinating discharge services: Patient was admitted on 06/18/2021 for bacterial pneumonia as well as urinary tract infections. She was being tested negative for Covid pneumonia. After blood and urine sample were collected for cultures, she was started on Zosyn and supplemental oxygen therapy were also provided in order to keep SPO2 above or equal to 92%. Blood culture remain no growth today. Urine culture subsequently grew capsula pneumoniae. By 06/21/2021, patient has been afebrile for more than 24 hours, her white count continued to go down, and she otherwise reached clinical stability. As such, the decision was made to discharge patient home with prescriptions of Augmentin to finish a 10-day course, 2 weeks PCP follow-up appointment made for the patient, and all questions were answered prior to patient being physically discharged. EXAM Constitutional Vitals: Temp Pulse Resp BP Pulse Ox 35.9 C L 85 18 150/86 98 06/21/21 06:52 06/21/21 06:52 06/21/21 06:52 06/21/21 06:52 06/21/21 07:40 General appearance: cooperative and no acute distress Head Head exam: Present atraumatic and normocephalic Eye Eye exam: Present EOMI and PERRL ENT ENT exam: Present mucous membranes moist, normal exam and normal external ear exam Neck Neck exam: Present normal inspection; Absent lymphadenopathy, tenderness and thyromegaly Respiratory Respiratory exam: Absent accessory muscle use, respiratory distress and wheezes Cardiovascular Cardiovascular exam: Present normal rate and rhythm; Absent JVD GI/Abdominal GI/Abdominal exam: Present normal bowel sounds and soft; Absent organomegaly and tenderness Extremities Exam Extremities exam: Present full ROM, normal capillary refill and normal inspection; Absent tenderness Neurological Exam Neurological exam: Present alert, CN II-XII intact and oriented X3; Absent motor sensory deficit Psychiatric Psychiatric exam: Present normal affect and normal mood; Absent anxious and depressed Skin Skin exam: Present dry and intact Discharge Data Data Completed and Pending Labs on day of discharge: Labs from last 24 hours 06/21/21 06/21/21 05:53 05:53 WBC 11.5 H RBC 4.07 Hgb 10.7 L Hct 36.9 MCV 90.7 MCH 26.3 MCHC 29.0 L RDW 16.9 H Plt Count 248 MPV 11.7 H Neut % (Auto) 69.4 Lymph % (Auto) 20.0 [place] % (Auto) 7.2 Eos % (Auto) 3.1 Baso % (Auto) 0.3 Lymph # (Auto) 2.29 [place] # (Auto) 0.82 Eos # (Auto) 0.35 Baso # (Auto) 0.04 Absolute Neutrophils 7.95 Sodium 139 Potassium 3.8 Chloride 102 Carbon Dioxide 27 Anion Gap 10.0 BUN 16 Creatinine 0.7 GFR Calculation 87 Glucose 72 Calcium 8.8 Total Bilirubin 0.3 AST 15 ALT 11 Alkaline Phosphatase 79 Total Protein 6.4 Albumin 2.8 L Globulin 3.6 Albumin/Globulin Ratio 0.8 L Preliminary micro results at discharge 06/18/21 10:20 Blood Culture - Preliminary Blood 06/18/21 10:15 Blood Culture - Preliminary Blood Discharge Plan Patient/Caregiver Discharge Instructions Activity: ambulate only with your walker Diet: Consistent Carbohydrate Prescriptions: New amoxicillin-pot clavulanate [Augmentin] 875-125 mg tablet 1 tab PO BID Qty: 12 RF: 0 Continued atorvastatin 20 mg tablet 20 mg PO HS Qty: 90 RF: 3 Basaglar KwikPen U-100 Insulin 100 unit/mL (3 mL) insulin pen See Rx Instructions .ROUTE .COMPLEX Qty: 15 RF: 8 levothyroxine 100 mcg tablet See Rx Instructions .ROUTE .COMPLEX Qty: 90 RF: 3 allopurinol 300 mg tablet See Rx Instructions .ROUTE .COMPLEX Qty: 90 RF: 3 Eliquis 5 mg tablet 5 mg PO BID 90 Days Qty: 180 RF: 4 losartan 25 mg tablet See Rx Instructions .ROUTE .COMPLEX Qty: 90 RF: 3 gabapentin 300 mg capsule See Rx Instructions .ROUTE .COMPLEX Qty: 540 RF: 1 potassium chloride 20 mEq tablet extended release 20 meq PO TID Qty: 270 RF: 3 furosemide 80 mg tablet 80 mg PO BID Qty: 180 RF: 4 ondansetron HCl [Zofran] 4 mg tablet 4 mg PO PRN PRN (Reason: Nausea) RF: 0 nystatin 100,000 unit/gram Powder 10,000 applic TOPICAL PRN PRN (Reason: Rash) RF: 0 multivitamin Tablet 1 tab PO QDAY RF: 0 ascorbic acid (vitamin C) [Vitamin C] 1,000 mg Tablet 1 g PO QAM RF: 0 cetirizine 10 mg Tablet 5 mg PO QHS RF: 0 acetaminophen [Acetaminophen Extra Strength] 500 mg Tablet 1,000 mg PO Q6H PRN (Reason: Pain) RF: 0 calcium carbonate [Calcium 600] 600 mg calcium (1,500 mg) Tablet 600 mg PO BID RF: 0 fluticasone propionate [Aller-Robbi] 50 mcg/actuation Weiser,Suspension 2 spray INTRANASAL PRN PRN (Reason: Allergy Symptoms) RF: 0 Restasis 0.05 % Dropperette 1 drp OPHTHALMIC (EYE) QHS RF: 0 cinnamon bark [Cinnamon] 500 mg Capsule 500 mg PO QAM RF: 0 cholecalciferol (vitamin D3) [Vitamin D3] 125 mcg (5,000 unit) Tablet 125 mcg PO QHS RF: 0 coQ10 (ubiquinol) 200 mg Capsule 200 mg PO QHS RF: 0 famotidine [Acid Stem Roller (famotidine)] 20 mg Tablet 20 mg PO BID RF: 0 metoprolol tartrate [Lopressor] 50 mg tablet 50 mg PO BID RF: 0 diltiazem HCl [Cartia XT] 120 mg capsule,extended release 24hr 120 mg PO DAILY RF: 0 mirtazapine 15 mg tablet 15 mg PO HS RF: 0 Basaglar KwikPen U-100 Insulin 40 units DAILY RF: 0 Trulicity 1.5 mg WEEKLY RF: 0 diclofenac sodium [Voltaren Arthritis Pain] 1 % gel 2 g topical PRN PRN (Reason: pain) RF: 0 Follow Up Plan Follow up with: Mo Rivera MD, FAAFP [Primary Care Provider] - Patient Disposition: Home, Self-Care Prognosis: Fair Rehab Potential: Good I certify that the patient requires SNF services: No Overall status at discharge: patient is back to baseline Discharge Orders: Discharge Order (Routine); Ordered 06/21/21 Ordered By: Naveed ROCHA VTE Deep Vein Thrombosis/Pulmonary Embolism Present on Admission: No
[2021-06-21] MEDS: ACETAMINOPHEN 325 MG TABLET PO PRN (12:01)
[2021-06-21] MEDS ORDERED: PNEUMOCCAL 13 VACC (ADULT) 0.5 ML SYRINGE IM ONE (13:47)
[2021-06-21] MEDS ORDERED: PNEUMOCOCCAL 23-VAL P-SAC VAC 0.5 ML SYRINGE IM ONE (14:00)
[2021-06-21] MEDS ORDERED: FLU VACC QS2021-22(6MOS UP)/PF 60 MCG/0.5 ML SYRINGE IM ONE (14:00)
[2021-06-23] MEDS ORDERED: LEVOTHYROXINE 150 MCG TABLET PO SCH (07:30)
== END 2021-06-21 15:55 | disposition home or self-care (01) | DRG 193 ==
LOC: ED 08:48 → MEDSUR 15:00
PROVIDERS: ADMIT Internal Medicine; ATTEND Internal Medicine

== ENCOUNTER 2022-04-20 14:59 | Inpatient (IN) ==
[2022-04-20] MEDS ORDERED: 0.9 % SODIUM CHLORIDE 1,000 ML IV ONE (15:15)
--- NOTE | 2022-04-20 15:20 | Emergency Department Note ---
SOB HPI General Chief Complaint: Shortness of Breath/Dyspnea Stated Complaint: Fever Time Seen by Provider: 04/20/22 15:15 Source: patient and family Mode of arrival: wheelchair History of Present Illness HPI Narrative: Narrative: Patient is a 71-year-old female that presents to the emergency department with generalized weakness, shortness of breath, fevers, chills that started this morning. She reports having some slight discomfort to the center of her chest and generalized body aches that started as well this morning. She has been having occasional nonproductive cough. She has history of CHF, A. fib, obesity, pulmonary hypertension, and type 2 diabetes. She continuously wears 2 L of O2 at the care center where she resides, and has noticed today she is requiring 3 L of oxygen. She has history of factor V Leiden mutation and A. fib. She is on Eliquis 5 mg twice daily. She denies any abdominal pains, nausea, vomiting, dy suria, urinary frequency, or hesitancy. Related Data Home Medications Medication Instructions Recorded Confirmed nystatin 100,000 unit/gram topical 10,000 applic topical PRN PRN Rash 03/17/20 03/05/22 powder acetaminophen 500 mg tablet 1,000 mg PO Q6H PRN Pain 09/29/20 03/05/22 (Acetaminophen Extra Strength) ascorbic acid (vitamin C) 1,000 mg 1 g PO QAM 09/29/20 03/05/22 tablet (Vitamin C) calcium carbonate 600 mg calcium 600 mg PO BID 09/29/20 03/05/22 (1,500 mg) tablet (Calcium) cetirizine 10 mg tablet 5 mg PO QHS 09/29/20 03/05/22 cholecalciferol (vitamin D3) 125 125 mcg PO QHS 09/29/20 03/05/22 mcg (5,000 unit) tablet (Vitamin D3) cinnamon bark 500 mg capsule 500 mg PO QAM 09/29/20 03/05/22 (Cinnamon) coQ10 (ubiquinol) 200 mg capsule 200 mg PO QHS 09/29/20 03/05/22 fluticasone propionate 50 2 spray intranasal PRN PRN Allergy 09/29/20 03/05/22 mcg/actuation nasal Symptoms spray,suspension (Aller-Robbi) multivitamin 1 tab PO QDAY 09/29/20 03/05/22 diclofenac sodium 1 % topical gel 2 g topical PRN PRN pain 06/18/21 03/05/22 (Voltaren Arthritis Pain) Previous Rx's Medication Instructions Recorded potassium chloride 20 mEq 20 meq PO TID #270 tabs 04/09/21 tablet,extended release apixaban 5 mg tablet (Eliquis) 5 mg PO BID 90 days #180 tabs 04/26/21 losartan 25 mg tablet See Rx Instructions .Route 05/02/21 .COMPLEX #90 tabs albuterol sulfate 90 mcg/actuation 2 puff inhalation .Q4-6H PRN 06/27/21 aerosol inhaler Shortness of breath #8.5 grams diltiazem HCl 120 mg 120 mg PO DAILY afib #90 caps 06/27/21 capsule,extended release 24 hr (Cartia XT) cyclosporine 0.05 % eye drops in a 1 drp ophthalmic (eye) QHS #60 ea 07/23/21 dropperette (Restasis) atorvastatin 20 mg tablet 20 mg PO HS #90 tabs 11/20/21 metoprolol tartrate 50 mg tablet 50 mg PO BID tyachycardia #180 tabs 11/20/21 (Lopressor) gabapentin 300 mg capsule See Rx Instructions .Route 11/27/21 .COMPLEX #540 caps mirtazapine 30 mg tablet 30 mg PO QDAY Insomnia #90 tabs 12/04/21 famotidine 40 mg tablet 40 mg PO QDAY PRN heartburn #90 12/19/21 tabs levothyroxine 50 mcg tablet 50 mcg PO .COMPLEX #24 tabs 01/04/22 semaglutide 1 mg/dose (4 mg/3 mL) 1 mg (0.75 mL) subcut QWEEK #3 mL 02/19/22 subcutaneous pen injector nitrofurantoin 100 mg PO Q12H 3 days #6 caps 03/22/22 monohydrate/macrocrystals 100 mg capsule (Macrobid) allopurinol 300 mg tablet See Rx Instructions .Route 04/02/22 .COMPLEX #90 tabs levothyroxine 100 mcg tablet 100 mcg PO QDAY #90 tabs 04/02/22 flash glucose scanning reader #1 ea 04/09/22 (FreeStyle Hector 2 [place]) flash glucose sensor (FreeStyle #1 ea 04/09/22 Hector 2 Sensor kit) furosemide 80 mg tablet 80 mg PO BID Edema #180 tabs 04/19/22 insulin glargine 100 unit/mL (3 40 unit (0.4 mL) subcut QDAY #15 mL 04/19/22 mL) subcutaneous pen (Basaglar KwikPen U-100 Insulin) montelukast 10 mg tablet 10 mg PO QPM Cough #90 tabs 04/19/22 Allergies Allergy/AdvReac Type Severity Reaction Status Date / Time Sulfa (Sulfonamide Allergy Verified 04/20/22 15:04 Antibiotics) metformin AdvReac Mild Diarrhea Verified 03/05/22 10:49 morphine AdvReac Mild Hallucinati Verified 03/05/22 10:49 ng paper tape Allergy Intermediate Hives Uncoded 03/05/22 10:49 Review of Systems ROS ROS Narrative: Narrative: All systems ED: reviewed and negative except as stated. [facility] Narrative Patient History Narrative: Narrative: Medical/Surgical/Family History All Active Problems (Updated 04/20/22 @ 17:07 by LENA Rodrigues) Asthma (Chronic) Gout (Chronic) Congestive heart failure (Chronic) High blood pressure (Chronic) Joint pain (Chronic) Thyroid trouble (Chronic) Morbid obesity with BMI of 50.0-59.9, adult (Chronic) Chronic left shoulder pain (Acute) Diabetes mellitus type 2 in obese (Chronic) Impingement syndrome of left shoulder (Acute) long-term current use of anticoagulant therapy (Acute) Insomnia (Chronic) Hypoxia (Acute) Factor 5 Leiden mutation, heterozygous (Chronic) Hypothyroid (Chronic) Paroxysmal atrial fibrillation (Chronic) Physical deconditioning (Chronic) Pulmonary hypertension (Chronic) Medicare annual wellness visit, initial (Acute) Obesity hypoventilation syndrome (Acute) Pneumonia (Acute) Sepsis due to pneumonia (Acute) Chronic headaches (Chronic) Medical History (Updated 04/20/22 @ 17:07 by LENA Rodrigues) Asthma Blood disorder Factor 5 Chronic headaches Congestive heart failure Factor 5 Leiden mutation, heterozygous Gallbladder problem Has been removed. Gout High blood pressure Hypothyroid Impingement syndrome of left shoulder Insomnia Joint pain Left ankle pain Left shoulder pain Medicare annual wellness visit, initial Obesity hypoventilation syndrome Paroxysmal atrial fibrillation Physical deconditioning Pulmonary hypertension Thyroid trouble Type 2 diabetes mellitus Surgical History History of appendectomy History of cholecystectomy History of hernia repair Ventral History of hip replacement History of hysterectomy History of knee surgery (~1967) Knee arthroscopy with medial meniscectomy History of oophorectomy History of removal of ovarian cyst History of surgery 10/04/2020-wide excision of mass of abdominal wall History of surgery 01/17/2021-wide surgical debridement of abscess of anterior abdominal wall Family History Mother Arthritis Brother Diabetes Father Heart attack Social History Smoking Status: Never smoker Alcohol Intake Frequency: does not drink Substance Use: does not use Exam Narrative Narrative: Narrative: General: Morbid obese female with physical limitation due to morbid obesity. Ill-appearing sitting in exam bed no acute distress. Head: Normocephalic, and atraumatic. Eyes: PERRLA, full EOM. External exam is normal. Ears: Normal pinna, canals, and tympanic membranes. Nose: Patent, without deformities. Throat: Mucous membranes are moist without lesions, erythema or exudate. Neck: Supple, without masses, lymphadenopathy, or tenderness. Respiratory: Normal respiratory effort. Lung sounds are clear to auscultate. Heart: RRR without murmurs, rubs, or gallops. PMI within normal limits. Abdomen: Very large pannus with excoriation and erythema to the skin. No sign of abscess, breaks in the skin, or tenderness. NABS x4 quadrants. No tenderness with palpation. Extremities: No erythema. Full range of motion. Neuro: Cranial nerves II through XII intact. Alert and oriented x3. Course Vital Signs Vital signs: Vital Signs Temperature 102.6 F H 04/20/22 15:01 Pulse Rate 108 H 04/20/22 15:01 Respiratory Rate 20 04/20/22 15:01 Blood Pressure 144/74 04/20/22 15:01 Pulse Oximetry (%) 89 L 04/20/22 15:01 Oxygen Delivery Method 04/20/22 15:01 Oxygen Flow Rate (L/min) 3 04/20/22 15:01 Temperature 101.1 F H 04/20/22 16:53 Pulse Rate 93 H 04/20/22 19:16 Respiratory Rate 33 H 04/20/22 19:16 Blood Pressure 130/64 04/20/22 19:16 Pulse Oximetry (%) 90 04/20/22 19:16 Oxygen Delivery Method 04/20/22 15:18 Oxygen Flow Rate (L/min) 3 04/20/22 15:18 MDM MDM Narrative Medical decision making narrative: Narrative: Patient is a 71-year-old female who came in to the emergency department by EMS today after she apparently had woke up feeling short of breath with fever. She does reside at the [facility] on the assisted living side and typically is able to get up and ambulate with a walker. She had felt weak today and ill. Upon arrival patient was having tachycardia with temperature of 102.6. Initiated sepsis protocol and patient was given IV fluids 30 mL/kg, and is currently received 1 L normal saline so far. Blood pressure does appear to be stable. Proceeded with work-up in the emergency department that included CBC, CMP, COVID-19 test, procalcitonin, lactic acid, blood cultures, chest x-ray, urina lysis. Patient's COVID test today is negative. Patient has leukocytosis with white count of 17.2. Lactic acid 1.3. [id number] troponin negative at 0.02 and BNP today is elevated at 1022. Patient's x-ray shows bilateral lower lobe infiltrate and radiologist mentions suspect potential aspiration pneumonia. Patient currently does live at the [facility] where she uses a CPAP at nighttime and typically wears 2 L of O2 continuously. Today she has been requiring 3 L of O2, and given her leukocytosis, symptoms of sepsis, and with x- ray findings patient would likely benefit from hospital admission today where she can receive IV antibiotics. Today in the emergency department she was ordered IV Zosyn and vancomycin to be given. Was able to speak with Dr. Dugan today who is on for the hospitalist group. He does agree to accept patient for hospital admission at [facility]. Lab Data Result diagrams: 04/20/22 15:25 04/20/22 15:25 Labs: Lab Results 04/20/22 04/20/22 04/20/22 Range/Units 15:25 15:25 15:25 WBC 17.2 H (4.5-11.0) K/mcL RBC 5.28 (3.59-5.38) M/mcL Hgb 15.6 (11.2-15.7) g/dL Hct 49.2 H (34.1-44.9) % MCV 93.2 (80.0-100.0) fL MCH 29.5 (26.0-34.0) pg MCHC 31.7 (31.0-36.0) g/dL RDW 16.8 H (11.5-14.5) % Plt Count 233 (140-440) K/mcL MPV 11.5 H (7.4-10.4) fL Immature Gran % (Auto) 0.6 H (0.0-0.5) % Neut % (Auto) 88.2 H (38.0-78.0) % Lymph % (Auto) 6.4 L (15.5-49.0) % Riley % (Auto) 4.4 (1.0-12.0) % Eos % (Auto) 0.1 (0.0-7.0) % Baso % (Auto) 0.3 (0.0-2.0) % Lymph # (Auto) 1.09 L (1.50-4.80) K/mcL Riley # (Auto) 0.76 (0.10-0.90) K/mcL Eos # (Auto) 0.02 (0.00-0.70) K/mcL Baso # (Auto) 0.05 (0.00-0.30) K/mcL Immature Gran # 0.10 H (0.00-0.05) K/mcl Absolute Neutrophils 15.14 H (1.80-8.00) K/mcL VBG Lactic Acid 1.3 (0.5-2.0) mmol/L Sodium 138 (133-145) mmol/L Potassium 4.2 (3.3-5.1) mmol/L Chloride 95 L (96-108) mmol/L Carbon Dioxide 29 (22-30) mmol/L Anion Gap 14.0 (8.0-16.0) BUN 12 (8-23) mg/dL Creatinine 0.9 (0.6-1.1) mg/dL GFR Calculation 63 Glucose 184 H (70-105) mg/dL Calcium 10.0 (8.6-10.4) mg/dL Total Bilirubin 0.6 (0.1-1.0) mg/dL AST 15 (<32) U/L ALT 14 (<40) U/L Alkaline Phosphatase 112 (39-117) U/L NT-Pro-B Natriuret Pep 1022.0 H (<125.0) pg/mL Total Protein 8.1 (5.9-8.4) gm/dL Albumin 3.9 (3.2-5.2) gm/dL Globulin 4.2 H (2.2-3.7) gm/dL Albumin/Globulin Ratio 0.9 L (1.0-2.3) Procalcitonin 0.06 (<0.10) ng/mL POC Troponin I (0.02-0.08) 04/20/22 Range/Units 15:31 WBC (4.5-11.0) K/mcL RBC (3.59-5.38) M/mcL Hgb (11.2-15.7) g/dL Hct (34.1-44.9) % MCV (80.0-100.0) fL MCH (26.0-34.0) pg MCHC (31.0-36.0) g/dL RDW (11.5-14.5) % Plt Count (140-440) K/mcL MPV (7.4-10.4) fL Immature Gran % (Auto) (0.0-0.5) % Neut % (Auto) (38.0-78.0) % Lymph % (Auto) (15.5-49.0) % Riley % (Auto) (1.0-12.0) % Eos % (Auto) (0.0-7.0) % Baso % (Auto) (0.0-2.0) % Lymph # (Auto) (1.50-4.80) K/mcL Riley # (Auto) (0.10-0.90) K/mcL Eos # (Auto) (0.00-0.70) K/mcL Baso # (Auto) (0.00-0.30) K/mcL Immature Gran # (0.00-0.05) K/mcl Absolute Neutrophils (1.80-8.00) K/mcL VBG Lactic Acid (0.5-2.0) mmol/L Sodium (133-145) mmol/L Potassium (3.3-5.1) mmol/L Chloride (96-108) mmol/L Carbon Dioxide (22-30) mmol/L Anion Gap (8.0-16.0) BUN (8-23) mg/dL Creatinine (0.6-1.1) mg/dL GFR Calculation Glucose (70-105) mg/dL Calcium (8.6-10.4) mg/dL Total Bilirubin (0.1-1.0) mg/dL AST (<32) U/L ALT (<40) U/L Alkaline Phosphatase (39-117) U/L NT-Pro-B Natriuret Pep (<125.0) pg/mL Total Protein (5.9-8.4) gm/dL Albumin (3.2-5.2) gm/dL Globulin (2.2-3.7) gm/dL Albumin/Globulin Ratio (1.0-2.3) Procalcitonin (<0.10) ng/mL POC Troponin I 0.02 (0.02-0.08) ED POC Tests ED POC Tests: NGOC - SARS Antigen Negative Radiology Data Radiology results reviewed: Yes I reviewed the patient's radiology results. Radiology results narrative: Ordering Physician:Dudley Quesada Date of Service:04/20/22 Procedure(s):XR chest 1V portable CLINICAL INFORMATION: Chest pain and dyspnea COMPARISON: 06/18/2021 TECHNIQUE: Portable FINDINGS: Moderate cardiomegaly is unchanged. Mediastinum and pulmonary vasculature are unremarkable. Mild patchy bibasilar infiltrates noted. No effusions. IMPRESSION: Mild patchy bibasilar infiltrates. Suspect aspiration Interpreted and Authenticated by: Ras Sylvester 04/20/22 EKG Data EKG #1: EKG results narrative: EKG today was reviewed and patient's EKG is atrial fibrillation with left bundle branch block. Rate 115. This is compared to previous EKG in the patient's medical record that does not reveal any significant changes from prior EKGs. Rhythm: A.Fib Discharge Plan Patient/Caregiver Discharge Instructions Pt seen by LACE MACHINE OPERATOR/PA only: No Clinical Impression: Pneumonia, Sepsis due to pneumonia Patient Disposition: Xfer As Inpt ([facility]) Discharge Date/Time: 04/20/22 19:21
[2022-04-20] MEDS ORDERED: VANCOMYCIN 1,000 MG in 0.9 % SODIUM CHLORIDE 250 ML IV ONE (16:05)
[2022-04-20] MEDS ORDERED: PIPERACILLIN SODIUM/TAZOBACTAM 3.375 GM in DEXTROSE 5% IN WATER 50 ML IV ONE (16:05)
--- NOTE | 2022-04-20 16:11 | XRay Report ---
CLINICAL INFORMATION: Chest pain and dyspnea COMPARISON: 06/18/2021 TECHNIQUE: Portable FINDINGS: Moderate cardiomegaly is unchanged. Mediastinum and pulmonary vasculature are unremarkable. Mild patchy bibasilar infiltrates noted. No effusions. IMPRESSION: Mild patchy bibasilar infiltrates. Suspect aspiration Interpreted and Authenticated by: Ras Sylvester 04/20/22
[2022-04-20 16:27] LABS: Basophils # (Auto) 0.05 K/mcL (0.00-0.30); Basophils % (Auto) 0.3 % (0.0-2.0); Eosinophils # (Auto) 0.02 K/mcL (0.00-0.70); Eosinophils % (Auto) 0.1 % (0.0-7.0); Hematocrit 49.2 % (34.1-44.9); Hemoglobin 15.6 g/dL (11.2-15.7); Lymphocytes # (Auto) 1.09 K/mcL (1.50-4.80); Lymphocytes % (Auto) 6.4 % (15.5-49.0); Mean Cell Volume 93.2 fL (80.0-100.0); Mean Corpuscular HGB Conc 31.7 g/dL (31.0-36.0); Mean Platelet Volume 11.5 fL (7.4-10.4); Monocytes # (Auto) 0.76 K/mcL (0.10-0.90); Monocytes % (Auto) 4.4 % (1.0-12.0); Neutrophils % (Auto) 88.2 % (38.0-78.0); Platelet Count 233 K/mcL (140-440); RBC 5.28 M/mcL (3.59-5.38); Red Cell Distribution Width 16.8 % (11.5-14.5); WBC 17.2 K/mcL (4.5-11.0)
[2022-04-20 16:46] LABS: ALT/SGPT 14 U/L (<40); AST/SGOT 15 U/L (<32); Albumin 3.9 gm/dL (3.2-5.2); Albumin/Globulin Ratio 0.9 (1.0-2.3); Alkaline Phosphatase 112 U/L (39-117); Bilirubin,Total 0.6 mg/dL (0.1-1.0); Blood Urea Nitrogen 12 mg/dL (8-23); Carbon Dioxide 29 mmol/L (22-30); Chloride 95 mmol/L (96-108); Globulin 4.2 gm/dL (2.2-3.7); Glomerular Filtration Rate 63; Glucose 184 mg/dL (70-105)
[2022-04-20] MEDS ORDERED: ACETAMINOPHEN 325 MG TABLET PO ONE (17:36)
--- NOTE | 2022-04-20 19:06 | Internal Med History&Physical ---
HPI History of Present Illness Patient information: Note initiated : 04/20/22 at 7:02 pm Service Date, if different from initiated Date: [] Patient: Rahel Grover 71 y/o F admitted on for Fever. Chief Complaint: [Shortness of breath, fevers] Chief complaint: Shortness of breath, fevers History of present illness: Ms. Grover is a 71 year old obese female with a complex past medical history significant for chronic atrial fibrillation on Eliquis, diabetes mellitus type 2, congestive heart failure, factor V Leiden, and pulmonary hypertension on supplemental O2 who presents to the hospital with fevers, chest discomfort, myalgias and shortness of breath. The patient states that she began to have fevers and chills yesterday. Her sister is a nurse and recommended that she come to the hospital for further management and evaluation. On presentation, the patient was hemodynamically stable but was tachycardic and tachypneic. The patient was found to have an elevated white blood cell count of 17,000. Her lactic acid was 1.3. The patient's creatinine was 0.9. She received IV fluid bolus and parenteral antibiotics with vancomycin and Zosyn. The hospitalist service was asked admit the patient for further management and evaluation of her sepsis due to suspected community-acquired pneumonia. Review of Systems All systems: reviewed and no additional remarkable complaints except as stated Constitutional Constitutional: Present as per HPI EENT Eyes: Present as per HPI; Absent blurry vision Cardiovascular Cardiovascular: Present as per HPI; Absent chest pain, dyspnea, dyspnea on exertion, leg edema or palpatations Respiratory Respiratory: Present as per HPI and dyspnea; Absent cough, dyspnea on exertion, wheezing or stridor Gastrointestinal Gastrointestinal: Present as per HPI; Absent abdominal pain, diarrhea, dysphagia, hematemesis, melena, nausea or vomiting Musculoskeletal Musculoskeletal: Present as per HPI; Absent joint swelling, limited range of motion, muscle cramps, muscle weakness or myalgias Integumentary Integumentary: Present as per HPI; Absent erythema, new lesions, rash or wounds Neurological Neurological: Present as per HPI; Absent abnormal gait, behavioral changes, focal weakness, headache(s), loss of vision, numbness, sensory deficit or syncope Endocrine Endocrine: Absent change in body appearance, fatigue or heat intolerance Hematologic/Lymphatic Hematologic/Lymphatic: Present as per HPI PFSH PFSH All Active Problems (Updated 04/20/22 @ 17:07 by LENA Rodrigues) Asthma (Chronic) Gout (Chronic) Congestive heart failure (Chronic) High blood pressure (Chronic) Joint pain (Chronic) Thyroid trouble (Chronic) Morbid obesity with BMI of 50.0-59.9, adult (Chronic) Chronic left shoulder pain (Acute) Diabetes mellitus type 2 in obese (Chronic) Impingement syndrome of left shoulder (Acute) prison current use of anticoagulant therapy (Acute) Insomnia (Chronic) Hypoxia (Acute) Factor 5 Leiden mutation, heterozygous (Chronic) Hypothyroid (Chronic) Paroxysmal atrial fibrillation (Chronic) Physical deconditioning (Chronic) Pulmonary hypertension (Chronic) Medicare annual wellness visit, initial (Acute) Obesity hypoventilation syndrome (Acute) Pneumonia (Acute) Sepsis due to pneumonia (Acute) Chronic headaches (Chronic) Medical History (Updated 04/20/22 @ 17:07 by LENA Rodrigues) Asthma Blood disorder Factor 5 Chronic headaches Congestive heart failure Factor 5 Leiden mutation, heterozygous Gallbladder problem Has been removed. Gout High blood pressure Hypothyroid Impingement syndrome of left shoulder Insomnia Joint pain Left ankle pain Left shoulder pain Medicare annual wellness visit, initial Obesity hypoventilation syndrome Paroxysmal atrial fibrillation Physical deconditioning Pulmonary hypertension Thyroid trouble Type 2 diabetes mellitus Surgical History History of appendectomy History of cholecystectomy History of hernia repair Ventral History of hip replacement History of hysterectomy History of knee surgery (~1967) Knee arthroscopy with medial meniscectomy History of oophorectomy History of removal of ovarian cyst History of surgery 10/04/2020-wide excision of mass of abdominal wall History of surgery 01/17/2021-wide surgical debridement of abscess of anterior abdominal wall Family History Mother Arthritis Brother Diabetes Father Heart attack Social History marital status: occupational status: retired smoking status: Never smoker alcohol intake frequency: does not drink substance use type: does not use MEDS/ALLERGIES Home Medications and Allergies Home Medications Medication Instructions Recorded Confirmed Type nystatin 100,000 unit/gram topical 10,000 applic topical PRN PRN Rash 03/17/20 03/05/22 History powder acetaminophen 500 mg tablet 1,000 mg PO Q6H PRN Pain 09/29/20 03/05/22 History (Acetaminophen Extra Strength) ascorbic acid (vitamin C) 1,000 mg 1 g PO QAM 09/29/20 03/05/22 History tablet (Vitamin C) calcium carbonate 600 mg calcium 600 mg PO BID 09/29/20 03/05/22 History (1,500 mg) tablet (Calcium) cetirizine 10 mg tablet 5 mg PO QHS 09/29/20 03/05/22 History cholecalciferol (vitamin D3) 125 125 mcg PO QHS 09/29/20 03/05/22 History mcg (5,000 unit) tablet (Vitamin D3) cinnamon bark 500 mg capsule 500 mg PO QAM 09/29/20 03/05/22 History (Cinnamon) coQ10 (ubiquinol) 200 mg capsule 200 mg PO QHS 09/29/20 03/05/22 History fluticasone propionate 50 2 spray intranasal PRN PRN Allergy 09/29/20 03/05/22 History mcg/actuation nasal Symptoms spray,suspension (Aller-Robbi) multivitamin 1 tab PO QDAY 09/29/20 03/05/22 History potassium chloride 20 mEq 20 meq PO TID #270 tabs 04/09/21 03/05/22 Rx tablet,extended release apixaban 5 mg tablet (Eliquis) 5 mg PO BID 90 days #180 tabs 04/26/21 03/05/22 Rx losartan 25 mg tablet See Rx Instructions .Route 05/02/21 03/05/22 Rx .COMPLEX #90 tabs diclofenac sodium 1 % topical gel 2 g topical PRN PRN pain 06/18/21 03/05/22 History (Voltaren Arthritis Pain) albuterol sulfate 90 mcg/actuation 2 puff inhalation .Q4-6H PRN 06/27/21 03/05/22 Rx aerosol inhaler Shortness of breath #8.5 grams diltiazem HCl 120 mg 120 mg PO DAILY afib #90 caps 06/27/21 03/05/22 Rx capsule,extended release 24 hr (Cartia XT) cyclosporine 0.05 % eye drops in a 1 drp ophthalmic (eye) QHS #60 ea 07/23/21 03/05/22 Rx dropperette (Restasis) atorvastatin 20 mg tablet 20 mg PO HS #90 tabs 11/20/21 03/05/22 Rx metoprolol tartrate 50 mg tablet 50 mg PO BID tyachycardia #180 tabs 11/20/21 03/05/22 Rx (Lopressor) gabapentin 300 mg capsule See Rx Instructions .Route 11/27/21 03/05/22 Rx .COMPLEX #540 caps mirtazapine 30 mg tablet 30 mg PO QDAY Insomnia #90 tabs 12/04/21 03/05/22 Rx famotidine 40 mg tablet 40 mg PO QDAY PRN heartburn #90 12/19/21 03/05/22 Rx tabs levothyroxine 50 mcg tablet 50 mcg PO .COMPLEX #24 tabs 01/04/22 03/05/22 Rx semaglutide 1 mg/dose (4 mg/3 mL) 1 mg (0.75 mL) subcut QWEEK #3 mL 02/19/22 03/05/22 Rx subcutaneous pen injector nitrofurantoin 100 mg PO Q12H 3 days #6 caps 03/22/22 Rx monohydrate/macrocrystals 100 mg capsule (Macrobid) allopurinol 300 mg tablet See Rx Instructions .Route 04/02/22 Rx .COMPLEX #90 tabs levothyroxine 100 mcg tablet 100 mcg PO QDAY #90 tabs 04/02/22 Rx flash glucose scanning reader #1 ea 04/09/22 Rx (FreeStyle Hector 2 [place]) flash glucose sensor (FreeStyle #1 ea 04/09/22 Rx Hector 2 Sensor kit) furosemide 80 mg tablet 80 mg PO BID Edema #180 tabs 04/19/22 Rx insulin glargine 100 unit/mL (3 40 unit (0.4 mL) subcut QDAY #15 mL 04/19/22 Rx mL) subcutaneous pen (Basaglar KwikPen U-100 Insulin) montelukast 10 mg tablet 10 mg PO QPM Cough #90 tabs 04/19/22 Rx Allergies Allergy/AdvReac Type Severity Reaction Status Date / Time Sulfa (Sulfonamide Allergy Verified 04/20/22 15:04 Antibiotics) metformin AdvReac Mild Diarrhea Verified 03/05/22 10:49 morphine AdvReac Mild Hallucinati Verified 03/05/22 10:49 ng paper tape Allergy Intermediate Hives Uncoded 03/05/22 10:49 EXAM Constitutional Vitals: Temp Pulse Resp BP Pulse Ox O2 Del Method O2 Flow Rate 101.1 F H 98 H 38 H 123/98 91 3 04/20/22 16:53 04/20/22 18:52 04/20/22 18:52 04/20/22 18:46 04/20/22 18:52 04/20/22 15:18 04/20/22 15:18 General appearance: average body habitus Head Head exam: Present atraumatic, normal inspection and normocephalic Eye Eye exam: Present EOMI, normal appearance and PERRL; Absent conjunctival injection ENT ENT exam: Present normal exam; Absent mucous membranes dry Neck Neck exam: Present full ROM; Absent lymphadenopathy Respiratory Respiratory exam: Present decreased breath sounds and CTAB; Absent normal respiratory exam, respiratory distress or wheezes Cardiovascular Cardiovascular exam: Present irregular rhythm, RRR and tachycardia; Absent JVD GI/Abdominal GI/Abdominal exam: Present normal bowel sounds and soft; Absent diminished bowel sounds, distended, guarding, mass, rebound or tenderness Neurological Exam Neurological exam: Present alert, CN II-XII intact and oriented X3 Psychiatric Psychiatric exam: Present normal affect and normal mood Skin Skin exam: Present intact and warm; Absent erythema, pallor, petechiae or rash DATA Data Completed and Pending Labs: Labs from last 24 hours 04/20/22 04/20/22 04/20/22 15:31 15:25 15:25 WBC RBC Hgb Hct MCV MCH MCHC RDW Plt Count MPV Immature Gran % (Auto) Neut % (Auto) Lymph % (Auto) [place] % (Auto) Eos % (Auto) Baso % (Auto) Lymph # (Auto) [place] # (Auto) Eos # (Auto) Baso # (Auto) Immature Gran # Absolute Neutrophils VBG Lactic Acid 1.3 Sodium 138 Potassium 4.2 Chloride 95 L Carbon Dioxide 29 Anion Gap 14.0 BUN 12 Creatinine 0.9 GFR Calculation 63 Glucose 184 H Calcium 10.0 Total Bilirubin 0.6 AST 15 ALT 14 Alkaline Phosphatase 112 NT-Pro-B Natriuret Pep 1022.0 H Total Protein 8.1 Albumin 3.9 Globulin 4.2 H Albumin/Globulin Ratio 0.9 L Procalcitonin 0.06 POC Troponin I 0.02 04/20/22 15:25 WBC 17.2 H RBC 5.28 Hgb 15.6 Hct 49.2 H MCV 93.2 MCH 29.5 MCHC 31.7 RDW 16.8 H Plt Count 233 MPV 11.5 H Immature Gran % (Auto) 0.6 H Neut % (Auto) 88.2 H Lymph % (Auto) 6.4 L [place] % (Auto) 4.4 Eos % (Auto) 0.1 Baso % (Auto) 0.3 Lymph # (Auto) 1.09 L [place] # (Auto) 0.76 Eos # (Auto) 0.02 Baso # (Auto) 0.05 Immature Gran # 0.10 H Absolute Neutrophils 15.14 H VBG Lactic Acid Sodium Potassium Chloride Carbon Dioxide Anion Gap BUN Creatinine GFR Calculation Glucose Calcium Total Bilirubin AST ALT Alkaline Phosphatase NT-Pro-B Natriuret Pep Total Protein Albumin Globulin Albumin/Globulin Ratio Procalcitonin POC Troponin I A/P Assessment and plan (1) Congestive heart failure: Status: Chronic Qualifiers: Heart failure type: systolic Heart failure chronicity: acute Qualified Code(s): I50.21 - Acute systolic (congestive) heart failure (2) Morbid obesity with BMI of 50.0-59.9, adult: Status: Chronic (3) Factor 5 Leiden mutation, heterozygous: Status: Chronic (4) Sepsis due to pneumonia: Status: Acute (5) Paroxysmal atrial fibrillation: Status: Chronic (6) Pulmonary hypertension: Status: Chronic (7) Diabetes mellitus type 2 in obese: Status: Chronic Narrative A/P Narrative: The patient is septic due to suspected community-acquired pneumonia. We will follow-up on her blood cultures and I have ordered a CT of the chest. She will be started on Zithromax and ceftriaxone. We will monitor her on telemetry. We will continue IV fluids at 75 cc an hour and hold her home diuretics. The patient's medication reconciliation is pending. Time Spent With Patient Time: Total time spent is greater than 50% in coordination of care (as documented) at patient's floor/unit and/or counseling patient: Total time spent with greater than 50% in coordination of care (as documented) at patient's floor/unit and/or counseling patient:: Greater than 70 minutes
[2022-04-20] MEDS ORDERED: DEXTROSE 50% 50 ML VIAL IV PRN (19:22)
[2022-04-20] MEDS ORDERED: cefTRIAXone 1 GM in DEXTROSE 5% IN WATER 50 ML IV SCH (19:22)
[2022-04-20] MEDS ORDERED: DEXTROSE 31 GM ORAL.SUSP PO PRN (19:22)
[2022-04-20] MEDS: AZITHROMYCIN 250 MG in DEXTROSE 5% IN WATER 250 ML IV SCH (21:52)
[2022-04-20] MEDS: DOCUSATE SODIUM 100 MG CAPSULE PO SCH (21:52)
[2022-04-20] MEDS: SENNOSIDES 1 TABLET PO SCH (21:52)
[2022-04-20] MEDS: INSULIN LISPRO 1 UNIT/0.01 ML UNIT SQ SCH (22:02)
[2022-04-20] MEDS: cefTRIAXone 1 GM VIAL IV SCH (22:07)
[2022-04-20] MEDS: 0.9 % SODIUM CHLORIDE 10 ML SYRINGE IV SCH (22:25)
[2022-04-20] MEDS: LACTATED RINGERS 1,000 ML IV SCH (23:01)
[2022-04-20] MEDS: ACETAMINOPHEN 325 MG TABLET PO PRN (23:21)
[2022-04-21] MEDS ORDERED: METOPROLOL TARTRATE 5 MG/5 ML VIAL IV ONE ×2 (02:52→03:04)
[2022-04-21] MEDS: 0.9 % SODIUM CHLORIDE 10 ML SYRINGE IV SCH ×3 (05:24→21:44)
[2022-04-21] MEDS ORDERED: LEVOTHYROXINE 50 MCG TABLET PO SCH (07:30)
[2022-04-21 07:49] LABS: Basophils # (Auto) 0.04 K/mcL (0.00-0.30); Basophils % (Auto) 0.3 % (0.0-2.0); Eosinophils # (Auto) 0.05 K/mcL (0.00-0.70); Eosinophils % (Auto) 0.4 % (0.0-7.0); Hematocrit 44.7 % (34.1-44.9); Hemoglobin 14.1 g/dL (11.2-15.7); Lymphocytes # (Auto) 2.14 K/mcL (1.50-4.80); Lymphocytes % (Auto) 17.2 % (15.5-49.0); Mean Cell Volume 94.1 fL (80.0-100.0); Mean Corpuscular HGB Conc 31.5 g/dL (31.0-36.0); Mean Platelet Volume 11.8 fL (7.4-10.4); Monocytes # (Auto) 1.17 K/mcL (0.10-0.90); Monocytes % (Auto) 9.4 % (1.0-12.0); Neutrophils % (Auto) 72.1 % (38.0-78.0); Platelet Count 212 K/mcL (140-440); RBC 4.75 M/mcL (3.59-5.38); Red Cell Distribution Width 17.1 % (11.5-14.5); WBC 12.5 K/mcL (4.5-11.0)
[2022-04-21 07:51] LABS: Blood Urea Nitrogen 17 mg/dL (8-23); Carbon Dioxide 29 mmol/L (22-30); Chloride 98 mmol/L (96-108); Glomerular Filtration Rate 63; Glucose 155 mg/dL (70-105)
[2022-04-21] MEDS ORDERED: ACETAMINOPHEN 500 MG TABLET PO PRN (08:27)
[2022-04-21] MEDS ORDERED: NYSTATIN POWDER BOTTLE 15GM TOPICAL PRN (08:27)
[2022-04-21] MEDS: DOCUSATE SODIUM 100 MG CAPSULE PO SCH ×2 (08:38→20:40)
[2022-04-21] MEDS: INSULIN LISPRO 1 UNIT/0.01 ML UNIT SQ SCH ×4 (08:38→20:41)
[2022-04-21] MEDS ORDERED: FAMOTIDINE 20 MG TABLET PO PRN (08:53)
[2022-04-21] MEDS ORDERED: DICLOFENAC SODIUM 2% TOPICAL PRN (08:57)
[2022-04-21] MEDS: MULTIVIT,THER IRON,CA,FA & MIN 1 TABLET PO SCH (11:03)
[2022-04-21] MEDS: DILTIAZEM 120 MG CAP.XL.24H PO SCH (11:03)
[2022-04-21] MEDS: METOPROLOL TARTRATE 50 MG TABLET PO SCH ×2 (11:03→20:41)
[2022-04-21] MEDS: APIXABAN 5 MG TABLET PO SCH ×2 (11:03→20:41)
[2022-04-21] MEDS: LACTATED RINGERS 1,000 ML IV SCH (11:04)
[2022-04-21] MEDS: ACETAMINOPHEN 325 MG TABLET PO PRN ×2 (11:17→17:11)
--- NOTE | 2022-04-21 11:17 | Internal Med Progress Note ---
SUBJECTIVE Subjective Patient information: Note initiated : 04/21/22 at 11:15 am Service Date, if different from initiated Date: [] Patient: Rahel Grover 71 y/o F admitted on 04/20/22 for Fever. Chief Complaint: [Weakness, chest discomfort] Principal diagnosis: Community-acquired pneumonia, sepsis Interval history: The patient was resting comfortably in bed. She feels about the same as yesterday. She has no other active complaints or concerns Overnight, the patient had issues with atrial fibrillation with RVR. She needed to be given Lopressor 5 mg IV x1. Constitutional Vitals: Vital Signs Temp Pulse Resp BP Pulse Ox O2 Del Method O2 Flow Rate 98.5 F 83 16 112/54 94 2 04/21/22 11:00 04/21/22 11:00 04/21/22 11:00 04/21/22 11:00 04/21/22 11:00 04/21/22 11:00 04/21/22 11:00 Period Temp Pulse Resp BP Sys/[place] Pulse Ox O2 Del Method O2 Flow Rate Last 24 Hr 98 F-102.6 F 83-146 16-38 110-235/54-216 89-98 Nasal Cannula- Nasal Cannula 2-4 Intake and Output 04/20/22 04/21/22 04/21/22 21:59 05:59 13:59 Intake Total 13 537 904 Output Total 1050 Balance 13 -513 904 Weight 136.134 kg Intake & Output: Intake & Output 04/20/22 04/21/22 04/21/22 21:59 05:59 13:59 Intake Total 13 537 904 Output Total 1050 Balance 13 -513 904 Weight 136.134 kg Intake: IV 13 904 Zithromax 250 mg In Dextrose 5% 13 in Water 250 ml @ 250 mls/hr IV Q24H [facility] Rx#:[id number] Lactated Ringers 1,000 ml @ 75 904 mls/hr IV .[id number] [facility] Rx#: [id number] Oral 537 Output: Urine Catheter Amount 1050 Other: Urine Appearance Clear Uretheral ([place]) Clear Urine Color Bright Yellow Uretheral ([place]) Yellow Head Head exam: Present atraumatic and normal inspection Eye Eye exam: Present normal appearance ENT ENT exam: Present mucous membranes moist, normal exam and normal external ear exam Neck Neck exam: Present normal inspection Respiratory Respiratory exam: Present normal respiratory exam Cardiovascular Cardiovascular exam: Present normal rate and rhythm GI/Abdominal GI/Abdominal exam: Present normal bowel sounds Back Exam Back exam: Present normal inspection Neurological Exam Neurological exam: Present alert and oriented X3 Skin Skin exam: Present intact and warm OBJ DATA Labs CBC & Chem 7: 04/21/22 05:13 04/21/22 05:13 Labs: Abnormal Lab Results 04/21/22 04/21/22 04/20/22 05:13 05:13 15:25 WBC 12.5 H Hct RDW 17.1 H MPV 11.8 H Immature Gran % (Auto) 0.6 H Neut % (Auto) Lymph % (Auto) Lymph # (Auto) [place] # (Auto) 1.17 H Immature Gran # 0.08 H Absolute Neutrophils 8.98 H Chloride 95 L Glucose 155 H 184 H C-Reactive Protein 3.80 H NT-Pro-B Natriuret Pep 1022.0 H Globulin 4.2 H Albumin/Globulin Ratio 0.9 L 04/20/22 15:25 WBC 17.2 H Hct 49.2 H RDW 16.8 H MPV 11.5 H Immature Gran % (Auto) 0.6 H Neut % (Auto) 88.2 H Lymph % (Auto) 6.4 L Lymph # (Auto) 1.09 L [place] # (Auto) Immature Gran # 0.10 H Absolute Neutrophils 15.14 H Chloride Glucose C-Reactive Protein NT-Pro-B Natriuret Pep Globulin Albumin/Globulin Ratio Meds: Medications Acetaminophen (Acetaminophen 325 Mg Tablet) 650 mg PO Q6HP PRN; Protocol PRN Reason: Per Pain Protocol/Fever > 101 Last Admin: 04/20/22 23:21 Dose: 650 mg Apixaban (Apixaban 5 Mg Tablet) 5 mg PO BID [facility] Last Admin: 04/21/22 11:03 Dose: 5 mg Atorvastatin Calcium (Atorvastatin 20 Mg Tablet) 20 mg PO HS [facility] Ceftriaxone Sodium (Ceftriaxone 1 Gm Vial) 1 gm IV Q24H [facility] Last Admin: 04/20/22 22:07 Dose: 1 gm Cetirizine HCl (Cetirizine 10 Mg Tablet) 5 mg PO QHS [facility] Dextrose (Dextrose 50% 50 Ml Vial) 0 ml IV UD PRN PRN Reason: Per Sliding Scale Diagnostic Test (Pha) (Accu-Chek 1 Each Strip) 1 each FS ACHS [facility] Last Admin: 04/21/22 08:38 Dose: 1 each Diltiazem HCl (Diltiazem 120 Mg Cap.Xl.24h) 120 mg PO DAILY [facility] Last Admin: 04/21/22 11:03 Dose: 120 mg Docusate Sodium (Docusate Sodium 100 Mg Capsule) 100 mg PO BID [facility] Last Admin: 04/21/22 08:38 Dose: 100 mg Famotidine (Famotidine 20 Mg Tablet) 40 mg PO DAILYP PRN PRN Reason: Heartburn Glucose (Dextrose 31 Gm Oral.Susp) 15 gm PO PRN PRN PRN Reason: Hypoglycemia Azithromycin 250 mg/ Dextrose 250 mls @ 250 mls/hr IV Q24H [facility]; Protocol Stop: 04/22/22 20:21 Last Infusion: 04/20/22 21:55 Dose: 0 mls/hr Lactated Ringer's (Lactated Ringers) 1,000 mls @ 75 mls/hr IV .[id number] [facility] Last Admin: 04/21/22 11:04 Dose: 75 mls/hr Insulin Human Lispro (Insulin Lispro 1 Unit/0.01 Ml Unit) [address] [facility]; Protocol Last Admin: 04/21/22 08:38 Dose: 2 units Iron Carb/Multivit/[place]/Folic Acid (Multivit,Ther Iron,Ca,Fa & Min 1 Tablet) 1 tab PO DAILY [facility] Last Admin: 04/21/22 11:03 Dose: 1 tab Levothyroxine Sodium (Levothyroxine 50 Mcg Tablet) 150 mcg PO [id number] [facility] Last Admin: 04/21/22 11:03 Dose: 150 mcg Levothyroxine Sodium (Levothyroxine 100 Mcg Tablet) 100 mcg PO [id number]@0730 [facility] Metoprolol Tartrate (Metoprolol Tartrate 50 Mg Tablet) 50 mg PO BID [facility] Last Admin: 04/21/22 11:03 Dose: 50 mg Mirtazapine (Mirtazapine 15 Mg Tablet) 30 mg PO HS [facility] Montelukast Sodium (Montelukast 10 Mg Tablet) 10 mg PO QPM [facility] Nystatin (Nystatin Powder Bottle 15gm) 1 dose TOPICAL DAILYP PRN PRN Reason: Rash Ondansetron HCl (Ondansetron 4 Mg/2 Ml Vial) 4 mg IV Q6HP PRN PRN Reason: Nausea And Vomiting Cyclosporine [ Restasis] 0.05 % Dropperette 1 dose OU HS [facility] Diclofenac Sodium ( Voltaren Arthritis Pain) 2% Topical Gel 1 dose TOPICAL DAILYP PRN PRN Reason: Pain Senna (Sennosides 1 Tablet) 2 tab PO HS [facility] Last Admin: 04/20/22 21:52 Dose: 2 tab Sodium Chloride (0.9 % Sodium Chloride 10 Ml Syringe) 10 ml IV Q8 [facility] Last Admin: 04/21/22 05:24 Dose: Not Given A/P Assessment and plan (1) Congestive heart failure: Status: Chronic Qualifiers: Heart failure type: systolic Heart failure chronicity: acute Qualified Code(s): I50.21 - Acute systolic (congestive) heart failure (2) Morbid obesity with BMI of 50.0-59.9, adult: Status: Chronic (3) Factor 5 Leiden mutation, heterozygous: Status: Chronic (4) Sepsis due to pneumonia: Status: Acute (5) Paroxysmal atrial fibrillation: Status: Chronic (6) Pulmonary hypertension: Status: Chronic (7) Diabetes mellitus type 2 in obese: Status: Chronic Narrative A/P Narrative: The patient is septic due to suspected community-acquired pneumonia. We will follow-up on her blood cultures and I have ordered a CT of the chest. She will be started on Zithromax and ceftriaxone. We will monitor her on telemetry. We will continue IV fluids at 75 cc an hour and hold her home diuretics. The greta nt's medication reconciliation is pending. 04/21: The patient's sepsis is resolving. Her white blood cell count has come down to 12,000. Discussed the case with radiology and there was concerns for e giorgi aspiration pneumonia at the bases. In terms of her paroxysmal atrial fibrillation with RVR, her home diltiazem and metoprolol will be restarted. She will need to work with physical therapy and Occupational Therapy to assess disposition. Time Spent With Patient Time: Total time spent is greater than 50% in coordination of care (as documented) at patient's floor/unit and/or counseling patient: Total time spent with greater than 50% in coordination of care (as documented) at patient's floor/unit and/or counseling patient:: 25 - 35 minutes QUALITY VTE Deep Vein Thrombosis/Pulmonary Embolism Present on Admission: No
--- NOTE | 2022-04-21 13:40 | Cat Scan Report ---
CLINICAL INFORMATION: Pneumonia COMPARISON: Chest abdomen and pelvic CT 04/26/[address] pulmonary angiogram 03/28/2022 TECHNIQUE: 0.625 mm axial slices were obtained from the lung apices through the bases without intravenous contrast. 2.5 mm Sagittal, coronal and axial reformatted images were processed and reviewed at bone, lung and soft tissue windows. 7 mm axial MIP images were also reconstructed to optimize pulmonary nodule detection.The exam was performed using radiation dose optimization techniques including, but not limited to, automated exposure control, adjustment of the mA and/or kV according to patient size and use of iterative reconstruction technique. FINDINGS: Pulmonary parenchymal windows show elevated lung volumes and wall thickening/dilatation of bronchi compatible with chronic bronchitis. Mosaic perfusion pattern is long-standing throughout both lungs and is most compatible with small airways disease (bronchiolitis). There is minimal patchy infiltrate in both lower lobes, right middle lobe and lingula which may indicate infection or aspiration. This is new. There are no effusions. Mediastinal windows show the heart is mildly enlarged with calcific plaque in the coronary arteries. The noncontrast thoracic aorta is normal diameter. There is mild enlargement of the central pulmonary arteries-Main pulmonary artery diameter 3.4 cm. Few lymph nodes have limits of normal in size lower mediastinum are stable. Esophagus is grossly normal. Thyroid is unremarkable. Bone windows show moderate degenerative changes of thoracic spine which have been stable since 2019. No soft tissue abnormality seen in the chest wall. Images appear abdomen are normal. IMPRESSION: 1. Mild patchy infiltrates in both lower lobes, right middle lobe and lingula suggesting aspiration or, less likely, infection. 2. Moderate chronic bronchitis and chronic bronchiolitis. Interpreted and Authenticated by: Ras Sylvester 04/21/22
[2022-04-21] MEDS: cefTRIAXone 1 GM VIAL IV SCH (14:13)
[2022-04-21] MEDS: AZITHROMYCIN 250 MG in DEXTROSE 5% IN WATER 250 ML IV SCH (14:13)
[2022-04-21] MEDS: Cyclosporine [Restasis] 0.05 % dropperette OU SCH (20:33)
[2022-04-21] MEDS: MIRTAZAPINE 15 MG TABLET PO SCH (20:40)
[2022-04-21] MEDS: ATORVASTATIN 20 MG TABLET PO SCH (20:41)
[2022-04-21] MEDS: MONTELUKAST 10 MG TABLET PO SCH (20:41)
[2022-04-21] MEDS: CETIRIZINE 10 MG TABLET PO SCH (20:41)
[2022-04-21] MEDS ORDERED: COQ10 200 MG PO SCH (21:00)
[2022-04-21] MEDS: SENNOSIDES 1 TABLET PO SCH (21:24)
[2022-04-22] MEDS: LACTATED RINGERS 1,000 ML IV SCH ×3 (00:32→18:38)
[2022-04-22] MEDS: ACETAMINOPHEN 325 MG TABLET PO PRN ×3 (03:51→19:24)
[2022-04-22] MEDS: ONDANSETRON 4 MG/2 ML VIAL IV PRN (05:45)
[2022-04-22] MEDS: 0.9 % SODIUM CHLORIDE 10 ML SYRINGE IV SCH ×3 (05:46→20:31)
[2022-04-22] MEDS: LEVOTHYROXINE 100 MCG TABLET PO SCH (07:47)
[2022-04-22] MEDS: APIXABAN 5 MG TABLET PO SCH ×2 (07:47→20:24)
[2022-04-22] MEDS: DILTIAZEM 120 MG CAP.XL.24H PO SCH (07:47)
[2022-04-22] MEDS: DOCUSATE SODIUM 100 MG CAPSULE PO SCH ×2 (07:47→20:25)
[2022-04-22] MEDS: MULTIVIT,THER IRON,CA,FA & MIN 1 TABLET PO SCH (07:47)
[2022-04-22] MEDS: METOPROLOL TARTRATE 50 MG TABLET PO SCH ×2 (07:47→20:24)
[2022-04-22] MEDS: cefTRIAXone 1 GM VIAL IV SCH (07:48)
--- NOTE | 2022-04-22 08:12 | EKG ---
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 Measurements Intervals Archie Rate: 115 P: PA: QRS: -73 QRSD: 148 T: 95 QT: 370 QTc: 512 Interpretive Statements Atrial fibrillation Left bundle branch block Electronically Signed On 04-22-2022 8:12:02 PDT by Ras Brooks M.D. /[id number]
[2022-04-22] MEDS: INSULIN LISPRO 1 UNIT/0.01 ML UNIT SQ SCH ×4 (09:45→20:25)
[2022-04-22] MEDS: AZITHROMYCIN 250 MG in DEXTROSE 5% IN WATER 250 ML IV SCH (11:10)
--- NOTE | 2022-04-22 12:15 | Internal Med Progress Note ---
SUBJECTIVE Subjective Patient information: Note initiated : 04/22/22 at 12:14 pm Service Date, if different from initiated Date: [] Patient: Rahel Grover 71 y/o F admitted on 04/20/22 for Fever. Chief Complaint: [] Principal diagnosis: Community-acquired pneumonia, sepsis Interval history: The patient was resting comfortably in her wheelchair. She states that she is feeling much better. We discussed plan of care. Constitutional Vitals: Vital Signs Temp Pulse Resp BP Pulse Ox O2 Del Method O2 Flow Rate 98.3 F 79 20 129/63 92 4 04/22/22 08:00 04/22/22 08:00 04/22/22 08:00 04/22/22 08:00 04/22/22 08:00 04/22/22 08:00 04/22/22 08:00 Period Temp Pulse Resp BP Sys/Blackwell Pulse Ox O2 Del Method O2 Flow Rate Last 24 Hr 97.7 F-98.7 F 78-87 -22 119-140/57-71 92-97 Nasal Cannula- Nasal Cannula 1-4 Intake and Output 04/21/22 04/22/22 04/22/22 21:59 05:59 13:59 Intake Total 530 1240 Output Total 1250 450 100 Balance -720 790 -100 Weight 138.935 kg Intake & Output: Intake & Output 04/21/22 04/22/22 04/22/22 21:59 05:59 13:59 Intake Total 530 1240 Output Total 1250 450 100 Balance -720 790 -100 Weight 138.935 kg Intake: IV 250 1000 Zithromax 250 mg In Dextrose 5% 250 in Water 250 ml @ 250 mls/hr IV Q24H [facility] Rx#:[id number] Lactated Ringers 1,000 ml @ 75 1000 mls/hr IV .[id number] [facility] Rx#: [id number] Oral 280 240 Output: Void Amount 550 450 100 Urine/Stool Mix 700 Other: Meal Lunch Percent of Meal Consumed 100% Feeding Ability Independent Urine Appearance Clear Urine Color Bright Yellow Urine Odor Normal Stool Size Large Moderate Stool Color Brown Brown Stool Consistency Soft Soft Formed # Bowel Movements 1 1 Head Head exam: Present atraumatic and normal inspection Eye Eye exam: Present normal appearance ENT ENT exam: Present mucous membranes moist, normal exam and normal external ear exam Neck Neck exam: Present normal inspection Respiratory Respiratory exam: Present normal respiratory exam Cardiovascular Cardiovascular exam: Present normal rate and rhythm GI/Abdominal GI/Abdominal exam: Present normal bowel sounds Back Exam Back exam: Present normal inspection Neurological Exam Neurological exam: Present alert and oriented X3 Skin Skin exam: Present intact and warm OBJ DATA Labs CBC & Chem 7: 04/21/22 05:13 04/21/22 05:13 Labs: Abnormal Lab Results 04/21/22 04/21/22 04/20/22 05:13 05:13 15:25 WBC 12.5 H Hct RDW 17.1 H MPV 11.8 H Immature Gran % (Auto) 0.6 H Neut % (Auto) Lymph % (Auto) Lymph # (Auto) [place] # (Auto) 1.17 H Immature Gran # 0.08 H Absolute Neutrophils 8.98 H Chloride 95 L Glucose 155 H 184 H C-Reactive Protein 3.80 H NT-Pro-B Natriuret Pep 1022.0 H Globulin 4.2 H Albumin/Globulin Ratio 0.9 L 04/20/22 15:25 WBC 17.2 H Hct 49.2 H RDW 16.8 H MPV 11.5 H Immature Gran % (Auto) 0.6 H Neut % (Auto) 88.2 H Lymph % (Auto) 6.4 L Lymph # (Auto) 1.09 L [place] # (Auto) Immature Gran # 0.10 H Absolute Neutrophils 15.14 H Chloride Glucose C-Reactive Protein NT-Pro-B Natriuret Pep Globulin Albumin/Globulin Ratio Meds: Medications Acetaminophen (Acetaminophen 325 Mg Tablet) 650 mg PO Q6HP PRN; Protocol PRN Reason: Per Pain Protocol/Fever > 101 Last Admin: 04/22/22 03:51 Dose: 650 mg Apixaban (Apixaban 5 Mg Tablet) 5 mg PO BID [facility] Last Admin: 04/22/22 07:47 Dose: 5 mg Atorvastatin Calcium (Atorvastatin 20 Mg Tablet) 20 mg PO HS [facility] Last Admin: 04/21/22 20:41 Dose: 20 mg Ceftriaxone Sodium (Ceftriaxone 1 Gm Vial) 1 gm IV Q24H [facility] Last Admin: 04/22/22 07:48 Dose: 1 gm Cetirizine HCl (Cetirizine 10 Mg Tablet) 5 mg PO QHS [facility] Last Admin: 04/21/22 20:41 Dose: 5 mg Dextrose (Dextrose 50% 50 Ml Vial) 0 ml IV UD PRN PRN Reason: Per Sliding Scale Diagnostic Test (Pha) (Accu-Chek 1 Each Strip) 1 each FS ACHS [facility] Last Admin: 04/22/22 07:48 Dose: 1 each Diltiazem HCl (Diltiazem 120 Mg Cap.Xl.24h) 120 mg PO DAILY [facility] Last Admin: 04/22/22 07:47 Dose: 120 mg Docusate Sodium (Docusate Sodium 100 Mg Capsule) 100 mg PO BID [facility] Last Admin: 04/22/22 07:47 Dose: 100 mg Famotidine (Famotidine 20 Mg Tablet) 40 mg PO DAILYP PRN PRN Reason: Heartburn Glucose (Dextrose 31 Gm Oral.Susp) 15 gm PO PRN PRN PRN Reason: Hypoglycemia Azithromycin 250 mg/ Dextrose 250 mls @ 250 mls/hr IV Q24H [facility]; Protocol Stop: 04/22/22 20:21 Last Admin: 04/22/22 11:10 Dose: 250 mls/hr Lactated Ringer's (Lactated Ringers) 1,000 mls @ 75 mls/hr IV .[id number] [facility] Last Admin: 04/22/22 01:39 Dose: 75 mls/hr Insulin Human Lispro (Insulin Lispro 1 Unit/0.01 Ml Unit) 0 unit SQ [facility]; Protocol Last Admin: 04/22/22 09:45 Dose: Not Given Iron Carb/Multivit/[place]/Folic Acid (Multivit,Ther Iron,Ca,Fa & Min 1 Tablet) 1 tab PO DAILY [facility] Last Admin: 04/22/22 07:47 Dose: 1 tab Levothyroxine Sodium (Levothyroxine 50 Mcg Tablet) 150 mcg PO SuSa@30 [facility] Last Admin: 04/21/22 11:03 Dose: 150 mcg Levothyroxine Sodium (Levothyroxine 100 Mcg Tablet) 100 mcg PO [id number] [facility] Last Admin: 04/22/22 07:47 Dose: 100 mcg Metoprolol Tartrate (Metoprolol Tartrate 50 Mg Tablet) 50 mg PO BID [facility] Last Admin: 04/22/22 07:47 Dose: 50 mg Mirtazapine (Mirtazapine 15 Mg Tablet) 30 mg PO HS [facility] Last Admin: 04/21/22 20:40 Dose: 30 mg Montelukast Sodium (Montelukast 10 Mg Tablet) 10 mg PO QPM [facility] Last Admin: 04/21/22 20:41 Dose: 10 mg Nystatin (Nystatin Powder Bottle 15gm) 1 dose TOPICAL DAILYP PRN PRN Reason: Rash Ondansetron HCl (Ondansetron 4 Mg/2 Ml Vial) 4 mg IV Q6HP PRN PRN Reason: Nausea And Vomiting Last Admin: 04/22/22 05:45 Dose: 4 mg Cyclosporine [ Restasis] 0.05 % Dropperette 1 dose OU HS [facility] Last Admin: 04/21/22 20:33 Dose: Not Given Diclofenac Sodium ( Voltaren Arthritis Pain) 2% Topical Gel 1 dose TOPICAL DAILYP PRN PRN Reason: Pain Senna (Sennosides 1 Tablet) 2 tab PO [facility] Last Admin: 04/21/22 21:24 Dose: Not Given Sodium Chloride (0.9 % Sodium Chloride 10 Ml Syringe) 10 ml IV Q8 [facility] Last Admin: 04/22/22 05:46 Dose: Not Given A/P Assessment and plan (1) Congestive heart failure: Status: Chronic Qualifiers: Heart failure type: systolic Heart failure chronicity: acute Qualified Code(s): I50.21 - Acute systolic (congestive) heart failure (2) Morbid obesity with BMI of 50.0-59.9, adult: Status: Chronic (3) Factor 5 Leiden mutation, heterozygous: Status: Chronic (4) Sepsis due to pneumonia: Status: Acute (5) Paroxysmal atrial fibrillation: Status: Chronic (6) Pulmonary hypertension: Status: Chronic (7) Diabetes mellitus type 2 in obese: Status: Chronic Narrative A/P Narrative: The patient is septic due to suspected community-acquired pneumonia. We will follow-up on her blood cultures and I have ordered a CT of the chest. She will be started on Zithromax and ceftriaxone. We will monitor her on telemetry. We will continue IV fluids at 75 cc an hour and hold her home diuretics. The patient's medication reconciliation is pending. 04/21: The patient's sepsis is resolving. Her white blood cell count has come down to 12,000. Discussed the case with radiology and there was concerns for early aspiration pneumonia at the bases. In terms of her paroxysmal atrial fibrillation with RVR, her home diltiazem and metoprolol will be restarted. She will need to work with physical therapy and Occupational Therapy to assess disposition. 04/22: The patient states that she does have difficulty with swallowing at times but this is only occasional. She will be assessed by speech therapy and may be placed on a dysphagia diet. We will continue antibiotics at this time. PT will assess the patient to see if she can go back to her facility or if she will need to go to a [facility] home. Time Spent With Patient Time: Total time spent is greater than 50% in coordination of care (as documented) at patient's floor/unit and/or counseling patient: Total time spent with greater than 50% in coordination of care (as documented) at patient's floor/unit and/or counseling patient:: 25 - 35 minutes QUALITY VTE Deep Vein Thrombosis/Pulmonary Embolism Present on Admission: No
[2022-04-22] MEDS: MONTELUKAST 10 MG TABLET PO SCH (20:24)
[2022-04-22] MEDS: Cyclosporine [Restasis] 0.05 % dropperette OU SCH (20:25)
[2022-04-22] MEDS: MIRTAZAPINE 15 MG TABLET PO SCH (20:25)
[2022-04-22] MEDS: CETIRIZINE 10 MG TABLET PO SCH (20:25)
[2022-04-22] MEDS: SENNOSIDES 1 TABLET PO SCH (20:25)
[2022-04-22] MEDS: ATORVASTATIN 20 MG TABLET PO SCH (20:31)
[2022-04-23] MEDS: 0.9 % SODIUM CHLORIDE 10 ML SYRINGE IV SCH (05:26)
[2022-04-23] MEDS: ONDANSETRON 4 MG/2 ML VIAL IV PRN (06:02)
[2022-04-23 06:48] LABS: Basophils # (Auto) 0.04 K/mcL (0.00-0.30); Basophils % (Auto) 0.3 % (0.0-2.0); Eosinophils # (Auto) 0.26 K/mcL (0.00-0.70); Eosinophils % (Auto) 2.1 % (0.0-7.0); Hematocrit 41.2 % (34.1-44.9); Hemoglobin 12.9 g/dL (11.2-15.7); Lymphocytes # (Auto) 2.33 K/mcL (1.50-4.80); Lymphocytes % (Auto) 19.1 % (15.5-49.0); Mean Cell Volume 93.6 fL (80.0-100.0); Mean Corpuscular HGB Conc 31.3 g/dL (31.0-36.0); Mean Platelet Volume 11.8 fL (7.4-10.4); Monocytes # (Auto) 0.87 K/mcL (0.10-0.90); Monocytes % (Auto) 7.1 % (1.0-12.0); Neutrophils % (Auto) 71.1 % (38.0-78.0); Platelet Count 194 K/mcL (140-440); Red Cell Distribution Width 16.2 % (11.5-14.5); WBC 12.2 K/mcL (4.5-11.0)
[2022-04-23] MEDS: DILTIAZEM 120 MG CAP.XL.24H PO SCH (07:18)
[2022-04-23] MEDS: LEVOTHYROXINE 100 MCG TABLET PO SCH (07:18)
[2022-04-23 07:20] LABS: Blood Urea Nitrogen 10 mg/dL (8-23); Calcium 9.4 mg/dL (8.6-10.4); Carbon Dioxide 32 mmol/L (22-30); Chloride 101 mmol/L (96-108); Glomerular Filtration Rate 91; Glucose 156 mg/dL (70-105)
[2022-04-23] MEDS: ACETAMINOPHEN 325 MG TABLET PO PRN (08:43)
[2022-04-23] MEDS: MULTIVIT,THER IRON,CA,FA & MIN 1 TABLET PO SCH (08:44)
[2022-04-23] MEDS: cefTRIAXone 1 GM VIAL IV SCH (08:44)
[2022-04-23] MEDS: DOCUSATE SODIUM 100 MG CAPSULE PO SCH (08:44)
[2022-04-23] MEDS: INSULIN LISPRO 1 UNIT/0.01 ML UNIT SQ SCH ×2 (08:44→13:39)
[2022-04-23] MEDS: METOPROLOL TARTRATE 50 MG TABLET PO SCH (08:44)
[2022-04-23] MEDS: APIXABAN 5 MG TABLET PO SCH (08:44)
--- NOTE | 2022-04-23 11:11 | Discharge Summary ---
Discharge Provider Provider IMPORTANT FOLLOW-UP INFORMATION FOR PCP: 1. Speech f/u for possible dysphagia Patient information: Note initiated : 04/23/22 at 11:11 am Service Date, if different from initiated Date: [] Patient: Rahel Grover 71 y/o F admitted on 04/20/22 for Fever. Chief Complaint: [] Date of admission: 04/20/22 19:21 Discharge date: 04/23/22 Primary care physician: Adán Briones MD Consults: 04/20/22 Consult to Physician [CONS] Stat Comment: Consulting Provider: Halima Dugan Reason For Exam: Physician to Consult Attending physician on discharge: Halima Dugan COURSE Hospital Course Hospital course: History of present illness: Ms. Grover is a 71 year old obese female with a complex past medical history significant for chronic atrial fibrillation on Eliquis, diabetes mellitus type 2, congestive heart failure, factor V Leiden, and pulmonary hypertension on supplemental O2 who presents to the hospital with fevers, chest discomfort, myalgias and shortness of breath. The patient states that she began to have fevers and chills yesterday. Her sister is a nurse and recommended that she come to the hospital for further management and evaluation. On presentation, the patient was hemodynamically stable but was tachycardic and tachypneic. The patient was found to have an elevated white blood cell count of 17,000. Her lactic acid was 1.3. The patient's creatinine was 0.9. She received IV fluid bolus and parenteral antibiotics with vancomycin and Zosyn. The hospitalist service was asked admit the patient for further management and evaluation of her sepsis due to suspected community-acquired pneumonia. A/P Narrative: The patient is septic due to suspected community-acquired pneumonia. We will follow-up on her blood cultures and I have ordered a CT of the chest. She will be started on Zithromax and ceftriaxone. We will monitor her on telemetry. We will continue IV fluids at 75 cc an hour and hold her home diuretics. The patient's medication reconciliation is pending. 04/21: The patient's sepsis is resolving. Her white blood cell count has come down to 12,000. Discussed the case with radiology and there was concerns for early aspiration pneumonia at the bases. In terms of her paroxysmal atrial fibrillation with RVR, her home diltiazem and metoprolol will be restarted. She will need to work with physical therapy and Occupational Therapy to assess disposition. 04/22: The patient states that she does have difficulty with swallowing at times but this is only occasional. She will be assessed by speech therapy and may be placed on a dysphagia diet. We will continue antibiotics at this time. PT will assess the patient to see if she can go back to her facility or if she will need to go to a care home home. 04/23: The patient remains afebrile and her vital signs remained stable. She is feeling and doing much better. She is completed 3 days of IV antibiotics of ceftriaxone and Zithromax will be switched to 2 additional days of Augmentin. He will be discharged home with home health. It may be beneficial to have the patient continue to work with speech therapy for possible dysphagia. Discharge diagnosis: Aspiration PNA, AF w/ RVR, Sepsis Time Spent with Patient Time attestation: Total time spent providing and/or coordinating discharge services: Time spent: Greater than 30 minutes EXAM Constitutional Vitals: Temp Pulse Resp BP Pulse Ox O2 Del Method O2 Flow Rate 98.7 F 80 20 117/58 94 3 04/23/22 08:00 04/23/22 08:00 04/23/22 08:00 04/23/22 08:00 04/23/22 08:00 04/23/22 08:00 04/23/22 08:00 General appearance: average body habitus Head Head exam: Present atraumatic, normal inspection and normocephalic Eye Eye exam: Present EOMI, normal appearance and PERRL; Absent conjunctival injection ENT ENT exam: Present normal exam; Absent mucous membranes dry Neck Neck exam: Present full ROM; Absent lymphadenopathy Respiratory Respiratory exam: Present normal respiratory exam and CTAB; Absent decreased breath sounds, respiratory distress or wheezes Cardiovascular Cardiovascular exam: Present normal rate and rhythm and RRR; Absent JVD GI/Abdominal GI/Abdominal exam: Present normal bowel sounds and soft; Absent diminished bowel sounds, distended, guarding, mass, rebound or tenderness Neurological Exam Neurological exam: Present alert, CN II-XII intact and oriented X3 Psychiatric Psychiatric exam: Present normal affect and normal mood Skin Skin exam: Present intact and warm; Absent erythema, pallor, petechiae or rash Discharge Data Data Completed and Pending Labs on day of discharge: Labs from last 24 hours 08/09/22 08/09/22 05:44 05:00 WBC 12.2 H RBC 4.40 Hgb 12.9 Hct 41.2 MCV 93.6 MCH 29.3 MCHC 31.3 RDW 16.2 H Plt Count 194 MPV 11.8 H Immature Gran % (Auto) 0.3 Neut % (Auto) 71.1 Lymph % (Auto) 19.1 [place] % (Auto) 7.1 Eos % (Auto) 2.1 Baso % (Auto) 0.3 Lymph # (Auto) 2.33 [place] # (Auto) 0.87 Eos # (Auto) 0.26 Baso # (Auto) 0.04 Immature Gran # 0.04 Absolute Neutrophils 8.68 H Sodium 141 Potassium 3.7 Chloride 101 Carbon Dioxide 32 H Anion Gap 8.0 BUN 10 Creatinine 0.6 GFR Calculation 91 Glucose 156 H Calcium 9.4 Preliminary micro results at discharge 04/20/22 15:34 Blood Culture - Preliminary Blood 04/20/22 15:25 Blood Culture - Preliminary Blood Discharge Plan Patient/Caregiver Discharge Instructions Activity: increase activity as tolerated Diet: Regular Diet Instructions: Aspiration Pneumonia (DC) Prescriptions: New amoxicillin-pot clavulanate 875-125 mg tablet 1 tab PO BID 2 Days Qty: 4 0RF Continued Eliquis 5 mg tablet 5 mg PO BID 90 Days Qty: 180 4RF losartan 25 mg tablet See Rx Instructions .ROUTE .COMPLEX Qty: 90 3RF Dose Instruction: TAKE ONE TABLET BY MOUTH ONCE DAILY Rx Instructions: TAKE ONE TABLET BY MOUTH ONCE DAILY Restasis 0.05 % dropperette 1 drp OPHTHALMIC (EYE) QHS Qty: 60 6RF metoprolol tartrate [Lopressor] 50 mg tablet 50 mg PO BID Qty: 180 1RF Rx Instructions: Take one tab BID. atorvastatin 20 mg tablet 20 mg PO HS Qty: 90 1RF gabapentin 300 mg capsule See Rx Instructions .ROUTE .COMPLEX Qty: 540 1RF Dose Instruction: TAKE TWO CAPSULES BY MOUTH THREE TIMES DAILY Rx Instructions: TAKE TWO CAPSULES BY MOUTH THREE TIMES DAILY famotidine 40 mg tablet 40 mg PO QDAY PRN (Reason: heartburn) Qty: 90 1RF levothyroxine 50 mcg tablet 50 mcg PO .COMPLEX Qty: 24 3RF Rx Instructions: 50 mcg PO on sat and sun with 100mcg; semaglutide 1 mg/dose (4 mg/3 mL) pen injector 1 mg subcut QWEEK Qty: 3 2RF allopurinol 300 mg tablet See Rx Instructions .ROUTE .COMPLEX Qty: 90 1RF Dose Instruction: TAKE ONE TABLET BY MOUTH ONCE DAILY Rx Instructions: TAKE ONE TABLET BY MOUTH ONCE DAILY levothyroxine 100 mcg tablet 100 mcg PO QDAY Qty: 90 1RF Rx Instructions: 100mcg m-f, 150mcg sat and sun (DME) FreeStyle Hector 2 Sensor Kit See Rx Instructions .Route Qty: 1 0RF Rx Instructions: use to test blood sugar once daily (DME) FreeStyle Hector 2 [place] Misc See Rx Instructions .Route Qty: 1 0RF Rx Instructions: use to test blood sugar once daily Basaglar KwikPen U-100 Insulin 100 unit/mL (3 mL) insulin pen 40 unit subcut QDAY Qty: 15 5RF montelukast 10 mg tablet 10 mg PO QPM Qty: 90 1RF Rx Instructions: 1 tablet in p.m. furosemide 80 mg tablet 80 mg PO BID Qty: 180 1RF Rx Instructions: Dose change potassium chloride 20 mEq tablet extended release 20 meq PO TID Qty: 270 3RF diltiazem HCl [Cartia XT] 120 mg capsule,extended release 24hr 120 mg PO DAILY Qty: 90 4RF Rx Instructions: 1 p.o. daily albuterol sulfate 90 mcg/actuation HFA aerosol inhaler 2 puff inhalation .Q4-6H PRN (Reason: Shortness of breath) Qty: 8.5 6RF Rx Instructions: Use albuterol every 4-6 hours and as needed mirtazapine 30 mg tablet 30 mg PO QDAY Qty: 90 1RF Rx Instructions: 1/2-1-hour prior to sleep nystatin 100,000 unit/gram Powder 10,000 applic TOPICAL PRN PRN (Reason: Rash) multivitamin Tablet 1 tab PO QDAY ascorbic acid (vitamin C) [Vitamin C] 1,000 mg Tablet 1 g PO QAM cetirizine 10 mg Tablet 5 mg PO QHS acetaminophen [Acetaminophen Extra Strength] 500 mg Tablet 1,000 mg PO Q6H PRN (Reason: Pain) calcium carbonate [Calcium 600] 600 mg calcium (1,500 mg) Tablet 600 mg PO HS fluticasone propionate [Aller-Robbi] 50 mcg/actuation [place],Suspension 2 spray INTRANASAL PRN PRN (Reason: Allergy Symptoms) Rx Instructions: Each Nostril cinnamon bark [Cinnamon] 500 mg Capsule 500 mg PO QAM Rx Instructions: CinSulin cholecalciferol (vitamin D3) [Vitamin D3] 125 mcg (5,000 unit) Tablet 125 mcg PO QHS coQ10 (ubiquinol) 200 mg Capsule 200 mg PO QHS diclofenac sodium [Voltaren Arthritis Pain] 1 % gel 2 g topical PRN PRN (Reason: pain) Rx Instructions: apply to single elbow, wrist or hand; for hand includes palm/fingers/back of hand Discontinued nitrofurantoin monohyd/m-cryst [Macrobid] 100 mg capsule 100 mg PO Q12H 3 Days Qty: 6 0RF Rx Instructions: must administer with a meal/food Follow Up Plan Follow up with: Adán Briones MD [Primary Care Provider] - Patient Disposition: Home Health Service Rehab Potential: Good I certify that the patient requires SNF services: No Overall status at discharge: patient is progressing back to baseline Discharge Orders: Discharge Order (Routine); Ordered 04/23/22 Ordered By: Halima ROCHA VTE Deep Vein Thrombosis/Pulmonary Embolism Present on Admission: No
== END 2022-04-23 13:50 | disposition home health service (06) | DRG 871 ==
LOC: ED 14:59 → MEDSUR 19:21
PROVIDERS: ADMIT Student in an Organized Health Care Education/Training Program; ATTEND Student in an Organized Health Care Education/Training Program

== ENCOUNTER 2022-12-25 10:22 | Inpatient (IN) ==
[2022-12-25] MEDS ORDERED: IOPAMIDOL 100 ML BOTTLE IV ONE (10:23)
--- NOTE | 2022-12-25 10:31 | Emergency Department Note ---
Weakness HPI General Chief complaint: Weakness Stated complaint: weakness, diarrhea x 4 days Time Seen by Provider: 12/25/22 10:30 Source: patient and EMS Mode of arrival: EMS Limitations: no limitations and physical limitation History of Present Illness HPI Narrative: Narrative: 72-year-old female presents to the ER with complaints of diarrhea of unknown origin for the past 3 to 4 days. She reports she has been taking Imodium and she is only had 1 bowel movement today. Her main concern is that he has not been able to clean herself with the diarrhea and now she has a significant localized rash that is painful and irritated. She reports it is draining yellow fluid and is to her entire perineal area and groin and under her pannus. She denies fever but has felt increased weakness. She is a diabetic with a history of atrial fibrillation. She notes due to her immobility from used to be able to use a front wheel walker but is no longer able to due to her weakness. MD Complaint: generalized weakness, lack of energy and difficulty walking Related Data Home Medications Medication Instructions Recorded Confirmed nystatin 100,000 unit/gram topical 10,000 applic topical PRN PRN Rash 03/17/20 11/06/22 powder acetaminophen 500 mg tablet 1,000 mg PO Q6H PRN Pain 09/29/20 11/06/22 (Acetaminophen Extra Strength) ascorbic acid (vitamin C) 1,000 mg 1 g PO QAM 09/29/20 11/06/22 tablet (Vitamin C) calcium carbonate 600 mg calcium 600 mg PO HS 09/29/20 11/06/22 (1,500 mg) tablet (Calcium) cetirizine 10 mg tablet 5 mg PO QHS 09/29/20 11/06/22 cholecalciferol (vitamin D3) 125 125 mcg PO QHS 09/29/20 11/06/22 mcg (5,000 unit) tablet (Vitamin D3) cinnamon bark 500 mg capsule 500 mg PO QAM 09/29/20 11/06/22 (Cinnamon) coQ10 (ubiquinol) 200 mg capsule 200 mg PO QHS 09/29/20 11/06/22 fluticasone propionate 50 2 spray intranasal PRN PRN Allergy 09/29/20 11/06/22 mcg/actuation nasal Symptoms spray,suspension (Aller-Robbi) multivitamin 1 tab PO QDAY 09/29/20 11/06/22 Previous Rx's Medication Instructions Recorded albuterol sulfate 90 mcg/actuation 2 puff inhalation .Q4-6H PRN 06/27/21 aerosol inhaler Shortness of breath #8.5 grams cyclosporine 0.05 % eye drops in a 1 drp ophthalmic (eye) QHS #60 ea 07/23/21 dropperette (Restasis) famotidine 40 mg tablet 40 mg PO QDAY PRN heartburn #90 12/19/21 tabs levothyroxine 50 mcg tablet 50 mcg PO .COMPLEX #24 tabs 01/04/22 flash glucose scanning reader #1 ea 04/09/22 (FreeStyle Hector 2 [place]) flash glucose sensor (FreeStyle #1 ea 04/09/22 Hector 2 Sensor kit) insulin glargine 100 unit/mL (3 40 unit (0.4 mL) subcut QDAY #15 mL 04/19/22 mL) subcutaneous pen (Basaglar KwikPen U-100 Insulin) apixaban 5 mg tablet (Eliquis) 5 mg PO BID 90 days #180 tabs 05/02/22 potassium chloride 20 mEq 20 meq PO TID #270 tabs 05/07/22 tablet,extended release blood sugar diagnostic (Blood #100 ea 05/16/22 Glucose Test strips) gabapentin 300 mg capsule See Rx Instructions .Route 07/02/22 .COMPLEX #540 caps mirtazapine 30 mg tablet 30 mg PO QDAY Insomnia #90 tabs 07/02/22 semaglutide 1 mg/dose (4 mg/3 mL) 1 mg (0.75 mL) subcut QWEEK #3 mL 07/30/22 subcutaneous pen injector metolazone 5 mg tablet 5 mg PO QDAY #3 tabs 09/27/22 allopurinol 300 mg tablet See Rx Instructions .Route 10/01/22 .COMPLEX #90 tabs losartan 25 mg tablet See Rx Instructions .Route 10/01/22 .COMPLEX #90 tabs montelukast 10 mg tablet 10 mg PO QPM Cough #90 tabs 10/01/22 furosemide 80 mg tablet 80 mg PO BID Edema #180 tabs 10/23/22 levothyroxine 100 mcg tablet 100 mcg PO QDAY #90 tabs 10/23/22 atorvastatin 20 mg tablet 20 mg PO HS #90 tabs 11/08/22 diltiazem HCl 120 mg 120 mg PO DAILY afib #90 caps 11/08/22 capsule,extended release 24 hr (Cartia XT) metoprolol tartrate 50 mg tablet 50 mg PO BID tyachycardia #180 tabs 11/08/22 (Lopressor) nirmatrelvir 150 mg-ritonavir 100 See Rx Instructions PO PER PKG DIR 11/22/22 mg tablets in a dose pack (EUA) #20 tabs (Paxlovid) nystatin 100,000 unit/gram topical See Rx Instructions topical BID 12/13/22 cream #30 grams nystatin 100,000 unit/gram topical See Rx Instructions topical BID 12/13/22 powder #30 grams Allergies Allergy/AdvReac Type Severity Reaction Status Date / Time metformin AdvReac Mild Diarrhea Verified 12/25/22 10:28 morphine AdvReac Mild Hallucinati Verified 12/25/22 10:28 ng paper tape Allergy Intermediate Hives Uncoded 11/06/22 14:07 Review of Systems ROS ROS Narrative: Narrative: Constitutional: Reports as per HPI; Denies fever, chills or sweats Cardiovascular: Denies chest pain, palpitations or syncope Respiratory: Reports shortness of breath and other (Chronic shortness of breath. No new symptoms.) PFSH Narrative Patient History Narrative: Narrative: Medical/Surgical/Family History All Active Problems (Updated 12/25/22 @ 15:06 by Halima Dugan MD) Atrial fibrillation with RVR (Acute) Sepsis (Acute) Acute hyperkalemia (Acute) Asthma (Chronic) Gout (Chronic) Congestive heart failure (Chronic) High blood pressure (Chronic) Joint pain (Chronic) Thyroid trouble (Chronic) Morbid obesity with BMI of 50.0-59.9, adult (Chronic) Chronic left shoulder pain (Acute) Diabetes mellitus type 2 in obese (Chronic) Impingement syndrome of left shoulder (Acute) skilled nursing current use of anticoagulant therapy (Acute) Insomnia (Chronic) Hypoxia (Chronic) Factor 5 Leiden mutation, heterozygous (Chronic) Hypothyroid (Chronic) Paroxysmal atrial fibrillation (Chronic) Physical deconditioning (Chronic) Pulmonary hypertension (Chronic) Medicare annual wellness visit, initial (Acute) Obesity hypoventilation syndrome (Chronic) Chronic headaches (Chronic) Pneumonia (Acute) Sepsis due to pneumonia (Acute) 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 Gout High blood pressure History of Wong's palsy Hypothyroid Impingement syndrome of left shoulder Insomnia Joint pain Left ankle pain Left shoulder pain Lower extremity cellulitis Medicare annual wellness visit, initial Mixed restrictive and obstructive lung disease Obesity hypoventilation syndrome Obstructive sleep apnea Paroxysmal atrial fibrillation Physical deconditioning Pulmonary hypertension Swelling of lower extremity Thyroid trouble Type 2 diabetes mellitus Surgical History History of appendectomy History of cholecystectomy History of hernia repair Ventral History of hip replacement History of hysterectomy History of knee surgery (~1967) Knee arthroscopy with medial meniscectomy History of oophorectomy History of removal of ovarian cyst History of surgery 10/04/2020-wide excision of mass of abdominal wall History of surgery 01/17/2021-wide surgical debridement of abscess of anterior abdominal wall Family History Mother Arthritis Brother Diabetes Father Heart attack Social History Smoking Status: Never smoker Alcohol Intake Frequency: does not drink Substance Use: does not use Exam Narrative Narrative: Narrative: General Limitations: no limitations and physical limitation General appearance: Present alert, in no apparent distress and obese (Morbidly obese) Head Head: Present atraumatic, normocephalic and normal inspection Eye Eye: Present normal appearance; Absent scleral icterus or conjunctival injection Respiratory Respiratory: Present normal lung sounds bilaterally; Absent respiratory distress or rales/crackles Cardiovascular Cardiovascular: Present irregular rhythm (Irregular rhythm, regular rate) and normal heart sounds Adbominal Abdominal: Present soft, tenderness (Localized superficial tenderness only to skin.) and normal bowel sounds; Absent distention Neurological Neurological: Present alert and oriented X3 Psychiatric Psychiatric: Present normal affect and normal mood Expanded Skin Type of lesion: Present rash Distribution: abdomen (Pannus), genitals, LUE and RLE Description: Present tenderness, erythematous, confluent and crusting Course Vital Signs Vital signs: Vital Signs Oxygen Delivery Method Nasal Cannula 12/25/22 10:23 Oxygen Flow Rate (L/min) 4 12/25/22 10:23 Pulse Rate 133 H 12/25/22 12:11 Respiratory Rate 12 12/25/22 14:20 Blood Pressure 97/78 12/25/22 14:20 Pulse Oximetry (%) 98 12/25/22 12:11 Oxygen Delivery Method Nasal Cannula 12/25/22 10:23 Oxygen Flow Rate (L/min) 4 12/25/22 10:23 MDM MDM Narrative Medical decision making narrative: Narrative: Clinical considerations include but not limited to sepsis, cellulitis, candidiasis. On arrival IV is started and CBC, CMP, lactate, Pro- Pato, blood cultures, EKG, magnesium are pending. She is given a liter of fluid. Suspect she has a candidiasis and candidiasis but we are awaiting results to see if she also has a localized cellulitis. Approximately 1105 she is given a gram of ceftriaxone. She is diagnosed with sepsis as her lactate is elevated. She is also found to have a significant hyperkalemia. Patient has persistent hypotension in addition to tachypnea. She was significantly tachycardic on arrival with her A-fib with RVR but her pulse is now significantly improved without intervention except for IV fluids. She will be admitted at this time. She is diagnosed with sepsis, cellulitis and candidiasis. Spoke with hospitalist at approximately 1400 and he verbally excepted patient to admission status. Sepsis Sepsis Identified: Yes Time Zero: 1157 Lab Data 12/25/22 11:05 12/25/22 11:05 Labs: Lab Results 12/25/22 12/25/22 12/25/22 Range/Units 11:05 11:05 11:52 WBC 13.7 H (4.5-11.0) K/mcL RBC 5.38 (3.59-5.38) M/mcL Hgb 14.8 (11.2-15.7) g/dL Hct 48.8 H (34.1-44.9) % POC Hct (36-48) MCV 90.7 (80.0-100.0) fL MCH 27.5 (26.0-34.0) pg MCHC 30.3 L (31.0-36.0) g/dL RDW 19.1 H (11.5-14.5) % Plt Count 240 (140-440) K/mcL MPV 11.4 (8.8-12.5) fL Immature Gran % (Auto) 0.5 (0.0-0.5) % Neut % (Auto) 80.0 H (38.0-78.0) % Lymph % (Auto) 12.5 L (15.5-49.0) % [place] % (Auto) 6.6 (1.0-12.0) % Eos % (Auto) 0.2 (0.0-7.0) % Baso % (Auto) 0.2 (0.0-2.0) % Lymph # (Auto) 1.71 (1.50-4.80) K/mcL [place] # (Auto) 0.91 H (0.10-0.90) K/mcL Eos # (Auto) 0.03 (0.00-0.70) K/mcL Baso # (Auto) 0.03 (0.00-0.30) K/mcL Immature Gran # 0.07 H (0.00-0.05) K/mcl Absolute Neutrophils 10.94 H (1.80-8.00) K/mcL POC VBG pH (7.32-7.42) POC VBG pCO2 at Temp (41-51) POC VBG pO2 (25-40) POC VBG HCO3 (24-28) POC VBG Total CO2 (25-29) POC Venous O2 Sat (40-70) POC VBG Base Excess (-2-2) VBG Lactic Acid (0.5-2) POC Sodium (133-145) Sodium 131 L (133-145) mmol/L POC Potassium (3.3-5.1) Potassium 5.7 H (3.3-5.1) mmol/L POC Chloride (96-108) Chloride 94 L (96-108) mmol/L Carbon Dioxide 23 (22-30) mmol/L POC Total CO2 (22-30) Anion Gap 14.0 (8.0-16.0) POC BUN (6-20) BUN 37 H (8-23) mg/dL Creatinine 1.4 H (0.6-1.1) mg/dL POC Creatinine (0.6-1.2) GFR Calculation 37 Glucose 182 H (70-105) mg/dL POC Glucose (70-105) Calcium 9.2 (8.6-10.4) mg/dL POC WB Ioniz Calcium (1.16-1.32) Magnesium 2.5 (1.6-2.5) mg/dL Total Bilirubin 0.8 (0.1-1.0) mg/dL AST 17 (<32) U/L ALT 22 (<40) U/L Alkaline Phosphatase 92 (39-117) U/L Total Protein 6.5 (5.9-8.4) gm/dL Albumin 3.3 (3.2-5.2) gm/dL Globulin 3.2 (2.2-3.7) gm/dL Albumin/Globulin Ratio 1.0 (1.0-2.3) Procalcitonin 0.08 (<0.10) ng/mL 12/25/22 12/25/22 Range/Units 11:54 11:58 WBC (4.5-11.0) K/mcL RBC (3.59-5.38) M/mcL Hgb (11.2-15.7) g/dL Hct (34.1-44.9) % POC Hct 52.0 H (36-48) MCV (80.0-100.0) fL MCH (26.0-34.0) pg MCHC (31.0-36.0) g/dL RDW (11.5-14.5) % Plt Count (140-440) K/mcL MPV (8.8-12.5) fL Immature Gran % (Auto) (0.0-0.5) % Neut % (Auto) (38.0-78.0) % Lymph % (Auto) (15.5-49.0) % [place] % (Auto) (1.0-12.0) % Eos % (Auto) (0.0-7.0) % Baso % (Auto) (0.0-2.0) % Lymph # (Auto) (1.50-4.80) K/mcL [place] # (Auto) (0.10-0.90) K/mcL Eos # (Auto) (0.00-0.70) K/mcL Baso # (Auto) (0.00-0.30) K/mcL Immature Gran # (0.00-0.05) K/mcl Absolute Neutrophils (1.80-8.00) K/mcL POC VBG pH 7.44 H (7.32-7.42) POC VBG pCO2 at Temp 35.2 L (41-51) POC VBG pO2 43 H (25-40) POC VBG HCO3 23.6 L (24-28) POC VBG Total CO2 25.0 (25-29) POC Venous O2 Sat 80.0 H (40-70) POC VBG Base Excess -1.0 (-2-2) VBG Lactic Acid 2.4 H (0.5-2) POC Sodium 129 L (133-145) Sodium (133-145) mmol/L POC Potassium 6.5 H* (3.3-5.1) Potassium (3.3-5.1) mmol/L POC Chloride 103 (96-108) Chloride (96-108) mmol/L Carbon Dioxide (22-30) mmol/L POC Total CO2 22.0 (22-30) Anion Gap (8.0-16.0) POC BUN 52 H (6-20) BUN (8-23) mg/dL Creatinine (0.6-1.1) mg/dL POC Creatinine 1.5 H (0.6-1.2) GFR Calculation Glucose (70-105) mg/dL POC Glucose 191 H (70-105) Calcium (8.6-10.4) mg/dL POC WB Ioniz Calcium 0.91 L (1.16-1.32) Magnesium (1.6-2.5) mg/dL Total Bilirubin (0.1-1.0) mg/dL AST (<32) U/L ALT (<40) U/L Alkaline Phosphatase (39-117) U/L Total Protein (5.9-8.4) gm/dL Albumin (3.2-5.2) gm/dL Globulin (2.2-3.7) gm/dL Albumin/Globulin Ratio (1.0-2.3) Procalcitonin (<0.10) ng/mL EKG Data EKG #1: EKG attestation: Yes I reviewed and interpreted this EKG. EKG results narrative: EKG reveals A-fib with RVR. Nonspecific T waves. Discharge Plan Patient/Caregiver Discharge Instructions Pt seen by TRAINING DIRECTOR/PA only: Yes Clinical Impression: Sepsis, Cellulitis, Acute hyperkalemia Patient Disposition: Xfer As Inpt ([facility]) Condition: Serious Follow up with: Adán Briones MD [Primary Care Provider] - Prescriptions: No Action Restasis 0.05 % dropperette 1 drp OPHTHALMIC (EYE) QHS Qty: 60 6RF famotidine 40 mg tablet 40 mg PO QDAY PRN (Reason: heartburn) Qty: 90 1RF levothyroxine 50 mcg tablet 50 mcg PO .COMPLEX Qty: 24 3RF Rx Instructions: 50 mcg PO on sat and sun with 100mcg; (DME) FreeStyle Hector 2 Sensor Kit See Rx Instructions .Route Qty: 1 0RF Rx Instructions: use to test blood sugar once daily (DME) FreeStyle Hector 2 [place] Misc See Rx Instructions .Route Qty: 1 0RF Rx Instructions: use to test blood sugar once daily Basaglar KwikPen U-100 Insulin 100 unit/mL (3 mL) insulin pen 40 unit subcut QDAY Qty: 15 5RF Eliquis 5 mg tablet 5 mg PO BID 90 Days Qty: 180 1RF potassium chloride 20 mEq tablet extended release 20 meq PO TID Qty: 270 3RF (DME) Blood Glucose Test Strip See Rx Instructions .ROUTE .MEDSUPPLY Qty: 100 3RF Rx Instructions: use to test blood sugar once daily mirtazapine 30 mg tablet 30 mg PO QDAY Qty: 90 1RF Rx Instructions: 1/2-1-hour prior to sleep gabapentin 300 mg capsule See Rx Instructions .ROUTE .COMPLEX Qty: 540 1RF Dose Instruction: TAKE TWO CAPSULES BY MOUTH THREE TIMES DAILY Rx Instructions: TAKE TWO CAPSULES BY MOUTH THREE TIMES DAILY semaglutide 1 mg/dose (4 mg/3 mL) pen injector 1 mg subcut QWEEK Qty: 3 2RF losartan 25 mg tablet See Rx Instructions .ROUTE .COMPLEX Qty: 90 1RF Dose Instruction: TAKE ONE TABLET BY MOUTH ONCE DAILY Rx Instructions: TAKE ONE TABLET BY MOUTH ONCE DAILY allopurinol 300 mg tablet See Rx Instructions .ROUTE .COMPLEX Qty: 90 1RF Dose Instruction: TAKE ONE TABLET BY MOUTH ONCE DAILY Rx Instructions: TAKE ONE TABLET BY MOUTH ONCE DAILY montelukast 10 mg tablet 10 mg PO QPM Qty: 90 1RF Rx Instructions: 1 tablet in p.m. furosemide 80 mg tablet 80 mg PO BID Qty: 180 1RF Rx Instructions: Dose change levothyroxine 100 mcg tablet 100 mcg PO QDAY Qty: 90 1RF Rx Instructions: 100mcg m-f, 150mcg sat and sun atorvastatin 20 mg tablet 20 mg PO HS Qty: 90 3RF metoprolol tartrate [Lopressor] 50 mg tablet 50 mg PO BID Qty: 180 3RF Rx Instructions: Take one tab BID. diltiazem HCl [Cartia XT] 120 mg capsule,extended release 24hr 120 mg PO DAILY Qty: 90 3RF Rx Instructions: 1 p.o. daily Paxlovid (EUA) 150-100 mg tablets,dose pack See Rx Instructions PO PER PKG DIR Qty: 20 0RF Rx Instructions: PO PER PKG DIR nystatin 100,000 unit/gram powder See Rx Instructions topical BID Qty: 30 0RF Rx Instructions: Apply 1 application to front of thighs and pannus topically twice a day; nystatin 100,000 unit/gram cream See Rx Instructions topical BID Qty: 30 0RF Rx Instructions: Apply 1 application to back of thighs and top of buttocks topically twice a day; albuterol sulfate 90 mcg/actuation HFA aerosol inhaler 2 puff inhalation .Q4-6H PRN (Reason: Shortness of breath) Qty: 8.5 6RF Rx Instructions: Use albuterol every 4-6 hours and as needed nystatin 100,000 unit/gram Powder 10,000 applic TOPICAL PRN PRN (Reason: Rash) multivitamin Tablet 1 tab PO QDAY ascorbic acid (vitamin C) [Vitamin C] 1,000 mg Tablet 1 g PO QAM cetirizine 10 mg Tablet 5 mg PO QHS acetaminophen [Acetaminophen Extra Strength] 500 mg Tablet 1,000 mg PO Q6H PRN (Reason: Pain) calcium carbonate [Calcium 600] 600 mg calcium (1,500 mg) Tablet 600 mg PO HS fluticasone propionate [Aller-Robbi] 50 mcg/actuation [place],Suspension 2 spray INTRANASAL PRN PRN (Reason: Allergy Symptoms) Rx Instructions: Each Nostril cinnamon bark [Cinnamon] 500 mg Capsule 500 mg PO QAM Rx Instructions: CinSulin cholecalciferol (vitamin D3) [Vitamin D3] 125 mcg (5,000 unit) Tablet 125 mcg PO QHS coQ10 (ubiquinol) 200 mg Capsule 200 mg PO QHS metolazone 5 mg tablet 5 mg PO QDAY Qty: 3 0RF
[2022-12-25] MEDS ORDERED: 0.9 % SODIUM CHLORIDE 1,000 ML IV ONE ×2 (10:39→14:03)
[2022-12-25] MEDS ORDERED: cefTRIAXone 1 GM VIAL IV ONE (11:57)
[2022-12-25 12:03] LABS: POC Calcium, Ionized 0.91 (1.16-1.32); POC Creatinine 1.5 (0.6-1.2); POC Potassium 6.5 (3.3-5.1)
[2022-12-25 13:09] LABS: Basophils # (Auto) 0.03 K/mcL (0.00-0.30); Basophils % (Auto) 0.2 % (0.0-2.0); Eosinophils # (Auto) 0.03 K/mcL (0.00-0.70); Eosinophils % (Auto) 0.2 % (0.0-7.0); Hematocrit 48.8 % (34.1-44.9); Hemoglobin 14.8 g/dL (11.2-15.7); Lymphocytes # (Auto) 1.71 K/mcL (1.50-4.80); Lymphocytes % (Auto) 12.5 % (15.5-49.0); Mean Cell Volume 90.7 fL (80.0-100.0); Mean Corpuscular HGB Conc 30.3 g/dL (31.0-36.0); Mean Platelet Volume 11.4 fL (8.8-12.5); Monocytes # (Auto) 0.91 K/mcL (0.10-0.90); Monocytes % (Auto) 6.6 % (1.0-12.0); Platelet Count 240 K/mcL (140-440); RBC 5.38 M/mcL (3.59-5.38); Red Cell Distribution Width 19.1 % (11.5-14.5); WBC 13.7 K/mcL (4.5-11.0)
[2022-12-25 13:10] LABS: ALT/SGPT 22 U/L (<40); AST/SGOT 17 U/L (<32); Albumin 3.3 gm/dL (3.2-5.2); Alkaline Phosphatase 92 U/L (39-117); Bilirubin,Total 0.8 mg/dL (0.1-1.0); Blood Urea Nitrogen 37 mg/dL (8-23); Calcium 9.2 mg/dL (8.6-10.4); Carbon Dioxide 23 mmol/L (22-30); Chloride 94 mmol/L (96-108); Globulin 3.2 gm/dL (2.2-3.7); Glomerular Filtration Rate 37; Glucose 182 mg/dL (70-105)
--- NOTE | 2022-12-25 15:07 | Internal Med History&Physical ---
HPI History of Present Illness Patient information: Note initiated : 12/25/22 at 3:00 pm Service Date, if different from initiated Date: [] Patient: Rahel Grover 72 y/o F admitted on for weakness, diarrhea x 4 days. Chief Complaint: [Diarrhea, skin irritation] Chief complaint: Failure to thrive History of present illness: Ms. Grover is a 72 year old morbidly obese female with a complex past medical history significant for congestive heart failure, atrial fibrillation on Eliquis, insulin-dependent diabetes mellitus, and multiple prior hospitalizations who presents to the hospital with complaints of diarrhea result ing in perineal and lower extremity skin irritation. The patient is bedbound and lives alone. She states that she does not have caregivers at home. She takes her medications via blister pack or pill pack. She is on multiple antihypertensive medications including losartan, metolazone, metoprolol, and Lasix. She denies any fevers, chills, shortness of breath, or abdominal pain. She states that she came to the ER because the pain around her perineum was quite severe and she was worried about a possible skin infection. On arrival she was hemodynamically tenuous as she was tachycardic with a heart rate in the 120s and a blood pressure systolic in the 90s. Her white blood cell count was elevated at 13,000. She was found to have a potassium of 6.5 and a creatinine of 1.4. The hospital service was asked to admit the patient for further management and evaluation of her suspected sepsis and tachyarrhythmia. Review of Systems All systems: reviewed and no additional remarkable complaints except as stated Constitutional Constitutional: Present as per HPI EENT Eyes: Present as per HPI; Absent blurry vision Cardiovascular Cardiovascular: Present as per HPI; Absent chest pain, dyspnea, dyspnea on exertion, leg edema or palpatations Respiratory Respiratory: Present as per HPI; Absent cough, dyspnea, dyspnea on exertion, wheezing or stridor Gastrointestinal Gastrointestinal: Present as per HPI; Absent abdominal pain, diarrhea, dysphagia, hematemesis, melena, nausea or vomiting Musculoskeletal Musculoskeletal: Present as per HPI; Absent joint swelling, limited range of motion, muscle cramps, muscle weakness or myalgias Integumentary Integumentary: Present as per HPI; Absent erythema, new lesions, rash or wounds Neurological Neurological: Present as per HPI; Absent abnormal gait, behavioral changes, focal weakness, headache(s), loss of vision, numbness, sensory deficit or syncope Endocrine Endocrine: Absent change in body appearance, fatigue or heat intolerance Hematologic/Lymphatic Hematologic/Lymphatic: Present as per HPI PFSH PFSH All Active Problems (Updated 12/25/22 @ 15:06 by Halima Dugan MD) Atrial fibrillation with RVR (Acute) Sepsis (Acute) Acute hyperkalemia (Acute) Asthma (Chronic) Gout (Chronic) Congestive heart failure (Chronic) High blood pressure (Chronic) Joint pain (Chronic) Thyroid trouble (Chronic) Morbid obesity with BMI of 50.0-59.9, adult (Chronic) Chronic left shoulder pain (Acute) Diabetes mellitus type 2 in obese (Chronic) Impingement syndrome of left shoulder (Acute) 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 use of anticoagulant therapy (Acute) Insomnia (Chronic) Hypoxia (Chronic) Factor 5 Leiden mutation, heterozygous (Chronic) Hypothyroid (Chronic) Paroxysmal atrial fibrillation (Chronic) Physical deconditioning (Chronic) Pulmonary hypertension (Chronic) Medicare annual wellness visit, initial (Acute) Obesity hypoventilation syndrome (Chronic) Chronic headaches (Chronic) Pneumonia (Acute) Sepsis due to pneumonia (Acute) 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 Gout High blood pressure History of Wong's palsy Hypothyroid Impingement syndrome of left shoulder Insomnia Joint pain Left ankle pain Left shoulder pain Lower extremity cellulitis Medicare annual wellness visit, initial Mixed restrictive and obstructive lung disease Obesity hypoventilation syndrome Obstructive sleep apnea Paroxysmal atrial fibrillation Physical deconditioning Pulmonary hypertension Swelling of lower extremity Thyroid trouble Type 2 diabetes mellitus Surgical History History of appendectomy History of cholecystectomy History of hernia repair Ventral History of hip replacement History of hysterectomy History of knee surgery (~1967) Knee arthroscopy with medial meniscectomy History of oophorectomy History of removal of ovarian cyst History of surgery 10/04/2020-wide excision of mass of abdominal wall History of surgery 01/17/2021-wide surgical debridement of abscess of anterior abdominal wall Family History Mother Arthritis Brother Diabetes Father Heart attack Social History marital status: occupational status: retired smoking status: Never smoker alcohol intake frequency: does not drink substance use type: does not use MEDS/ALLERGIES Home Medications and Allergies Home Medications Medication Instructions Recorded Confirmed Type nystatin 100,000 unit/gram topical 10,000 applic topical PRN PRN Rash 03/17/20 11/06/22 History powder acetaminophen 500 mg tablet 1,000 mg PO Q6H PRN Pain 09/29/20 11/06/22 History (Acetaminophen Extra Strength) ascorbic acid (vitamin C) 1,000 mg 1 g PO QAM 09/29/20 11/06/22 History tablet (Vitamin C) calcium carbonate 600 mg calcium 600 mg PO HS 09/29/20 11/06/22 History (1,500 mg) tablet (Calcium) cetirizine 10 mg tablet 5 mg PO QHS 09/29/20 11/06/22 History cholecalciferol (vitamin D3) 125 125 mcg PO QHS 09/29/20 11/06/22 History mcg (5,000 unit) tablet (Vitamin D3) cinnamon bark 500 mg capsule 500 mg PO QAM 09/29/20 11/06/22 History (Cinnamon) coQ10 (ubiquinol) 200 mg capsule 200 mg PO QHS 09/29/20 11/06/22 History fluticasone propionate 50 2 spray intranasal PRN PRN Allergy 09/29/20 11/06/22 History mcg/actuation nasal Symptoms spray,suspension (Aller-Robbi) multivitamin 1 tab PO QDAY 09/29/20 11/06/22 History albuterol sulfate 90 mcg/actuation 2 puff inhalation .Q4-6H PRN 06/27/21 11/06/22 Rx aerosol inhaler Shortness of breath #8.5 grams cyclosporine 0.05 % eye drops in a 1 drp ophthalmic (eye) QHS #60 ea 07/23/21 11/06/22 Rx dropperette (Restasis) famotidine 40 mg tablet 40 mg PO QDAY PRN heartburn #90 12/19/21 11/06/22 Rx tabs levothyroxine 50 mcg tablet 50 mcg PO .COMPLEX #24 tabs 01/04/22 11/06/22 Rx flash glucose scanning reader #1 ea 04/09/22 11/06/22 Rx (FreeStyle Hector 2 [place]) flash glucose sensor (FreeStyle #1 ea 04/09/22 11/06/22 Rx Hector 2 Sensor kit) insulin glargine 100 unit/mL (3 40 unit (0.4 mL) subcut QDAY #15 mL 04/19/22 11/06/22 Rx mL) subcutaneous pen (Basaglar KwikPen U-100 Insulin) apixaban 5 mg tablet (Eliquis) 5 mg PO BID 90 days #180 tabs 05/02/22 11/06/22 Rx potassium chloride 20 mEq 20 meq PO TID #270 tabs 05/07/22 11/06/22 Rx tablet,extended release blood sugar diagnostic (Blood #100 ea 05/16/22 11/06/22 Rx Glucose Test strips) gabapentin 300 mg capsule See Rx Instructions .Route 07/02/22 11/06/22 Rx .COMPLEX #540 caps mirtazapine 30 mg tablet 30 mg PO QDAY Insomnia #90 tabs 07/02/22 11/06/22 Rx semaglutide 1 mg/dose (4 mg/3 mL) 1 mg (0.75 mL) subcut QWEEK #3 mL 07/30/22 11/06/22 Rx subcutaneous pen injector metolazone 5 mg tablet 5 mg PO QDAY #3 tabs 09/27/22 11/06/22 Rx allopurinol 300 mg tablet See Rx Instructions .Route 10/01/22 11/06/22 Rx .COMPLEX #90 tabs losartan 25 mg tablet See Rx Instructions .Route 10/01/22 11/06/22 Rx .COMPLEX #90 tabs montelukast 10 mg tablet 10 mg PO QPM Cough #90 tabs 10/01/22 11/06/22 Rx furosemide 80 mg tablet 80 mg PO BID Edema #180 tabs 10/23/22 11/06/22 Rx levothyroxine 100 mcg tablet 100 mcg PO QDAY #90 tabs 10/23/22 11/06/22 Rx atorvastatin 20 mg tablet 20 mg PO HS #90 tabs 11/08/22 Rx diltiazem HCl 120 mg 120 mg PO DAILY afib #90 caps 11/08/22 Rx capsule,extended release 24 hr (Cartia XT) metoprolol tartrate 50 mg tablet 50 mg PO BID tyachycardia #180 tabs 11/08/22 Rx (Lopressor) nirmatrelvir 150 mg-ritonavir 100 See Rx Instructions PO PER PKG DIR 11/22/22 Rx mg tablets in a dose pack (EUA) #20 tabs (Paxlovid) nystatin 100,000 unit/gram topical See Rx Instructions topical BID 12/13/22 Rx cream #30 grams nystatin 100,000 unit/gram topical See Rx Instructions topical BID 12/13/22 Rx powder #30 grams Allergies Allergy/AdvReac Type Severity Reaction Status Date / Time metformin AdvReac Mild Diarrhea Verified 12/25/22 10:28 morphine AdvReac Mild Hallucinati Verified 12/25/22 10:28 ng paper tape Allergy Intermediate Hives Uncoded 11/06/22 14:07 EXAM Constitutional Vitals: Pulse Resp BP Pulse Ox O2 Del Method O2 Flow Rate 133 H 12 97/78 98 Nasal Cannula 4 12/25/22 12:11 12/25/22 14:20 12/25/22 14:20 12/25/22 12:11 12/25/22 10:23 12/25/22 10:23 General appearance: disheveled and morbidly obese Head Head exam: Present atraumatic, normal inspection and normocephalic Eye Eye exam: Present EOMI, normal appearance and PERRL; Absent conjunctival injection ENT ENT exam: Present mucous membranes dry Expanded ENT Exam Teeth exam: Present dental caries and fractured tooth # Neck Neck exam: Present full ROM; Absent lymphadenopathy Respiratory Respiratory exam: Present normal respiratory exam and CTAB; Absent decreased breath sounds, respiratory distress or wheezes Cardiovascular Cardiovascular exam: Present irregular rhythm and tachycardia; Absent JVD GI/Abdominal GI/Abdominal exam: Present normal bowel sounds and soft; Absent diminished bowel sounds, distended, guarding, mass, rebound or tenderness Neurological Exam Neurological exam: Present alert, CN II-XII intact and oriented X3 Psychiatric Psychiatric exam: Present normal affect and normal mood Skin Skin exam: Present intact and warm; Absent erythema, pallor, petechiae or rash DATA Data Completed and Pending Labs: Labs from last 24 hours 12/25/22 12/25/22 12/25/22 14:57 11:58 11:54 WBC RBC Hgb Hct POC Hct 52.0 H MCV MCH MCHC RDW Plt Count MPV Immature Gran % (Auto) Neut % (Auto) Lymph % (Auto) [place] % (Auto) Eos % (Auto) Baso % (Auto) Lymph # (Auto) [place] # (Auto) Eos # (Auto) Baso # (Auto) Immature Gran # Absolute Neutrophils POC VBG pH 7.44 H POC VBG pCO2 at Temp 35.2 L POC VBG pO2 43 H POC VBG HCO3 23.6 L POC VBG Total CO2 25.0 POC Venous O2 Sat 80.0 H POC VBG Base Excess -1.0 VBG Lactic Acid 2.4 H POC Sodium 129 L Sodium Pending POC Potassium 6.5 H* Potassium Pending POC Chloride 103 Chloride Pending Carbon Dioxide Pending POC Total CO2 22.0 Anion Gap Pending POC BUN 52 H BUN Pending Creatinine Pending POC Creatinine 1.5 H GFR Calculation Pending Glucose Pending POC Glucose 191 H Calcium Pending POC WB Ioniz Calcium 0.91 L Magnesium Total Bilirubin AST ALT Alkaline Phosphatase Total Protein Albumin Globulin Albumin/Globulin Ratio Procalcitonin 12/25/22 12/25/22 12/25/22 11:52 11:05 11:05 WBC 13.7 H RBC 5.38 Hgb 14.8 Hct 48.8 H POC Hct MCV 90.7 MCH 27.5 MCHC 30.3 L RDW 19.1 H Plt Count 240 MPV 11.4 Immature Gran % (Auto) 0.5 Neut % (Auto) 80.0 H Lymph % (Auto) 12.5 L [place] % (Auto) 6.6 Eos % (Auto) 0.2 Baso % (Auto) 0.2 Lymph # (Auto) 1.71 [place] # (Auto) 0.91 H Eos # (Auto) 0.03 Baso # (Auto) 0.03 Immature Gran # 0.07 H Absolute Neutrophils 10.94 H POC VBG pH POC VBG pCO2 at Temp POC VBG pO2 POC VBG HCO3 POC VBG Total CO2 POC Venous O2 Sat POC VBG Base Excess VBG Lactic Acid POC Sodium Sodium 131 L POC Potassium Potassium 5.7 H POC Chloride Chloride 94 L Carbon Dioxide 23 POC Total CO2 Anion Gap 14.0 POC BUN BUN 37 H Creatinine 1.4 H POC Creatinine GFR Calculation 37 Glucose 182 H POC Glucose Calcium 9.2 POC WB Ioniz Calcium Magnesium 2.5 Total Bilirubin 0.8 AST 17 ALT 22 Alkaline Phosphatase 92 Total Protein 6.5 Albumin 3.3 Globulin 3.2 Albumin/Globulin Ratio 1.0 Procalcitonin 0.08 A/P Assessment and plan (1) Sepsis: Status: Acute (2) Acute hyperkalemia: Status: Acute (3) Congestive heart failure: Status: Chronic Qualifiers: Heart failure type: systolic Heart failure chronicity: acute Qualified Code(s): I50.21 - Acute systolic (congestive) heart failure (4) Diabetes mellitus type 2 in obese: Status: Chronic (5) Cellulitis: Status: Acute (6) Atrial fibrillation with RVR: Status: Acute (7) Pulmonary hypertension: Status: Chronic (8) Physical deconditioning: Status: Chronic Narrative A/P Narrative: In terms the patient's suspected sepsis, we will follow-up on her blood cultures and CT chest abdomen pelvis. She likely developed underlying bacterial/fungal infection involving her groin/perineum in the setting of diarrhea and having soiled herself for several days. We will start Zosyn and vancomycin. We will continue nystatin powder. In terms of her atrial fibrillation with RVR, we will cautiously give her diltiazem 30 mg p.o. 3 times daily. We will follow-up on BMP and if her BRADLEY and hyperkalemia improves, we can consider digoxin loading. Continue Eliquis for anticoagulation. She does have BRADLEY, hyperkalemia and is hypotensive. We will hold her long- acting diltiazem, Toprol-XL, losartan, metolazone and Lasix. We will hydrate her with IV fluids. Time Spent With Patient Time: Total time spent is greater than 50% in coordination of care (as documented) at patient's floor/unit and/or counseling patient: Subsequent: Total time with patient: 50 - 65 Minutes
[2022-12-25 16:16] LABS: Blood Urea Nitrogen 38 mg/dL (8-23); Calcium 8.6 mg/dL (8.6-10.4); Carbon Dioxide 24 mmol/L (22-30); Chloride 96 mmol/L (96-108); Glomerular Filtration Rate 37; Glucose 183 mg/dL (70-105)
--- NOTE | 2022-12-25 17:21 | Cat Scan Report ---
CLINICAL INFORMATION: Sepsis COMPARISON: Chest CT 04/21/[address] 09/03/2020 TECHNIQUE: Enteric contrast was utilized. 80 cc of Isovue-[id number] were injected intravenously, and 50 seconds later, 0.625 mm helical slices were obtained from the lung apices through the subtrochanteric regions of the femurs. Following reconstruction, 2.5 mm sagittal, coronal and axial reformatted images were processed and reviewed at multiple windows and levels. 7 mm MIP reconstructions were obtained through the lungs to optimize nodule detection.The exam was performed using radiation dose optimization techniques including, but not limited to, automated exposure control, adjustment of the mA and/or kV according to patient size and use of iterative reconstruction technique. FINDINGS: Pulmonary parenchymal windows show moderate right pleural effusion with subsegmental atelectasis in the adjacent posterior right lower lobe. The remaining lungs are clear.. Pleural spaces are unremarkable-no effusions. Mediastinal windows show the heart is is mildly enlarged.. Heavy calcific plaque present in the coronary arteries. The pulmonary arteries are normal diameter well-opacified without evidence of embolus. Thoracic aorta is also normal diameter and well-opacified. There is no adenopathy in the mediastinal, hilar or axillary regions. Esophagus is grossly normal. The thyroid is unremarkable. Abdominal images show the gallbladder is surgically absent. The intrahepatic and common bile ducts are normal caliber CBD is 6 mm. The liver is inhomogeneous but no focal hepatic lesions. 3-4 cysts present within the pancreatic neck and body ranging up to 18 mm which are unchanged. Both kidneys, adrenal glands, spleen and aorta including aortic branches are normal in size configuration and attenuation without focal lesion. There is no free air or intra-abdominal adenopathy. Pelvic images show bilateral hip prostheses obscuring the soft tissues. Hysterectomy oophorectomy changes noted. Urinary bladder grossly normal. Moderate ascites is present within the abdomen predominantly deep true pelvis. This is new from the previous study. Stomach small and large bowel are grossly normal. Mesh is in place treated anterior abdominal wall hernia with moderate protuberance of the mesenteric contents. Large amount of edema is seen in the deep Camper's fascia-particularly the flank regions. IMPRESSION: 1. Moderate ascites-new from the previous exam. Exact etiology is uncertain. Please correlate with LFTs and total protein ensure the absence of cirrhosis. Large amount of edema is also seen in the Camper's fascia bilaterally. 2. Moderate right pleural effusion with compressive atelectasis posterior right lower lobe. 3. Pancreatic cystic lesions-stable since 09/03/2020 Interpreted and Authenticated by: Ras Sylvester 12/25/22
[2022-12-25] MEDS ORDERED: DEXTROSE 50% 50 ML VIAL IV PRN (17:39)
[2022-12-25] MEDS ORDERED: DEXTROSE 31 GM ORAL.SUSP PO PRN (17:39)
[2022-12-25] MEDS: INSULIN LISPRO 1 UNIT/0.01 ML UNIT SQ SCH ×2 (17:58→21:01)
[2022-12-25] MEDS: PIPERACILLIN SODIUM/TAZOBACTAM 3.375 GM in DEXTROSE 5% IN WATER 50 ML IV SCH (18:29)
[2022-12-25] MEDS ORDERED: VANCOMYCIN 2,000 MG in 0.9 % SODIUM CHLORIDE 500 ML IV ONE (19:00)
[2022-12-25] MEDS: ACETAMINOPHEN 325 MG TABLET PO PRN (19:32)
[2022-12-25 19:34] LABS: Appearance,Urine CLOUDY (Clear); Bacteria,Urine FEW /hpf (0); Bilirubin,Urine Negative (Negative); Color,Urine Yellow; Culture Indicated,Urine yes; Glucose,Urine (UA) Negative (Negative); Ketones,Urine Negative (Negative); Leukocyte Esterase,Urine 75 /uL (Negative); Mucus,Urine MOD /hpf; Nitrate,Urine Negative (Negative); Protein,Urine Negative (Negative); Specific Gravity,Urine 1.029 (1.000-1.035); Urine Blood Negative (Negative); Urine Hyaline Cast 10 /lph (0-2); Urine RBC 1 /hpf (0-3); Urine Squamous Epithelial Cell 1 /hpf (0-4); Urine WBC 16 /hpf (0-4); Urobilinogen,Urine Negative
[2022-12-25] MEDS: INSULIN GLARGINE, HUMAN 1 UNIT/0.01 ML SQ SCH (21:00)
[2022-12-25] MEDS: ATORVASTATIN 20 MG TABLET PO SCH (21:00)
[2022-12-25] MEDS: APIXABAN 5 MG TABLET PO SCH (21:00)
[2022-12-25] MEDS: GABAPENTIN 300 MG CAPSULE PO SCH (21:00)
[2022-12-25] MEDS ORDERED: METOPROLOL TARTRATE 50 MG TABLET PO SCH (21:00)
[2022-12-25] MEDS: NYSTATIN POWDER BOTTLE 15GM TOPICAL SCH (21:01)
[2022-12-25] MEDS: MIRTAZAPINE 15 MG TABLET PO SCH (21:01)
[2022-12-25] MEDS: 0.9 % SODIUM CHLORIDE 10 ML SYRINGE IV SCH (23:30)
[2022-12-25] MEDS: LACTATED RINGERS 1,000 ML IV SCH (23:30)
[2022-12-26] MEDS ORDERED: 0.9 % SODIUM CHLORIDE 500 ML IV ONE (03:22)
[2022-12-26] MEDS: LACTATED RINGERS 1,000 ML IV SCH (05:26)
[2022-12-26] MEDS: PIPERACILLIN SODIUM/TAZOBACTAM 3.375 GM in DEXTROSE 5% IN WATER 50 ML IV SCH ×4 (05:38→19:09)
[2022-12-26] MEDS: 0.9 % SODIUM CHLORIDE 10 ML SYRINGE IV SCH ×4 (05:38→22:53)
[2022-12-26 06:27] LABS: Hematocrit 48.9 % (34.1-44.9); Hemoglobin 14.5 g/dL (11.2-15.7); Mean Corpuscular HGB Conc 29.7 g/dL (31.0-36.0); Mean Platelet Volume 11.4 fL (8.8-12.5); Platelet Count 246 K/mcL (140-440); RBC 5.26 M/mcL (3.59-5.38); Red Cell Distribution Width 18.8 % (11.5-14.5); WBC 15.3 K/mcL (4.5-11.0)
[2022-12-26 06:39] LABS: Vancomycin,Random 12.7 ug/mL
[2022-12-26 06:40] LABS: Phosphorous 3.9 mg/dL (2.5-4.5)
[2022-12-26 06:50] LABS: Blood Urea Nitrogen 39 mg/dL (8-23); Calcium 8.6 mg/dL (8.6-10.4); Carbon Dioxide 22 mmol/L (22-30); Chloride 97 mmol/L (96-108); Glomerular Filtration Rate 34; Glucose 68 mg/dL (70-105)
[2022-12-26 07:07] LABS: Anisocytosis 2+ (None Seen); Band Neutrophils % 2 % (0-10); Lymphocytes % 15 % (15-49); Monocytes % (Manual) 7 % (1-12); Nucleated Red Blood Cells 1 % (0-0); Platelet Estimate NORMAL (Normal); Polychromasia OCC (None Seen); RBC Morphology ABNORMAL (Normal); Reactive Lymphocytes 3 % (0-2); Segmented Neutrophils % 73 % (38-78)
[2022-12-26] MEDS ORDERED: SODIUM POLYSTYRENE SULFONATE 15 GM/60 ML SUSPENSION PO ONE (07:40)
[2022-12-26] MEDS ORDERED: AMIODARONE 300 MG in DEXTROSE 5% IN WATER 50 ML IV ONE (07:42)
[2022-12-26] MEDS ORDERED: AMIODARONE 360 MG in PREMIX 1 BAG IV SCH ×3 (07:45→14:30)
[2022-12-26] MEDS: INSULIN LISPRO 1 UNIT/0.01 ML UNIT SQ SCH ×4 (08:14→21:18)
[2022-12-26] MEDS ORDERED: AMIODARONE 360 MG/200 ML BAG IV ONE (08:18)
[2022-12-26] MEDS: LEVOTHYROXINE 100 MCG TABLET PO SCH (08:34)
[2022-12-26] MEDS: APIXABAN 5 MG TABLET PO SCH ×2 (08:34→21:18)
[2022-12-26] MEDS: GABAPENTIN 300 MG CAPSULE PO SCH ×3 (08:34→21:16)
[2022-12-26] MEDS ORDERED: VANCOMYCIN PER PHARMACY IV SCH (09:00)
[2022-12-26] MEDS ORDERED: ENOXAPARIN 40 MG/0.4 ML SYRINGE SQ SCH (09:00)
[2022-12-26] MEDS: NYSTATIN POWDER BOTTLE 15GM TOPICAL SCH ×2 (11:41→20:40)
[2022-12-26] MEDS ORDERED: VANCOMYCIN 1,500 MG in 0.9 % SODIUM CHLORIDE 500 ML IV ONE (12:00)
--- NOTE | 2022-12-26 13:21 | Internal Med Progress Note ---
SUBJECTIVE Subjective Patient information: Note initiated : 12/26/22 at 1:13 pm Service Date, if different from initiated Date: [] Patient: Rahel Grover 72 y/o F admitted on 12/25/22 for weakness, diarrhea x 4 days. Chief Complaint: [Skin irritation, diarrhea] Principal diagnosis: Chief Complaint: [Diarrhea, skin irritation] Chief complaint: Failure to t Interval history: Chief complaint: Failure to thrive History of present illness: Ms. Grover is a 72 year old morbidly obese female with a complex past medical history significant for congestive heart failure, atrial fibrillation on Eliquis, insulin-dependent diabetes mellitus, and multiple prior hospitalizations who presents to the hospital with complaints of diarrhea resulting in perineal and lower extremity skin irritation. The patient is bedbound and lives alone. She states that she does not have caregivers at home. She takes her medications via blister pack or pill pack. She is on multiple antihypertensive medications including losartan, metolazone, metoprolol, and Lasix. She denies any fevers, chills, shortness of breath, or abdominal pain. She states that she came to the ER because the pain around her perineum was quite severe and she was worried about a possible skin infection. On arrival she was hemodynamically tenuous as she was tachycardic with a heart rate in the 120s and a blood pressure systolic in the 90s. Her white blood cell count was elevated at 13,000. She was found to have a potassium of 6.5 and a creatinine of 1.4. The hospital service was asked to admit the patient for further management and evaluation of her suspected sepsis and tachyarrhythmia. 12/26: HR remains difficult to control, SBP 70-80s. Patient states that she is feeling much better today after IVF and IV abx. Discussed case w/ RN Constitutional Vitals: Vital Signs Temp Pulse Resp BP Pulse Ox O2 Del Method O2 Flow Rate 96.9 F L 119 H 15 80/63 95 Nasal Cannula 4 12/26/22 08:00 12/26/22 12:01 12/26/22 12:01 12/26/22 12:00 12/26/22 12:01 12/26/22 07:00 12/26/22 07:00 Period Temp Pulse Resp BP Sys/Blackwell Pulse Ox O2 Del Method O2 Flow Rate Last 24 Hr 96.8 F-97.8 F 112-134 11-28 65-121/39-99 84-100 Nasal Cannula- Nasal Cannula 3.5-5 Intake and Output 12/26/22 12/26/22 12/26/22 03:59 11:59 19:59 Intake Total 1530 2066 50 Output Total 115 176 Balance 1415 1890 50 Intake & Output: Intake & Output 12/26/22 12/26/22 12/26/22 03:59 11:59 19:59 Intake Total 1530 2066 50 Output Total 115 176 Balance 1415 1890 50 Intake: IV 550 1506 50 Sodium Chloride 0.9% 500 ml @ 500 Wide Open IV BOLUS ONE Rx#: [id number] Cordarone 300 mg In Dextrose 5% 56 in Water 50 ml @ 300 mls/hr IV ONCE ONE Rx#:[id number] Lactated Ringers 1,000 ml @ 100 900 mls/hr IV .Q10H [facility] Rx#: [id number] Zosyn 3.375 gm In Dextrose 5% 50 50 50 in Water 50 ml @ 100 mls/hr IV Q6H [facility] Rx#:[id number] Vancomycin 2,000 mg In Sodium 500 Chloride 0.9% 500 ml @ 250 mls/ hr IV ONCE ONE Rx#:[id number] Oral 980 560 Output: Urine Catheter Amount 115 176 Other: Meal Breakfast Percent of Meal Consumed 100% Feeding Ability Independent Urine Appearance Clear Clear Sediment Uretheral ([place]) Clear Sediment Urine Color Dark Yellow Yellow Uretheral ([place]) Yellow # Voids 0 Head Head exam: Present atraumatic and normal inspection Eye Eye exam: Present normal appearance ENT ENT exam: Present mucous membranes moist, normal exam and normal external ear exam Neck Neck exam: Present normal inspection Respiratory Respiratory exam: Present normal respiratory exam Cardiovascular Cardiovascular exam: Present normal rate and rhythm GI/Abdominal GI/Abdominal exam: Present normal bowel sounds Back Exam Back exam: Present normal inspection Neurological Exam Neurological exam: Present alert and oriented X3 Skin Skin exam: Present erythema, intact and rash Expanded Skin Exam Distribution of rash: Present abdomen and genitals Description of rash: Present erythematous and tenderness OBJ DATA Labs 12/26/22 05:13 12/26/22 05:13 Labs: Abnormal Lab Results 12/26/22 12/26/22 12/26/22 09:17 05:13 05:13 WBC 15.3 H Hct 48.9 H POC Hct MCHC 29.7 L RDW 18.8 H Neut % (Auto) Lymph % (Auto) [place] # (Auto) Immature Gran # Absolute Neutrophils Nucleated RBCs 1 H Reactive Lymphocytes 3 H RBC Morphology Abnormal A Polychromasia Occ A Anisocytosis 2+ A VBG Lactic Acid 2.1 H POC Sodium Sodium 129 L POC Potassium Potassium 6.1 H* Chloride POC BUN BUN 39 H Creatinine 1.5 H POC Creatinine Glucose 68 L POC Glucose POC WB Ioniz Calcium C-Reactive Protein 1.90 H Urine Appearance Ur Leukocyte Esterase Urine WBC Urine Bacteria Hyaline Casts Urine Mucus 12/25/22 12/25/22 12/25/22 18:41 17:50 14:57 WBC Hct POC Hct MCHC RDW Neut % (Auto) Lymph % (Auto) [place] # (Auto) Immature Gran # Absolute Neutrophils Nucleated RBCs Reactive Lymphocytes RBC Morphology Polychromasia Anisocytosis VBG Lactic Acid 2.1 H POC Sodium Sodium 131 L POC Potassium Potassium 5.9 H* Chloride POC BUN BUN 38 H Creatinine 1.4 H POC Creatinine Glucose 183 H POC Glucose POC WB Ioniz Calcium C-Reactive Protein Urine Appearance Cloudy A Ur Leukocyte Esterase 75 A Urine WBC 16 H Urine Bacteria Few A Hyaline Casts 10 H Urine Mucus Mod A 12/25/22 12/25/22 12/25/22 11:58 11:05 11:05 WBC 13.7 H Hct 48.8 H POC Hct 52.0 H MCHC 30.3 L RDW 19.1 H Neut % (Auto) 80.0 H Lymph % (Auto) 12.5 L [place] # (Auto) 0.91 H Immature Gran # 0.07 H Absolute Neutrophils 10.94 H Nucleated RBCs Reactive Lymphocytes RBC Morphology Polychromasia Anisocytosis VBG Lactic Acid POC Sodium 129 L Sodium 131 L POC Potassium 6.5 H* Potassium 5.7 H Chloride 94 L POC BUN 52 H BUN 37 H Creatinine 1.4 H POC Creatinine 1.5 H Glucose 182 H POC Glucose 191 H POC WB Ioniz Calcium 0.91 L C-Reactive Protein Urine Appearance Ur Leukocyte Esterase Urine WBC Urine Bacteria Hyaline Casts Urine Mucus Meds: Medications Acetaminophen (Acetaminophen 325 Mg Tablet) 650 mg PO Q4-6HP PRN; Protocol PRN Reason: Per Pain Protocol/Fever > 101 Last Admin: 12/25/22 19:32 Dose: 650 mg Apixaban (Apixaban 5 Mg Tablet) 5 mg PO BID [facility] Last Admin: 12/26/22 08:34 Dose: 5 mg Atorvastatin Calcium (Atorvastatin 20 Mg Tablet) 20 mg PO HS [facility] Last Admin: 12/25/22 21:00 Dose: 20 mg Dextrose (Dextrose 50% 50 Ml Vial) 0 ml IV UD PRN PRN Reason: Per Sliding Scale Diagnostic Test (Pha) (Accu-Chek 1 Each Strip) 1 each FS ACHS [facility] Last Admin: 12/26/22 11:43 Dose: 1 each Gabapentin (Gabapentin 300 Mg Capsule) 600 mg PO TID [facility] Last Admin: 12/26/22 08:34 Dose: 600 mg Glucose (Dextrose 31 Gm Oral.Susp) 15 gm PO PRN PRN PRN Reason: Hypoglycemia Piperacillin Sod/Tazobactam (Sod 3.375 gm/ Dextrose) 50 mls @ 100 mls/hr IV Q6H [facility]; Protocol Last Infusion: 12/26/22 12:33 Dose: Infused Vancomycin HCl 1,500 mg/ (Sodium Chloride) 500 mls @ 333.3 mls/hr IV ONCE ONE Stop: 12/26/22 13:30 Last Admin: 12/26/22 12:32 Dose: 333.3 mls/hr AMIODARONE 360 mg/ Premix 200 mls @ 33.333 mls/hr IV .Q6H [facility]; Protocol Stop: 12/26/22 14:29 Last Admin: 12/26/22 08:35 Dose: 1 mg/min, 33.333 mls/hr AMIODARONE 360 mg/ Premix 200 mls @ 16.667 mls/hr IV .Q12H [facility]; Protocol Stop: 12/27/22 08:29 Phenylephrine HCl 10 mg/ (Sodium Chloride) 500 mls @ 235.143 mls/hr IV DUR [facility]; Protocol Sodium Chloride (Sodium Chloride 0.9%) 250 mls @ 20 mls/hr IV .[id number] [facility] Insulin Glargine (Insulin Glargine, Human 1 Unit/0.01 Ml) 20 unit SQ [facility] Last Admin: 12/25/22 21:00 Dose: 20 units Insulin Human Lispro (Insulin Lispro 1 Unit/0.01 Ml Unit) 0 unit SQ [facility]; Protocol Last Admin: 12/26/22 11:43 Dose: Not Given Levothyroxine Sodium (Levothyroxine 100 Mcg Tablet) 100 mcg PO QDAY [facility] Last Admin: 12/26/22 08:34 Dose: 100 mcg Mirtazapine (Mirtazapine 15 Mg Tablet) 30 mg PO HS [facility] Last Admin: 12/25/22 21:01 Dose: Not Given Nystatin (Nystatin Powder Bottle 15gm) 0 dose TOPICAL BID [facility] Last Admin: 12/26/22 11:41 Dose: 1 dose Sodium Chloride (0.9 % Sodium Chloride 10 Ml Syringe) 10 ml IV Q8 [facility] Last Admin: 12/26/22 05:38 Dose: 10 ml Vancomycin HCl (Vancomycin Per Pharmacy) 1 order IV UD [facility]; Protocol A/P Assessment and plan (1) Sepsis: Status: Acute (2) Acute hyperkalemia: Status: Acute (3) Congestive heart failure: Status: Chronic Qualifiers: Heart failure type: systolic Heart failure chronicity: acute Qualified Code(s): I50.21 - Acute systolic (congestive) heart failure (4) Diabetes mellitus type 2 in obese: Status: Chronic (5) Cellulitis: Status: Acute (6) Atrial fibrillation with RVR: Status: Acute (7) Pulmonary hypertension: Status: Chronic (8) Physical deconditioning: Status: Chronic Narrative A/P Narrative: In terms the patient's suspected sepsis, we will follow-up on her blood cultures and CT chest abdomen pelvis. She likely developed underlying bacterial/fungal infection involving her groin/perineum in the setting of diarrhea and having soiled herself for several days. We will start Zosyn and vancomycin. We will continue nystatin powder. In terms of her atrial fibrillation with RVR, we will cautiously give her diltiazem 30 mg p.o. 3 times daily. We will follow-up on BMP and if her BRADLEY and hyperkalemia improves, we can consider digoxin loading. Continue Eliquis for anticoagulation. She does have BRADLEY, hyperkalemia and is hypotensive. We will hold her long-acting diltiazem, Toprol-XL, losartan, metolazone and Lasix. We will hydrate her with IV fluids. #Septic shock -likely soft tissue infection (severe macerated skin back of LE and perineum + pannus folds) -patient has been sitting in her feces for days -Tx: will start teena gtt in the setting of tachyarrhythmia. -MAP >65, UOP monitoring 0.5cc/kg/h #Non-purulent cellulitis -2/2 poor self-hygiene and morbid obesity -Investigations: urine cx, blood cx NGTD. CT chest/abdomen and pelvis -> moderate ascites that is new from previous exam. Exact etiology unknown. Large amount of edema is also seen in the camper's fascia bilaterally. A moderate right pleural effusion with compressive atelectasis. -Continue IV vanco and zosyn -Will likely consult ID #Hyperkalemia -K 6.1 today -Patient's home KCl was held -Kayexelate given today #AF w/ RVR -Unable to give home dilt and BB due to hypotension -Started amio gtt today -Continue eliquis for anticoaguation #BRADLEY -Monitor renal function while holding diuretics -Stopped IVF after 24h #Failure to thrive -SW/CM will work on placement once stable Time Spent With Patient Time: Total time spent is greater than 50% in coordination of care (as documented) at patient's floor/unit and/or counseling patient: Subsequent: Total time with patient: 35 - 49 minutes Critical Care Time: Yes QUALITY VTE Deep Vein Thrombosis/Pulmonary Embolism Present on Admission: No
[2022-12-26] MEDS: PHENYLEPHRINE 10 MG in 0.9 % SODIUM CHLORIDE 499 ML IV SCH ×4 (13:26→21:10)
[2022-12-26] MEDS: 0.9 % SODIUM CHLORIDE 250 ML IV SCH ×3 (13:28→23:14)
[2022-12-26] MEDS ORDERED: KETAMINE 50 MG/ML Syringe (ANEST) IV ONE (14:11)
[2022-12-26] MEDS ORDERED: MIDAZOLAM 2 MG/2 ML VIAL ONE (14:11)
[2022-12-26] MEDS: AMIODARONE 360 MG in PREMIX 1 BAG IV SCH (14:36)
--- NOTE | 2022-12-26 15:27 | XRay Report ---
CLINICAL INFORMATION: Central line placement COMPARISON: 10/11/2022 TECHNIQUE: Portable FINDINGS: The right IJ central line tip overlies the SVC right atrial junction. No complication from line placement. The heart size, mediastinum and pulmonary vessels are unremarkable. Moderate patchy infiltrate has developed in the left mid and lower lung with small right pleural effusion.. The bones and soft tissues are within normal limits. IMPRESSION: New moderate infiltrate right mid and lower lung with small right pleural effusion Right IJ line in satisfactory position Interpreted and Authenticated by: Ras Sylvester 12/26/22
[2022-12-26] MEDS ORDERED: NOREPINEPHRINE BITARTRATE 16 MG in 0.9 % SODIUM CHLORIDE 234 ML IV PRN (17:23)
[2022-12-26] MEDS ORDERED: NOREPINEPHRINE BITARTRATE 8 MG in 0.9 % SODIUM CHLORIDE 242 ML IV PRN (17:41)
[2022-12-26] MEDS: ACETAMINOPHEN 325 MG TABLET PO PRN (18:51)
[2022-12-26] MEDS: ATORVASTATIN 20 MG TABLET PO SCH (21:18)
[2022-12-26] MEDS: MIRTAZAPINE 15 MG TABLET PO SCH (21:18)
[2022-12-26] MEDS: INSULIN GLARGINE, HUMAN 1 UNIT/0.01 ML SQ SCH (21:19)
[2022-12-27] MEDS: PIPERACILLIN SODIUM/TAZOBACTAM 3.375 GM in DEXTROSE 5% IN WATER 50 ML IV SCH ×4 (00:30→17:48)
[2022-12-27] MEDS: 0.9 % SODIUM CHLORIDE 10 ML SYRINGE IV SCH ×5 (01:05→22:00)
[2022-12-27] MEDS: 0.9 % SODIUM CHLORIDE 250 ML IV SCH ×5 (02:09→17:49)
[2022-12-27] MEDS: AMIODARONE 360 MG in PREMIX 1 BAG IV SCH (03:00)
[2022-12-27 06:29] LABS: Vancomycin,Random 13.2 ug/mL
[2022-12-27 07:43] LABS: Basophils # (Auto) 0.05 K/mcL (0.00-0.30); Basophils % (Auto) 0.3 % (0.0-2.0); Eosinophils # (Auto) 0.06 K/mcL (0.00-0.70); Eosinophils % (Auto) 0.4 % (0.0-7.0); Hematocrit 48.7 % (34.1-44.9); Hemoglobin 14.8 g/dL (11.2-15.7); Lymphocytes % (Auto) 13.6 % (15.5-49.0); Mean Cell Volume 91.9 fL (80.0-100.0); Mean Corpuscular HGB Conc 30.4 g/dL (31.0-36.0); Mean Platelet Volume 11.2 fL (8.8-12.5); Monocytes % (Auto) 7.8 % (1.0-12.0); Neutrophils % (Auto) 77.4 % (38.0-78.0); Platelet Count 238 K/mcL (140-440); Red Cell Distribution Width 19.1 % (11.5-14.5); WBC 15.4 K/mcL (4.5-11.0)
[2022-12-27] MEDS: INSULIN LISPRO 1 UNIT/0.01 ML UNIT SQ SCH ×4 (07:50→21:09)
[2022-12-27 08:09] LABS: ALT/SGPT 25 U/L (<40); AST/SGOT 30 U/L (<32); Albumin/Globulin Ratio 1.1 (1.0-2.3); Alkaline Phosphatase 87 U/L (39-117); Bilirubin,Direct 0.2 mg/dL (<0.3); Bilirubin,Total 0.4 mg/dL (0.1-1.0); Blood Urea Nitrogen 39 mg/dL (8-23); Calcium 8.4 mg/dL (8.6-10.4); Carbon Dioxide 20 mmol/L (22-30); Chloride 100 mmol/L (96-108); Globulin 2.8 gm/dL (2.2-3.7); Glomerular Filtration Rate 37; Glucose 117 mg/dL (70-105); Lactate Dehydrogenase 304 U/L (135-225); Phosphorous 4.7 mg/dL (2.5-4.5); Triglycerides 73 mg/dL (<150); Uric Acid 6.7 mg/dL (2.5-8.0)
[2022-12-27] MEDS ORDERED: DIGOXIN 500 MCG/2 ML AMPUL IV ONE ×2 (08:30→14:30)
[2022-12-27] MEDS: NYSTATIN POWDER BOTTLE 15GM TOPICAL SCH ×2 (09:09→21:11)
[2022-12-27] MEDS: GABAPENTIN 300 MG CAPSULE PO SCH ×3 (09:09→21:08)
[2022-12-27] MEDS: APIXABAN 5 MG TABLET PO SCH ×2 (09:09→21:08)
[2022-12-27] MEDS: LEVOTHYROXINE 100 MCG TABLET PO SCH (09:10)
[2022-12-27] MEDS: VANCOMYCIN 1,500 MG in 0.9 % SODIUM CHLORIDE 500 ML IV SCH (09:27)
--- NOTE | 2022-12-27 09:33 | Infectious Disease Consult ---
Telemedicine Intake Patient location: Intensive Care Unit HPI Date of Consult Consult Date: 12/27/22 Requesting physician: Halima Dugan Primary Care Provider: Adán Briones MD Consult Narrative Reason for consult: Sepsis, leukocytosis, infected wounds History of present illness: This is a 72 y/o female pmhx morbid obese, CHF, AFib on Eliquis, DM admitted with c/o diarrhea resulting in perineal and lower extremity skin irritation. Pt has social issues as she lives on her own and has no caregivers. Upon arrival to the ID, pt was tachycardic (120bpm), low bp (SBP 90mmHg).On labs w/ mild leukocytosis (13.4k), increased lactic acid (2.1), and Cr 1.4.CXR findings with new moderate infiltrate right mid and lower lung with small right pleural effusion. CT chest/abdomen/pelvis moderate ascites, large amount of edema is also seen in the Camper's fascia bilaterally, moderate right pleural effusion with compressive atelectasis in posterior right lower lobe. As per chart, patient has had hx of E. coli + Klebsiella UTI back in 03/21/22. Pt was started on IV Vancomycin + Zosyn, now consulted to ID service for uptrending leukocytosis and wound infection (15.4k). cc:: CC: Halima Dugan MD Constitutional Constitutional: Present fatigue, malaise and weakness Gastrointestinal Gastrointestinal: Present diarrhea Integumentary Integumentary: Present skin pain and wounds Additional comments: refers pain in the buttocks area Neurological Neurological: Present confusion PFSH PFSH All Active Problems (Updated 12/27/22 @ 19:16 by Erika Ramirez MD) UTI (urinary tract infection) (Acute) Intertrigo of genitocrural region due to Shannan species (Acute) Atrial fibrillation with RVR (Acute) Sepsis (Acute) Acute hyperkalemia (Acute) Asthma (Chronic) Gout (Chronic) Congestive heart failure (Chronic) High blood pressure (Chronic) Joint pain (Chronic) Thyroid trouble (Chronic) Morbid obesity with BMI of 50.0-59.9, adult (Chronic) Chronic left shoulder pain (Acute) Diabetes mellitus type 2 in obese (Chronic) Impingement syndrome of left shoulder (Acute) intermediate frame tender current use of anticoagulant therapy (Acute) Insomnia (Chronic) Hypoxia (Chronic) Factor 5 Leiden mutation, heterozygous (Chronic) Hypothyroid (Chronic) Paroxysmal atrial fibrillation (Chronic) Physical deconditioning (Chronic) Pulmonary hypertension (Chronic) Medicare annual wellness visit, initial (Acute) Obesity hypoventilation syndrome (Chronic) Chronic headaches (Chronic) Pneumonia (Acute) Sepsis due to pneumonia (Acute) 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 Gout High blood pressure History of Wong's palsy Hypothyroid Impingement syndrome of left shoulder Insomnia Joint pain Left ankle pain Left shoulder pain Lower extremity cellulitis Medicare annual wellness visit, initial Mixed restrictive and obstructive lung disease Obesity hypoventilation syndrome Obstructive sleep apnea Paroxysmal atrial fibrillation Physical deconditioning Pulmonary hypertension Swelling of lower extremity Thyroid trouble Type 2 diabetes mellitus Surgical History History of appendectomy History of cholecystectomy History of hernia repair Ventral History of hip replacement History of hysterectomy History of knee surgery (~1967) Knee arthroscopy with medial meniscectomy History of oophorectomy History of removal of ovarian cyst History of surgery 10/04/2020-wide excision of mass of abdominal wall History of surgery 01/17/2021-wide surgical debridement of abscess of anterior abdominal wall Family History Mother Arthritis Brother Diabetes Father Heart attack Social History marital status: occupational status: retired smoking status: Never smoker alcohol intake frequency: does not drink substance use type: does not use MEDS/ALLERGIES Home Medications and Allergies Home Medications Medication Instructions Recorded Confirmed Type nystatin 100,000 unit/gram topical 10,000 applic topical PRN PRN Rash 03/17/20 12/25/22 History powder acetaminophen 500 mg tablet 1,000 mg PO Q6H PRN Pain 09/29/20 12/25/22 History (Acetaminophen Extra Strength) ascorbic acid (vitamin C) 1,000 mg 1 g PO QAM 09/29/20 12/25/22 History tablet (Vitamin C) calcium carbonate 600 mg calcium 600 mg PO HS 09/29/20 12/25/22 History (1,500 mg) tablet (Calcium) cetirizine 10 mg tablet 5 mg PO QHS 09/29/20 12/25/22 History cholecalciferol (vitamin D3) 125 125 mcg PO QHS 09/29/20 12/25/22 History mcg (5,000 unit) tablet (Vitamin D3) cinnamon bark 500 mg capsule 500 mg PO QAM 09/29/20 12/25/22 History (Cinnamon) coQ10 (ubiquinol) 200 mg capsule 200 mg PO QHS 09/29/20 12/25/22 History fluticasone propionate 50 2 spray intranasal PRN PRN Allergy 09/29/20 12/25/22 History mcg/actuation nasal Symptoms spray,suspension (Aller-Robbi) multivitamin 1 tab PO QDAY 09/29/20 12/25/22 History albuterol sulfate 90 mcg/actuation 2 puff inhalation .Q4-6H PRN 06/27/21 12/25/22 Rx aerosol inhaler Shortness of breath #8.5 grams famotidine 40 mg tablet 40 mg PO QDAY PRN heartburn #90 12/19/21 12/25/22 Rx tabs levothyroxine 50 mcg tablet 50 mcg PO .COMPLEX #24 tabs 01/04/22 12/25/22 Rx flash glucose scanning reader #1 ea 04/09/22 12/25/22 Rx (FreeStyle Hector 2 [place]) flash glucose sensor (FreeStyle #1 ea 04/09/22 12/25/22 Rx Hector 2 Sensor kit) insulin glargine 100 unit/mL (3 40 unit (0.4 mL) subcut QDAY #15 mL 04/19/22 12/25/22 Rx mL) subcutaneous pen (Basaglar KwikPen U-100 Insulin) apixaban 5 mg tablet (Eliquis) 5 mg PO BID 90 days #180 tabs 05/02/22 12/25/22 Rx potassium chloride 20 mEq 20 meq PO TID #270 tabs 05/07/22 12/25/22 Rx tablet,extended release blood sugar diagnostic (Blood #100 ea 05/16/22 12/25/22 Rx Glucose Test strips) gabapentin 300 mg capsule See Rx Instructions .Route 07/02/22 12/25/22 Rx .COMPLEX #540 caps mirtazapine 30 mg tablet 30 mg PO QDAY Insomnia #90 tabs 07/02/22 12/25/22 Rx semaglutide 1 mg/dose (4 mg/3 mL) 1 mg (0.75 mL) subcut QWEEK #3 mL 07/30/22 12/25/22 Rx subcutaneous pen injector metolazone 5 mg tablet 5 mg PO QDAY #3 tabs 09/27/22 12/25/22 Rx allopurinol 300 mg tablet See Rx Instructions .Route 10/01/22 12/25/22 Rx .COMPLEX #90 tabs montelukast 10 mg tablet 10 mg PO QPM Cough #90 tabs 10/01/22 12/25/22 Rx furosemide 80 mg tablet 80 mg PO BID Edema #180 tabs 10/23/22 12/25/22 Rx levothyroxine 100 mcg tablet 100 mcg PO QDAY #90 tabs 10/23/22 12/25/22 Rx atorvastatin 20 mg tablet 20 mg PO HS #90 tabs 11/08/22 12/25/22 Rx diltiazem HCl 120 mg 120 mg PO DAILY afib #90 caps 11/08/22 12/25/22 Rx capsule,extended release 24 hr (Cartia XT) metoprolol tartrate 50 mg tablet 50 mg PO BID tyachycardia #180 tabs 11/08/22 12/25/22 Rx (Lopressor) nystatin 100,000 unit/gram topical See Rx Instructions topical BID 12/13/22 12/25/22 Rx cream #30 grams nystatin 100,000 unit/gram topical See Rx Instructions topical BID 12/13/22 12/25/22 Rx powder #30 grams losartan 25 mg tablet 25 mg PO QDAY 12/25/22 12/25/22 History Allergies Allergy/AdvReac Type Severity Reaction Status Date / Time metformin AdvReac Mild Diarrhea Verified 12/25/22 18:06 morphine AdvReac Mild Hallucinati Verified 12/25/22 18:06 ng paper tape Allergy Intermediate Hives Uncoded 11/06/22 14:07 Physical Examination Vital Signs Vital signs: Temp Pulse Resp BP Pulse Ox O2 Del Method O2 Flow Rate 98.1 F 123 H 14 107/73 94 Oxymask 5 12/27/22 04:00 12/27/22 06:01 12/27/22 06:01 12/27/22 06:01 12/27/22 06:01 12/27/22 06:01 12/27/22 06:01 Constitutional General appearance: alert and other (chronically ill, morbidly obese) EENT Eyes pulmonary: nonicteric ENT: other (nasal cannula, dry oral mucosa ) Respiratory Effort: normal Cardiovascular Cardiovascular: other (tachycardic ) Integumentary Integumentary: erythema, cellulitis and other (presence of macerated skin folds, below breast, abdomen, bilateral gluteal area with associated redness and warmth) Neurologic Neurological: normal mental status Psychiatric Psychiatric: mood appropriate Additional Exam Additional exam: indwelling frias catheter Results Laboratory Findings 12/27/22 07:17 12/27/22 05:16 Abnormal lab findings: Abnormal Labs 12/25/22 12/25/22 12/25/22 11:05 11:05 11:58 WBC 13.7 H Hct 48.8 H POC Hct 52.0 H MCHC 30.3 L RDW 19.1 H Neut % (Auto) 80.0 H Lymph % (Auto) 12.5 L [place] # (Auto) 0.91 H Immature Gran # 0.07 H Absolute Neutrophils 10.94 H Nucleated RBCs Reactive Lymphocytes RBC Morphology Polychromasia Anisocytosis VBG Lactic Acid POC Sodium 129 L Sodium 131 L POC Potassium 6.5 H* Potassium 5.7 H Chloride 94 L Carbon Dioxide POC BUN 52 H BUN 37 H Creatinine 1.4 H POC Creatinine 1.5 H Glucose 182 H POC Glucose 191 H Calcium POC WB Ioniz Calcium 0.91 L Phosphorus GGT Lactate Dehydrogenase C-Reactive Protein Total Protein Albumin Urine Appearance Ur Leukocyte Esterase Urine WBC Urine Bacteria Hyaline Casts Urine Mucus 12/25/22 12/25/22 12/25/22 14:57 17:50 18:41 WBC Hct POC Hct MCHC RDW Neut % (Auto) Lymph % (Auto) [place] # (Auto) Immature Gran # Absolute Neutrophils Nucleated RBCs Reactive Lymphocytes RBC Morphology Polychromasia Anisocytosis VBG Lactic Acid 2.1 H POC Sodium Sodium 131 L POC Potassium Potassium 5.9 H* Chloride Carbon Dioxide POC BUN BUN 38 H Creatinine 1.4 H POC Creatinine Glucose 183 H POC Glucose Calcium POC WB Ioniz Calcium Phosphorus GGT Lactate Dehydrogenase C-Reactive Protein Total Protein Albumin Urine Appearance Cloudy A Ur Leukocyte Esterase 75 A Urine WBC 16 H Urine Bacteria Few A Hyaline Casts 10 H Urine Mucus Mod A 12/26/22 12/26/22 12/26/22 05:13 05:13 09:17 WBC 15.3 H Hct 48.9 H POC Hct MCHC 29.7 L RDW 18.8 H Neut % (Auto) Lymph % (Auto) [place] # (Auto) Immature Gran # Absolute Neutrophils Nucleated RBCs 1 H Reactive Lymphocytes 3 H RBC Morphology Abnormal A Polychromasia Occ A Anisocytosis 2+ A VBG Lactic Acid 2.1 H POC Sodium Sodium 129 L POC Potassium Potassium 6.1 H* Chloride Carbon Dioxide POC BUN BUN 39 H Creatinine 1.5 H POC Creatinine Glucose 68 L POC Glucose Calcium POC WB Ioniz Calcium Phosphorus GGT Lactate Dehydrogenase C-Reactive Protein 1.90 H Total Protein Albumin Urine Appearance Ur Leukocyte Esterase Urine WBC Urine Bacteria Hyaline Casts Urine Mucus 12/27/22 12/27/22 05:16 07:17 WBC 15.4 H Hct 48.7 H POC Hct MCHC 30.4 L RDW 19.1 H Neut % (Auto) Lymph % (Auto) 13.6 L [place] # (Auto) 1.20 H Immature Gran # 0.08 H Absolute Neutrophils 11.93 H Nucleated RBCs Reactive Lymphocytes RBC Morphology Polychromasia Anisocytosis VBG Lactic Acid POC Sodium Sodium POC Potassium Potassium Chloride Carbon Dioxide 20 L POC BUN BUN 39 H Creatinine 1.4 H POC Creatinine Glucose 117 H POC Glucose Calcium 8.4 L POC WB Ioniz Calcium Phosphorus 4.7 H GGT 43 H Lactate Dehydrogenase 304 H C-Reactive Protein Total Protein 5.8 L Albumin 3.0 L Urine Appearance Ur Leukocyte Esterase Urine WBC Urine Bacteria Hyaline Casts Urine Mucus Microbiology: Microbiology 12/25/22 18:42 Urine - Catheterized Urine Culture - Preliminary 12/25/22 11:46 Blood Blood Culture - Preliminary 12/25/22 11:05 Blood Blood Culture - Preliminary 12/25/22 17:47 Nose - Both Right and Left MRSA (PCR) - Final A/P Assessment and plan (1) Sepsis: Assessment and plan: This is a 72 y/o female pmhx morbid obese, CHF, AFib on Eliquis, DM admitted with c/o diarrhea resulting in perineal and lower extremity skin irritation.Upon admission, is tachycardic, low bp, uptrending leukocytosis leukocytosis (13.4k >15k), increased lactic acid and creatinine.UA+, CXR +moderate infiltrate RML and RLL with small right pleural effusion. CT chest/abdomen/pelvis moderate ascites, large amount of edema is also seen in the Camper's fascia bilaterally, moderate right pleural effusion. Plan: - discontinue Piperacillin/Tazobactam (avoid nephrotoxicity in combination with Vancomycin) - start Cefepime 2g IV q12hrs for now - start Flagyl 500mg IV q8hrs for now - agree with Vancomycin 1500mg IV once daily, monitor Vanco trough as patient has BRADLEY - follow up BCx - follow up UCx - apply nystatin powder to skin folds and keep areas dry - will follow up for further recommendations Status: Acute (2) Pneumonia: Status: Acute (3) Intertrigo of genitocrural region due to Shannan species: Status: Acute (4) UTI (urinary tract infection): Status: Acute Time Spent With Patient Time: Total time spent is greater than 50% in coordination of care (as documented) at patient's floor/unit and/or counseling patient: Initial: Total time with patient: 40 - 54 minutes Total Critical Care Time: 50 (mins) Attestation: Erika Ramirez MD #[phone]
--- NOTE | 2022-12-27 10:08 | Internal Med Progress Note ---
SUBJECTIVE Subjective Patient information: Note initiated : 12/27/22 at 10:06 am Service Date, if different from initiated Date: [] Patient: Rahel Grover 72 y/o F admitted on 12/25/22 for weakness, diarrhea x 4 days. Chief Complaint: [Septic shock] Principal diagnosis: Chief Complaint: [Diarrhea, skin irritation] Interval history: Chief complaint: Failure to thrive History of present illness: Ms. Grover is a 72 year old morbidly obese female with a complex past medical history significant for congestive heart failure, atrial fibrillation on Eliquis, insulin-dependent diabetes mellitus, and multiple prior hospitali zations who presents to the hospital with complaints of diarrhea resulting in perineal and lower extremity skin irritation. The patient is bedbound and lives alone. She states that she does not have caregivers at home. She takes her medications via blister pack or pill pack. She is on multiple antihypertensive medications including losartan, metolazone, metoprolol, and Lasix. She denies any fevers, chills, shortness of breath, or abdominal pain. She states that she came to the ER because the pain around her perineum was quite severe and she was worried about a possible skin infection. On arrival she was hemodynamically tenuous as she was tachycardic with a heart rate in the 120s and a blood pressure systolic in the 90s. Her white blood cell count was elevated at 13,000. She was found to have a potassium of 6.5 and a creatinine of 1.4. The hospital service was asked to admit the patient for further management and evaluation of her suspected sepsis and tachyarrhythmia. 12/26: HR remains difficult to control, SBP 70-80s. Patient states that she is feeling much better today after IVF and IV abx. Discussed case w/ RN 12/27: The patient was started on vasopressor support with phenylephrine via central line that was placed by anesthesia. She received ketamine and Versed for the central line and was altered and unfortunately pulled out as a central venous catheter. The patient's mental status has improved. I did discuss goals of care with the sister yesterday. Constitutional Vitals: Vital Signs Temp Pulse Resp BP Pulse Ox O2 Del Method O2 Flow Rate 97.0 F 118 H 14 103/69 98 Nasal Cannula 6 12/27/22 08:00 12/27/22 10:00 12/27/22 10:00 12/27/22 10:00 12/27/22 10:00 12/27/22 10:00 12/27/22 10:00 Period Temp Pulse Resp BP Sys/Blackwell Pulse Ox O2 Del Method O2 Flow Rate Last 24 Hr 97.0 F-98.1 F 108-127 13-35 74-149/38-111 87-100 Heated High Flow Nasal Ca-Room Air 4-6 Intake and Output 12/26/22 12/27/22 12/27/22 19:59 03:59 11:59 Intake Total 2370 1490 898 Output Total 129 185 135 Balance 2241 1305 763 Weight 156.762 kg 163.52 kg Intake & Output: Intake & Output 12/26/22 12/27/22 12/27/22 19:59 03:59 11:59 Intake Total 2370 1490 898 Output Total 129 185 135 Balance 2241 1305 763 Weight 156.762 kg 163.52 kg Intake: Nourishment/Supplement quantity 120 120 240 (ml) IV 1800 1250 58 Nexterone 360 mg In Premix 1 200 200 8 Bag @ 0.5 MG/MIN 16.667 mls/hr IV .Q12H [facility] Rx#:[id number] Neosynephrine/Vazculep 10 mg In 1000 1000 Sodium Chloride 0.9% 499 ml @ 0.5 MCG/KG/MIN 235.143 mls/hr IV DUR [facility] Rx#:[id number] Zosyn 3.375 gm In Dextrose 5% 100 50 50 in Water 50 ml @ 100 mls/hr IV Q6H [facility] Rx#:[id number] Vancomycin 1,500 mg In Sodium 500 Chloride 0.9% 500 ml @ 333.3 mls/hr IV ONCE ONE Rx#: [id number] Oral 450 120 600 Output: Urine Catheter Amount 129 185 135 Other: Meal Lunch Breakfast Percent of Meal Consumed 50% 75% Feeding Ability Independent Assist with Tray Set Up Nourishment/Supplement name Carnatin Instant [place] [facility] supplement Urine Appearance Clear Clear Clear Sediment Uretheral ([place]) Clear Clear Urine Color Bright Yellow Bright Yellow Yellow Uretheral ([place]) Bright Yellow Bright Yellow Stool Size Moderate Stool Color Brown Stool Consistency Loose # of times incontinent of 1 Bowels Head Head exam: Present atraumatic and normal inspection Eye Eye exam: Present normal appearance ENT ENT exam: Present mucous membranes moist, normal exam and normal external ear exam Neck Neck exam: Present normal inspection Respiratory Respiratory exam: Present normal respiratory exam Cardiovascular Cardiovascular exam: Present normal rate and rhythm GI/Abdominal GI/Abdominal exam: Present normal bowel sounds Back Exam Back exam: Present normal inspection Neurological Exam Neurological exam: Present alert and oriented X3 Skin Skin exam: Present erythema, intact and rash Expanded Skin Exam Distribution of rash: Present abdomen and genitals Description of rash: Present erythematous and tenderness OBJ DATA Labs 12/27/22 07:17 12/27/22 05:16 Labs: Abnormal Lab Results 12/27/22 12/27/22 12/27/22 08:43 07:17 05:16 WBC 15.4 H Hct 48.7 H POC Hct MCHC 30.4 L RDW 19.1 H Neut % (Auto) Lymph % (Auto) 13.6 L [place] # (Auto) 1.20 H Immature Gran # 0.08 H Absolute Neutrophils 11.93 H Nucleated RBCs Reactive Lymphocytes RBC Morphology Polychromasia Anisocytosis VBG Lactic Acid POC Sodium Sodium POC Potassium Potassium Chloride Carbon Dioxide 20 L POC BUN BUN 39 H Creatinine 1.4 H POC Creatinine Glucose 117 H POC Glucose Calcium 8.4 L POC WB Ioniz Calcium Phosphorus 5.0 H 4.7 H Magnesium 2.6 H GGT 43 H Lactate Dehydrogenase 304 H C-Reactive Protein Total Protein 5.8 L Albumin 3.0 L Urine Appearance Ur Leukocyte Esterase Urine WBC Urine Bacteria Hyaline Casts Urine Mucus 12/26/22 12/26/22 12/26/22 09:17 05:13 05:13 WBC 15.3 H Hct 48.9 H POC Hct MCHC 29.7 L RDW 18.8 H Neut % (Auto) Lymph % (Auto) [place] # (Auto) Immature Gran # Absolute Neutrophils Nucleated RBCs 1 H Reactive Lymphocytes 3 H RBC Morphology Abnormal A Polychromasia Occ A Anisocytosis 2+ A VBG Lactic Acid 2.1 H POC Sodium Sodium 129 L POC Potassium Potassium 6.1 H* Chloride Carbon Dioxide POC BUN BUN 39 H Creatinine 1.5 H POC Creatinine Glucose 68 L POC Glucose Calcium POC WB Ioniz Calcium Phosphorus Magnesium GGT Lactate Dehydrogenase C-Reactive Protein 1.90 H Total Protein Albumin Urine Appearance Ur Leukocyte Esterase Urine WBC Urine Bacteria Hyaline Casts Urine Mucus 12/25/22 12/25/22 12/25/22 18:41 17:50 14:57 WBC Hct POC Hct MCHC RDW Neut % (Auto) Lymph % (Auto) [place] # (Auto) Immature Gran # Absolute Neutrophils Nucleated RBCs Reactive Lymphocytes RBC Morphology Polychromasia Anisocytosis VBG Lactic Acid 2.1 H POC Sodium Sodium 131 L POC Potassium Potassium 5.9 H* Chloride Carbon Dioxide POC BUN BUN 38 H Creatinine 1.4 H POC Creatinine Glucose 183 H POC Glucose Calcium POC WB Ioniz Calcium Phosphorus Magnesium GGT Lactate Dehydrogenase C-Reactive Protein Total Protein Albumin Urine Appearance Cloudy A Ur Leukocyte Esterase 75 A Urine WBC 16 H Urine Bacteria Few A Hyaline Casts 10 H Urine Mucus Mod A 12/25/22 12/25/22 12/25/22 11:58 11:05 11:05 WBC 13.7 H Hct 48.8 H POC Hct 52.0 H MCHC 30.3 L RDW 19.1 H Neut % (Auto) 80.0 H Lymph % (Auto) 12.5 L [place] # (Auto) 0.91 H Immature Gran # 0.07 H Absolute Neutrophils 10.94 H Nucleated RBCs Reactive Lymphocytes RBC Morphology Polychromasia Anisocytosis VBG Lactic Acid POC Sodium 129 L Sodium 131 L POC Potassium 6.5 H* Potassium 5.7 H Chloride 94 L Carbon Dioxide POC BUN 52 H BUN 37 H Creatinine 1.4 H POC Creatinine 1.5 H Glucose 182 H POC Glucose 191 H Calcium POC WB Ioniz Calcium 0.91 L Phosphorus Magnesium GGT Lactate Dehydrogenase C-Reactive Protein Total Protein Albumin Urine Appearance Ur Leukocyte Esterase Urine WBC Urine Bacteria Hyaline Casts Urine Mucus Meds: Medications Acetaminophen (Acetaminophen 325 Mg Tablet) 650 mg PO Q4-6HP PRN; Protocol PRN Reason: Per Pain Protocol/Fever > 101 Last Admin: 12/26/22 18:51 Dose: 650 mg Apixaban (Apixaban 5 Mg Tablet) 5 mg PO BID [facility] Last Admin: 12/27/22 09:09 Dose: 5 mg Atorvastatin Calcium (Atorvastatin 20 Mg Tablet) 20 mg PO HS [facility] Last Admin: 12/26/22 21:18 Dose: 20 mg Dextrose (Dextrose 50% 50 Ml Vial) 0 ml IV UD PRN PRN Reason: Per Sliding Scale Diagnostic Test (Pha) (Accu-Chek 1 Each Strip) 1 each FS ACHS [facility] Last Admin: 12/27/22 07:49 Dose: 1 each Digoxin (Digoxin 500 Mcg/2 Ml Ampul) 500 mcg IV ONCE ONE Stop: 12/27/22 14:31 Gabapentin (Gabapentin 300 Mg Capsule) 600 mg PO TID [facility] Last Admin: 12/27/22 09:09 Dose: 600 mg Glucose (Dextrose 31 Gm Oral.Susp) 15 gm PO PRN PRN PRN Reason: Hypoglycemia Piperacillin Sod/Tazobactam (Sod 3.375 gm/ Dextrose) 50 mls @ 100 mls/hr IV Q6H [facility]; Protocol Last Infusion: 12/27/22 06:30 Dose: Infused Phenylephrine HCl 10 mg/ (Sodium Chloride) 500 mls @ 235.143 mls/hr IV DUR [facility]; Protocol Last Titration: 12/26/22 23:19 Dose: Infused Sodium Chloride (Sodium Chloride 0.9%) 250 mls @ 20 mls/hr IV .[id number] [facility] Last Admin: 12/27/22 07:10 Dose: Not Given Norepinephrine Bitartrate 8 mg (/ Sodium Chloride) 250 mls @ 18.75 mls/hr IV Q14H PRN; Protocol PRN Reason: Hypotension; TITRATE MAP > 65 Sodium Chloride (Sodium Chloride 0.9%) 250 mls @ 20 mls/hr IV .[id number] [facility] Last Admin: 12/27/22 07:10 Dose: Not Given Vancomycin HCl 1,500 mg/ (Sodium Chloride) 500 mls @ 333.3 mls/hr IV Q24H [facility] Last Admin: 12/27/22 09:27 Dose: 333.3 mls/hr Insulin Glargine (Insulin Glargine, Human 1 Unit/0.01 Ml) 20 unit SQ [facility] Last Admin: 12/26/22 21:19 Dose: 20 units Insulin Human Lispro (Insulin Lispro 1 Unit/0.01 Ml Unit) 0 unit SQ ACHS [facility]; Protocol Last Admin: 12/27/22 07:50 Dose: Not Given Levothyroxine Sodium (Levothyroxine 100 Mcg Tablet) 100 mcg PO QDAY [facility] Last Admin: 12/27/22 09:10 Dose: 100 mcg Mirtazapine (Mirtazapine 15 Mg Tablet) 30 mg PO [facility] Last Admin: 12/26/22 21:18 Dose: 30 mg Nystatin (Nystatin Powder Bottle 15gm) 0 dose TOPICAL BID [facility] Last Admin: 12/27/22 09:09 Dose: 1 dose Sodium Chloride (0.9 % Sodium Chloride 10 Ml Syringe) 10 ml IV Q8 [facility] Last Admin: 12/27/22 06:25 Dose: 10 ml Vancomycin HCl (Vancomycin Per Pharmacy) 1 order IV UD [facility]; Protocol A/P Assessment and plan (1) Sepsis: Status: Acute (2) Acute hyperkalemia: Status: Acute (3) Congestive heart failure: Status: Chronic Qualifiers: Heart failure type: systolic Heart failure chronicity: acute Qualified Code(s): I50.21 - Acute systolic (congestive) heart failure (4) Diabetes mellitus type 2 in obese: Status: Chronic (5) Cellulitis: Status: Acute (6) Atrial fibrillation with RVR: Status: Acute (7) Pulmonary hypertension: Status: Chronic (8) Physical deconditioning: Status: Chronic Narrative A/P Narrative: In terms the patient's suspected sepsis, we will follow-up on her blood cultures and CT chest abdomen pelvis. She likely developed underlying bacterial/fungal infection involving her groin/perineum in the setting of diarrhea and having soiled herself for several days. We will start Zosyn and vancomycin. We will continue nystatin powder. In terms of her atrial fibrillation with RVR, we will cautiously give her diltiazem 30 mg p.o. 3 times daily. We will follow-up on BMP and if her BRADLEY and hyperkalemia improves, we can consider digoxin loading. Continue Eliquis for anticoagulation. She does have BRADLEY, hyperkalemia and is hypotensive. We will hold her long-acting diltiazem, Toprol-XL, losartan, metolazone and Lasix. We will hydrate her with IV fluids. #Septic shock -likely soft tissue infection (severe macerated skin back of LE and perineum + pannus folds) -patient has been sitting in her feces for days -Tx: teena gtt stopped yesterday evening -MAP >65, UOP monitoring 0.5cc/kg/h #Non-purulent cellulitis -2/2 poor self-hygiene and morbid obesity -Investigations: urine cx, blood cx NGTD. CT chest/abdomen and pelvis -> moderate ascites that is new from previous exam. Exact etiology unknown. Large amount of edema is also seen in the camper's fascia bilaterally. A moderate right pleural effusion with compressive atelectasis. -Continue IV vanco and zosyn -ID consult today #Hyperkalemia -K 6.1 -> 4.9 -Patient's home KCl was held -Kayexelate given 12/26 #AF w/ RVR -Unable to give home dilt and BB due to hypotension -Amio gtt stopped 9am 12/27 and will dig load -Continue eliquis for anticoaguation #BRADLEY -Monitor renal function while holding diuretics -Stopped IVF after 24h #Failure to thrive -SW/CM will work on placement once stable Time Spent With Patient Time: Total time spent is greater than 50% in coordination of care (as documented) at patient's floor/unit and/or counseling patient: Subsequent: Total time with patient: 35 - 49 minutes Critical Care Time: Yes QUALITY VTE Deep Vein Thrombosis/Pulmonary Embolism Present on Admission: No
[2022-12-27] MEDS: ATORVASTATIN 20 MG TABLET PO SCH (21:08)
[2022-12-27] MEDS: MIRTAZAPINE 15 MG TABLET PO SCH (21:08)
[2022-12-27] MEDS: INSULIN GLARGINE, HUMAN 1 UNIT/0.01 ML SQ SCH (21:10)
[2022-12-28] MEDS: CEFEPIME 2 GM VIAL IV SCH ×3 (00:58→21:34)
[2022-12-28] MEDS: metroNIDAZOLE 500 MG/100 ML BAG IV SCH ×4 (00:59→21:52)
[2022-12-28] MEDS: 0.9 % SODIUM CHLORIDE 10 ML SYRINGE IV SCH ×5 (05:43→23:00)
[2022-12-28] MEDS: 0.9 % SODIUM CHLORIDE 250 ML IV SCH ×2 (07:07→07:56)
[2022-12-28 09:35] LABS: Basophils # (Auto) 0.07 K/mcL (0.00-0.30); Basophils % (Auto) 0.5 % (0.0-2.0); Eosinophils # (Auto) 0.19 K/mcL (0.00-0.70); Eosinophils % (Auto) 1.2 % (0.0-7.0); Hematocrit 53.4 % (34.1-44.9); Hemoglobin 15.4 g/dL (11.2-15.7); Lymphocytes # (Auto) 1.61 K/mcL (1.50-4.80); Lymphocytes % (Auto) 10.4 % (15.5-49.0); Mean Cell Volume 95.5 fL (80.0-100.0); Mean Corpuscular HGB Conc 28.8 g/dL (31.0-36.0); Mean Platelet Volume 9.7 fL (8.8-12.5); Monocytes # (Auto) 1.04 K/mcL (0.10-0.90); Monocytes % (Auto) 6.7 % (1.0-12.0); Neutrophils % (Auto) 80.5 % (38.0-78.0); Platelet Count 213 K/mcL (140-440); RBC 5.59 M/mcL (3.59-5.38); WBC 15.5 K/mcL (4.5-11.0)
[2022-12-28] MEDS: INSULIN LISPRO 1 UNIT/0.01 ML UNIT SQ SCH ×4 (09:36→21:37)
[2022-12-28 09:48] LABS: Blood Urea Nitrogen 44 mg/dL (8-23); Calcium 8.7 mg/dL (8.6-10.4); Carbon Dioxide 22 mmol/L (22-30); Chloride 97 mmol/L (96-108); Glomerular Filtration Rate 32; Glucose 124 mg/dL (70-105)
[2022-12-28] MEDS: LEVOTHYROXINE 100 MCG TABLET PO SCH (09:56)
[2022-12-28] MEDS: APIXABAN 5 MG TABLET PO SCH ×2 (09:56→21:34)
[2022-12-28] MEDS: GABAPENTIN 300 MG CAPSULE PO SCH ×3 (09:56→21:33)
[2022-12-28] MEDS: VANCOMYCIN 1,500 MG in 0.9 % SODIUM CHLORIDE 500 ML IV SCH (09:57)
[2022-12-28] MEDS: NYSTATIN POWDER BOTTLE 15GM TOPICAL SCH ×2 (10:13→21:38)
--- NOTE | 2022-12-28 10:35 | Internal Med Progress Note ---
SUBJECTIVE Subjective Patient information: Note initiated : 12/28/22 at 10:33 am Service Date, if different from initiated Date: [] Patient: Rahel Grover 72 y/o F admitted on 12/25/22 for weakness, diarrhea x 4 days. Chief Complaint: [] Principal diagnosis: Chief Complaint: [Diarrhea, skin irritation] Interval history: The patient is alert, and fully conversant. Discussed the case with the RN who was present at the bedside. I recommended the patient evaluate goals of care moving forward and have a discussion with her sister. The patient has no other active complaints or concerns at this time. Constitutional Vitals: Vital Signs Temp Pulse Resp BP Pulse Ox O2 Del Method O2 Flow Rate 97.0 F 118 H 20 131/110 95 Oxymask 4 12/28/22 08:00 12/28/22 08:00 12/28/22 09:00 12/28/22 09:00 12/28/22 08:00 12/28/22 08:00 12/28/22 08:00 Period Temp Pulse Resp BP Sys/Blackwell Pulse Ox O2 Del Method O2 Flow Rate Last 24 Hr 97.0 F-97.8 F 115-124 14-30 95-136/63-110 90-98 Nasal Cannula- Oxymask 3-5 Intake and Output 12/27/22 12/28/22 12/28/22 19:59 03:59 11:59 Intake Total 1540 0 680 Output Total 285 290 90 Balance 1255 -290 590 Weight 166.287 kg Intake & Output: Intake & Output 12/27/22 12/28/22 12/28/22 19:59 03:59 11:59 Intake Total 1540 0 680 Output Total 285 290 90 Balance 1255 -290 590 Weight 166.287 kg Intake: Nourishment/Supplement quantity 240 240 (ml) IV 100 0 200 Nexterone 360 mg In Premix 1 0 Bag @ 0.5 MG/MIN 16.667 mls/hr IV .Q12H [facility] Rx#:[id number] Zosyn 3.375 gm In Dextrose 5% 100 in Water 50 ml @ 100 mls/hr IV Q6H [facility] Rx#:[id number] Oral 1200 240 Output: Urine Catheter Amount 285 290 90 Other: Meal Dinner Breakfast Percent of Meal Consumed 100% 100% Feeding Ability Assist with Tray Set Up Assist with Tray Set Up Nourishment/Supplement name 1 carnation high protein [place] High Protein Urine Appearance Clear Clear Clear Uretheral ([place]) Clear Clear Urine Color Yellow Yellow Yellow Uretheral ([place]) Yellow Yellow Urine Odor Normal Normal Stool Size Small Stool Color Brown Green Stool Consistency Liquid Watery Loose Head Head exam: Present atraumatic and normal inspection Eye Eye exam: Present normal appearance ENT ENT exam: Present mucous membranes moist, normal exam and normal external ear exam Neck Neck exam: Present normal inspection Respiratory Respiratory exam: Present normal respiratory exam Cardiovascular Cardiovascular exam: Present RRR and tachycardia GI/Abdominal GI/Abdominal exam: Present normal bowel sounds Back Exam Back exam: Present normal inspection Neurological Exam Neurological exam: Present alert and oriented X3 Skin Skin exam: Present erythema, intact and rash Expanded Skin Exam Distribution of rash: Present abdomen and genitals Description of rash: Present erythematous and tenderness OBJ DATA Labs 12/28/22 09:00 12/28/22 09:00 Labs: Abnormal Lab Results 12/28/22 12/28/22 12/27/22 09:00 09:00 08:43 WBC 15.5 H RBC 5.59 H Hct 53.4 H POC Hct MCHC 28.8 L RDW 19.0 H Immature Gran % (Auto) 0.7 H Neut % (Auto) 80.5 H Lymph % (Auto) 10.4 L Arthur # (Auto) 1.04 H Immature Gran # 0.11 H Absolute Neutrophils 12.46 H Nucleated RBCs Reactive Lymphocytes RBC Morphology Polychromasia Anisocytosis VBG Lactic Acid POC Sodium Sodium 130 L POC Potassium Potassium Chloride Carbon Dioxide POC BUN BUN 44 H Creatinine 1.6 H POC Creatinine Glucose 124 H POC Glucose Calcium POC WB Ioniz Calcium Phosphorus 5.0 H Magnesium 2.6 H GGT Lactate Dehydrogenase C-Reactive Protein Total Protein Albumin Urine Appearance Ur Leukocyte Esterase Urine WBC Urine Bacteria Hyaline Casts Urine Mucus 12/27/22 12/27/22 12/26/22 07:17 05:16 09:17 WBC 15.4 H RBC Hct 48.7 H POC Hct MCHC 30.4 L RDW 19.1 H Immature Gran % (Auto) Neut % (Auto) Lymph % (Auto) 13.6 L Arthur # (Auto) 1.20 H Immature Gran # 0.08 H Absolute Neutrophils 11.93 H Nucleated RBCs Reactive Lymphocytes RBC Morphology Polychromasia Anisocytosis VBG Lactic Acid 2.1 H POC Sodium Sodium POC Potassium Potassium Chloride Carbon Dioxide 20 L POC BUN BUN 39 H Creatinine 1.4 H POC Creatinine Glucose 117 H POC Glucose Calcium 8.4 L POC WB Ioniz Calcium Phosphorus 4.7 H Magnesium GGT 43 H Lactate Dehydrogenase 304 H C-Reactive Protein Total Protein 5.8 L Albumin 3.0 L Urine Appearance Ur Leukocyte Esterase Urine WBC Urine Bacteria Hyaline Casts Urine Mucus 12/26/22 12/26/22 12/25/22 05:13 05:13 18:41 WBC 15.3 H RBC Hct 48.9 H POC Hct MCHC 29.7 L RDW 18.8 H Immature Gran % (Auto) Neut % (Auto) Lymph % (Auto) Arthur # (Auto) Immature Gran # Absolute Neutrophils Nucleated RBCs 1 H Reactive Lymphocytes 3 H RBC Morphology Abnormal A Polychromasia Occ A Anisocytosis 2+ A VBG Lactic Acid POC Sodium Sodium 129 L POC Potassium Potassium 6.1 H* Chloride Carbon Dioxide POC BUN BUN 39 H Creatinine 1.5 H POC Creatinine Glucose 68 L POC Glucose Calcium POC WB Ioniz Calcium Phosphorus Magnesium GGT Lactate Dehydrogenase C-Reactive Protein 1.90 H Total Protein Albumin Urine Appearance Cloudy A Ur Leukocyte Esterase 75 A Urine WBC 16 H Urine Bacteria Few A Hyaline Casts 10 H Urine Mucus Mod A 12/25/22 12/25/22 12/25/22 17:50 14:57 11:58 WBC RBC Hct POC Hct 52.0 H MCHC RDW Immature Gran % (Auto) Neut % (Auto) Lymph % (Auto) Arthur # (Auto) Immature Gran # Absolute Neutrophils Nucleated RBCs Reactive Lymphocytes RBC Morphology Polychromasia Anisocytosis VBG Lactic Acid 2.1 H POC Sodium 129 L Sodium 131 L POC Potassium 6.5 H* Potassium 5.9 H* Chloride Carbon Dioxide POC BUN 52 H BUN 38 H Creatinine 1.4 H POC Creatinine 1.5 H Glucose 183 H POC Glucose 191 H Calcium POC WB Ioniz Calcium 0.91 L Phosphorus Magnesium GGT Lactate Dehydrogenase C-Reactive Protein Total Protein Albumin Urine Appearance Ur Leukocyte Esterase Urine WBC Urine Bacteria Hyaline Casts Urine Mucus 12/25/22 12/25/22 11:05 11:05 WBC 13.7 H RBC Hct 48.8 H POC Hct MCHC 30.3 L RDW 19.1 H Immature Gran % (Auto) Neut % (Auto) 80.0 H Lymph % (Auto) 12.5 L Arthur # (Auto) 0.91 H Immature Gran # 0.07 H Absolute Neutrophils 10.94 H Nucleated RBCs Reactive Lymphocytes RBC Morphology Polychromasia Anisocytosis VBG Lactic Acid POC Sodium Sodium 131 L POC Potassium Potassium 5.7 H Chloride 94 L Carbon Dioxide POC BUN BUN 37 H Creatinine 1.4 H POC Creatinine Glucose 182 H POC Glucose Calcium POC WB Ioniz Calcium Phosphorus Magnesium GGT Lactate Dehydrogenase C-Reactive Protein Total Protein Albumin Urine Appearance Ur Leukocyte Esterase Urine WBC Urine Bacteria Hyaline Casts Urine Mucus Meds: Medications Acetaminophen (Acetaminophen 325 Mg Tablet) 650 mg PO Q4-6HP PRN; Protocol PRN Reason: Per Pain Protocol/Fever > 101 Last Admin: 12/26/22 18:51 Dose: 650 mg Apixaban (Apixaban 5 Mg Tablet) 5 mg PO BID [facility] Last Admin: 12/28/22 09:56 Dose: 5 mg Atorvastatin Calcium (Atorvastatin 20 Mg Tablet) 20 mg PO HS [facility] Last Admin: 12/27/22 21:08 Dose: 20 mg Cefepime HCl (Cefepime 2 Gm Vial) 2 gm IV Q12H [facility]; Protocol Last Admin: 12/28/22 09:56 Dose: 2 gm Dextrose (Dextrose 50% 50 Ml Vial) 0 ml IV UD PRN PRN Reason: Per Sliding Scale Diagnostic Test (Pha) (Accu-Chek 1 Each Strip) 1 each FS ACHS [facility] Last Admin: 12/28/22 08:05 Dose: 1 each Digoxin (Digoxin 125 Mcg Tablet) 125 mcg PO DAILY@1400 [facility] Gabapentin (Gabapentin 300 Mg Capsule) 600 mg PO TID [facility] Last Admin: 12/28/22 09:56 Dose: 600 mg Glucose (Dextrose 31 Gm Oral.Susp) 15 gm PO PRN PRN PRN Reason: Hypoglycemia Vancomycin HCl 1,500 mg/ (Sodium Chloride) 500 mls @ 333.3 mls/hr IV Q24H [facility] Last Admin: 12/28/22 09:57 Dose: 333 mls/hr Metronidazole (Flagyl) 500 mg in 100 mls @ 100 mls/hr IV Q8H [facility]; Protocol Last Infusion: 12/28/22 09:36 Dose: Infused Insulin Glargine (Insulin Glargine, Human 1 Unit/0.01 Ml) 20 unit SQ HS [facility] Last Admin: 12/27/22 21:10 Dose: 20 units Insulin Human Lispro (Insulin Lispro 1 Unit/0.01 Ml Unit) 0 unit SQ ACHS [facility]; Protocol Last Admin: 12/28/22 09:36 Dose: Not Given Levothyroxine Sodium (Levothyroxine 100 Mcg Tablet) 100 mcg PO QDAY [facility] Last Admin: 12/28/22 09:56 Dose: 100 mcg Mirtazapine (Mirtazapine 15 Mg Tablet) 30 mg PO HS [facility] Last Admin: 12/27/22 21:08 Dose: 30 mg Nystatin (Nystatin Powder Bottle 15gm) 0 dose TOPICAL BID [facility] Last Admin: 12/28/22 10:13 Dose: 1 dose Sodium Chloride (0.9 % Sodium Chloride 10 Ml Syringe) 10 ml IV Q8 [facility] Last Admin: 12/28/22 05:43 Dose: 10 ml Vancomycin HCl (Vancomycin Per Pharmacy) 1 order IV UD [facility]; Protocol A/P Assessment and plan (1) Sepsis: Status: Acute (2) Acute hyperkalemia: Status: Acute (3) Congestive heart failure: Status: Chronic Qualifiers: Heart failure type: systolic Heart failure chronicity: acute Qualified Code(s): I50.21 - Acute systolic (congestive) heart failure (4) Diabetes mellitus type 2 in obese: Status: Chronic (5) Cellulitis: Status: Acute (6) Atrial fibrillation with RVR: Status: Acute (7) Pulmonary hypertension: Status: Chronic (8) Physical deconditioning: Status: Chronic Narrative A/P Narrative: In terms the patient's suspected sepsis, we will follow-up on her blood cultures and CT chest abdomen pelvis. She likely developed underlying bacterial/fungal infection involving her groin/perineum in the setting of diarrhea and having soiled herself for several days. We will start Zosyn and vancomycin. We will continue nystatin powder. In terms of her atrial fibrillation with RVR, we will cautiously give her diltiazem 30 mg p.o. 3 times daily. We will follow-up on BMP and if her BRADLEY and hyperkalemia improves, we can consider digoxin loading. Continue Eliquis for anticoagulation. She does have BRADLEY, hyperkalemia and is hypotensive. We will hold her long-acting diltiazem, Toprol-XL, losartan, metolazone and Lasix. We will hydrate her with IV fluids. #Septic shock -Resolved, SBP >130 today -likely soft tissue infection (severe macerated skin back of LE and perineum + pannus folds) -patient has been sitting in her feces for days -Tx: teena gtt stopped 12/26 -MAP >65, UOP monitoring 0.5cc/kg/h #Non-purulent cellulitis -2/2 poor self-hygiene and morbid obesity -Investigations: urine cx, blood cx NGTD. CT chest/abdomen and pelvis -> moderate ascites that is new from previous exam. Exact etiology unknown. Large amount of edema is also seen in the camper's fascia bilaterally. A moderate right pleural effusion with compressive atelectasis. -ID recommended continuing IV vancomycin and switching Zosyn to cefepime and also adding IV Flagyl -ID consulted #Hyperkalemia -K 6.1 -> 4.9 -Patient's home KCl was held -Kayexelate given 12/26 #AF w/ RVR -Unable to give home dilt and BB due to hypotension-> will slowly re-add as her BP improves -Amio gtt stopped 9am 12/27 and will dig load -Continue eliquis for anticoaguation #BRADLEY -Monitor renal function while holding diuretics -Stopped IVF after 24h #Failure to thrive -SW/CM will work on placement once stable Time Spent With Patient Time: Total time spent is greater than 50% in coordination of care (as documented) at patient's floor/unit and/or counseling patient: Subsequent: Total time with patient: 35 - 49 minutes Critical Care Time: Yes QUALITY VTE Deep Vein Thrombosis/Pulmonary Embolism Present on Admission: No
[2022-12-28] MEDS: ACETAMINOPHEN 325 MG TABLET PO PRN ×2 (11:05→20:04)
[2022-12-28] MEDS: DIGOXIN 125 MCG TABLET PO SCH (14:34)
[2022-12-28] MEDS: METOPROLOL TARTRATE 25 MG TABLET PO SCH ×2 (14:34→21:33)
[2022-12-28] MEDS: ATORVASTATIN 20 MG TABLET PO SCH (21:33)
[2022-12-28] MEDS: MIRTAZAPINE 15 MG TABLET PO SCH (21:33)
[2022-12-28] MEDS: INSULIN GLARGINE, HUMAN 1 UNIT/0.01 ML SQ SCH (21:38)
[2022-12-29] MEDS: ACETAMINOPHEN 325 MG TABLET PO PRN ×3 (00:29→21:50)
[2022-12-29] MEDS: 0.9 % SODIUM CHLORIDE 10 ML SYRINGE IV SCH ×4 (05:10→21:49)
[2022-12-29] MEDS: metroNIDAZOLE 500 MG/100 ML BAG IV SCH ×3 (05:41→22:40)
--- NOTE | 2022-12-29 07:36 | Internal Med Progress Note ---
SUBJECTIVE Subjective Patient information: Note initiated : 12/29/22 at 7:36 am This is a 72 y/o female pmhx morbid obese, CHF, AFib on Eliquis, DM admitted with c/o diarrhea resulting in perineal and lower extremity skin irritation. Pt has social issues as she lives on her own and has no caregivers. Upon arrival to the ID, pt was tachycardic (120bpm), low bp (SBP 90mmHg).On labs w/ mild leukocytosis (13.4k), increased lactic acid (2.1), and Cr 1.4.CXR findings with new moderate infiltrate right mid and lower lung with small right pleural effusion. CT chest/abdomen/pelvis moderate ascites, large amount of edema is also seen in the Camper's fascia bilaterally, moderate right pleural effusion with compressive atelectasis in posterior right lower lobe. As per chart, patient has had hx of E. coli + Klebsiella UTI back in 03/21/22. Pt was started on IV Vancomycin + Zosy. 12/26: Seen by ID service for uptrending leukocytosis and wound infection, switched to Vancomycin + Cefepime + Flagyl to avoid nephrotoxicity 12/29: BCx NGTD x 3 days, UCx mixed jarad, MRSA screen negative, Cr with mild uptrend 1.5 >1.6, nurse reported pasty/loose stools Principal diagnosis: sepsis, pneumonia Pertinent ROS: denies SOB or cough; refers "pain is less in her back skin" Constitutional Vitals: Vital Signs Temp Pulse Resp BP Pulse Ox O2 Del Method O2 Flow Rate 98.7 F 124 H 15 120/105 94 Oxymask 5 12/29/22 04:00 12/29/22 07:00 12/29/22 07:00 12/29/22 07:00 12/29/22 07:00 12/29/22 07:00 12/29/22 07:00 Period Temp Pulse Resp BP Sys/Blackwell Pulse Ox O2 Del Method O2 Flow Rate Last 24 Hr 97.0 F-98.7 F 91-124 14-30 94-146/54-130 88-96 Nasal Cannula- Oxymask 4-5 Intake and Output 12/28/22 12/29/22 12/29/22 19:59 03:59 11:59 Intake Total 2280 220 220 Output Total 405 135 90 Balance 1875 85 130 Weight 372 lb 6.4 oz Intake & Output: Intake & Output 12/28/22 12/29/22 12/29/22 19:59 03:59 11:59 Intake Total 2280 220 220 Output Total 405 135 90 Balance 1875 85 130 Weight 372 lb 6.4 oz Intake: Nourishment/Supplement quantity 240 (ml) IV 600 100 100 Vancomycin 1,500 mg In Sodium 500 Chloride 0.9% 500 ml @ 333.3 mls/hr IV Q24H [facility] Rx#: [id number] Oral 1440 120 120 Output: Urine Catheter Amount 405 135 90 Other: Meal Dinner Percent of Meal Consumed 90 Feeding Ability Independent Nourishment/Supplement name [place] Instant breakfast Urine Appearance Clear Clear Clear Uretheral ([place]) Clear Clear Urine Color Bright Yellow Dark Yellow Bright Yellow Uretheral ([place]) Bright Yellow Bright Yellow Urine Odor Normal Head Head exam: Present atraumatic ENT Additional comments: nasal cannula in place Neck Neck exam: Present full ROM Respiratory Additional comments: tachypneic GI/Abdominal GI/Abdominal exam: Present soft Additional comments: globose due to adipose tissue (pannus) Additional comments: indwelling frias catheter Skin Additional comments: diffuse macerated skin in anal area, groin, below breast and skin folds OBJ DATA Labs 12/29/22 07:55 12/29/22 07:55 Labs: Abnormal Lab Results 12/28/22 12/28/22 12/27/22 09:00 09:00 08:43 WBC 15.5 H RBC 5.59 H Hct 53.4 H MCHC 28.8 L RDW 19.0 H Immature Gran % (Auto) 0.7 H Neut % (Auto) 80.5 H Lymph % (Auto) 10.4 L Wise # (Auto) 1.04 H Immature Gran # 0.11 H Absolute Neutrophils 12.46 H VBG Lactic Acid Sodium 130 L Carbon Dioxide BUN 44 H Creatinine 1.6 H Glucose 124 H Calcium Phosphorus 5.0 H Magnesium 2.6 H GGT Lactate Dehydrogenase Total Protein Albumin 12/27/22 12/27/22 12/26/22 07:17 05:16 09:17 WBC 15.4 H RBC Hct 48.7 H MCHC 30.4 L RDW 19.1 H Immature Gran % (Auto) Neut % (Auto) Lymph % (Auto) 13.6 L Wise # (Auto) 1.20 H Immature Gran # 0.08 H Absolute Neutrophils 11.93 H VBG Lactic Acid 2.1 H Sodium Carbon Dioxide 20 L BUN 39 H Creatinine 1.4 H Glucose 117 H Calcium 8.4 L Phosphorus 4.7 H Magnesium GGT 43 H Lactate Dehydrogenase 304 H Total Protein 5.8 L Albumin 3.0 L Meds: Medications Acetaminophen (Acetaminophen 325 Mg Tablet) 650 mg PO Q4-6HP PRN; Protocol PRN Reason: Per Pain Protocol/Fever > 101 Last Admin: 12/29/22 00:29 Dose: 650 mg Apixaban (Apixaban 5 Mg Tablet) 5 mg PO BID [facility] Last Admin: 12/28/22 21:34 Dose: 5 mg Atorvastatin Calcium (Atorvastatin 20 Mg Tablet) 20 mg PO [facility] Last Admin: 12/28/22 21:33 Dose: 20 mg Cefepime HCl (Cefepime 2 Gm Vial) 2 gm IV Q12H [facility]; Protocol Last Admin: 12/28/22 21:34 Dose: 2 gm Dextrose (Dextrose 50% 50 Ml Vial) 0 ml IV UD PRN PRN Reason: Per Sliding Scale Diagnostic Test (Pha) (Accu-Chek 1 Each Strip) 1 each FS [facility] Last Admin: 12/28/22 21:30 Dose: 1 each Digoxin (Digoxin 125 Mcg Tablet) 125 mcg PO DAILY@1400 [facility] Last Admin: 12/28/22 14:34 Dose: 125 mcg Gabapentin (Gabapentin 300 Mg Capsule) 600 mg PO TID [facility] Last Admin: 12/28/22 21:33 Dose: 600 mg Glucose (Dextrose 31 Gm Oral.Susp) 15 gm PO PRN PRN PRN Reason: Hypoglycemia Vancomycin HCl 1,500 mg/ (Sodium Chloride) 500 mls @ 333.3 mls/hr IV Q24H [facility] Last Infusion: 12/28/22 15:00 Dose: Infused Metronidazole (Flagyl) 500 mg in 100 mls @ 100 mls/hr IV Q8H [facility]; Protocol Last Infusion: 12/29/22 06:53 Dose: Infused Insulin Glargine (Insulin Glargine, Human 1 Unit/0.01 Ml) 20 unit SQ [facility] Last Admin: 12/28/22 21:38 Dose: 20 units Insulin Human Lispro (Insulin Lispro 1 Unit/0.01 Ml Unit) 0 unit SQ [facility]; Protocol Last Admin: 12/28/22 21:37 Dose: 9 units Levothyroxine Sodium (Levothyroxine 100 Mcg Tablet) 100 mcg PO QDAY [facility] Last Admin: 12/28/22 09:56 Dose: 100 mcg Metoprolol Tartrate (Metoprolol Tartrate 25 Mg Tablet) 25 mg PO BID [facility] Last Admin: 12/28/22 21:33 Dose: 25 mg Mirtazapine (Mirtazapine 15 Mg Tablet) 30 mg PO HS [facility] Last Admin: 12/28/22 21:33 Dose: 30 mg Nystatin (Nystatin Powder Bottle 15gm) 0 dose TOPICAL BID [facility] Last Admin: 12/28/22 21:38 Dose: 1 dose Sodium Chloride (0.9 % Sodium Chloride 10 Ml Syringe) 10 ml IV Q8 [facility] Last Admin: 12/29/22 05:40 Dose: 10 ml Vancomycin HCl (Vancomycin Per Pharmacy) 1 order IV UD [facility]; Protocol A/P Assessment and plan (1) Aspiration pneumonia: Assessment and plan: This is a 72 y/o female pmhx morbid obese, CHF, AFib on Eliquis, DM admitted with c/o diarrhea resulting in perineal and lower extremity skin irritation.Upon admission, is tachycardic, low bp, leukocytosis (13.4k >15k >14k), increased lactic acid and creatinine.UA+, UCx with mixed jarad. CXR +moderate infiltrate RML and RLL with small right pleural effusion. CT chest/abdomen/pelvis moderate ascites, large amount of edema is also seen in the Camper's fascia bilaterally, moderate right pleural effusion. Plan: - discontinue Vancomycin (MRSA screen negative, avoid nephrotoxic drugs for now) - start Doxycycline 100mg PO bid x 10 days for skin and soft tissue infection - complete 7 day course Cefepime 2g IV q12hrs for pneumonia - complete 7 day course Flagyl 500mg IV q8hrs for now - continue nystatin powder to skin folds and keep areas dry - if uptrending wbc or ongoing diarrhea, obtain GI PCR panel and C diff testing Status: Acute (2) Intertrigo of genitocrural region due to Shannan species: Status: Acute Time Spent With Patient Time: Total time spent is greater than 50% in coordination of care (as documented) at patient's floor/unit and/or counseling patient: Subsequent: Total time with patient: 25 - 34 minutes Total Critical Care Time: 30 (minutes ) Attestation: Erika Ramirez MD #[phone] QUALITY VTE Deep Vein Thrombosis/Pulmonary Embolism Present on Admission: No
--- NOTE | 2022-12-29 08:10 | EKG ---
[facility] Test Date: 2022-12-25 Pat Name: Rahel Grover Department: ED Room: Gender: Female Casing Blower: sb : 1950 Requested By: Elinor Ho Order Number: [id number] Reading MD: José Tan Measurements Intervals [place]o Rate: 123 P: RI: QRS: -85 QRSD: 160 T: 103 QT: 357 QTc: 511 Interpretive Statements Artifact limits further interpretation uncertain mechanism rapid ventricular response IVCD Electronically Signed On 12-29-2022 8:10:19 PDT by José Tan /[id number]
[2022-12-29] MEDS: INSULIN LISPRO 1 UNIT/0.01 ML UNIT SQ SCH ×4 (08:22→21:52)
[2022-12-29 08:44] LABS: Basophils # (Auto) 0.04 K/mcL (0.00-0.30); Basophils % (Auto) 0.3 % (0.0-2.0); Eosinophils # (Auto) 0.13 K/mcL (0.00-0.70); Eosinophils % (Auto) 0.9 % (0.0-7.0); Hematocrit 49.8 % (34.1-44.9); Hemoglobin 14.9 g/dL (11.2-15.7); Lymphocytes # (Auto) 1.65 K/mcL (1.50-4.80); Lymphocytes % (Auto) 11.6 % (15.5-49.0); Mean Cell Volume 90.7 fL (80.0-100.0); Mean Corpuscular HGB Conc 29.9 g/dL (31.0-36.0); Monocytes # (Auto) 1.42 K/mcL (0.10-0.90); Neutrophils % (Auto) 76.6 % (38.0-78.0); Platelet Count 264 K/mcL (140-440); RBC 5.49 M/mcL (3.59-5.38); Red Cell Distribution Width 18.1 % (11.5-14.5); WBC 14.2 K/mcL (4.5-11.0)
[2022-12-29] MEDS: GABAPENTIN 300 MG CAPSULE PO SCH ×3 (08:51→21:49)
[2022-12-29] MEDS: APIXABAN 5 MG TABLET PO SCH ×2 (08:51→21:50)
[2022-12-29] MEDS: METOPROLOL TARTRATE 25 MG TABLET PO SCH ×2 (08:51→21:49)
[2022-12-29] MEDS: LEVOTHYROXINE 100 MCG TABLET PO SCH (08:51)
[2022-12-29] MEDS: CEFEPIME 2 GM VIAL IV SCH ×2 (08:51→21:50)
[2022-12-29] MEDS ORDERED: METOPROLOL TARTRATE 5 MG/5 ML VIAL IV ONE (09:05)
--- NOTE | 2022-12-29 09:12 | Internal Med Progress Note ---
SUBJECTIVE Subjective Patient information: Note initiated : 12/29/22 at 9:07 am Service Date, if different from initiated Date: [] Patient: Rahel Grover 72 y/o F admitted on 12/25/22 for weakness, diarrhea x 4 days. Chief Complaint: [] Principal diagnosis: sepsis, pneumonia Interval history: History of present illness: Ms. Grover is a 72 year old morbidly obese female with a complex past medical history significant for congestive heart failure, atrial fibrillation on Eliquis, insulin-dependent diabetes mellitus, and multiple prior hospitalizations who presents to the hospital with complaints of diarrhea resulting in perineal and lower extremity skin irritation. The patient is bedbound and lives alone. She states that she does not have caregivers at home. She takes her medications via blister pack or pill pack. She is on multiple antihypertensive medications including losartan, metolazone, metoprolol, and Lasix. She denies any fevers, chills, shortness of breath, or abdominal pain. She states that she came to the ER because the pain around her perineum was quite severe and she was worried about a possible skin infection. On arrival she was hemodynamically tenuous as she was tachycardic with a heart rate in the 120s and a blood pressure systolic in the 90s. Her white blood cell count was elevated at 13,000. She was found to have a potassium of 6.5 and a creatinine of 1.4. The hospital service was asked to admit the patient for further management and evaluation of her suspected sepsis and tachyarrhythmia. 12/26: HR remains difficult to control, SBP 70-80s. Patient states that she is feeling much better today after IVF and IV abx. Discussed case w/ RN 12/27: The patient was started on vasopressor support with phenylephrine via central line that was placed by anesthesia. She received ketamine and Versed for the central line and was altered and unfortunately pulled out as a central v enous catheter. The patient's mental status has improved. I did discuss goals of care with the sister yesterday. 12/28: The patient is alert, and fully conversant. Discussed the case with the RN who was present at the bedside. I recommended the patient evaluate goals of care moving forward and have a discussion with her sister. The patient has no other active complaints or concerns at this time. 12/29: The patient's legs are weeping and there are blisters present on examination today. Discussed the case with RN. The patient's heart rate remains stuck at 120 bpm. Constitutional Vitals: Vital Signs Temp Pulse Resp BP Pulse Ox O2 Del Method O2 Flow Rate 97.0 F 124 H 23 H 133/102 95 Oxymask 4 12/29/22 08:00 12/29/22 07:00 12/29/22 08:25 12/29/22 08:00 12/29/22 08:25 12/29/22 08:25 12/29/22 08:25 Period Temp Pulse Resp BP Sys/Blackwell Pulse Ox O2 Del Method O2 Flow Rate Last 24 Hr 97.0 F-98.7 F 91-124 14-30 94-146/54-130 88-96 Nasal Cannula- Oxymask 4-5 Intake and Output 12/28/22 12/29/22 12/29/22 19:59 03:59 11:59 Intake Total 2280 220 220 Output Total 405 135 90 Balance 1875 85 130 Weight 168.918 kg Intake & Output: Intake & Output 12/28/22 12/29/22 12/29/22 19:59 03:59 11:59 Intake Total 2280 220 220 Output Total 405 135 90 Balance 1875 85 130 Weight 168.918 kg Intake: Nourishment/Supplement quantity 240 (ml) IV 600 100 100 Vancomycin 1,500 mg In Sodium 500 Chloride 0.9% 500 ml @ 333.3 mls/hr IV Q24H [facility] Rx#: [id number] Oral 1440 120 120 Output: Urine Catheter Amount 405 135 90 Other: Meal Dinner Percent of Meal Consumed 90 Feeding Ability Independent Nourishment/Supplement name [place] Instant breakfast Urine Appearance Clear Clear Clear Uretheral ([place]) Clear Clear Urine Color Bright Yellow Dark Yellow Bright Yellow Uretheral ([place]) Bright Yellow Bright Yellow Urine Odor Normal Head Head exam: Present atraumatic and normal inspection Eye Eye exam: Present normal appearance ENT ENT exam: Present mucous membranes moist, normal exam and normal external ear exam Neck Neck exam: Present normal inspection Respiratory Respiratory exam: Present normal respiratory exam Cardiovascular Cardiovascular exam: Present RRR and tachycardia GI/Abdominal GI/Abdominal exam: Present normal bowel sounds Back Exam Back exam: Present normal inspection Neurological Exam Neurological exam: Present alert and oriented X3 Skin Skin exam: Present erythema, intact and rash Expanded Skin Exam Distribution of rash: Present abdomen and genitals Description of rash: Present erythematous and tenderness OBJ DATA Labs 12/29/22 07:55 12/28/22 09:00 Labs: Abnormal Lab Results 12/29/22 12/28/22 12/28/22 07:55 09:00 09:00 WBC 14.2 H 15.5 H RBC 5.49 H 5.59 H Hct 49.8 H 53.4 H MCHC 29.9 L 28.8 L RDW 18.1 H 19.0 H Immature Gran % (Auto) 0.6 H 0.7 H Neut % (Auto) 80.5 H Lymph % (Auto) 11.6 L 10.4 L [place] # (Auto) 1.42 H 1.04 H Immature Gran # 0.08 H 0.11 H Absolute Neutrophils 10.90 H 12.46 H VBG Lactic Acid Sodium 130 L Carbon Dioxide BUN 44 H Creatinine 1.6 H Glucose 124 H Calcium Phosphorus Magnesium GGT Lactate Dehydrogenase Total Protein Albumin 12/27/22 12/27/22 12/27/22 08:43 07:17 05:16 WBC 15.4 H RBC Hct 48.7 H MCHC 30.4 L RDW 19.1 H Immature Gran % (Auto) Neut % (Auto) Lymph % (Auto) 13.6 L [place] # (Auto) 1.20 H Immature Gran # 0.08 H Absolute Neutrophils 11.93 H VBG Lactic Acid Sodium Carbon Dioxide 20 L BUN 39 H Creatinine 1.4 H Glucose 117 H Calcium 8.4 L Phosphorus 5.0 H 4.7 H Magnesium 2.6 H GGT 43 H Lactate Dehydrogenase 304 H Total Protein 5.8 L Albumin 3.0 L 12/26/22 09:17 WBC RBC Hct MCHC RDW Immature Gran % (Auto) Neut % (Auto) Lymph % (Auto) [place] # (Auto) Immature Gran # Absolute Neutrophils VBG Lactic Acid 2.1 H Sodium Carbon Dioxide BUN Creatinine Glucose Calcium Phosphorus Magnesium GGT Lactate Dehydrogenase Total Protein Albumin Meds: Medications Acetaminophen (Acetaminophen 325 Mg Tablet) 650 mg PO Q4-6HP PRN; Protocol PRN Reason: Per Pain Protocol/Fever > 101 Last Admin: 12/29/22 00:29 Dose: 650 mg Apixaban (Apixaban 5 Mg Tablet) 5 mg PO BID [facility] Last Admin: 12/29/22 08:51 Dose: 5 mg Atorvastatin Calcium (Atorvastatin 20 Mg Tablet) 20 mg PO [facility] Last Admin: 12/28/22 21:33 Dose: 20 mg Cefepime HCl (Cefepime 2 Gm Vial) 2 gm IV Q12H [facility]; Protocol Last Admin: 12/29/22 08:51 Dose: 2 gm Dextrose (Dextrose 50% 50 Ml Vial) 0 ml IV UD PRN PRN Reason: Per Sliding Scale Diagnostic Test (Pha) (Accu-Chek 1 Each Strip) 1 each FS [facility] Last Admin: 12/29/22 08:05 Dose: 1 each Digoxin (Digoxin 125 Mcg Tablet) 125 mcg PO DAILY@1400 [facility] Last Admin: 12/28/22 14:34 Dose: 125 mcg Furosemide (Furosemide 40 Mg/4 Ml Vial) 40 mg IV Q12 [facility] Gabapentin (Gabapentin 300 Mg Capsule) 600 mg PO TID [facility] Last Admin: 12/29/22 08:51 Dose: 600 mg Glucose (Dextrose 31 Gm Oral.Susp) 15 gm PO PRN PRN PRN Reason: Hypoglycemia Metronidazole (Flagyl) 500 mg in 100 mls @ 100 mls/hr IV Q8H [facility]; Protocol Last Infusion: 12/29/22 06:53 Dose: Infused Insulin Glargine (Insulin Glargine, Human 1 Unit/0.01 Ml) 20 unit SQ [facility] Last Admin: 12/28/22 21:38 Dose: 20 units Insulin Human Lispro (Insulin Lispro 1 Unit/0.01 Ml Unit) 0 unit SQ [facility]; Protocol Last Admin: 12/29/22 08:22 Dose: Not Given Levothyroxine Sodium (Levothyroxine 100 Mcg Tablet) 100 mcg PO QDAY [facility] Last Admin: 12/29/22 08:51 Dose: 100 mcg Metoprolol Tartrate (Metoprolol Tartrate 25 Mg Tablet) 50 mg PO BID [facility] Mirtazapine (Mirtazapine 15 Mg Tablet) 30 mg PO [facility] Last Admin: 12/28/22 21:33 Dose: 30 mg Nystatin (Nystatin Powder Bottle 15gm) 0 dose TOPICAL BID [facility] Last Admin: 12/28/22 21:38 Dose: 1 dose Sodium Chloride (0.9 % Sodium Chloride 10 Ml Syringe) 10 ml IV Q8 [facility] Last Admin: 12/29/22 05:40 Dose: 10 ml Vancomycin HCl (Vancomycin Per Pharmacy) 1 order IV UD [facility]; Protocol A/P Assessment and plan (1) Sepsis: Status: Acute (2) Acute hyperkalemia: Status: Acute (3) Congestive heart failure: Status: Chronic Qualifiers: Heart failure type: systolic Heart failure chronicity: acute Qualified Code(s): I50.21 - Acute systolic (congestive) heart failure (4) Diabetes mellitus type 2 in obese: Status: Chronic (5) Cellulitis: Status: Acute (6) Atrial fibrillation with RVR: Status: Acute (7) Pulmonary hypertension: Status: Chronic (8) Physical deconditioning: Status: Chronic Narrative A/P Narrative: In terms the patient's suspected sepsis, we will follow-up on her blood cultures and CT chest abdomen pelvis. She likely developed underlying bacterial/fungal infection involving her groin/perineum in the setting of diarrhea and having soiled herself for several days. We will start Zosyn and vancomycin. We will continue nystatin powder. In terms of her atrial fibrillation with RVR, we will cautiously give her diltia zem 30 mg p.o. 3 times daily. We will follow-up on BMP and if her BRADLEY and hyperkalemia improves, we can consider digoxin loading. Continue Eliquis for anticoagulation. She does have BRADLEY, hyperkalemia and is hypotensive. We will hold her long-acting diltiazem, Toprol-XL, losartan, metolazone and Lasix. We will hydrate her with IV fluids. #Septic shock -Resolved, SBP >130 today -likely soft tissue infection (severe macerated skin back of LE and perineum + pannus folds) -patient has been sitting in her feces for days -Tx: teena gtt stopped 12/26 -MAP >65, UOP monitoring 0.5cc/kg/h #Non-purulent cellulitis -2/2 poor self-hygiene and morbid obesity -Investigations: urine cx, blood cx NGTD. CT chest/abdomen and pelvis -> moderate ascites that is new from previous exam. Exact etiology unknown. Large amount of edema is also seen in the camper's fascia bilaterally. A moderate right pleural effusion with compressive atelectasis. -ID recommended continuing IV vancomycin and switching Zosyn to cefepime and also adding IV Flagyl -Due to her morbid obesity, and aggressive IV fluid resuscitation, she has now become edematous. Will start Lasix 40mg IV/bid #Hyperkalemia -K 6.1 -> 4.9 -Patient's home KCl was held -Kayexelate given 12/26 #AF w/ RVR -Unable to give home dilt and BB due to hypotension-> will slowly re-add as her BP improves. -Uptitrate lopressor to 50mg/bid today and give another dose of 5mg IV x 1 -Amio gtt stopped 9am 12/27 and dig loaded -Continue eliquis for anticoaguation #BRADLEY -Resolved -Monitor renal function while holding diuretics -Stopped IVF after 24h #Failure to thrive -SW/CM will work on placement once stable -Will likely need SNF Time Spent With Patient Time: Total time spent is greater than 50% in coordination of care (as documented) at patient's floor/unit and/or counseling patient: Subsequent: Total time with patient: 35 - 49 minutes Critical Care Time: Yes QUALITY VTE Deep Vein Thrombosis/Pulmonary Embolism Present on Admission: No
[2022-12-29 09:27] LABS: Blood Urea Nitrogen 49 mg/dL (8-23); Calcium 8.9 mg/dL (8.6-10.4); Carbon Dioxide 23 mmol/L (22-30); Chloride 98 mmol/L (96-108); Glomerular Filtration Rate 32; Glucose 28 mg/dL (70-105)
[2022-12-29] MEDS: NYSTATIN POWDER BOTTLE 15GM TOPICAL SCH ×2 (10:16→21:52)
[2022-12-29] MEDS: VANCOMYCIN 1,500 MG in 0.9 % SODIUM CHLORIDE 500 ML IV SCH (11:00)
--- NOTE | 2022-12-29 13:16 | Internal Med Progress Note ---
SUBJECTIVE Subjective Patient information: Note initiated : 12/29/22 at 12:59 pm Service Date, if different from initiated Date: [] Patient: Rahel Grover 72 y/o F admitted on 12/25/22 for weakness, diarrhea x 4 days. Chief Complaint: [] Principal diagnosis: sepsis, pneumonia Interval history: History of present illness: Ms. Grover is a 72 year old morbidly obese female with a complex past medical history significant for congestive heart failure, atrial fibrillation on Eliquis, insulin-dependent diabetes mellitus, and multiple prior hospitalizations who presents to the hospital with complaints of diarrhea resulting in perineal and lower extremity skin irritation. The patient is bedbound and lives alone. She states that she does not have caregivers at home. She takes her medications via blister pack or pill pack. She is on multiple antihypertensive medications including losartan, metolazone, metoprolol, and Lasix. She denies any fevers, chills, shortness of breath, or abdominal pain. She states that she came to the ER because the pain around her perineum was quite severe and she was worried about a possible skin infection. On arrival she was hemodynamically tenuous as she was tachycardic with a heart rate in the 120s and a blood pressure systolic in the 90s. Her white blood cell count was elevated at 13,000. She was found to have a potassium of 6.5 and a creatinine of 1.4. The hospital service was asked to admit the patient for further management and evaluation of her suspected sepsis and tachyarrhythmia. 12/26: HR remains difficult to control, SBP 70-80s. Patient states that she is feeling much better today after IVF and IV abx. Discussed case w/ RN 12/27: The patient was started on vasopressor support with phenylephrine via central line that was placed by anesthesia. She received ketamine and Versed for the central line and was altered and unfortunately pulled out as a central venous catheter. The patient's mental status has improved. I did discuss goals of care with the sister yesterday. 12/28: The patient is alert, and fully conversant. Discussed the case with the RN who was present at the bedside. I recommended the patient evaluate goals of care moving forward and have a discussion with her sister. The patient has no other active complaints or concerns at this time. 12/29: The patient's legs are weeping and there are blisters present on examination today. Discussed the case with RN. The patient's heart rate remains stuck at 120 bpm. 12/30 Review of Systems: denies headache/fever/chills/nausea/vomiting/chest or abdominal pain/cough/dyspnea/diarrhea. Otherwise see above. PHYSICAL EXAM General: Alert, Awake, No acute Distress, obese Eyes/N/T: EOMI, no scleral icterus, PERRL, MM Head/Neck: neck supple, full ROM, CV: Tachycardia irreg, No murmurs, Pulm: Clear b/l, no wheezing/rhonchi/rales, no respiratory distress Abd: soft, nontender, +BS x4 Ext: no clubbing/cyanosis/edema, nontender Neuro: Alert, no focal deficits, moves all extremities, sensations intact b/l upper/lower Psychiatric: Skin: Distribution of rash: Present abdomen and genitals, erythematous and tenderness Constitutional Vitals: Vital Signs Temp Pulse Resp BP Pulse Ox O2 Del Method O2 Flow Rate 97.1 F 119 H 31 H 121/88 95 Oxymask 4 12/29/22 12:00 12/29/22 12:00 12/29/22 12:00 12/29/22 12:00 12/29/22 12:00 12/29/22 08:25 12/29/22 08:25 Period Temp Pulse Resp BP Sys/Blackwell Pulse Ox O2 Del Method O2 Flow Rate Last 24 Hr 97.0 F-98.7 F 91-124 14-31 94-146/54-130 88-100 Nasal Cannula- Oxymask 4-5 Intake and Output 12/29/22 12/29/22 12/29/22 03:59 11:59 19:59 Intake Total 220 460 Output Total 135 90 Balance 85 370 Intake & Output: Intake & Output 12/29/22 12/29/22 12/29/22 03:59 11:59 19:59 Intake Total 220 460 Output Total 135 90 Balance 85 370 Intake: IV 100 100 Oral 120 360 Output: Urine Catheter Amount 135 90 Other: Meal Breakfast Percent of Meal Consumed 100% Feeding Ability Assist with Tray Set Up Urine Appearance Clear Clear Uretheral ([place]) Clear Urine Color Dark Yellow Bright Yellow Uretheral ([place]) Bright Yellow Urine Odor Normal OBJ DATA Labs 12/29/22 07:55 12/29/22 07:55 Labs: Abnormal Lab Results 12/29/22 12/29/22 12/28/22 07:55 07:55 09:00 WBC 14.2 H RBC 5.49 H Hct 49.8 H MCHC 29.9 L RDW 18.1 H Immature Gran % (Auto) 0.6 H Neut % (Auto) Lymph % (Auto) 11.6 L [place] # (Auto) 1.42 H Immature Gran # 0.08 H Absolute Neutrophils 10.90 H Sodium 130 L 130 L Potassium 5.2 H Carbon Dioxide BUN 49 H 44 H Creatinine 1.6 H 1.6 H Glucose 28 L* 124 H Calcium Phosphorus Magnesium GGT Lactate Dehydrogenase Total Protein Albumin 12/28/22 12/27/22 12/27/22 09:00 08:43 07:17 WBC 15.5 H 15.4 H RBC 5.59 H Hct 53.4 H 48.7 H MCHC 28.8 L 30.4 L RDW 19.0 H 19.1 H Immature Gran % (Auto) 0.7 H Neut % (Auto) 80.5 H Lymph % (Auto) 10.4 L 13.6 L [place] # (Auto) 1.04 H 1.20 H Immature Gran # 0.11 H 0.08 H Absolute Neutrophils 12.46 H 11.93 H Sodium Potassium Carbon Dioxide BUN Creatinine Glucose Calcium Phosphorus 5.0 H Magnesium 2.6 H GGT Lactate Dehydrogenase Total Protein Albumin 12/27/22 05:16 WBC RBC Hct MCHC RDW Immature Gran % (Auto) Neut % (Auto) Lymph % (Auto) [place] # (Auto) Immature Gran # Absolute Neutrophils Sodium Potassium Carbon Dioxide 20 L BUN 39 H Creatinine 1.4 H Glucose 117 H Calcium 8.4 L Phosphorus 4.7 H Magnesium GGT 43 H Lactate Dehydrogenase 304 H Total Protein 5.8 L Albumin 3.0 L Meds: Medications Acetaminophen (Acetaminophen 325 Mg Tablet) 650 mg PO Q4-6HP PRN; Protocol PRN Reason: Per Pain Protocol/Fever > 101 Last Admin: 12/29/22 00:29 Dose: 650 mg Apixaban (Apixaban 5 Mg Tablet) 5 mg PO BID [facility] Last Admin: 12/29/22 08:51 Dose: 5 mg Atorvastatin Calcium (Atorvastatin 20 Mg Tablet) 20 mg PO HS [facility] Last Admin: 12/28/22 21:33 Dose: 20 mg Cefepime HCl (Cefepime 2 Gm Vial) 2 gm IV Q12H [facility]; Protocol Last Admin: 12/29/22 08:51 Dose: 2 gm Dextrose (Dextrose 50% 50 Ml Vial) 0 ml IV UD PRN PRN Reason: Per Sliding Scale Diagnostic Test (Pha) (Accu-Chek 1 Each Strip) 1 each FS [facility] Last Admin: 12/29/22 12:11 Dose: 1 each Digoxin (Digoxin 125 Mcg Tablet) 125 mcg PO DAILY@1400 [facility] Last Admin: 12/28/22 14:34 Dose: 125 mcg Furosemide (Furosemide 40 Mg/4 Ml Vial) 40 mg IV Q12 [facility] Gabapentin (Gabapentin 300 Mg Capsule) 600 mg PO TID [facility] Last Admin: 12/29/22 08:51 Dose: 600 mg Glucose (Dextrose 31 Gm Oral.Susp) 15 gm PO PRN PRN PRN Reason: Hypoglycemia Metronidazole (Flagyl) 500 mg in 100 mls @ 100 mls/hr IV Q8H [facility]; Protocol Last Infusion: 12/29/22 06:53 Dose: Infused Insulin Glargine (Insulin Glargine, Human 1 Unit/0.01 Ml) 20 unit SQ [facility] Last Admin: 12/28/22 21:38 Dose: 20 units Insulin Human Lispro (Insulin Lispro 1 Unit/0.01 Ml Unit) 0 unit SQ [facility]; Protocol Last Admin: 12/29/22 12:12 Dose: Not Given Levothyroxine Sodium (Levothyroxine 100 Mcg Tablet) 100 mcg PO QDAY [facility] Last Admin: 12/29/22 08:51 Dose: 100 mcg Metoprolol Tartrate (Metoprolol Tartrate 25 Mg Tablet) 50 mg PO BID [facility] Mirtazapine (Mirtazapine 15 Mg Tablet) 30 mg PO [facility] Last Admin: 12/28/22 21:33 Dose: 30 mg Nystatin (Nystatin Powder Bottle 15gm) 0 dose TOPICAL BID [facility] Last Admin: 12/29/22 10:16 Dose: 1 dose Sodium Chloride (0.9 % Sodium Chloride 10 Ml Syringe) 10 ml IV Q8 [facility] Last Admin: 12/29/22 05:40 Dose: 10 ml Vancomycin HCl (Vancomycin Per Pharmacy) 1 order IV UD [facility]; Protocol A/P Narrative A/P Narrative: A: #Septic shock: 2/2 wound soft tissue infection(groin/perineum) -Resolved, teena gtt stopped 12/26 #Non-purulent cellulitis -2/2 poor self-hygiene and morbid obesity, patient had been sitting in her feces for days -Investigations: urine cx, blood cx NGTD. CT chest/abdomen and pelvis -> moderate ascites that is new from previous exam. -Exact etiology unknown. Large amount of edema is also seen in the camper's fascia bilaterally. A moderate right pleural effusion with compressive atelectasis. -wound care -ID recommended continuing IV vancomycin and switching Zosyn to cefepime and also adding IV Flagyl #Volume Overload: -Due to her morbid obesity, and aggressive IV fluid resuscitation, she has now become edematous. -Will start Lasix 40mg IV/bid #Hyperkalemia -K 6.1 -> 4.9 -Patient's home KCl was held -Kayexelate given 12/26 #PAF w/RVR: -Unable to give home dilt and BB due to hypotension-> will slowly re-add as her BP improves. -Uptitrate lopressor to 50mg/bid today and give another dose of 5mg IV x 1 -Amio gtt stopped 9am 12/27 and dig loaded -Continue eliquis for anticoaguation -check TSH #BRADLEY: Resolved -Monitor renal function while holding diuretics #Diarrhea: -stool studies #HTN/HLD: -cont statin, restart home BB/Dilt #Hypothyroidism: -cont levothyroxine #DM2 w/neuroapthy: -basal and SSI, rahul #Morbid Obesity: bmi 70 #KANDIS on cpap: cont home cpap #Failure to thrive: -SW/CM will work on placement once stable -Will likely need SNF -PT/oT #Factor V Leiden mutation: #Chronic pain: #*GERD: #ppx: eliquis / home ppi Time Spent With Patient Time: Total time spent is greater than 50% in coordination of care (as documented) at patient's floor/unit and/or counseling patient: QUALITY VTE Deep Vein Thrombosis/Pulmonary Embolism Present on Admission: No
[2022-12-29] MEDS: DILTIAZEM 120 MG CAP.XL.24H PO SCH (14:36)
[2022-12-29] MEDS: DIGOXIN 125 MCG TABLET PO SCH (14:36)
[2022-12-29] MEDS: MIRTAZAPINE 15 MG TABLET PO SCH (21:49)
[2022-12-29] MEDS: ATORVASTATIN 20 MG TABLET PO SCH (21:50)
[2022-12-29] MEDS: FUROSEMIDE 40 MG/4 ML VIAL IV SCH (21:50)
[2022-12-29] MEDS: INSULIN GLARGINE, HUMAN 1 UNIT/0.01 ML SQ SCH (21:52)
[2022-12-30] MEDS: METOPROLOL TARTRATE 5 MG/5 ML VIAL IV PRN ×3 (03:45→21:29)
[2022-12-30] MEDS: 0.9 % SODIUM CHLORIDE 10 ML SYRINGE IV SCH ×4 (03:45→20:05)
[2022-12-30] MEDS: metroNIDAZOLE 500 MG/100 ML BAG IV SCH ×4 (05:49→21:19)
[2022-12-30 07:13] LABS: Vancomycin,Random 17.1 ug/mL
--- NOTE | 2022-12-30 07:16 | Internal Med Progress Note ---
SUBJECTIVE Subjective Patient information: Note initiated : 12/30/22 at 7:14 am Service Date, if different from initiated Date: [] Patient: Rahel Grover 72 y/o F admitted on 12/25/22 for weakness, diarrhea x 4 days. Chief Complaint: [] Principal diagnosis: sepsis, pneumonia Interval history: History of present illness: Ms. Grover is a 72 year old morbidly obese female with a complex past medical history significant for congestive heart failure, atrial fibrillation on Eliquis, insulin-dependent diabetes mellitus, and multiple prior hospitalizations who presents to the hospital with complaints of diarrhea resulting in perineal and lower extremity skin irritation. The patient is bedbound and lives alone. She states that she does not have caregivers at home. She takes her medications via blister pack or pill pack. She is on multiple antihypertensive medications including losartan, metolazone, metoprolol, and Lasix. She denies any fevers, chills, shortness of breath, or abdominal pain. She states that she came to the ER because the pain around her perineum was quite severe and she was worried about a possible skin infection. On arrival she was hemodynamically tenuous as she was tachycardic with a heart rate in the 120s and a blood pressure systolic in the 90s. Her white blood cell count was elevated at 13,000. She was found to have a potassium of 6.5 and a creatinine of 1.4. The hospital service was asked to admit the patient for further management and evaluation of her suspected sepsis and tachyarrhythmia. 12/26: HR remains difficult to control, SBP 70-80s. Patient states that she is feeling much better today after IVF and IV abx. Discussed case w/ RN 12/27: The patient was started on vasopressor support with phenylephrine via central line that was placed by anesthesia. She received ketamine and Versed for the central line and was altered and unfortunately pulled out as a central v enous catheter. The patient's mental status has improved. I did discuss goals of care with the sister yesterday. 12/28: The patient is alert, and fully conversant. Discussed the case with the RN who was present at the bedside. I recommended the patient evaluate goals of care moving forward and have a discussion with her sister. The patient has no other active complaints or concerns at this time. 12/29: The patient's legs are weeping and there are blisters present on examination today. Discussed the case with RN. The patient's heart rate remains stuck at 120 bpm. 12/30 No overnight event or new complaints. HR 110's. Leukocytosis present but mildly improved. Hyponatremia present and hyperkalemia. Renal function similar to yesterday. Creatinine 1.5. Magnesium elevated. Check digoxin level. Review of Systems: denies headache/fever/chills/nausea/vomiting/chest or abdominal vera n/cough/dyspnea/diarrhea. Otherwise see above. PHYSICAL EXAM General: Alert, Awake, No acute Distress, obese Eyes/N/T: EOMI, no scleral icterus, Head/Neck: neck supple, full ROM, CV: Tachycardia but regular today, No murmurs, Pulm: Clear b/l, no wheezing/rhonchi/rales, no respiratory distress Abd: soft, nontender, +BS x4 Ext: no clubbing/cyanosis, 2+ b/l LE edema, nontender Neuro: Alert, no focal deficits, moves all extremities, sensations intact b/l upper/lower Psychiatric: Skin: Distribution of rash: Present abdomen and genitals, erythematous and tenderness Constitutional Vitals: Vital Signs Temp Pulse Resp BP Pulse Ox O2 Del Method O2 Flow Rate 97.1 F 120 H 19 123/65 95 Oxymask 4 12/30/22 04:39 12/30/22 06:55 12/30/22 04:39 12/30/22 04:39 12/30/22 06:55 12/30/22 06:55 12/30/22 06:55 Period Temp Pulse Resp BP Sys/Blackwell Pulse Ox O2 Del Method O2 Flow Rate Last 24 Hr 97.0 F-97.9 F 108-121 16-31 106-133/65-102 93-100 CPAP-Oxymask 4-6 Intake and Output 12/29/22 12/30/22 12/30/22 19:59 03:59 11:59 Intake Total 100 100 450 Output Total 325 270 70 Balance -225 -170 380 Weight 173.59 kg Intake & Output: Intake & Output 12/29/22 12/30/22 12/30/22 19:59 03:59 11:59 Intake Total 100 100 450 Output Total 325 270 70 Balance -225 -170 380 Weight 173.59 kg Intake: IV 100 100 Oral 450 Output: Urine Catheter Amount 325 Void Amount 270 70 Other: Urine Appearance Clear Clear Clear Uretheral ([place]) Clear Clear Urine Color Dark Yellow Yellow Yellow Uretheral ([place]) Bright Yellow Yellow Urine Odor Normal Normal Normal Stool Size Large Stool Color Brown Stool Consistency Loose # Bowel Movements 1 OBJ DATA Labs 12/30/22 07:41 12/30/22 07:41 Labs: Abnormal Lab Results 12/29/22 12/29/22 12/29/22 07:55 07:55 07:55 WBC 14.2 H RBC 5.49 H Hct 49.8 H MCHC 29.9 L RDW 18.1 H Immature Gran % (Auto) 0.6 H Neut % (Auto) Lymph % (Auto) 11.6 L [place] # (Auto) 1.42 H Immature Gran # 0.08 H Absolute Neutrophils 10.90 H Sodium 130 L Potassium 5.2 H Carbon Dioxide BUN 49 H Creatinine 1.6 H Glucose 28 L* Calcium Phosphorus Magnesium GGT Lactate Dehydrogenase Total Protein Albumin TSH 6.08 H 12/28/22 12/28/22 12/27/22 09:00 09:00 08:43 WBC 15.5 H RBC 5.59 H Hct 53.4 H MCHC 28.8 L RDW 19.0 H Immature Gran % (Auto) 0.7 H Neut % (Auto) 80.5 H Lymph % (Auto) 10.4 L [place] # (Auto) 1.04 H Immature Gran # 0.11 H Absolute Neutrophils 12.46 H Sodium 130 L Potassium Carbon Dioxide BUN 44 H Creatinine 1.6 H Glucose 124 H Calcium Phosphorus 5.0 H Magnesium 2.6 H GGT Lactate Dehydrogenase Total Protein Albumin TSH 12/27/22 12/27/22 07:17 05:16 WBC 15.4 H RBC Hct 48.7 H MCHC 30.4 L RDW 19.1 H Immature Gran % (Auto) Neut % (Auto) Lymph % (Auto) 13.6 L [place] # (Auto) 1.20 H Immature Gran # 0.08 H Absolute Neutrophils 11.93 H Sodium Potassium Carbon Dioxide 20 L BUN 39 H Creatinine 1.4 H Glucose 117 H Calcium 8.4 L Phosphorus 4.7 H Magnesium GGT 43 H Lactate Dehydrogenase 304 H Total Protein 5.8 L Albumin 3.0 L TSH Meds: Medications Acetaminophen (Acetaminophen 325 Mg Tablet) 650 mg PO Q4-6HP PRN; Protocol PRN Reason: Per Pain Protocol/Fever > 101 Last Admin: 12/29/22 21:50 Dose: 650 mg Apixaban (Apixaban 5 Mg Tablet) 5 mg PO BID [facility] Last Admin: 12/29/22 21:50 Dose: 5 mg Atorvastatin Calcium (Atorvastatin 20 Mg Tablet) 20 mg PO HS [facility] Last Admin: 12/29/22 21:50 Dose: 20 mg Cefepime HCl (Cefepime 2 Gm Vial) 2 gm IV Q12H [facility]; Protocol Last Admin: 12/29/22 21:50 Dose: 2 gm Dextrose (Dextrose 50% 50 Ml Vial) 0 ml IV UD PRN PRN Reason: Per Sliding Scale Diagnostic Test (Pha) (Accu-Chek 1 Each Strip) 1 each FS ACHS [facility] Last Admin: 12/29/22 21:51 Dose: 1 each Digoxin (Digoxin 125 Mcg Tablet) 125 mcg PO DAILY@1400 [facility] Last Admin: 12/29/22 14:36 Dose: 125 mcg Diltiazem HCl (Diltiazem 120 Mg Cap.Xl.24h) 120 mg PO DAILY [facility] Last Admin: 12/29/22 14:36 Dose: 120 mg Furosemide (Furosemide 40 Mg/4 Ml Vial) 40 mg IV Q12 [facility] Last Admin: 12/29/22 21:50 Dose: 40 mg Gabapentin (Gabapentin 300 Mg Capsule) 600 mg PO TID [facility] Last Admin: 12/29/22 21:49 Dose: 600 mg Glucose (Dextrose 31 Gm Oral.Susp) 15 gm PO PRN PRN PRN Reason: Hypoglycemia Metronidazole (Flagyl) 500 mg in 100 mls @ 100 mls/hr IV Q8H [facility]; Protocol Last Admin: 12/30/22 05:49 Dose: 100 mls/hr Insulin Glargine (Insulin Glargine, Human 1 Unit/0.01 Ml) 20 unit SQ [facility] Last Admin: 12/29/22 21:52 Dose: 20 units Insulin Human Lispro (Insulin Lispro 1 Unit/0.01 Ml Unit) [address] [facility]; Protocol Last Admin: 12/29/22 21:52 Dose: 9 units Levothyroxine Sodium (Levothyroxine 100 Mcg Tablet) 100 mcg PO QDAY [facility] Last Admin: 12/29/22 08:51 Dose: 100 mcg Metoprolol Tartrate (Metoprolol Tartrate 25 Mg Tablet) 50 mg PO BID [facility] Last Admin: 12/29/22 21:49 Dose: 50 mg Metoprolol Tartrate (Metoprolol Tartrate 5 Mg/5 Ml Vial) 5 mg IV Q2HP PRN PRN Reason: Tachyarrhythmias HR>110 Last Admin: 12/30/22 06:01 Dose: 5 mg Mirtazapine (Mirtazapine 15 Mg Tablet) 30 mg PO HS [facility] Last Admin: 12/29/22 21:49 Dose: 30 mg Nystatin (Nystatin Powder Bottle 15gm) 0 dose TOPICAL BID [facility] Last Admin: 12/29/22 21:52 Dose: 15 dose Sodium Chloride (0.9 % Sodium Chloride 10 Ml Syringe) 10 ml IV Q8 [facility] Last Admin: 12/30/22 05:49 Dose: 10 ml Vancomycin HCl (Vancomycin Per Pharmacy) 1 order IV UD [facility]; Protocol A/P Narrative A/P Narrative: A: #Septic shock: 2/2 wound soft tissue infection(groin/perineum) -Resolved, teena gtt stopped 12/26 -leukocytosis mildly improved but seems to have chronic component #Non-purulent cellulitis: -2/2 poor self-hygiene and morbid obesity, patient had been sitting in her feces for days -urine cx & blood cx NGTD. CT chest/abdomen and pelvis -> moderate ascites that is new from previous exam. -Exact etiology unknown. Large amount of edema is also seen in the camper's fascia bilaterally. A moderate right pleural effusion with compressive atelectasis. -wound care consult -ID following, recs > Doxy x10 days and to complete 7 days of cefepime/flagyl. Nystatin powder #Volume Overload: -Due to her morbid obesity, and aggressive IV fluid resuscitation, she has now become edematous. -started Lasix 40mg IV/bid #Hyperkalemia: -Patient's home KCl was held -Kayexelate ordered, trend labs #PAF w/RVR: -Home Dilt/BB restarted -Uptitrate lopressor to 50mg/bid -Amio gtt stopped 9am 12/27 and dig loaded, check level -Continue eliquis for anticoaguation #BRADLEY on CKD III: -Monitor renal function, uop. avoid nephrotoxic medsd #Diarrhea: -stool studies pending #HTN/HLD: -cont statin, restart home BB/Dilt #Hypothyroidism: -cont levothyroxine #DM2 w/neuroapthy: -basal and SSI, rahul #Chronic Respiratory Failure: Restrictive Lung on PFTs with hypoxia, pt on 4L NC at home #Morbid Obesity: bmi 70 #KANDIS on cpap: cont home cpap #Failure to thrive: -SW/CM will work on placement once stable -Will likely need SNF -PT/oT #Factor V Leiden mutation: on eliquis #Chronic pain: #GERD: #ppx: eliquis / home ppi Time Spent With Patient Time: Total time spent is greater than 50% in coordination of care (as documented) at patient's floor/unit and/or counseling patient: Subsequent: Total time with patient: 50 - 65 Minutes QUALITY VTE Deep Vein Thrombosis/Pulmonary Embolism Present on Admission: No
[2022-12-30] MEDS: INSULIN LISPRO 1 UNIT/0.01 ML UNIT SQ SCH ×4 (07:43→20:44)
[2022-12-30 08:17] LABS: Basophils # (Auto) 0.05 K/mcL (0.00-0.30); Basophils % (Auto) 0.4 % (0.0-2.0); Eosinophils # (Auto) 0.21 K/mcL (0.00-0.70); Eosinophils % (Auto) 1.6 % (0.0-7.0); Hematocrit 48.1 % (34.1-44.9); Hemoglobin 14.6 g/dL (11.2-15.7); Lymphocytes % (Auto) 15.3 % (15.5-49.0); Mean Cell Volume 90.4 fL (80.0-100.0); Mean Corpuscular HGB Conc 30.4 g/dL (31.0-36.0); Mean Platelet Volume 11.5 fL (8.8-12.5); Monocytes # (Auto) 1.21 K/mcL (0.10-0.90); Monocytes % (Auto) 9.3 % (1.0-12.0); Neutrophils % (Auto) 72.8 % (38.0-78.0); Platelet Count 269 K/mcL (140-440); RBC 5.32 M/mcL (3.59-5.38); Red Cell Distribution Width 18.3 % (11.5-14.5); WBC 13.1 K/mcL (4.5-11.0)
[2022-12-30 08:37] LABS: Digoxin 1.7 ng/mL
[2022-12-30 08:38] LABS: ALT/SGPT 20 U/L (<40); AST/SGOT 19 U/L (<32); Albumin/Globulin Ratio 0.9 (1.0-2.3); Alkaline Phosphatase 70 U/L (39-117); Bilirubin,Direct 0.2 mg/dL (<0.3); Bilirubin,Total 0.5 mg/dL (0.1-1.0); Blood Urea Nitrogen 54 mg/dL (8-23); Calcium 8.6 mg/dL (8.6-10.4); Carbon Dioxide 22 mmol/L (22-30); Chloride 98 mmol/L (96-108); Globulin 3.3 gm/dL (2.2-3.7); Glomerular Filtration Rate 34; Glucose 121 mg/dL (70-105); Lactate Dehydrogenase 466 U/L (135-225); Phosphorous 4.4 mg/dL (2.5-4.5); Triglycerides 55 mg/dL (<150); Uric Acid 6.6 mg/dL (2.5-8.0)
--- NOTE | 2022-12-30 08:54 | XRay Report ---
HISTORY: Follow-up pleural effusion and pulmonary infiltrate FINDINGS: There is moderate consolidation at the right lung base which may be a combination of pleural fluid and atelectasis/pneumonia. The volume of pleural fluid has remained relatively unchanged since 12/26/22. The consolidation of the basilar segments has increased a small amount. Right upper lobe is clear. Left lung is relatively clear except for subtle increased interstitial lung markings near the left heart border. No left-sided pleural effusion is present. The heart is moderately enlarged but is magnified by portable technique. IMPRESSION: Increasing atelectasis/pneumonia in the right lower lobe with stable right-sided pleural effusion Interpreted and Authenticated by: Zacarias Brooks 12/30/22
[2022-12-30] MEDS ORDERED: ALBUMIN HUMAN 12.5 GM/50 ML VIAL IV ONE (09:00)
[2022-12-30] MEDS ORDERED: SODIUM POLYSTYRENE SULFONATE 15 GM/60 ML SUSPENSION PO ONE (09:07)
[2022-12-30] MEDS: NYSTATIN POWDER BOTTLE 15GM TOPICAL SCH ×2 (09:09→21:17)
[2022-12-30] MEDS: APIXABAN 5 MG TABLET PO SCH ×2 (09:11→20:44)
[2022-12-30] MEDS: DILTIAZEM 120 MG CAP.XL.24H PO SCH (09:11)
[2022-12-30] MEDS: METOPROLOL TARTRATE 25 MG TABLET PO SCH ×2 (09:11→20:43)
[2022-12-30] MEDS: LEVOTHYROXINE 100 MCG TABLET PO SCH (09:12)
[2022-12-30] MEDS: GABAPENTIN 300 MG CAPSULE PO SCH ×3 (09:12→20:44)
[2022-12-30] MEDS: CEFEPIME 2 GM VIAL IV SCH ×2 (09:20→21:20)
[2022-12-30] MEDS: FUROSEMIDE 40 MG/4 ML VIAL IV SCH (09:56)
--- NOTE | 2022-12-30 10:39 | Ultrasound Report ---
History: Follow-up right-sided pleural effusion FINDINGS: Patient was unable to sit upright and was scanned in a propped up position. Patient has a small to moderate size right-sided pleural effusion. There is atelectasis in the underlying basilar segments of the right lower lobe. Allowing for differences in technique, there has been relatively little change in volume of the pleural effusion since prior CT performed on 12/25/22. IMPRESSION: Stable right-sided pleural effusion Interpreted and Authenticated by: Zacarias Brooks 12/30/22
--- NOTE | 2022-12-30 12:32 | Event Note ---
Event Note Event Note: I saw this lady along with Wendy Delarosa RNcareer consultant nurse senior facilities manager Reviewed patient's EHR notes in [employer] and ID recommendations. Spoke with patient. Plans for d/c to SNF noted. Will follow patient at wound care clinic after d/c. Assessment: Multifactorial sepsis. in setting of multiple comorbidities and super morbid obesity: UTI MASD (Moisture dermatitis) skin folds and posterior thighs / perineal region. Super morbid obesity. Social and placement issues. Plan: Agree with skin care recommendations of ID Dr. Erika Castillo MD. F/u at wound care centerin ONE week after discharge.
[2022-12-30] MEDS: DIGOXIN 125 MCG TABLET PO SCH (13:44)
[2022-12-30] MEDS: ACETAMINOPHEN 325 MG TABLET PO PRN (13:44)
[2022-12-30 14:18] LABS: POC Calcium, Ionized 1.15 (1.16-1.32); POC Potassium 5.5 (3.3-5.1)
[2022-12-30] MEDS: ATORVASTATIN 20 MG TABLET PO SCH (20:42)
[2022-12-30] MEDS: INSULIN GLARGINE, HUMAN 1 UNIT/0.01 ML SQ SCH (20:44)
[2022-12-30] MEDS: MIRTAZAPINE 15 MG TABLET PO SCH (20:44)
[2022-12-30] MEDS: DOXYCYCLINE HYCLATE 100 MG TABLET.ORL PO SCH (20:44)
[2022-12-31] MEDS: METOPROLOL TARTRATE 5 MG/5 ML VIAL IV PRN ×5 (01:06→11:35)
[2022-12-31] MEDS: 0.9 % SODIUM CHLORIDE 10 ML SYRINGE IV SCH ×5 (01:09→22:07)
[2022-12-31] MEDS: metroNIDAZOLE 500 MG/100 ML BAG IV SCH ×3 (05:11→22:20)
[2022-12-31 06:49] LABS: Hematocrit 52.6 % (34.1-44.9); Hemoglobin 15.4 g/dL (11.2-15.7); Mean Cell Volume 92.3 fL (80.0-100.0); Mean Corpuscular HGB Conc 29.3 g/dL (31.0-36.0); Mean Platelet Volume 11.1 fL (8.8-12.5); Platelet Count 283 K/mcL (140-440); Red Cell Distribution Width 19.1 % (11.5-14.5); WBC 14.1 K/mcL (4.5-11.0)
[2022-12-31 07:16] LABS: ALT/SGPT 22 U/L (<40); AST/SGOT 22 U/L (<32); Albumin 3.1 gm/dL (3.2-5.2); Albumin/Globulin Ratio 0.9 (1.0-2.3); Alkaline Phosphatase 71 U/L (39-117); Bilirubin,Direct < 0.2 mg/dL (0-0.3); Bilirubin,Total 0.4 mg/dL (0.1-1.0); Blood Urea Nitrogen 63 mg/dL (8-23); Calcium 8.6 mg/dL (8.6-10.4); Carbon Dioxide 17 mmol/L (22-30); Chloride 97 mmol/L (96-108); Globulin 3.4 gm/dL (2.2-3.7); Glomerular Filtration Rate 29; Glucose 137 mg/dL (70-105); Lactate Dehydrogenase 382 U/L (135-225); Phosphorous 4.9 mg/dL (2.5-4.5); Triglycerides 60 mg/dL (<150); Uric Acid 6.8 mg/dL (2.5-8.0)
--- NOTE | 2022-12-31 07:28 | Internal Med Progress Note ---
SUBJECTIVE Subjective Patient information: Note initiated : 12/31/22 at 7:25 am Service Date, if different from initiated Date: [] Patient: Rahel Grover 72 y/o F admitted on 12/25/22 for weakness, diarrhea x 4 days. Chief Complaint: [] Principal diagnosis: sepsis, pneumonia Interval history: History of present illness: Ms. Grover is a 72 year old morbidly obese female with a complex past medical history significant for congestive heart failure, atrial fibrillation on Eliquis, insulin-dependent diabetes mellitus, and multiple prior hospitalizations who presents to the hospital with complaints of diarrhea resulting in perineal and lower extremity skin irritation. The patient is bedbound and lives alone. She states that she does not have caregivers at home. She takes her medications via blister pack or pill pack. She is on multiple antihypertensive medications including losartan, metolazone, metoprolol, and Lasix. She denies any fevers, chills, shortness of breath, or abdominal pain. She states that she came to the ER because the pain around her perineum was quite severe and she was worried about a possible skin infection. On arrival she was hemodynamically tenuous as she was tachycardic with a heart rate in the 120s and a blood pressure systolic in the 90s. Her white blood cell count was elevated at 13,000. She was found to have a potassium of 6.5 and a creatinine of 1.4. The hospital service was asked to admit the patient for further management and evaluation of her suspected sepsis and tachyarrhythmia. 12/26: HR remains difficult to control, SBP 70-80s. Patient states that she is feeling much better today after IVF and IV abx. Discussed case w/ RN 12/27: The patient was started on vasopressor support with phenylephrine via central line that was placed by anesthesia. She received ketamine and Versed for the central line and was altered and unfortunately pulled out as a central v enous catheter. The patient's mental status has improved. I did discuss goals of care with the sister yesterday. 12/28: The patient is alert, and fully conversant. Discussed the case with the RN who was present at the bedside. I recommended the patient evaluate goals of care moving forward and have a discussion with her sister. The patient has no other active complaints or concerns at this time. 12/29: The patient's legs are weeping and there are blisters present on examination today. Discussed the case with RN. The patient's heart rate remains stuck at 120 bpm. 12/30 No overnight event or new complaints. HR 110's. Leukocytosis present but mildly improved. Hyponatremia present and hyperkalemia. Renal function similar to yesterday. Creatinine 1.5. Magnesium elevated. Check digoxin level. 12/31 Rechecking dig level. Patient does seem to have a bit of confusion this morning she says she does feel a little foggy. Leukocytosis persistent, no bandemia. Patient hyponatremia worse hyperkalemia worse. Metabolic acidosis. Creatinine slightly increased. Will use measures as noted in plan but if unsuccessful then will need nephrology consultation. Review of Systems: denies headache/fever/chills/nausea/vomiting/chest or abdominal pain/cough/dyspnea/diarrhea. Otherwise see above. PHYSICAL EXAM General: Awake, No acute Distress, obese Eyes/N/T: EOMI, no scleral icterus, Head/Neck: neck supple, full ROM, CV: Tachycardia but regular, No murmurs, Pulm: Clear b/l, no wheezing/rhonchi/rales, no respiratory distress Abd: soft, nontender, +BS x4 Ext: no clubbing/cyanosis, 2+ b/l LE edema with fluid blisters, nontender Neuro: mildly drowsy and answers questions appropriately but seems to have some confusion augustin delay in cognition, no focal deficits, moves all extremities, sensations intact b/l upper/lower Psychiatric: Skin: Distribution of rash: Present abdomen and genitals, erythematous and tenderness Constitutional Vitals: Vital Signs Temp Pulse Resp BP Pulse Ox O2 Del Method O2 Flow Rate 97.2 F 120 H 20 121/74 92 Nasal Cannula 4 12/31/22 03:09 12/31/22 05:13 12/31/22 03:09 12/31/22 03:09 12/31/22 03:09 12/31/22 03:09 12/31/22 03:09 Period Temp Pulse Resp BP Sys/Blackwell Pulse Ox O2 Del Method O2 Flow Rate Last 24 Hr 97.2 F-98 F 112-126 15-20 92-129/62-79 92-95 Nasal Cannula- Oxymask 4-6 Intake and Output 12/30/22 12/31/2223 19:59 03:59 11:59 Intake Total 1070 100 100 Output Total 750 150 45 Balance 320 -50 55 Weight 176.946 kg Intake & Output: Intake & Output 12/30/22 12/31/22 12/31/22 19:59 03:59 11:59 Intake Total 1070 100 100 Output Total 750 150 45 Balance 320 -50 55 Weight 176.946 kg Intake: IV 150 100 100 Oral 720 GI Tube Flush 200 Output: Urine Catheter Amount 750 150 45 Uretheral ([place]) 200 Other: Meal Dinner Percent of Meal Consumed 100% Feeding Ability Independent Urine Appearance Clear Clear Uretheral ([place]) Clear Urine Color Yellow Yellow Dark Yellow Uretheral ([place]) Yellow Urine Odor Normal Stool Size Moderate Large Stool Color Brown Brown Stool Consistency Soft Soft # of times incontinent of 1 1 Bowels OBJ DATA Labs 12/31/22 05:45 12/31/22 05:45 Labs: Abnormal Lab Results 12/31/22 12/31/22 12/30/22 05:45 05:45 14:16 WBC 14.1 H RBC 5.70 H Hct 52.6 H POC Hct 51.0 H MCHC 29.3 L RDW 19.1 H Immature Gran % (Auto) Neut % (Auto) Lymph % (Auto) Snyder # (Auto) Immature Gran # Absolute Neutrophils POC Sodium 131 L Sodium 126 L POC Potassium 5.5 H Potassium 6.0 H* Carbon Dioxide 17 L POC BUN 62 H BUN 63 H Creatinine 1.7 H POC Creatinine 2.0 H Glucose 137 H POC Glucose 231 H POC WB Ioniz Calcium 1.15 L Phosphorus 4.9 H Magnesium 2.9 H GGT 40 H Lactate Dehydrogenase 382 H Albumin 3.1 L Albumin/Globulin Ratio 0.9 L TSH 12/30/22 12/30/22 12/29/22 07:41 07:41 07:55 WBC 13.1 H RBC Hct 48.1 H POC Hct MCHC 30.4 L RDW 18.3 H Immature Gran % (Auto) 0.6 H Neut % (Auto) Lymph % (Auto) 15.3 L Snyder # (Auto) 1.21 H Immature Gran # 0.08 H Absolute Neutrophils 9.50 H POC Sodium Sodium 128 L POC Potassium Potassium 5.7 H Carbon Dioxide POC BUN BUN 54 H Creatinine 1.5 H POC Creatinine Glucose 121 H POC Glucose POC WB Ioniz Calcium Phosphorus Magnesium 2.7 H GGT Lactate Dehydrogenase 466 H Albumin 3.0 L Albumin/Globulin Ratio 0.9 L TSH 6.08 H 12/29/22 12/29/22 12/28/22 07:55 07:55 09:00 WBC 14.2 H RBC 5.49 H Hct 49.8 H POC Hct MCHC 29.9 L RDW 18.1 H Immature Gran % (Auto) 0.6 H Neut % (Auto) Lymph % (Auto) 11.6 L Snyder # (Auto) 1.42 H Immature Gran # 0.08 H Absolute Neutrophils 10.90 H POC Sodium Sodium 130 L 130 L POC Potassium Potassium 5.2 H Carbon Dioxide POC BUN BUN 49 H 44 H Creatinine 1.6 H 1.6 H POC Creatinine Glucose 28 L* 124 H POC Glucose POC WB Ioniz Calcium Phosphorus Magnesium GGT Lactate Dehydrogenase Albumin Albumin/Globulin Ratio TSH 12/28/22 09:00 WBC 15.5 H RBC 5.59 H Hct 53.4 H POC Hct MCHC 28.8 L RDW 19.0 H Immature Gran % (Auto) 0.7 H Neut % (Auto) 80.5 H Lymph % (Auto) 10.4 L Snyder # (Auto) 1.04 H Immature Gran # 0.11 H Absolute Neutrophils 12.46 H POC Sodium Sodium POC Potassium Potassium Carbon Dioxide POC BUN BUN Creatinine POC Creatinine Glucose POC Glucose POC WB Ioniz Calcium Phosphorus Magnesium GGT Lactate Dehydrogenase Albumin Albumin/Globulin Ratio TSH Meds: Medications Acetaminophen (Acetaminophen 325 Mg Tablet) 650 mg PO Q4-6HP PRN; Protocol PRN Reason: Per Pain Protocol/Fever > 101 Last Admin: 12/30/22 13:44 Dose: 650 mg Apixaban (Apixaban 5 Mg Tablet) 5 mg PO BID [facility] Last Admin: 12/30/22 20:44 Dose: 5 mg Atorvastatin Calcium (Atorvastatin 20 Mg Tablet) 20 mg PO HS [facility] Last Admin: 12/30/22 20:42 Dose: 20 mg Cefepime HCl (Cefepime 2 Gm Vial) 2 gm IV Q12H [facility]; Protocol Stop: 01/03/23 09:01 Last Admin: 12/30/22 21:20 Dose: 2 gm Dextrose (Dextrose 50% 50 Ml Vial) 0 ml IV UD PRN PRN Reason: Per Sliding Scale Diagnostic Test (Pha) (Accu-Chek 1 Each Strip) 1 each FS [facility] Last Admin: 12/30/22 20:05 Dose: 1 each Digoxin (Digoxin 125 Mcg Tablet) 125 mcg PO DAILY@1400 [facility] Last Admin: 12/30/22 13:44 Dose: 125 mcg Diltiazem HCl (Diltiazem 120 Mg Cap.Xl.24h) 120 mg PO DAILY [facility] Last Admin: 12/30/22 09:11 Dose: 120 mg Doxycycline Hyclate (Doxycycline Hyclate 100 Mg Tablet.Orl) 100 mg PO BID [facility] Stop: 01/09/23 09:01 Last Admin: 12/30/22 20:44 Dose: 100 mg Gabapentin (Gabapentin 300 Mg Capsule) 600 mg PO TID [facility] Last Admin: 12/30/22 20:44 Dose: 600 mg Glucose (Dextrose 31 Gm Oral.Susp) 15 gm PO PRN PRN PRN Reason: Hypoglycemia Metronidazole (Flagyl) 500 mg in 100 mls @ 100 mls/hr IV Q8H [facility]; Protocol Stop: 01/03/23 14:59 Last Infusion: 12/31/22 06:18 Dose: Infused Insulin Glargine (Insulin Glargine, Human 1 Unit/0.01 Ml) 20 unit SQ [facility] Last Admin: 12/30/22 20:44 Dose: 20 units Insulin Human Lispro (Insulin Lispro 1 Unit/0.01 Ml Unit) 0 unit SQ [facility]; Protocol Last Admin: 12/30/22 20:44 Dose: 12 units Levothyroxine Sodium (Levothyroxine 100 Mcg Tablet) 100 mcg PO QDAY [facility] Last Admin: 12/30/22 09:12 Dose: 100 mcg Metoprolol Tartrate (Metoprolol Tartrate 25 Mg Tablet) 50 mg PO BID [facility] Last Admin: 12/30/22 20:43 Dose: 50 mg Metoprolol Tartrate (Metoprolol Tartrate 5 Mg/5 Ml Vial) 5 mg IV Q2HP PRN PRN Reason: Tachyarrhythmias HR>110 Last Admin: 12/31/22 05:12 Dose: 5 mg Mirtazapine (Mirtazapine 15 Mg Tablet) 30 mg PO [facility] Last Admin: 12/30/22 20:44 Dose: 30 mg Nystatin (Nystatin Powder Bottle 15gm) 0 dose TOPICAL BID [facility] Last Admin: 12/30/22 21:17 Dose: 1 dose Sodium Chloride (0.9 % Sodium Chloride 10 Ml Syringe) 10 ml IV Q8 [facility] Last Admin: 12/31/22 05:12 Dose: 10 ml A/P Narrative A/P Narrative: A: #Septic shock: 2/2 wound soft tissue infection(groin/perineum) -Resolved, teena gtt stopped 12/26 -leukocytosis persistent and seems to have chronic component, man diff pending #Non-purulent cellulitis: -2/2 poor self-hygiene and morbid obesity, patient had been sitting in her feces for days -urine cx & blood cx NGTD. CT chest/abdomen and pelvis -> moderate ascites that is new from previous exam. -Exact etiology unknown. Large amount of edema is also seen in the camper's fascia bilaterally. A moderate right pleural effusion with compressive atelectasis. -wound care consult -ID following, recs > Doxy x10 days and to complete 7 days of cefepime/flagyl. Nystatin powder #Encephalopathy: metabolic ?uremic vs ?dig toxicity vs co2 retention -check vbg #Volume Overload: -Due to her morbid obesity, and aggressive IV fluid resuscitation, she has now become edematous. -hold diuresis for now, f/u renal fxn, give back gentle IVF, echo pending #Hyperkalemia: -Patient's home KCl was held -s/p Kayexelate yesterday, trend labs -stop digoxin concern for toxicity, pending repeat dig level, digifab. f/u ekg -insulin/glucose/bicarb #PAF w/RVR: HR regular at this time -Home Dilt/BB restarted, titrate up both as needed, increase dilt today -Amio gtt stopped 9am 12/27 and dig loaded, check level -Continue eliquis for anticoagulation #BRADLEY on CKD III: -Monitor renal function, uop. avoid nephrotoxic meds -slight worse, urine studies pending #Met acidosis: -sodium bicarb #Hyponatremia/Hypermagnesemia/Hyperphos: #Diarrhea: improving -Improving, unable to run c. diff. rare fecal wbc #HTN/HLD: -cont statin, restart home BB/Dilt #Hypothyroidism: -cont levothyroxine #DM2 w/neuroapthy: -basal and SSI, rahul #Chronic Respiratory Failure: Restrictive Lung on PFTs with hypoxia, pt on 4L NC at home #Morbid Obesity: bmi 70 #KANDIS on cpap: cont home cpap #Failure to thrive: -SW/CM will work on placement once stable -Will likely need SNF -PT/oT #Factor V Leiden mutation: on eliquis #Chronic pain: #GERD: #ppx: eliquis / home ppi Time Spent With Patient Time: Total time spent is greater than 50% in coordination of care (as documented) at patient's floor/unit and/or counseling patient: Subsequent: Total time with patient: Greater than or equal to 65 minutes QUALITY VTE Deep Vein Thrombosis/Pulmonary Embolism Present on Admission: No
[2022-12-31] MEDS ORDERED: DEXTROSE 50% 50 ML VIAL IV SCH (07:36)
[2022-12-31] MEDS ORDERED: SODIUM BICARBONATE 50 MEQ/50 ML VIAL IV ONE (07:36)
[2022-12-31] MEDS: INSULIN LISPRO 1 UNIT/0.01 ML UNIT SQ SCH ×4 (07:38→21:58)
[2022-12-31] MEDS ORDERED: 0.9 % SODIUM CHLORIDE 500 ML IV ONE ×2 (07:42→09:29)
[2022-12-31] MEDS ORDERED: DIGOXIN IMMUNE FAB IV ONE (08:00)
[2022-12-31] MEDS ORDERED: SODIUM CHLORIDE 0.9% IV ONE (08:00)
[2022-12-31] MEDS ORDERED: SODIUM BICARBONATE VIAL 50 MEQ in EMPTYBAG 0 ML IV SCH (08:15)
[2022-12-31 08:17] LABS: Digoxin 1.6 ng/mL
[2022-12-31] MEDS: APIXABAN 5 MG TABLET PO SCH ×2 (08:29→22:06)
[2022-12-31] MEDS: SODIUM BICARBONATE 650 MG TABLET PO SCH ×3 (08:29→22:06)
[2022-12-31] MEDS: LEVOTHYROXINE 100 MCG TABLET PO SCH (08:29)
[2022-12-31] MEDS: GABAPENTIN 300 MG CAPSULE PO SCH ×3 (08:29→20:14)
[2022-12-31] MEDS: METOPROLOL TARTRATE 25 MG TABLET PO SCH ×2 (08:29→22:06)
[2022-12-31] MEDS: INSULIN REGULAR, HUMAN 1 UNIT/0.01 ML UNIT IV SCH ×2 (08:46→09:52)
[2022-12-31] MEDS ORDERED: DILTIAZEM 240 MG CAP.XL.24H PO SCH (09:00)
[2022-12-31 09:03] LABS: Anisocytosis 2+ (None Seen); Basophils % (Manual) 1 % (0-2); Eosinophils % (Manual) 1 % (0-7); Lymphocytes % 11 % (15-49); Monocytes % (Manual) 13 % (1-12); Nucleated Red Blood Cells 1 % (0-0); Platelet Estimate NORMAL (Normal); Polychromasia OCC (None Seen); RBC Morphology ABNORMAL (Normal); Segmented Neutrophils % 74 % (38-78)
[2022-12-31] MEDS: NYSTATIN POWDER BOTTLE 15GM TOPICAL SCH ×2 (09:06→22:07)
[2022-12-31] MEDS: CEFEPIME 2 GM VIAL IV SCH ×2 (09:11→22:05)
[2022-12-31] MEDS: DOXYCYCLINE HYCLATE 100 MG TABLET.ORL PO SCH ×2 (10:00→22:06)
--- NOTE | 2022-12-31 11:44 | EKG ---
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
--- NOTE | 2022-12-31 11:47 | EKG ---
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
[2022-12-31] MEDS ORDERED: ALBUMIN HUMAN 12.5 GM/50 ML VIAL IV ONE (12:11)
[2022-12-31 13:38] LABS: Urea Nitrogen, Urine 579 mg/dL
[2022-12-31] MEDS ORDERED: AMIODARONE 150 MG in DEXTROSE 5% IN WATER 50 ML IV SCH (14:00)
[2022-12-31] MEDS: 0.9 % SODIUM CHLORIDE 500 ML IV SCH ×2 (15:16→22:25)
[2022-12-31] MEDS ORDERED: AMIODARONE 360 MG in PREMIX 1 BAG IV SCH ×2 (17:00→23:00)
[2022-12-31 17:55] LABS: ABG Methemoglobin 0.2 % (0.4-1.5); Total Hemoglobin 16.1 gm/Dl (12.0-15.0); VBG Base Excess -7 (-2-3); VBG HCO3 19.1 mmol/L (24.0-28.0); VBG Oxygen Saturation 89.5 % (40.0-70.0); VBG PCO2 41.7 mmHg (41.0-51.0); VBG PH 7.28 U (7.32-7.42); VBG PO2 73.6 mmHg (25.0-40.0); VBG Total CO2 20.3 mmol/L (25.0-29.0)
[2022-12-31] MEDS ORDERED: SODIUM BICARBONATE 50 MEQ/50 ML VIAL IV SCH (19:10)
[2022-12-31] MEDS ORDERED: ALBUMIN HUMAN 12.5 GM/50 ML VIAL IV SCH (19:28)
[2022-12-31] MEDS ORDERED: FUROSEMIDE 40 MG/4 ML VIAL IV SCH (19:28)
[2022-12-31] MEDS ORDERED: FUROSEMIDE 250 MG in 0.9 % SODIUM CHLORIDE 225 ML IV SCH (19:30)
[2022-12-31] MEDS: ACETAMINOPHEN 325 MG TABLET PO PRN (19:45)
[2022-12-31] MEDS ORDERED: FUROSEMIDE 100 MG/10 ML VIAL IV ONE (21:41)
[2022-12-31] MEDS: INSULIN GLARGINE, HUMAN 1 UNIT/0.01 ML SQ SCH (21:59)
[2022-12-31] MEDS: MIRTAZAPINE 15 MG TABLET PO SCH (22:06)
[2022-12-31] MEDS: ATORVASTATIN 20 MG TABLET PO SCH (22:06)
[2022-12-31] MEDS ORDERED: VASOPRESSIN 20 UNIT/ML VIAL ONE (22:44)
[2022-12-31] MEDS ORDERED: 0.9 % SODIUM CHLORIDE 250 ML IV SCH (23:00)
[2022-12-31] MEDS ORDERED: VASOPRESSIN 20 UNIT in DEXTROSE 5% IN WATER 99 ML IV SCH (23:00)
[2023-01-01] MEDS: ACETAMINOPHEN 325 MG TABLET PO PRN ×2 (03:15→09:19)
[2023-01-01] MEDS ORDERED: NOREPINEPHRINE BITARTRATE 4 MG/4 ML VIAL IV ONE (04:13)
[2023-01-01] MEDS ORDERED: NOREPINEPHRINE BITARTRATE 8 MG in 0.9 % SODIUM CHLORIDE 242 ML IV SCH (04:15)
[2023-01-01] MEDS: 0.9 % SODIUM CHLORIDE 10 ML SYRINGE IV SCH (06:05)
[2023-01-01] MEDS: metroNIDAZOLE 500 MG/100 ML BAG IV SCH (06:14)
[2023-01-01 06:39] LABS: Basophils # (Auto) 0.05 K/mcL (0.00-0.30); Basophils % (Auto) 0.3 % (0.0-2.0); Eosinophils # (Auto) 0.12 K/mcL (0.00-0.70); Eosinophils % (Auto) 0.7 % (0.0-7.0); Hemoglobin 14.7 g/dL (11.2-15.7); Lymphocytes # (Auto) 2.22 K/mcL (1.50-4.80); Lymphocytes % (Auto) 12.7 % (15.5-49.0); Mean Cell Volume 91.2 fL (80.0-100.0); Mean Corpuscular HGB Conc 29.4 g/dL (31.0-36.0); Mean Platelet Volume 10.9 fL (8.8-12.5); Monocytes # (Auto) 1.78 K/mcL (0.10-0.90); Monocytes % (Auto) 10.2 % (1.0-12.0); Neutrophils % (Auto) 74.8 % (38.0-78.0); Platelet Count 282 K/mcL (140-440); RBC 5.48 M/mcL (3.59-5.38); WBC 17.5 K/mcL (4.5-11.0)
[2023-01-01 07:01] LABS: Digoxin 1.5 ng/mL
[2023-01-01 07:02] LABS: ALT/SGPT 18 U/L (<40); AST/SGOT 22 U/L (<32); Albumin 2.5 gm/dL (3.2-5.2); Albumin/Globulin Ratio 0.9 (1.0-2.3); Alkaline Phosphatase 56 U/L (39-117); Bilirubin,Direct 0.2 mg/dL (<0.3); Bilirubin,Total 0.4 mg/dL (0.1-1.0); Blood Urea Nitrogen 63 mg/dL (8-23); Calcium 7.7 mg/dL (8.6-10.4); Carbon Dioxide 17 mmol/L (22-30); Chloride 104 mmol/L (96-108); Globulin 2.8 gm/dL (2.2-3.7); Glomerular Filtration Rate 27; Glucose 94 mg/dL (70-105); Lactate Dehydrogenase 311 U/L (135-225); Phosphorous 4.1 mg/dL (2.5-4.5); Triglycerides 78 mg/dL (<150); Uric Acid 6.4 mg/dL (2.5-8.0)
--- NOTE | 2023-01-01 07:13 | EKG ---
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 Measurements Intervals [place] Rate: 75 P: [place]: QRS: -82 QRSD: 144 T: 95 QT: 345 QTc: 398 Interpretive Statements Atrial flutter Nonspecific IVCD Electronically Signed On 01-01-2023 7:13:26 PDT by Ras Brooks M.D. /[email or web address]/[id number]
[2023-01-01] MEDS: INSULIN LISPRO 1 UNIT/0.01 ML UNIT SQ SCH (07:17)
[2023-01-01] MEDS: 0.9 % SODIUM CHLORIDE 500 ML IV SCH (07:30)
--- NOTE | 2023-01-01 07:33 | Internal Med Progress Note ---
SUBJECTIVE Subjective Patient information: Note initiated : 01/01/23 at 7:31 am Service Date, if different from initiated Date: [] Patient: Rahel Grover 72 y/o F admitted on 12/25/22 for weakness, diarrhea x 4 days. Chief Complaint: [] Principal diagnosis: sepsis, pneumonia Interval history: History of present illness: Ms. Grover is a 72 year old morbidly obese female with a complex past medical history significant for congestive heart failure, atrial fibrillation on Eliquis, insulin-dependent diabetes mellitus, and multiple prior hospitalizations who presents to the hospital with complaints of diarrhea resulting in perineal and lower extremity skin irritation. The patient is bedbound and lives alone. She states that she does not have caregivers at home. She takes her medications via blister pack or pill pack. She is on multiple antihypertensive medications including losartan, metolazone, metoprolol, and Lasix. She denies any fevers, chills, shortness of breath, or abdominal pain. She states that she came to the ER because the pain around her perineum was quite severe and she was worried about a possible skin infection. On arrival she was hemodynamically tenuous as she was tachycardic with a heart rate in the 120s and a blood pressure systolic in the 90s. Her white blood cell count was elevated at 13,000. She was found to have a potassium of 6.5 and a creatinine of 1.4. The hospital service was asked to admit the patient for further management and evaluation of her suspected sepsis and tachyarrhythmia. 12/26: HR remains difficult to control, SBP 70-80s. Patient states that she is feeling much better today after IVF and IV abx. Discussed case w/ RN 12/27: The patient was started on vasopressor support with phenylephrine via central line that was placed by anesthesia. She received ketamine and Versed for the central line and was altered and unfortunately pulled out as a central v enous catheter. The patient's mental status has improved. I did discuss goals of care with the sister yesterday. 12/28: The patient is alert, and fully conversant. Discussed the case with the RN who was present at the bedside. I recommended the patient evaluate goals of care moving forward and have a discussion with her sister. The patient has no other active complaints or concerns at this time. 12/29: The patient's legs are weeping and there are blisters present on examination today. Discussed the case with RN. The patient's heart rate remains stuck at 120 bpm. 12/30 No overnight event or new complaints. HR 110's. Leukocytosis present but mildly improved. Hyponatremia present and hyperkalemia. Renal function similar to yesterday. Creatinine 1.5. Magnesium elevated. Check digoxin level. 12/31 Rechecking dig level. Patient does seem to have a bit of confusion this morning she says she does feel a little foggy. Leukocytosis persistent, no bandemia. Patient hyponatremia worse hyperkalemia worse. Metabolic acidosis. Creatinine slightly increased. Will use measures as noted in plan but if unsuccessful then will need nephrology consultation. *vbg with acidosis and co2 retention, will place bipap and transfer to unit. mixed acid-base disturbance primarily resp with secondary met acidosis. 01/01 Patient says she is feeling mentally more clear than yesterday. She has some baseline shortness of breath no cough. No nausea vomiting or new complaints. I discussed with her CODE STATUS and she felt a DO NOT RESUSCITATE is more appropriate than a full code. Tried a Lasix drip last night due to the volume overload but with no success. Creatinine continues to slowly climb. Metabolic acidosis present not changed from yesterday. Hyperkalemia improved but still elevated mildly. Patient back on amnio drip with heart rates around 100-110's. Was on BiPAP yesterday and evening for CO2 retention. Consultation by nephrology recommended transfer for CRRT versus HD. I discussed with patient who seems to be on the fence. We are going to have a family discussion with her sister who is well aware of her medical history and her sister is a nurse as well. The sister will have a discussion with the patient and help us gather goals of care. Review of Systems: denies headache/fever/chills/nausea/vomiting/chest or abdominal pain/cough/diarrhea. Otherwise see above. PHYSICAL EXAM General: Awake, No acute Distress, obese Eyes/N/T: EOMI, no scleral icterus, Head/Neck: neck supple, full ROM, CV: Tachycardia but regular, No murmurs, Pulm: Clear b/l, no wheezing/rhonchi/rales, no respiratory distress Abd: soft, nontender, +BS x4 Ext: no clubbing/cyanosis, 2+ b/l LE edema with fluid blisters, edema to abdomen, nontender Neuro: more alert but still mildly drowsy. Seems to answer questions appropriately, no focal deficits, moves all extremities, sensations intact b/l upper/lower Psychiatric: Skin: Distribution of rash: Present abdomen and genitals, erythematous and tenderness Constitutional Vitals: Vital Signs Temp Pulse Resp BP Pulse Ox O2 Del Method O2 Flow Rate 97.8 F 114 H 19 122/96 99 BiPAP 30 01/01/23 03:00 01/01/23 07:15 01/01/23 07:15 01/01/23 07:15 01/01/23 07:15 01/01/23 07:02 12/31/22 18:20 Period Temp Pulse Resp BP Sys/Blackwell Pulse Ox O2 Del Method O2 Flow Rate Last 24 Hr 97.3 F-98.8 F 51-126 14-24 72-135/48-102 90-99 BiPAP-Room Air 30 Intake and Output 12/31/22 01/01/23 01/01/23 19:59 03:59 11:59 Intake Total 1203 1394 234 Output Total 286 67 32 Balance 917 1327 202 Weight 176.946 kg 168.419 kg Intake & Output: Intake & Output 12/31/22 01/01/23 01/01/23 19:59 03:59 11:59 Intake Total 1203 1394 234 Output Total 286 67 32 Balance 917 1327 202 Weight 176.946 kg 168.419 kg Intake: IV 1203 1024 234 Sodium Chloride 0.9% 500 ml @ 1000 500 100 mls/hr IV .Q5H [facility] Rx#: [id number] Sodium Chloride 0.9% 250 ml @ 103 20 mls/hr IV .[id number] [facility] Rx#: [id number] Cordarone 150 mg In Dextrose 5% 53 in Water 50 ml @ 300 mls/hr IV ONCE [facility] Rx#:[id number] Nexterone 360 mg In Premix 1 195 Bag @ 1 MG/MIN 33.333 mls/hr IV .Q6H [facility] Rx#:[id number] Lasix 250 mg In Sodium Chloride 150 100 0.9% 225 ml @ 10 MG/HR 10 mls/ hr IV Q24H [facility] Rx#:[id number] Vasostrict 20 Unit In Dextrose 29 31 5% in Water 99 ml @ 0.02 UNIT/ MIN 6 mls/hr IV Q17H [facility] Rx#: [id number] Oral 300 IV - Manual Only 70 Output: Urine Catheter Amount 226 67 32 Void Amount 60 Other: Meal NPO Urine Appearance Clear Clear Clear Uretheral ([place]) Clear Urine Color Bright Yellow Bright Yellow Bright Yellow Uretheral ([place]) Bright Yellow OBJ DATA Labs 01/01/23 05:19 01/01/23 05:19 Labs: Abnormal Lab Results 01/01/23 01/01/23 12/31/22 05:19 05:19 17:24 WBC 17.5 H RBC 5.48 H Hct 50.0 H POC Hct MCHC 29.4 L RDW 19.0 H Immature Gran % (Auto) 1.3 H Lymph % (Auto) 12.7 L Dent # (Auto) 1.78 H Lymphocytes % Monocytes % (Manual) Immature Gran # 0.22 H Absolute Neutrophils 13.09 H Nucleated RBCs RBC Morphology Polychromasia Anisocytosis ABG Methemoglobin 0.2 L VBG pH 7.28 L POC VBG pH POC VBG pCO2 at Temp VBG pO2 73.6 H POC VBG pO2 VBG HCO3 19.1 L POC VBG HCO3 VBG Total CO2 20.3 L VBG O2 Saturation 89.5 H POC Venous O2 Sat VBG Base Excess -7 L POC VBG Base Excess Carboxyhemoglobin 5.5 H Total Hemoglobin 16.1 H POC Sodium Sodium POC Potassium Potassium 5.6 H Carbon Dioxide 17 L POC BUN BUN 63 H Creatinine 1.8 H POC Creatinine Glucose POC Glucose Calcium 7.7 L POC WB Ioniz Calcium Phosphorus Magnesium GGT Lactate Dehydrogenase 311 H Total Protein 5.3 L Albumin 2.5 L Albumin/Globulin Ratio 0.9 L TSH 12/31/22 12/31/22 12/31/22 10:19 05:45 05:45 WBC 14.1 H RBC 5.70 H Hct 52.6 H POC Hct MCHC 29.3 L RDW 19.1 H Immature Gran % (Auto) Lymph % (Auto) Dent # (Auto) Lymphocytes % 11 L Monocytes % (Manual) 13 H Immature Gran # Absolute Neutrophils Nucleated RBCs 1 H RBC Morphology Abnormal A Polychromasia Occ A Anisocytosis 2+ A ABG Methemoglobin VBG pH POC VBG pH 7.27 L POC VBG pCO2 at Temp 51.8 H VBG pO2 POC VBG pO2 55 H VBG HCO3 POC VBG HCO3 23.9 L VBG Total CO2 VBG O2 Saturation POC Venous O2 Sat 84.0 H VBG Base Excess POC VBG Base Excess -3.0 L Carboxyhemoglobin Total Hemoglobin POC Sodium Sodium 126 L POC Potassium Potassium 6.0 H* Carbon Dioxide 17 L POC BUN BUN 63 H Creatinine 1.7 H POC Creatinine Glucose 137 H POC Glucose Calcium POC WB Ioniz Calcium Phosphorus 4.9 H Magnesium 2.9 H GGT 40 H Lactate Dehydrogenase 382 H Total Protein Albumin 3.1 L Albumin/Globulin Ratio 0.9 L TSH 12/30/22 12/30/22 12/30/22 14:16 07:41 07:41 WBC 13.1 H RBC Hct 48.1 H POC Hct 51.0 H MCHC 30.4 L RDW 18.3 H Immature Gran % (Auto) 0.6 H Lymph % (Auto) 15.3 L Dent # (Auto) 1.21 H Lymphocytes % Monocytes % (Manual) Immature Gran # 0.08 H Absolute Neutrophils 9.50 H Nucleated RBCs RBC Morphology Polychromasia Anisocytosis ABG Methemoglobin VBG pH POC VBG pH POC VBG pCO2 at Temp VBG pO2 POC VBG pO2 VBG HCO3 POC VBG HCO3 VBG Total CO2 VBG O2 Saturation POC Venous O2 Sat VBG Base Excess POC VBG Base Excess Carboxyhemoglobin Total Hemoglobin POC Sodium 131 L Sodium 128 L POC Potassium 5.5 H Potassium 5.7 H Carbon Dioxide POC BUN 62 H BUN 54 H Creatinine 1.5 H POC Creatinine 2.0 H Glucose 121 H POC Glucose 231 H Calcium POC WB Ioniz Calcium 1.15 L Phosphorus Magnesium 2.7 H GGT Lactate Dehydrogenase 466 H Total Protein Albumin 3.0 L Albumin/Globulin Ratio 0.9 L TSH 12/29/22 12/29/22 12/29/22 07:55 07:55 07:55 WBC 14.2 H RBC 5.49 H Hct 49.8 H POC Hct MCHC 29.9 L RDW 18.1 H Immature Gran % (Auto) 0.6 H Lymph % (Auto) 11.6 L Dent # (Auto) 1.42 H Lymphocytes % Monocytes % (Manual) Immature Gran # 0.08 H Absolute Neutrophils 10.90 H Nucleated RBCs RBC Morphology Polychromasia Anisocytosis ABG Methemoglobin VBG pH POC VBG pH POC VBG pCO2 at Temp VBG pO2 POC VBG pO2 VBG HCO3 POC VBG HCO3 VBG Total CO2 VBG O2 Saturation POC Venous O2 Sat VBG Base Excess POC VBG Base Excess Carboxyhemoglobin Total Hemoglobin POC Sodium Sodium 130 L POC Potassium Potassium 5.2 H Carbon Dioxide POC BUN BUN 49 H Creatinine 1.6 H POC Creatinine Glucose 28 L* POC Glucose Calcium POC WB Ioniz Calcium Phosphorus Magnesium GGT Lactate Dehydrogenase Total Protein Albumin Albumin/Globulin Ratio TSH 6.08 H Meds: Medications Acetaminophen (Acetaminophen 325 Mg Tablet) 650 mg PO Q4-6HP PRN; Protocol PRN Reason: Per Pain Protocol/Fever > 101 Last Admin: 01/01/23 03:15 Dose: 650 mg Apixaban (Apixaban 5 Mg Tablet) 5 mg PO BID [facility] Last Admin: 12/31/22 22:06 Dose: 5 mg Atorvastatin Calcium (Atorvastatin 20 Mg Tablet) 20 mg PO HS [facility] Last Admin: 12/31/22 22:06 Dose: 20 mg Cefepime HCl (Cefepime 2 Gm Vial) 2 gm IV Q12H [facility]; Protocol Stop: 01/03/23 09:01 Last Admin: 12/31/22 22:05 Dose: 2 gm Dextrose (Dextrose 50% 50 Ml Vial) 0 ml IV UD PRN PRN Reason: Per Sliding Scale Diagnostic Test (Pha) (Accu-Chek 1 Each Strip) 1 each FS ACHS [facility] Last Admin: 01/01/23 07:17 Dose: 1 each Diltiazem HCl (Diltiazem 240 Mg Cap.Xl.24h) 240 mg PO DAILY [facility] Last Admin: 12/31/22 08:29 Dose: 240 mg Doxycycline Hyclate (Doxycycline Hyclate 100 Mg Tablet.Orl) 100 mg PO BID [facility] Stop: 01/09/23 09:01 Last Admin: 12/31/22 22:06 Dose: 100 mg Gabapentin (Gabapentin 300 Mg Capsule) 600 mg PO TID [facility] Last Admin: 12/31/22 20:14 Dose: 600 mg Glucose (Dextrose 31 Gm Oral.Susp) 15 gm PO PRN PRN PRN Reason: Hypoglycemia Metronidazole (Flagyl) 500 mg in 100 mls @ 100 mls/hr IV Q8H [facility]; Protocol Stop: 01/03/23 14:59 Last Admin: 01/01/23 06:14 Dose: 100 mls/hr AMIODARONE 360 mg/ Premix 200 mls @ 16.667 mls/hr IV .Q12H [facility]; Protocol Stop: 01/01/23 16:59 Last Admin: 12/31/22 23:24 Dose: 0.5 mg/min, 16.667 mls/hr Vasopressin 20 unit/ Dextrose 100 mls @ 6 mls/hr IV Q17H [facility]; Protocol Last Titration: 01/01/23 07:16 Dose: 0 unit/min, 0 mls/hr Sodium Chloride (Sodium Chloride 0.9%) 250 mls @ 20 mls/hr IV .[id number] [facility] Last Infusion: 01/01/23 04:15 Dose: 10 mls/hr Norepinephrine Bitartrate 8 mg (/ Sodium Chloride) 250 mls @ 18.75 mls/hr IV Q 14H [facility]; Protocol Last Admin: 01/01/23 04:19 Dose: 10 mcg/min, 18.75 mls/hr Insulin Glargine (Insulin Glargine, Human 1 Unit/0.01 Ml) 20 unit SQ [facility] Last Admin: 12/31/22 21:59 Dose: Not Given Insulin Human Lispro (Insulin Lispro 1 Unit/0.01 Ml Unit) 0 unit SQ [facility]; Protocol Last Admin: 01/01/23 07:17 Dose: Not Given Levothyroxine Sodium (Levothyroxine 100 Mcg Tablet) 100 mcg PO QDAY [facility] Last Admin: 12/31/22 08:29 Dose: 100 mcg Metoprolol Tartrate (Metoprolol Tartrate 25 Mg Tablet) 50 mg PO BID [facility] Last Admin: 12/31/22 22:06 Dose: 50 mg Metoprolol Tartrate (Metoprolol Tartrate 5 Mg/5 Ml Vial) 5 mg IV Q2HP PRN PRN Reason: Tachyarrhythmias HR>110 Last Admin: 12/31/22 11:35 Dose: 5 mg Mirtazapine (Mirtazapine 15 Mg Tablet) 30 mg PO [facility] Last Admin: 12/31/22 22:06 Dose: 30 mg Nystatin (Nystatin Powder Bottle 15gm) 0 dose TOPICAL BID [facility] Last Admin: 12/31/22 22:07 Dose: 1 dose Sodium Bicarbonate (Sodium Bicarbonate 650 Mg Tablet) 1,300 mg PO TID [facility] Last Admin: 12/31/22 22:06 Dose: 1,300 mg Sodium Chloride (0.9 % Sodium Chloride 10 Ml Syringe) 10 ml IV Q8 [facility] Last Admin: 01/01/23 06:05 Dose: 10 ml ABG Interpretation ABG results: 12/31/22 17:24 ABG Methemoglobin 0.2 L VBG pH 7.28 L VBG pCO2 41.7 VBG pO2 73.6 H VBG HCO3 19.1 L VBG Total CO2 20.3 L VBG O2 Saturation 89.5 H VBG Base Excess -7 L A/P Narrative A/P Narrative: A: #Septic shock: 2/2 wound soft tissue infection(groin/perineum) -off vasopressors -leukocytosis persistent and seems to have chronic component, but worsened today. man diff pending #Non-purulent cellulitis: -2/2 poor self-hygiene and morbid obesity, patient had been sitting in her feces for days -urine cx & blood cx NGTD. CT chest/abdomen and pelvis -> moderate ascites that is new from previous exam. -Large amount of edema seen in camper's fascia b/l. A moderate right pleural effusion with compressive atelectasis. #Volume Overload with CHF and Right heart failure: -echo showing EF 40-45%, RV pressure/volume overload, RV systolic fxn mod reduced -see CT results noted above #Hyperkalemia: -Patient's home KCl was held on admit -stopped digoxin concern for toxicity, s/p digifab. #PAF/flutter w/RVR: -difficult rate control #BRADLEY on CKD III: likely ATN from shock -slight worse again, -poor UOP despite lasix gtt #Met acidosis: 2/2 above - #Encephalopathy: 2/2 co2 retention +/- metabolic ?uremic vs ?dig toxicity -better today, still seems a bit drowsy #Hyponatremia/Hypermagnesemia/Hyperphos: improving #Diarrhea: improved -Improving, unable to run c. diff. rare fecal wbc #Chronic Respiratory Failure: Restrictive Lung on PFTs with hypoxia, pt on 4L NC at home #Morbid Obesity: bmi 70 #KANDIS on cpap: cont home cpap #HTN/HLD: -cont statin #Hypothyroidism: -cont levothyroxine #DM2 w/neuroapthy: #Failure to thrive: #Factor V Leiden mutation: on eliquis #Chronic pain: #GERD: #Guarded prognosis: P: -ID following, recs > Doxy x10 days and to complete 7 days of cefepime/flagyl. Nystatin powder -wound care consult -man diff pending -cont home BB, home Dilt stopped -Amio gtt started, dig stopped. consider cardio consult -Nephrology consult > recommends transfer for CRRT vs HD -hold diuretics/fluids and defer to nephrology -Monitor renal function, uop, avoid nephrotoxic meds -Monitor electrolytes and treat accordingly, trend -basal and SSI, rahul -Goals of care discussion -PT/OT -CM for placement -ppx: eliquis / home ppi Time Spent With Patient Time: Total time spent is greater than 50% in coordination of care (as documented) at patient's floor/unit and/or counseling patient: Critical Care Time: Yes Total Critical Care Time: 60 QUALITY VTE Deep Vein Thrombosis/Pulmonary Embolism Present on Admission: No
[2023-01-01] MEDS: DOXYCYCLINE HYCLATE 100 MG TABLET.ORL PO SCH (08:10)
[2023-01-01] MEDS: APIXABAN 5 MG TABLET PO SCH (08:11)
[2023-01-01] MEDS: METOPROLOL TARTRATE 25 MG TABLET PO SCH (08:11)
[2023-01-01] MEDS: GABAPENTIN 300 MG CAPSULE PO SCH (08:11)
[2023-01-01] MEDS: CEFEPIME 2 GM VIAL IV SCH (08:11)
[2023-01-01] MEDS: NYSTATIN POWDER BOTTLE 15GM TOPICAL SCH (08:11)
[2023-01-01] MEDS: LEVOTHYROXINE 100 MCG TABLET PO SCH (08:12)
[2023-01-01] MEDS: SODIUM BICARBONATE 650 MG TABLET PO SCH (08:12)
--- NOTE | 2023-01-01 08:20 | Nephrology Consult Note ---
HPI Date of Consult Consult Date: 01/01/23 Requesting physician: Alberto Abel Primary Care Provider: Adán Briones MD Consult Narrative Chief complaint: Dyspnea Reason for consult: Acute kidney injury History of present illness: Rahel Grover is a 72-year-old female with morbid obesity, congestive heart failure, atrial fibrillation on Eliquis, insulin-dependent diabetes mellitus presented to the hospital for diarrhea on 12/25/22. She was admitted for suspected sepsis. Her creatinine has been rising with electrolyte abnormalities. She also had progressive fluid overload with Iv pressor need. She had <50 ml urine output overnight despite 250 mg IV Furosemide infusion. cc:: CC: Halima Dugan MD Review of Systems Review of systems: unobtainable due to BIPAP PFSH PFSH All Active Problems (Updated 01/01/23 @ 08:16 by Mynor Chapa MD) Acute kidney injury (Acute) Aspiration pneumonia (Acute) UTI (urinary tract infection) (Acute) Intertrigo of genitocrural region due to Shannan species (Acute) Atrial fibrillation with RVR (Acute) Sepsis (Acute) Acute hyperkalemia (Acute) Asthma (Chronic) Gout (Chronic) Congestive heart failure (Chronic) High blood pressure (Chronic) Joint pain (Chronic) Thyroid trouble (Chronic) Morbid obesity with BMI of 50.0-59.9, adult (Chronic) Chronic left shoulder pain (Acute) Diabetes mellitus type 2 in obese (Chronic) Impingement syndrome of left shoulder (Acute) halfway current use of anticoagulant therapy (Acute) Insomnia (Chronic) Hypoxia (Chronic) Factor 5 Leiden mutation, heterozygous (Chronic) Hypothyroid (Chronic) Paroxysmal atrial fibrillation (Chronic) Physical deconditioning (Chronic) Pulmonary hypertension (Chronic) Medicare annual wellness visit, initial (Acute) Obesity hypoventilation syndrome (Chronic) Chronic headaches (Chronic) Pneumonia (Acute) Sepsis due to pneumonia (Acute) 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 Gout High blood pressure History of Wong's palsy Hypothyroid Impingement syndrome of left shoulder Insomnia Joint pain Left ankle pain Left shoulder pain Lower extremity cellulitis Medicare annual wellness visit, initial Mixed restrictive and obstructive lung disease Obesity hypoventilation syndrome Obstructive sleep apnea Paroxysmal atrial fibrillation Physical deconditioning Pulmonary hypertension Swelling of lower extremity Thyroid trouble Type 2 diabetes mellitus Surgical History History of appendectomy History of cholecystectomy History of hernia repair Ventral History of hip replacement History of hysterectomy History of knee surgery (~1967) Knee arthroscopy with medial meniscectomy History of oophorectomy History of removal of ovarian cyst History of surgery 10/04/2020-wide excision of mass of abdominal wall History of surgery 01/17/2021-wide surgical debridement of abscess of anterior abdominal wall Family History Mother Arthritis Brother Diabetes Father Heart attack Social History marital status: occupational status: retired smoking status: Never smoker alcohol intake frequency: does not drink substance use type: does not use MEDS/ALLERGIES Home Medications and Allergies Home Medications Medication Instructions Recorded Confirmed Type nystatin 100,000 unit/gram topical 10,000 applic topical PRN PRN Rash 03/17/20 12/25/22 History powder acetaminophen 500 mg tablet 1,000 mg PO Q6H PRN Pain 09/29/20 12/25/22 History (Acetaminophen Extra Strength) ascorbic acid (vitamin C) 1,000 mg 1 g PO QAM 09/29/20 12/25/22 History tablet (Vitamin C) calcium carbonate 600 mg calcium 600 mg PO HS 09/29/20 12/25/22 History (1,500 mg) tablet (Calcium) cetirizine 10 mg tablet 5 mg PO QHS 09/29/20 12/25/22 History cholecalciferol (vitamin D3) 125 125 mcg PO QHS 09/29/20 12/25/22 History mcg (5,000 unit) tablet (Vitamin D3) cinnamon bark 500 mg capsule 500 mg PO QAM 09/29/20 12/25/22 History (Cinnamon) coQ10 (ubiquinol) 200 mg capsule 200 mg PO QHS 09/29/20 12/25/22 History fluticasone propionate 50 2 spray intranasal PRN PRN Allergy 09/29/20 12/25/22 History mcg/actuation nasal Symptoms spray,suspension (Aller-Robbi) multivitamin 1 tab PO QDAY 09/29/20 12/25/22 History albuterol sulfate 90 mcg/actuation 2 puff inhalation .Q4-6H PRN 06/27/21 12/25/22 Rx aerosol inhaler Shortness of breath #8.5 grams famotidine 40 mg tablet 40 mg PO QDAY PRN heartburn #90 12/19/21 12/25/22 Rx tabs levothyroxine 50 mcg tablet 50 mcg PO .COMPLEX #24 tabs 01/04/22 12/25/22 Rx flash glucose scanning reader #1 ea 04/09/22 12/25/22 Rx (FreeStyle Hector 2 [place]) flash glucose sensor (FreeStyle #1 ea 04/09/22 12/25/22 Rx Hector 2 Sensor kit) insulin glargine 100 unit/mL (3 40 unit (0.4 mL) subcut QDAY #15 mL 04/19/22 12/25/22 Rx mL) subcutaneous pen (Basaglar KwikPen U-100 Insulin) apixaban 5 mg tablet (Eliquis) 5 mg PO BID 90 days #180 tabs 05/02/22 12/25/22 Rx potassium chloride 20 mEq 20 meq PO TID #270 tabs 05/07/22 12/25/22 Rx tablet,extended release blood sugar diagnostic (Blood #100 ea 05/16/22 12/25/22 Rx Glucose Test strips) gabapentin 300 mg capsule See Rx Instructions .Route 07/02/22 12/25/22 Rx .COMPLEX #540 caps mirtazapine 30 mg tablet 30 mg PO QDAY Insomnia #90 tabs 07/02/22 12/25/22 Rx semaglutide 1 mg/dose (4 mg/3 mL) 1 mg (0.75 mL) subcut QWEEK #3 mL 07/30/22 12/25/22 Rx subcutaneous pen injector metolazone 5 mg tablet 5 mg PO QDAY #3 tabs 09/27/22 12/25/22 Rx allopurinol 300 mg tablet See Rx Instructions .Route 10/01/22 12/25/22 Rx .COMPLEX #90 tabs montelukast 10 mg tablet 10 mg PO QPM Cough #90 tabs 10/01/22 12/25/22 Rx furosemide 80 mg tablet 80 mg PO BID Edema #180 tabs 10/23/22 12/25/22 Rx levothyroxine 100 mcg tablet 100 mcg PO QDAY #90 tabs 10/23/22 12/25/22 Rx atorvastatin 20 mg tablet 20 mg PO HS #90 tabs 11/08/22 12/25/22 Rx diltiazem HCl 120 mg 120 mg PO DAILY afib #90 caps 11/08/22 12/25/22 Rx capsule,extended release 24 hr (Cartia XT) metoprolol tartrate 50 mg tablet 50 mg PO BID tyachycardia #180 tabs 11/08/22 12/25/22 Rx (Lopressor) nystatin 100,000 unit/gram topical See Rx Instructions topical BID 12/13/22 12/25/22 Rx cream #30 grams nystatin 100,000 unit/gram topical See Rx Instructions topical BID 12/13/22 12/25/22 Rx powder #30 grams losartan 25 mg tablet 25 mg PO QDAY 12/25/22 12/25/22 History Allergies Allergy/AdvReac Type Severity Reaction Status Date / Time metformin AdvReac Mild Diarrhea Verified 12/25/22 18:06 morphine AdvReac Mild Hallucinati Verified 12/25/22 18:06 ng paper tape Allergy Intermediate Hives Uncoded 11/06/22 14:07 Physical Examination Vital Signs Vital signs: Temp Pulse Resp BP Pulse Ox O2 Del Method O2 Flow Rate 97.7 F 113 H 33 H 94/77 94 Oxymask 6 01/01/23 08:02 01/01/23 08:02 01/01/23 08:02 01/01/23 08:02 01/01/23 08:02 01/01/23 08:02 01/01/23 08:02 General Appearance General appearance: obese Respiratory Respiratory: course breath sounds Cardiovascular Cardiology: edema Gastrointestinal Gastrointestinal: obese Additional Exam Additional exam: BIPAP mask is on Results Lab Results 01/01/23 05:19 01/01/23 05:19 Lab results: Most recent lab results Calcium 7.7 mg/dL (8.6-10.4) L 01/01/23 05:19 Phosphorus 4.1 mg/dL (2.5-4.5) 01/01/23 05:19 Magnesium 2.5 mg/dL (1.6-2.5) 01/01/23 05:19 A/P Assessment and plan (1) Acute kidney injury: Assessment and plan: Rahel Grover is a 72-year-old female with morbid obesity, congestive heart failure, atrial fibrillation on Eliquis, insulin-dependent diabetes mellitus presented to the hospital for diarrhea on 12/25/22. She was admitted for suspected sepsis. Her creatinine has been rising with electrolyte abnormalities. She also had progressive fluid overload with Iv pressor need. She had <50 ml urine output overnight despite 250 mg IV Furosemide infusion. Nephrology consultation was requested for acute kidney injury. Acute kidney injury with anuria, likely acute tubular necrosis associated with shock with hyperkalemia, metabolic acidosis and hyponatremia. Work up: Urinalysis on 12/25/22: Yellow, cloudy, pH 5.0, SG 1.029, protein negative, blood negative, leukocyte esterase 75, urine WBC. Urine Sodium on 12/31/22: <10 mmol/L. CT Abdomen and Pelvis without contrast on 12/25/22: Both kidneys are normal in size configuration and attenuation without focal lesion. Echo on 12/31/22: LVEF 40-45%, right ventricle is moderate to severely dilated, right ventricular systolic function moderately reduced, right ventricle volume overload. Progress: Serum creatinine increased from 1.7 to 1.8 in the past 24 hours. Baseline serum creatinine: 1.0 on 12/25/22. Urine output: <50 ml reported in the past 12 hours despite Furosemide 250 mg IV infusion. Metabolic acidosis. Hyponatremia. Hyperkalemia. Fluid overload. Recommendations/Plan: Anticipated acute hemodialysis possibly CRRT need. Recommend transfer to higher level for hemodialysis catheter placement and CRRT need. Status: Acute Time Spent With Patient Time: Total time spent is greater than 50% in coordination of care (as documented) at patient's floor/unit and/or counseling patient:
--- NOTE | 2023-01-01 09:37 | Event Note ---
Event Note Event Note: Saw patient in ICU. Spoke with Wendy Boss RNsign artist Nurse Interior Design Professor and Dr. Abel. Hospitalist. Reviewed events. Continue supportive care. Agree with ongoing local skin care. Thanks.
[2023-01-01] MEDS ORDERED: morphine 4 MG/ML VIAL IV PRN (10:01)
[2023-01-01] MEDS ORDERED: morphine 4 MG/ML VIAL NEB PRN (10:01)
[2023-01-01] MEDS ORDERED: LORazepam 2 MG/ML VIAL IV PRN (10:01)
[2023-01-01] MEDS ORDERED: LACTOPEROXI/GLUC OXID/POT THIO 1 EACH GEL..EA. TOPICAL PRN (10:01)
[2023-01-01] MEDS ORDERED: ONDANSETRON 4 MG ODT TABLET SL PRN (10:01)
[2023-01-01 10:33] LABS: Anisocytosis 2+ (None Seen); Basophils % (Manual) 1 % (0-2); Lymphocytes % 10 % (15-49); Monocytes % (Manual) 14 % (1-12); Nucleated Red Blood Cells 1 % (0-0); Platelet Estimate NORMAL (Normal); RBC Morphology ABNORMAL (Normal); Segmented Neutrophils % 75 % (38-78)
--- NOTE | 2023-01-01 11:08 | Discharge Summary ---
Discharge Provider Provider IMPORTANT FOLLOW-UP INFORMATION FOR PCP: Patient information: Note initiated : 01/01/23 at 11:02 am Service Date, if different from initiated Date: [] Patient: Rahel Grover 72 y/o F admitted on 12/25/22 for weakness, diarrhea x 4 days. Chief Complaint: [] Date of admission: 12/25/22 16:35 Discharge date: 01/01/23 Primary care physician: Adán Briones MD Consults: 12/25/22 Consult to Physician [CONS] Stat Comment: Consulting Provider: Halima Dugan Reason For Exam: Physician to Consult 12/27/22 08:37 Consult to Physician [CONS] Routine Comment: Consulting Provider: Moe Hobbs - ID Reason For Exam: Physician to Consult 12/30/22 12:53 Consult to Physician [CONS] Routine Comment: wound care review Consulting Provider: Azar Richardson Reason For Exam: Physician to Consult 01/01/23 07:43 Consult to Physician [CONS] Routine Comment: Consulting Provider: Mynor Chapa Reason For Exam: Physician to Consult COURSE Hospital Course Hospital course: History of present illness: Ms. Grover is a 72 year old morbidly obese female with a complex past medical history significant for congestive heart failure, atrial fibrillation on Eliquis, insulin-dependent diabetes mellitus, and multiple prior hospitalizations who presents to the hospital with complaints of diarrhea resulting in perineal and lower extremity skin irritation. The patient is bedbound and lives alone. She states that she does not have caregivers at home. She takes her medications via blister pack or pill pack. She is on multiple antihypertensive medications including losartan, metolazone, metoprolol, and Lasix. She denies any fevers, chills, shortness of breath, or abdominal pain. She states that she came to the ER because the pain around her perineum was quite severe and she was worried about a possible skin infection. On arrival she was hemodynamically tenuous as she was tachycardic with a heart rate in the 120s and a blood pressure systolic in the 90s. Her white blood cell count was elevated at 13,000. She was found to have a potassium of 6.5 and a creatinine of 1.4. The hospital service was asked to admit the patient for fu rther management and evaluation of her suspected sepsis and tachyarrhythmia. 12/26: HR remains difficult to control, SBP 70-80s. Patient states that she is feeling much better today after IVF and IV abx. Discussed case w/ RN 12/27: The patient was started on vasopressor support with phenylephrine via central line that was placed by anesthesia. She received ketamine and Versed for the central line and was altered and unfortunately pulled out as a central venous catheter. The patient's mental status has improved. I did discuss goals of care with the sister yesterday. 12/28: The patient is alert, and fully conversant. Discussed the case with the RN who was present at the bedside. I recommended the patient evaluate goals of care moving forward and have a discussion with her sister. The patient has no other active complaints or concerns at this time. 12/29: The patient's legs are weeping and there are blisters present on examination today. Discussed the case with RN. The patient's heart rate remains stuck at 120 bpm. 12/30 No overnight event or new complaints. HR 110's. Leukocytosis present but mildly improved. Hyponatremia present and hyperkalemia. Renal function similar to yesterday. Creatinine 1.5. Magnesium elevated. Check digoxin level. 12/31 Rechecking dig level. Patient does seem to have a bit of confusion this morning she says she does feel a little foggy. Leukocytosis persistent, no bandemia. Patient hyponatremia worse hyperkalemia worse. Metabolic acidosis. Creatinine slightly increased. Will use measures as noted in plan but if unsuccessful then will need nephrology consultation. *vbg with acidosis and co2 retention, will place bipap and transfer to unit. mixed acid-base disturbance primarily resp with secondary met acidosis. 01/01 Patient says she is feeling mentally more clear than yesterday. She has some baseline shortness of breath no cough. No nausea vomiting or new complaints. I discussed with her CODE STATUS and she felt a DO NOT RESUSCITATE is more appropriate than a full code. Tried a Lasix drip last night due to the volume overload but with no success. Creatinine continues to slowly climb. Metabolic acidosis present not changed from yesterday. Hyperkalemia improved but still elevated mildly. Patient back on amnio drip with heart rates around 100-110's. Was on BiPAP yesterday and evening for CO2 retention. Consultation by nephrology recommended transfer for CRRT versus HD. I discussed with patient who seems to be on the fence. We are going to have a family discussion with her sister who is well aware of her medical history and her sister is a nurse as well. The sister will have a discussion with the patient and help us gather goals of care. The patient had a phone conversation with her sister and after some time on the phone the patient and sister decided on transitioning to comfort care only. We will transition to comfort care only. A: #BRADLEY on CKD III: likely ATN from shock #Volume Overload with CHF and Right heart failure: -echo showing EF 40-45%, RV pressure/volume overload, RV systolic fxn mod reduced #Hyperkalemia: #Met acidosis:2/2 above #PAF/Flutter w/RVR: #Septic shock: 2/2 wound soft tissue infection(groin/perineum) #Non-purulent cellulitis: soft tissue infection(groin/perineum) #Encephalopathy: #Hyponatremia/Hypermagnesemia/Hyperphos: #Diarrhea: #Chronic Respiratory Failure:Restrictive Lung on PFTs with hypoxia,pt on 4L NC at home #Morbid Obesity:bmi 70 #KANDIS on cpap:cont home cpap #HTN/HLD:-cont statin #Hypothyroidism: -cont levothyroxine #DM2 w/neuroapthy: #Failure to thrive: #Factor V Leiden mutation:on eliquis #Chronic pain: #GERD: P: -Comfort care only Discharge diagnosis: Acute kidney injury on chronic kidney disease with ATN and volume overload Secondary discharge diagnosis: Left and right heart failure metabolic acidosis hyperkalemia and a lot of other electrolyte disorders metabolic acidosis atrial flutter with difficult rate control for septic shock nonpurulent cellulitis of the groin perineum Encephalopathy diarrhea chronic respiratory failure morbid obesity obstructive sleep apnea hypertension hyperlipidemia hypothyroidism diabetes failure to thrive factor V Leiden mutation chronic pain GERD Time Spent with Patient Time attestation: Total time spent providing and/or coordinating discharge services: Time spent: Greater than 30 minutes EXAM Constitutional Vitals: Temp Pulse Resp BP Pulse Ox O2 Del Method O2 Flow Rate 97.7 F 108 H 22 97/63 99 Oxymask 6 01/01/23 08:02 01/01/23 09:01 01/01/23 09:01 01/01/23 09:01 01/01/23 09:01 01/01/23 09:01 01/01/23 08:02 Discharge Data Data Completed and Pending Labs on day of discharge: Labs from last 24 hours 01/01/23 01/01/23 01/01/23 05:19 05:19 05:19 WBC RBC Hgb Hct MCV MCH MCHC RDW Plt Count MPV Immature Gran % (Auto) Neut % (Auto) Lymph % (Auto) Union % (Auto) Eos % (Auto) Baso % (Auto) Lymph # (Auto) [place] # (Auto) Eos # (Auto) Baso # (Auto) Seg Neutrophils % 75 Lymphocytes % 10 L Monocytes % (Manual) 14 H Basophils % (Manual) 1 Immature Gran # Absolute Neutrophils Nucleated RBCs 1 H Platelet Estimate Normal RBC Morphology Abnormal A Anisocytosis 2+ A ABG Methemoglobin VBG pH VBG pCO2 VBG pO2 VBG HCO3 VBG Total CO2 VBG O2 Saturation VBG Base Excess Carboxyhemoglobin Total Hemoglobin Sodium 135 Potassium 5.6 H Chloride 104 Carbon Dioxide 17 L Anion Gap 14.0 BUN 63 H Creatinine 1.8 H GFR Calculation 27 Glucose 94 Uric Acid 6.4 Calcium 7.7 L Phosphorus 4.1 Magnesium 2.5 Total Bilirubin 0.4 Direct Bilirubin 0.2 GGT 25 AST 22 ALT 18 Alkaline Phosphatase 56 Lactate Dehydrogenase 311 H Total Protein 5.3 L Albumin 2.5 L Globulin 2.8 Albumin/Globulin Ratio 0.9 L Triglycerides 78 Ur Random Creatinine Ur Random Sodium Urine Urea Nitrogen Digoxin 1.5 01/01/23 12/31/22 12/31/22 05:19 17:24 10:55 WBC 17.5 H RBC 5.48 H Hgb 14.7 Hct 50.0 H MCV 91.2 MCH 26.8 MCHC 29.4 L RDW 19.0 H Plt Count 282 MPV 10.9 Immature Gran % (Auto) 1.3 H Neut % (Auto) 74.8 Lymph % (Auto) 12.7 L [place] % (Auto) 10.2 Eos % (Auto) 0.7 Baso % (Auto) 0.3 Lymph # (Auto) 2.22 Union # (Auto) 1.78 H Eos # (Auto) 0.12 Baso # (Auto) 0.05 Seg Neutrophils % Lymphocytes % Monocytes % (Manual) Basophils % (Manual) Immature Gran # 0.22 H Absolute Neutrophils 13.09 H Nucleated RBCs Platelet Estimate RBC Morphology Anisocytosis ABG Methemoglobin 0.2 L VBG pH 7.28 L VBG pCO2 41.7 VBG pO2 73.6 H VBG HCO3 19.1 L VBG Total CO2 20.3 L VBG O2 Saturation 89.5 H VBG Base Excess -7 L Carboxyhemoglobin 5.5 H Total Hemoglobin 16.1 H Sodium Potassium Chloride Carbon Dioxide Anion Gap BUN Creatinine GFR Calculation Glucose Uric Acid Calcium Phosphorus Magnesium Total Bilirubin Direct Bilirubin GGT AST ALT Alkaline Phosphatase Lactate Dehydrogenase Total Protein Albumin Globulin Albumin/Globulin Ratio Triglycerides Ur Random Creatinine Ur Random Sodium Urine Urea Nitrogen 579 Digoxin 12/31/22 12/31/22 10:55 10:55 WBC RBC Hgb Hct MCV MCH MCHC RDW Plt Count MPV Immature Gran % (Auto) Neut % (Auto) Lymph % (Auto) [place] % (Auto) Eos % (Auto) Baso % (Auto) Lymph # (Auto) Union # (Auto) Eos # (Auto) Baso # (Auto) Seg Neutrophils % Lymphocytes % Monocytes % (Manual) Basophils % (Manual) Immature Gran # Absolute Neutrophils Nucleated RBCs Platelet Estimate RBC Morphology Anisocytosis ABG Methemoglobin VBG pH VBG pCO2 VBG pO2 VBG HCO3 VBG Total CO2 VBG O2 Saturation VBG Base Excess Carboxyhemoglobin Total Hemoglobin Sodium Potassium Chloride Carbon Dioxide Anion Gap BUN Creatinine GFR Calculation Glucose Uric Acid Calcium Phosphorus Magnesium Total Bilirubin Direct Bilirubin GGT AST ALT Alkaline Phosphatase Lactate Dehydrogenase Total Protein Albumin Globulin Albumin/Globulin Ratio Triglycerides Ur Random Creatinine 93.7 Ur Random Sodium < 10 Urine Urea Nitrogen Digoxin Discharge Plan Patient/Caregiver Discharge Instructions Activity: increase activity as tolerated Diet: Consistent Carbohydrate Prescriptions: New morphine 20 mg/5 mL (4 mg/mL) solution 10 mg PO Q1-2HP PRN (Reason: pain) Qty: 100 0RF hyoscyamine sulfate [Levsin/SL] 0.125 mg tablet, sublingual 0.125 mg sublingual QID PRN (Reason: terminal secretions) Qty: 20 0RF ondansetron 4 mg tablet,disintegrating 4 mg translingual Q6H PRN (Reason: nausea and vomiting) Qty: 30 0RF lorazepam 2 mg/mL concentrate 1 mg sublingual Q2HP PRN (Reason: anxiety) Qty: 30 0RF Continued nystatin 100,000 unit/gram powder See Rx Instructions topical BID Qty: 30 0RF Rx Instructions: Apply 1 application to front of thighs and pannus topically twice a day; nystatin 100,000 unit/gram cream See Rx Instructions topical BID Qty: 30 0RF Rx Instructions: Apply 1 application to back of thighs and top of buttocks topically twice a day; nystatin 100,000 unit/gram Powder 10,000 applic TOPICAL PRN PRN (Reason: Rash) Discontinued famotidine 40 mg tablet 40 mg PO QDAY PRN (Reason: heartburn) Qty: 90 1RF levothyroxine 50 mcg tablet 50 mcg PO .COMPLEX Qty: 24 3RF Rx Instructions: 50 mcg PO on sat and sun with 100mcg; Basaglar KwikPen U-100 Insulin 100 unit/mL (3 mL) insulin pen 40 unit subcut QDAY Qty: 15 5RF Eliquis 5 mg tablet 5 mg PO BID 90 Days Qty: 180 1RF potassium chloride 20 mEq tablet extended release 20 meq PO TID Qty: 270 3RF mirtazapine 30 mg tablet 30 mg PO QDAY Qty: 90 1RF Rx Instructions: 1/2-1-hour prior to sleep gabapentin 300 mg capsule See Rx Instructions .ROUTE .COMPLEX Qty: 540 1RF Dose Instruction: TAKE TWO CAPSULES BY MOUTH THREE TIMES DAILY Rx Instructions: TAKE TWO CAPSULES BY MOUTH THREE TIMES DAILY semaglutide 1 mg/dose (4 mg/3 mL) pen injector 1 mg subcut QWEEK Qty: 3 2RF allopurinol 300 mg tablet See Rx Instructions .ROUTE .COMPLEX Qty: 90 1RF Dose Instruction: TAKE ONE TABLET BY MOUTH ONCE DAILY Rx Instructions: TAKE ONE TABLET BY MOUTH ONCE DAILY montelukast 10 mg tablet 10 mg PO QPM Qty: 90 1RF Rx Instructions: 1 tablet in p.m. furosemide 80 mg tablet 80 mg PO BID Qty: 180 1RF Rx Instructions: Dose change levothyroxine 100 mcg tablet 100 mcg PO QDAY Qty: 90 1RF Rx Instructions: 100mcg m-f, 150mcg sat and sun atorvastatin 20 mg tablet 20 mg PO HS Qty: 90 3RF metoprolol tartrate [Lopressor] 50 mg tablet 50 mg PO BID Qty: 180 3RF Rx Instructions: Take one tab BID. diltiazem HCl [Cartia XT] 120 mg capsule,extended release 24hr 120 mg PO DAILY Qty: 90 3RF Rx Instructions: 1 p.o. daily albuterol sulfate 90 mcg/actuation HFA aerosol inhaler 2 puff inhalation .Q4-6H PRN (Reason: Shortness of breath) Qty: 8.5 6RF Rx Instructions: Use albuterol every 4-6 hours and as needed multivitamin Tablet 1 tab PO QDAY ascorbic acid (vitamin C) [Vitamin C] 1,000 mg Tablet 1 g PO QAM cetirizine 10 mg Tablet 5 mg PO QHS acetaminophen [Acetaminophen Extra Strength] 500 mg Tablet 1,000 mg PO Q6H PRN (Reason: Pain) calcium carbonate [Calcium 600] 600 mg calcium (1,500 mg) Tablet 600 mg PO HS fluticasone propionate [Aller-Robbi] 50 mcg/actuation [place],Suspension 2 spray INTRANASAL PRN PRN (Reason: Allergy Symptoms) Rx Instructions: Each Nostril cinnamon bark [Cinnamon] 500 mg Capsule 500 mg PO QAM Rx Instructions: CinSulin cholecalciferol (vitamin D3) [Vitamin D3] 125 mcg (5,000 unit) Tablet 125 mcg PO QHS coQ10 (ubiquinol) 200 mg Capsule 200 mg PO QHS metolazone 5 mg tablet 5 mg PO QDAY Qty: 3 0RF losartan 25 mg tablet 25 mg PO QDAY No Action (DME) FreeStyle Hector 2 Sensor Kit See Rx Instructions .Route Qty: 1 0RF Rx Instructions: use to test blood sugar once daily (DME) FreeStyle Hector 2 [place] Misc See Rx Instructions .Route Qty: 1 0RF Rx Instructions: use to test blood sugar once daily (DME) Blood Glucose Test Strip See Rx Instructions .ROUTE .MEDSUPPLY Qty: 100 3RF Rx Instructions: use to test blood sugar once daily Follow Up Plan Follow up with: Adán Briones MD [Primary Care Provider] - Patient Disposition: Xfer SNF Prognosis: Serious Overall status at discharge: patient is not back to baseline Discharge Orders: Discharge Order (Routine); Ordered 01/01/23 Ordered By: Alberto Abel [facility] Deep Vein Thrombosis/Pulmonary Embolism Present on Admission: No
[2023-01-01] MEDS ORDERED: 0.9 % SODIUM CHLORIDE 10 ML SYRINGE IV SCH (14:00)
[2023-01-01] MEDS ORDERED: DOCUSATE SODIUM 100 MG CAPSULE PO SCH (21:00)
== END 2023-01-01 14:00 | DRG 871 ==
LOC: ED 10:22 → ICU 16:35 → MEDSUR 12-29 12:42 → ICU 12-31 11:43
PROVIDERS: ADMIT Student in an Organized Health Care Education/Training Program; ATTEND Internal Medicine